=== PATIENT | female | born 1960 ===

== ENCOUNTER 2020-05-05 13:44 | Outpatient (REF) | payer OTHER, SELFPAY ==
--- NOTE | ~2020-05-05 | US_ITS ---
EXAMINATION: US THYROID CLINICAL INFORMATION: Nontoxic goiter COMPARISON: None TECHNIQUE: Linear transducer grayscale and color Doppler examination with attention to the region of the thyroid. FINDINGS: SIZE: Measurements of the thyroid lobes and nodules are given in sagittal, anteroposterior and transverse dimensions respectively. Right Thyroid Lobe: 5.3 x 1.4 x 1.7 cm, volume 7 mL. Parenchyma: The gland echotexture is homogeneous. Thyroid vascularity is increased. Left Thyroid Lobe: 5 x 1.3 x 1.5 cm, volume 5 mL. Parenchyma: The gland echotexture is homogeneous. Thyroid vascularity is increased. Isthmus: 0.3 cm in maximum AP dimension. No nodule is seen. NODES: No lymphadenopathy is seen in the tissue surrounding the thyroid gland. US/US thyroid IMPRESSION: Normal size hypervascular thyroid gland. This is similar to previous exam from 2018. No nodule seen.
== END 2020-05-05 13:45 | disposition home or self-care (01) ==
LOC: HO.US 13:44
PROVIDERS: Visit Provider Internal Medicine
DX: E04.9 Nontoxic goiter, unspecified (principal)
CPT/HCPCS: 76536

== ENCOUNTER 2021-04-21 17:22 | Outpatient (REF) | payer OTHER, SELFPAY ==
--- NOTE | ~2021-04-21 | XR_ITS ---
EXAMINATION: XR ANKLE, RIGHT CLINICAL INFORMATION: Right ankle pain COMPARISON: None TECHNIQUE: AP, lateral, and mortise views of the right ankle. FINDINGS: Ankle mortise is preserved. No fracture. Soft tissue swelling superficial to the lateral malleolus. Degenerative spurring of the distal talus dorsally. Small heel spur and posterior calcaneal enthesophyte. XR/XR ankle RT min 3V IMPRESSION: Lateral soft tissue swelling. No fracture is demonstrated.
== END 2021-04-21 17:23 | disposition home or self-care (01) ==
LOC: HO.XRAY 17:22
PROVIDERS: Absent Provider Internal Medicine; PCP Internal Medicine; Visit Provider Internal Medicine
DX: M25.571 Pain in right ankle and joints of right foot (principal)
CPT/HCPCS: 73610

== ENCOUNTER 2021-09-30 08:03 | Outpatient (REF) | payer OTHER, SELFPAY ==
[2021-09-30 08:52] LABS: COVID-19 Test Negative (Negative); IDNOW Serial# 9DB6401D
== END 2021-09-30 08:04 | disposition home or self-care (01) ==
LOC: HO.LAB 08:03
PROVIDERS: Visit Provider Internal Medicine
DX: Z20.822 Contact with and (suspected) exposure to COVID-19 (principal)
CPT/HCPCS: 87635; C9803

== ENCOUNTER 2022-08-22 15:35 | Outpatient (REF) | payer OTHER, SELFPAY ==
--- NOTE | ~2022-08-22 | XR_ITS ---
EXAMINATION: XR CHEST CLINICAL INFORMATION: Acute cough. COMPARISON: None available. TECHNIQUE: 2 views of the chest were obtained. FINDINGS: Normal appearance of the cardiomediastinal silhouette. Mild diffuse interstitial thickening without focal airspace opacity. No pleural effusion or pneumothorax. No acute osseous abnormalities. Thoracic spondylosis. Included portions of the upper abdomen are within normal limits. XR/XR chest 2V IMPRESSION: Mild interstitial thickening which is nonspecific and could be associated with asthma, bronchitis, reactive airways disease or atypical infections. No focal infiltrate. Clear pleural spaces.
== END 2022-08-22 15:36 | disposition home or self-care (01) ==
LOC: HO.XRAY 15:35
PROVIDERS: PCP Internal Medicine; Visit Provider Internal Medicine
DX: R05.1 Acute cough (principal)
CPT/HCPCS: 71046

== ENCOUNTER 2022-10-10 18:29 | Outpatient (REF) | payer OTHER, SELFPAY ==
[2022-10-17 21:14] LABS: HPV mRNA E6/E7 rflx Not Detected (Not Detected)
== END 2022-10-10 18:30 | disposition home or self-care (01) ==
LOC: HO.HHCLNP 18:29
PROVIDERS: Visit Provider Internal Medicine
DX: Z12.4 Encounter for screening for malignant neoplasm of cervix (principal); Z11.51 Encounter for screening for human papillomavirus (HPV)
CPT/HCPCS: 87624; 88142

== ENCOUNTER 2023-06-01 16:01 | Outpatient (REF) | payer OTHER, SELFPAY | END 2023-06-01 16:02 | disposition home or self-care (01) | LOC: HO.LNP 16:01 | PROVIDERS: Visit Provider Internal Medicine | DX: R10.84 Generalized abdominal pain (principal) | CPT/HCPCS: 87338 ==

== ENCOUNTER 2023-07-17 08:09 | Outpatient (REF) | payer OTHER, SELFPAY ==
--- NOTE | ~2023-07-17 | CT_ITS ---
EXAMINATION: CT ABDOMEN AND PELVIS WITH CONTRAST CLINICAL INFORMATION: Persistent abdominal pain COMPARISON: 08/15/2017 TECHNIQUE: Multidetector volumetric images were obtained from the superior aspect of the liver through the pubic symphysis following administration 85 mL of Omnipaque 350 intravenous contrast. Sagittal and coronal reformatted images were obtained on the technologist's workstation. Oral contrast: No This CT examination was performed using dose optimization techniques as appropriate, variously including the following: *Automated exposure control *Adjustment of mA and/or kV according to patient size (this includes techniques or standardized protocols for targeted exams where dose is matched to indication/reason for exam; i.e. extremities or head) *Use of iterative reconstruction technique DLP: 293 mGy-cm FINDINGS: LUNG BASES: The visualized lung bases are unremarkable. LIVER, GALLBLADDER, AND BILIARY TREE: Hepatic steatosis. No focal hepatic lesion or intrahepatic biliary ductal dilatation. The gallbladder is unremarkable with no evidence of radiopaque gallstones, gallbladder wall thickening, or obvious pericholecystic inflammatory changes. PANCREAS: Unremarkable. SPLEEN: Unremarkable. ADRENAL GLANDS: Unremarkable. KIDNEYS AND URETERS: The kidneys are normal in size, shape, and attenuation. No hydronephrosis, hydroureter, or calculi seen. No perinephric stranding. BLADDER: Unremarkable. GASTROINTESTINAL TRACT: The small and large bowel are unremarkable. The appendix is unremarkable. ABDOMINAL WALL: No significant hernia is appreciated. LYMPH NODES: Normal. VASCULAR: Unremarkable. PELVIC VISCERA: The uterus and adnexa are unremarkable. OSSEOUS STRUCTURES: Unremarkable. CT/CT abdomen pelvis w IV con IMPRESSION: * No acute intra-abdominal abnormality. * Hepatic steatosis.
[2023-07-17] MEDS: iohexoL 350 MG/ML 100 ML INFUS..BTL IV (11:07)
[2023-07-17] MEDS: Barium Sulfate Oral (Vanilla) 450 ML ORAL.SUSP 900 ML PO (11:07)
[2023-07-18 10:55] LABS: Creatinine POC 0.9 mg/dL (0.5-1.4); GFR POC > 60
== END 2023-07-17 08:10 | disposition home or self-care (01) ==
LOC: HO.CT 08:09
PROVIDERS: PCP Internal Medicine; Visit Provider Internal Medicine
DX: R10.84 Generalized abdominal pain (principal)
CPT/HCPCS: 74177; 82565; Q9967

== ENCOUNTER 2023-07-24 08:11 | Outpatient (AMB) | payer OTHER, SELFPAY ==
--- NOTE | 2023-07-24 08:45 | A.OFFVIS_ITS ---
Vital Signs 07/24/23 08:49 Height 5 ft 3 in Weight 137 lb BMI 24.3 BP 138/81 Blood Pressure Location Lt brachial Position Sitting Pulse 65 Intake Visit Reasons: Colonoscopy Screening Intake Note: Patient new consult for 2nd pre colonoscopy. Patient cc: abdominal pain/bloating, denies any other GI issues. Intelligence Consultant Required: Yes Intelligence Consultant Name: Lubna [id number] Accompanied by: Self / Same As Patient Allergies No Known Allergies Allergy (Verified 07/24/23 08:44) HPI HPI Colonoscopy Screening: Details: 63 year old? female with past medical history of chronic left lower quadrant pain, costochondritis is here today for pre colonoscopy screening.? Patient was sent to us by her PCP.? Patient had colonoscopy in 2019, tubular adenoma found..? Patient denies any gastrointestinal symptoms in the past or at present.? However patient does report of chronic left lower quadrant pain. Sent for CT by her PCP. Done on July 16, awaiting results. Denies any family history of gastrointestinal disease or CRC.? Denies history of difficulty with sedation or anesthesia in the past.? Negative for history of sleep apnea.? Denies any history of cardiac, renal, pulmonary, or hepatic disease.?? No history of infectious? diseases like hepatitis A, B, C, HIV or tuberculosis.? Patient is not on any anticoagulation [facility] Social History (Updated 07/24/23 @ 08:47 by Guera Pritchard) Household Members: Family Alcohol intake: never Patient Tobacco Use Status: Current everyday Tobacco user Review of Systems Const Denies weight gain and Denies weight loss ENT Reports no additional complaints, Denies dysphagia and Denies odynophagia Card Reports no additional complaints Resp Reports no additional complaints GI Denies abdominal pain, Denies belching, Denies melena, Reports bloating, Denies change in bowel habits, Reports GI cramping (LLQ), Denies dysphagia, Denies excessive flatus, Denies dyspepsia, Denies heartburn, Denies diarrhea, Denies loose stools, Denies nausea, Denies odynophagia and Denies vomiting Reports no additional complaints Musc Reports no additional complaints Neuro Reports no additional complaints Psych Reports no additional complaints Endo Reports no additional complaints Physical Exam Vital Signs: Last Vital Signs Pulse 65 07/24/23 08:49 BP 138/81 07/24/23 08:49 BMI result Body Mass Index 24.3 Const General: healthy appearing, no acute distress and well developed Nutritional Appearance: well nourished Orientation/consciousness: patient oriented x3 Resp Effort & Inspection: normal respiratory effort, able to speak in complete sentences, no tracheal deviation and symmetric chest movement Auscultation: clear to auscultation bilaterally Cardio Rate: regular rate GI Inspection: Yes normal to inspection and No distended Palpation (GI): Soft to palpation, not firm, nontender and No hepatosplenomegaly present Auscultation: normal bowel sounds General: Yes no CVA tenderness Back/Spine/Pelvis Back: no CVA tenderness Skin General skin exam: elasticity normal, turgor normal and dry skin Neuro General: patient oriented x3 Psych Appearance: grossly normal Mental Status: mental status grossly normal Assessment & Plan Assessment & Plan (1) Screen for colon cancer: Code(s): Z12.11 - Encounter for screening for malignant neoplasm of colon (2) LLQ abdominal pain: Code(s): R10.32 - Left lower quadrant pain Plan Patient denies any cardiac or respiratory symptoms.? However patient does report occasional left lower quadrant discomfort. Awaiting results from CT scan. Denies any issues with anesthesia in the past.? Denies any history of sleep apnea.? No history infectious diseases in the past or present.? Not on any anticoagulation therapy.? No family or personal history of colon cancer or polyps.? Patient denies melena, hematochezia, unintentional weight loss or ribbon like stools.? Discussed at length the pre-procedure,? prep, diet & medications as well as what to expect prior, during and after the procedure.?? Stressed the importance of good bowel prep. ?Recommended the use of Vaseline or Calmoseptine OTC & baby wipes with bowel movements to promote comfort.? ?Patient verbalizes understanding and agrees to plan of care.? She was given the opportunity to ask questions and all questions answered.? We will see her after the procedure.? Medications: New bisacodyl (Dulcolax (bisacodyl)) take 4 tabs at noon the day before your colonoscopy 20 mg (4 x 5 mg) PO ONCE 1 day 4 tabs 0RF Z12.11 - Encounter for screening for malignant neoplasm of colon polyethylene glycol 3350 (Miralax) As directed by gastroenterology department at [facility] 238 grams PO ONCE 238 grams 0RF Z12.11 - Encounter for screening for malignant neoplasm of colon docusate sodium 100 mg PO BEDTIME 90 caps 3RF K59.00 - Constipation, unspecified Coding Level of Care Code New Pt Level 3 (59697) Diagnoses Screen for colon cancer Z12.11 LLQ abdominal pain R10.32 Time Spent (min) 45 Comment 30 minutes spent with patient and additional 15 minutes spent reviewing her records
[2023-07-24 08:49] VITALS: BP 138/81; PULSE 65; BMI 24.3
== END 2023-07-24 09:33 | disposition home or self-care (01) ==
PROVIDERS: PCP Internal Medicine; Referring Provider Internal Medicine; Visit Provider Nurse Practitioner Family
DX: Z12.11 Encounter for screening for malignant neoplasm of colon (principal); R10.32 Left lower quadrant pain; Z01.818 Encounter for other preprocedural examination
CPT/HCPCS: 99203

== ENCOUNTER → 2023-07-24 08:11 | Outpatient (BNVA) | payer OTHER, SELFPAY | PROVIDERS: PCP Internal Medicine; Visit Provider Nurse Practitioner Family | DX: Z01.818 Encounter for other preprocedural examination (principal); R10.32 Left lower quadrant pain; Z86.010 Personal history of colon polyps | CPT/HCPCS: 99202 ==

== ENCOUNTER → 2023-10-08 08:45 | Outpatient (BNV) | payer OTHER, SELFPAY | PROVIDERS: PCP Internal Medicine; Visit Provider Radiology Diagnostic Radiology | DX: Z12.31 Encounter for screening mammogram for malignant neoplasm of breast (principal) | CPT/HCPCS: 77063; 77067 ==

== ENCOUNTER 2023-10-08 08:48 | Outpatient (REF) | payer OTHER, SELFPAY | END 2023-10-08 08:49 | disposition home or self-care (01) | LOC: HO.MAMMO 08:48 | PROVIDERS: PCP Internal Medicine; Visit Provider Internal Medicine | DX: Z12.31 Encounter for screening mammogram for malignant neoplasm of breast (principal) | CPT/HCPCS: 77063; 77067 ==

== ENCOUNTER 2023-10-31 07:56 | Outpatient (AMB) | payer OTHER, SELFPAY ==
--- NOTE | 2023-10-31 08:04 | A.OFFVIS_ITS ---
Vital Signs 10/31/23 08:18 Height 5 ft 3 in Weight 134 lb BMI 23.7 BP 135/77 Blood Pressure Location Lt brachial Position Sitting Pulse 65 Intake Visit Reasons: 5 week follow up PT N/S last appt Intake Note: Patient follow up for LLQ pain Patient cc: LLQ pain on and off. Denies any other GI issues. Regional Clinical Director Required: Yes Regional Clinical Director Name: Lizbeth Montilla Accompanied by: Self / Same As Patient Allergies No Known Allergies Allergy (Verified 10/31/23 08:04) HPI HPI 5 week follow up PT N/S last appt: Details: LAST VISIT: Screen for colon cancer LLQ abdominal pain Plan Patient denies any cardiac or respiratory symptoms.? However patient does report occasional left lower quadrant discomfort. Awaiting results from CT scan. Denies any issues with anesthesia in the past.? Denies any history of sleep apnea.? No history infectious diseases in the past or present.? Not on any anticoagulation therapy.? No family or personal history of colon cancer or polyps.? Patient denies melena, hematochezia, unintentional weight loss or ribbon like stools.? Discussed at length the pre-procedure,? prep, diet & medications as well as what to expect prior, during and after the procedure.?? Stressed the importance of good bowel prep. ?Recommended the use of Vaseline or Calmoseptine OTC & baby wipes with bowel movements to promote comfort.? ?Patient verbalizes understanding and agrees to plan of care.? She was given the opportunity to ask questions and all questions answered.? We will see her after the procedure.? Medications New bisacodyl (Dulcolax (bisacodyl)) take 4 tabs at noon the day before your colonoscopy 20 mg (4 x 5 mg) PO ONCE 1 day 4 tabs 0RF Z12.11 polyethylene glycol 3350 (Miralax) As directed by gastroenterology department at [facility] 238 grams PO ONCE 238 grams 0RF Z12.11 docusate sodium 100 mg PO BEDTIME 90 caps 3RF K59.00 TODAY'S VISIT: Patient is here today for follow-up. Patient reports that she continues to have a left upper quadrant pain. Pain worse when patient is bending over. Patient feels like bulge in the left upper quadrant. CT scan results discussed with patient. No acute findings in the abdomen suggesting any issues. Patient does reports to feel bloated postprandially. Continues to have bowel movements only every 3-4 days. Patient never got script for Colace. Patient has colonoscopy scheduled in November. Instructions on how to prep and clear liquid diet at home. Patient has no questions regarding prepping today. Patient denies any melena, hematochezia. Denies any dyspepsia, dysphagia or odynophagia. Hepatic steatosis found on CT scan. History elevated liver enzymes. [facility] Social History Household Members: Family Alcohol intake: never Patient Tobacco Use Status: Current everyday Tobacco user Review of Systems Const Denies weight gain and Denies weight loss ENT Reports no additional complaints, Denies dysphagia and Denies odynophagia Card Reports no additional complaints Resp Reports no additional complaints GI Denies abdominal pain, Denies belching, Denies melena, Reports bloating, Denies change in bowel habits, Reports constipation, Reports GI cramping (LLQ), Denies dysphagia, Denies excessive flatus, Denies dyspepsia, Denies heartburn, Denies diarrhea, Denies loose stools, Denies nausea, Denies odynophagia and Denies vomiting Reports no additional complaints Musc Reports no additional complaints Neuro Reports no additional complaints Psych Reports no additional complaints Endo Reports no additional complaints Physical Exam Vital Signs: Last Vital Signs Pulse 65 10/31/23 08:18 BP 135/77 10/31/23 08:18 BMI result Body Mass Index 23.7 Const General: healthy appearing, no acute distress and well developed Nutritional Appearance: well nourished Orientation/consciousness: patient oriented x3 Resp Effort & Inspection: normal respiratory effort, able to speak in complete sentences, no tracheal deviation and symmetric chest movement Auscultation: clear to auscultation bilaterally Cardio Rate: regular rate GI Inspection: Yes normal to inspection and No distended Palpation (GI): Soft to palpation, not firm, nontender and No hepatosplenomegaly present Auscultation: Hyperactive bowel sounds present General: Yes no CVA tenderness Back/Spine/Pelvis Back: no CVA tenderness Skin General skin exam: elasticity normal, turgor normal and dry skin Neuro General: patient oriented x3 Psych Appearance: grossly normal Mental Status: mental status grossly normal Results Reviewed Results Reviewed: ABDOMINAL CT SCAN FINDINGS: LUNG BASES: The visualized lung bases are unremarkable. LIVER, GALLBLADDER, AND BILIARY TREE: Hepatic steatosis. No focal hepatic lesion or intrahepatic biliary ductal dilatation. The gallbladder is unremarkable with no evidence of radiopaque gallstones, gallbladder wall thickening, or obvious pericholecystic inflammatory changes. PANCREAS: Unremarkable. SPLEEN: Unremarkable. ADRENAL GLANDS: Unremarkable. KIDNEYS AND URETERS: The kidneys are normal in size, shape, and attenuation. No hydronephrosis, hydroureter, or calculi seen. No perinephric stranding. BLADDER: Unremarkable. GASTROINTESTINAL TRACT: The small and large bowel are unremarkable. The appendix is unremarkable. ABDOMINAL WALL: No significant hernia is appreciated. LYMPH NODES: Normal. VASCULAR: Unremarkable. PELVIC VISCERA: The uterus and adnexa are unremarkable. OSSEOUS STRUCTURES: Unremarkable. CT/CT abdomen pelvis w IV con IMPRESSION: * No acute intra-abdominal abnormality. * Hepatic steatosis. Assessment & Plan Assessment & Plan (1) Screen for colon cancer: Code(s): Z12.11 - Encounter for screening for malignant neoplasm of colon (2) LLQ abdominal pain: Code(s): R10.32 - Left lower quadrant pain (3) Constipation: Code(s): K59.00 - Constipation, unspecified Qualifiers: Constipation type: slow transit constipation Qualified Code(s): K59.01 - Slow transit constipation (4) Abdominal pain, LUQ (left upper quadrant): Code(s): R10.12 - Left upper quadrant pain Plan Increase fluid intake and activity to promote bowel motility. Low FODMAP diet discussed with patient. Exam negative for any tenderness or rebound tenderness. Patient's bowel sounds are hyperactive. Patient does admit to be very gassy. Will send her script for senna to help her move her bowels better. Reminded patient about the importance of good bowel prep day before procedure as well as clear liquid diet. Patient will be seen after the procedure, sooner on as needed basis. Patient is agreeable to this plan and verbalizes understanding of instructions. She was given the opportunity to ask questions and all questions answered. Thank you for allowing me to participate in her care Medications: New sennosides (Natural Senna Laxative) 17.2 mg (2 x 8.6 mg) PO BEDTIME 60 tabs 1RF constipation K59.00 - Constipation, unspecified Coding Level of Care Code Est Pt Level 3 (80915) Diagnoses Screen for colon cancer Z12.11 LLQ abdominal pain R10.32 Slow transit constipation K59.01 Constipation type: slow transit constipation Abdominal pain, LUQ (left upper quadrant) R10.12 Time Spent (min) 25 Comment 15 minutes spent with patient and additional 10 minutes spent reviewing her records
[2023-10-31 08:18] VITALS: BP 135/77; PULSE 65; BMI 23.7
== END 2023-10-31 09:23 | disposition home or self-care (01) ==
PROVIDERS: PCP Internal Medicine; Referring Provider Internal Medicine; Visit Provider Nurse Practitioner Family
DX: Z12.11 Encounter for screening for malignant neoplasm of colon (principal); R10.32 Left lower quadrant pain; K59.01 Slow transit constipation; R10.12 Left upper quadrant pain; Z01.818 Encounter for other preprocedural examination
CPT/HCPCS: 99213

== ENCOUNTER → 2023-10-31 07:56 | Outpatient (BNVA) | payer OTHER, SELFPAY | PROVIDERS: PCP Internal Medicine; Visit Provider Nurse Practitioner Family | DX: Z01.818 Encounter for other preprocedural examination (principal); K59.01 Slow transit constipation; R10.32 Left lower quadrant pain; R10.12 Left upper quadrant pain | CPT/HCPCS: 99212 ==

== ENCOUNTER 2024-08-26 14:01 | Outpatient (REF) | payer OTHER, SELFPAY ==
--- NOTE | ~2024-08-26 | XR_ITS ---
EXAMINATION: XR CERVICAL SPINE CLINICAL INFORMATION: PAIN COMPARISON: None available. TECHNIQUE: 3 views of the cervical spine were obtained. FINDINGS: There is a mild levoconvex scoliosis. There is mild straightening of the normal lordosis. There is no subluxation. There are no fractures, compression deformities, or suspicious bone lesions. No evidence of traumatic subluxation. C1-2 articulation and craniocervical junction are intact and aligned. Mild disc degeneration present C4-5, C5-6, and C6-7. Normal facet alignment bilaterally. Mild multilevel degenerative facet changes. No prevertebral or paravertebral soft tissue abnormality. XR/XR cervical spine 3V IMPRESSION: 1. No plain film evidence of acute cervical spine fracture or injury. 2. Mild degenerative spondylosis. Electronically signed by: Niall Damon MD 08/26/2024 02:38 PM EDT
--- OUTSIDE RECORDS SUMMARY | 2024-08-26 16:45 | XMS_ITS | Patient Health Record ---
Author Organization [facility] Address [address] [place] [phone] Care Team Providers Care Cigar Packer And Sorter Name Role Phone Melonie Bennett Primary Care Provider Geoffrey King Jr Unavailable [phone] Reason For Referral No Information Medications Medication SIG (Take, Route, Frequency, Duration) Notes Start Date End Date Status Lotrisone 1-0.05 % 1 application to aff ected area Externally Twice a day Active Colyte with Flavor Packs 240 GM As directed Orally Over the specified time. for 1 day(s) Active Social History Tobacco Use: Social History Observation Description Date Details (start date - stop date) Current Smoker NA - NA Tobacco Use/Smoking Question Answer Notes Patient is a current smoker How often do you smoke cigarettes? every day How many cigarettes a day do you smoke? 5 or les s How soon after you wake up d o you smoke your first cigarette? 31-60 minutes Are you interested in quitting? Thinking about q uitting Alcohol Screen Question Answer Notes Did you have a drink contain ing alcohol in the past year? Yes How often did you have a dri nk containing alcohol in the past year? Monthly or less (1 point) How many drinks did you have on a typical day when you were drinking in the past year? 1 or 2 drinks (0 point) How often did you have 6 or more drinks on one occasion in the past year? Never (0 point) Points 1 Interpretation Negative Problems Problem Type SNOMED Code ICD Code Onset Dates Problem Status W/U Status Risk Notes Problem [id number] Colon cancer screening (Z12.11) Active confirmed Encounters Encounter Location Date Provider Diagnosis [facility] [address] [place] [phone] 09/11/2023 Geoffrey Khan Jr Plan Of Treatment Future Test Test Name Order Date COLONOSCOPY 01/03/2018 Insurance Providers Payer Name Payer Address Payer Phone Subscriber Number Group Number Insured Name Patient Relationship to Insured Coverage Start Date Coverage End Date [facility] [address] [place] [address] [id number] FERNIE VALDEZ Self - patient is the insured Medical (General) History Medical History History ICD Code Denies [place],DM,CVA,Lung disease,renal dise ase Surgical History Surgery Date(Month/Year) eye surgery-left
== END 2024-08-26 14:02 | disposition home or self-care (01) ==
LOC: HO.HHCX 14:01
PROVIDERS: Visit Provider Student in an Organized Health Care Education/Training Program
DX: M54.2 Cervicalgia (principal)
CPT/HCPCS: 72040

== ENCOUNTER → 2024-08-26 14:02 | Outpatient (BNV) | payer OTHER, SELFPAY | PROVIDERS: Visit Provider Radiology Diagnostic Radiology | DX: M50.322 Other cervical disc degeneration at C5-C6 level (principal) | CPT/HCPCS: 72040 ==

== ENCOUNTER 2024-08-31 19:15 | Outpatient (REF) | payer OTHER, SELFPAY ==
--- NOTE | ~2024-08-31 | MR_ITS ---
CLINICAL HISTORY: ongoing feliz neck pain ongoing, numbness sensation MR Brain without intravenous contrast Comparison: None available Findings: No restricted diffusion acute brain infarction. Multiple sequences degraded by patient motion artifacts. Moderate white matter pathology is nonspecific and may represent a combination of small-vessel ischemic disease and manifestations of vascular type (migraines) headaches. Multiple white matter lesions include the imaged chris/brainstem at this time. Bilateral basal ganglia mineralization nonspecific in this noncontrast study. No definite intra-axial mass or mass-effect defined by noncontrast imaging. Metal artifacts from mouth. Indeterminate cystic change of the anterior pole of the left temporal lobe measures 6 mm on image 13 of series 6 and image 13 of series 16. Large perivascular space is favored by imaging at this time. Additional perivascular spaces are multifocal including basal ganglia regions and para hippocampal sulcal remnants. Fluid and mucosal thickening of the paranasal sinuses are multifocal and can be associated with sinusitis. Bilateral utvas-jh-oqybdrav mastoid effusions, right worse than left. Motion is noted about the imaged orbits. No retrobulbar mass in either orbit by noncontrast imaging. IMPRESSION: 1. Moderate white matter lesions are non acute and nonspecific, including imaged brainstem. Differential considerations include a combination of the small-vessel ischemic disease and manifestations of the vascular type (migraines) headaches. 2. No restricted diffusion acute brain infarction. 3. No retrobulbar mass in either imaged orbit by noncontrast imaging. This document has been electronically signed by: Kareem Varner MD on 08/31/2024 22:20:14
--- NOTE | ~2024-08-31 | XR_ITS ---
CLINICAL HISTORY: R O metallic foreign body in eyes or ferrous surgical implant. --- Additional Notes or Special Instructions: Pt had eye surgery in [place] for pain. Not sure if there was an implant. Two views of the orbits Comparison: None available Findings: Opacity superior to the right frontal sinus is nonspecific in the frontal radiographs. No correlate redemonstrated in the lateral image. Metal of the mouth is present. No definite metallic opacity within either imaged orbit. Imaged nasal septum deviates to the right. Imaged paranasal sinuses are well aerated by radiographs. Imaged mastoid air cells are unremarkable for technique. No definite acute displaced fracture by radiographs at this time. IMPRESSION: 1. Opacities nonspecific superior to the frontal sinus on the frontal image and may be posteriorly in the mfpia-du-gdfg on the lateral image. Please consider CT in place of the potential MRI. Please also consider additional and more sensitive screening with head CT for inclusion of the entire calvarium and additional characterization of the opacity noted. 2. Metal of the mouth present. 3. No metal defined in either imaged orbit by radiographs. This document has been electronically signed by: Kareem Varner MD on 08/31/2024 20:26:19
--- OUTSIDE RECORDS SUMMARY | 2024-08-31 19:35 | XMS_ITS | Patient Health Record ---
Author Organization [facility] Address [address] [place] [id number] Care Team Providers Care Pot Operator Name Role Phone Melonie Bennett Primary Care Provider Geoffrey King Jr Unavailable Reason For Referral No Information Medications Medication [...] Problem Status W/U Status Risk Notes Problem [id number] Colon cancer screening (Z12.11) Active confirmed Encounters Encounter Location Date Provider Diagnosis [facility] [address] [place] [id number] 09/11/2023 Geoffrey Khan Jr Plan Of Treatment Future Test Test Name Order Date COLONOSCOPY 01/03/2018 Insurance Providers Payer Name Payer Address Payer Phone Subscriber Number Group Number Insured Name Patient Relationship to Insured Coverage Start Date Coverage End Date [facility] [address] [place] [address] [id number] FERNIE VALDEZ Self - patient is the insured Medical (General) History Medical History History ICD Code Denies PA,DM,CVA,Lung disease,renal dise ase Surgical History Surgery Date(Month/Year) eye surgery-left
== END 2024-08-31 19:16 | disposition home or self-care (01) ==
LOC: HO.MRI 19:15
PROVIDERS: Visit Provider Student in an Organized Health Care Education/Training Program
DX: R51.9 Headache, unspecified (principal); R20.0 Anesthesia of skin; R20.2 Paresthesia of skin
CPT/HCPCS: 70551

== ENCOUNTER → 2024-08-31 20:35 | Outpatient (BNV) | payer OTHER, SELFPAY | PROVIDERS: Visit Provider Radiology Neuroradiology | DX: R90.82 White matter disease, unspecified (principal) | CPT/HCPCS: 70551 ==

== ENCOUNTER 2024-09-27 10:58 | Emergency (ER) | payer OTHER, SELFPAY ==
--- NOTE | ~2024-09-27 | CT_ITS ---
CLINICAL HISTORY: paresthesias and dizziness since 7pm last night --- Additional Notes or Special Instructions: NIH scale 0 CT head without contrast Comparison: None provided Findings: No intra-axial mass, midline shift, hydrocephalus, or acute hemorrhage. No loss of cortical adler-white differentiation. Minimal low attenuation in the periventricular and subcortical white matter consistent with chronic small-vessel ischemic gliosis. No significant atrophy. No enlargement of the ventricles. There is no sinus or mastoid fluid. The orbits are unremarkable. No skull fracture. IMPRESSION: 1. No acute intracranial findings. This document has been electronically signed by: Ananth Herrera MD on 09/27/2024 12:05:18
[2024-09-27 11:08] VITALS: BP 148/77; PULSE 86; RESP 18; TEMP 37; O2SAT 98; BMI 20.4
--- NOTE | 2024-09-27 11:13 | ED_ITS ---
HPI - Neuro Symptoms/Deficit General Chief Complaint: Neuro Symptoms/Deficit Stated Complaint: facial numbness, CLARK Time Seen by Provider: 09/27/24 12:17 Source: patient, RN notes reviewed, old records reviewed and diplomatic interpreter/translator Mode of arrival: ambulatory Limitations: language barrier History of Present Illness ED Provider: Thomas HPI Narrative: 64-year-old female who denies past medical history presents for evaluation of a headache and numbness around her mouth. She reports this has been going on for about 1 month She had a brain MRI on 08/31/2024 that showed moderate white matter lesions that are nonacute and nonspecific. Recommended consideration of small-vessel ischemic disease and manifestation of vascular type headache The patient reports a posterior headache and numbness around her mouth currently. Denies any difficulty with speech, weakness. Denies any visual changes, lightheadedness or dizziness She also reports pain to the left side of her jaw She reports that she has an outpatient Neurology follow up next month Related Data Previous Rx's ?Medication ?Instructions ?Recorded bisacodyl 5 mg tablet,delayed 20 mg (4 x 5 mg) PO ONCE 1 day #4 07/24/23 release (Dulcolax (bisacodyl)) tabs docusate sodium 100 mg capsule 100 mg PO BEDTIME #90 c aps 07/24/23 polyethylene glycol 3350 17 238 g PO ONCE #238 grams 0 07/24/23 gram/dose oral powder (Miralax) sennosides 8.6 mg tablet (Natural 17.2 mg (2 x 8.6 mg) PO BEDTIME 10/31/23 Senna Laxative) constipation #60 tabs bruyqmdnip-anpyregnaaopz-icxecpxx 1 cap PO Q4H PRN hea dache #16 caps 09/27/24 50 mg-300 mg-40 mg capsule (Fioricet) Allergies Allergy/AdvReac Type Severity Reaction Status Date / Time No Known Allergies Allergy Verified 09/27/24 11:09 Review of Systems 2 Constitutional: Constitutional: Denies body ache(s), Denies chills, Denies fever(s) and Reports headache(s) Eyes: Eyes: Denies blurry vision, Denies exophthalmos and Denies irritation ENT: Denies vertigo, Denies dizziness and Reports headache(s) Cardiovascular: Cardiovascular: Denies chest pain and Denies dyspnea on exertion Respiratory: Respiratory: Denies cough and Denies dyspnea on exertion Gastrointestinal: Gastrointestinal: Denies abdominal pain, Denies nausea and Denies vomiting Musculoskeletal: Musculoskeletal: Denies back pain Neurologic: Denies Abnormal speech present, Denies confusion, Denies vertigo, Denies dizziness and Reports headache(s) Psychiatric: Psychiatric: Denies confusion and Denies depression PMFSH Past Medical History Medical History (Updated 09/27/24 @ 15:12 by Lemuel Guzman) Left upper quadrant abdominal pain Hepatic steatosis Surgical History (Updated 12/04/23 @ 10:30 by Liliana Rodgers RN) H/O colonoscopy Social History Social History Household Members: Family Alcohol intake: never Patient Tobacco Use Status: Current everyday Tobacco user Smoked in Last 30 Days: Yes Use of substances other than those prescribed or required for medical reasons: No Advance Directives: No Advance Directives Information Provided: Yes Physical Exam 2 Vital Signs: Vital Signs: Last Vital Signs Temp 98.1 F 09/27/24 15:38 Pulse 54 09/27/24 15:38 Resp 16 09/27/24 15:38 BP 127/65 09/27/24 15:38 Pulse Ox 97 09/27/24 15:38 O2 Del Method Room Air 09/27/24 15:38 BMI result Body Mass Index 20.4 Const: General: No confusion Nutritional Appearance: well nourished O rientation/consciousness: patient oriented x3 and No confusion HEENT: Head: Yes normocephalic and Yes atraumatic Eyes: Eyelids: Yes eyelids normal Conjunctivae: conjunctivae normal S clerae: sclerae normal Corneas: corneas normal Pupils: Equal, round and reactive pupils present EOM: EOMs intact bilaterally Neck: Neck: Yes full ROM Resp: Effort & Inspection: normal respiratory effort, able to speak in complete sentences and not labored GI: Inspection: No distended Palpation (GI): Soft to palpation, not firm, nontender, no guarding and not rigid Skin: General skin exam: elasticity normal Neuro: General: patient oriented x3 and No confusion Cranial nerves: Yes CN's II-XII intact bilaterally, Yes Facial sensation intact/muscles of mastication intact, Yes Equal, round and reactive pupils present, Yes Bilaterally intact EOM present, Yes Normal facial strength present, Yes Midline tongue present and Yes Symmetric palate elevation present Cognition (Neuro): normal cognition Speech: No Abnormal speech present Motor exam (neuro): 5 /5 motor strength present throughout, no tremor noted and no asterixis C oordination: snrvtz-uy-uxhx test normal and tqog-pt-litd test normal Course Course Course Narrative: This is a rapid medical exam we will defer full ROS and comprehensive PE to receiving provider. Deisichon SawyerPhong, 11:20, 09/27/2024 Well-appearing 64-year-old female presenting with paresthesias of her mouth left-sided only radiating to her ear. She has a right-sided headache that is dull ache in nature not the worst she has ever had since 19:00 last night. Similar presentation 3 weeks ago seen in an outpatient at the [facility] center she was sent for a brain MRI as well as orbital x-rays which did not show any acute brain infarctions. IMPRESSION: 1. Moderate white matter lesions are non acute and nonspecific, including imaged brainstem. Differential considerations include a combination of the small-vessel ischemic disease and manifestations of the vascular type (migraines) headaches. 2. No restricted diffusion acute brain infarction. 3. No retrobulbar mass in either imaged orbit by noncontrast imaging. This document has been electronically signed by: Kareem Varner MD on 08/31/2024 22:20:14 Neuro exam is nonfocal NIH scale of 0, left-sided jaw TTP but no obvious soft tissue swelling of the mouth the throat neck or ears. She does have bilateral serous chronic appearing a when head movement makes the headache a little bit worse. No paresthesias or weakness of the limbs. This is not seem consistent with a cerebellar stroke at this time could be early Luis Carlos Sommer versus shingles but would not explain the dizziness stroke workup given but no code Conley called as she is in the waiting room CTA not ordered nor that be indicated with the NIH scale is 0. No symptoms but UA ordered any ways Medications Administered Discontinued Medications Generic Name Dose Route Start Last Admin Trade Name Freq PRN Reason Stop Dose Admin Diphenhydramine HCl 25 mg 09/27/24 12:36 09/27/24 13:03 Diphenhydramine Hcl 50 Mg/Ml Vial IVPUSH 09/27/24 12:37 25 mg ONCE ONE Administration Ketorolac Tromethamine 15 mg 09/27/24 12:36 09/27/24 13:02 Ketorolac Tromethamine 15 Mg/Ml Vial IVPUSH 09/27/24 12:37 15 mg ONCE ONE Administration Metoclopramide HCl 10 mg 09/27/24 12:36 09/27/24 13:02 Metoclopramide Hcl 10 Mg/2 Ml Vial IVPUSH 09/27/24 12:37 10 mg ONCE ONE Administration Medical Decision Making Medical Decision Making [facility] Narrative: 64-year-old female presents for evaluation of headache, dizziness and numbness around her mouth. This has been ongoing for about 1 month, she did have an MRI about 1 month ago. She had a CT scan of the brain ordered in triage that did not show any acute findings. Given the clinical presentation and recent workup, I I have a low suspicion for CVA or TIA. The patient has no history of hypertension, diabetes, hyperlipidemia. NIH stroke score is 0. We will try to treat her symptoms as a complex migraine with Toradol, Reglan and Benadryl and re-evaluate. Differential Diagnosis Differential Diagnoses: The differential diagnosis associated with the presentation includes Complex migraine TMJ CVA TIA less likely Lab Data [facility] Lab Attestation statement: I reviewed the patient's lab results. Mild leukocytosis to 13.9 which appears consistent with the patient's baseline. There has a mild anemia with a hemoglobin of 11.2 and a hematocrit 4. Unclear etiology. There was no evidence of GI bleed. Chemistries without concerning abnormalities. The patient's glucose is normal at 102. 09/27/24 11:39 09/27/24 11:39 Labs: Lab Results 09/27/24 09/27/24 09/27/24 Range/Units 11:39 12:04 12:07 WBC 13.9 H (4.8-10.8) X10*3/uL RBC 3.83 L (4.20-5.50) X10*6/uL Hgb 11.2 L (12.0-16.0) g/dl Hct 33.4 L (37.0-47.0) % MCV 87.2 (80.0-98.0) fL MCH 29.2 (27.0-33.0) pg MCHC 33.5 (31.0-35.0) g/dl RDW 14.0 (11.0-16.0) % Plt Count 494 H (160-400) X10*3/uL MPV 9.2 L (9.4-12.3) fL Immature Gran % (Auto) 0.4 (0.0-0.4) % Neut % (Auto) 67.3 (45-73) % Lymph % (Auto) 26.1 (20-40) % Griggs % (Auto) 5.2 (2-11) % Eos % (Auto) 0.6 (0-4) % Baso % (Auto) 0.4 (0-2) % Lymph # (Auto) 3.6 (1.2-4.9) X10*3/uL Griggs # (Auto) 0.7 (0.1-1.2) X10*3/uL Eos # (Auto) 0.1 (0.0-0.4) X10*3/uL Baso # (Auto) 0.1 (0.0-0.2) X10*3/uL Abs Immat Gran (auto) 0.06 H (0.00-0.03) X10*3/uL Absolute Neuts (auto) 9.4 H (2.0-8.3) x10*3/uL Absolute Nucleated RBC 0.000 (0.0-0.012) X10*3/uL Nucleated RBC % (auto) 0.0 (0.0-0.2) /100WBC PT 11.0 (10.9-12.4) SEC Whole Blood PT 12.7 (11.1-13.5) sec INR 1.0 (0.9-1.1) Whole Blood INR 1.1 (0.9-1.1) APTT 34.9 (26.0-36.8) SEC Sodium 138 (135-145) mmol/L Potassium 3.9 (3.3-5.1) mmol/L Chloride 106 (96-108) mmol/L Carbon Dioxide 25 (22-29) mmol/L Anion Gap 11 L (12-20) BUN 11 (9-16) mg/dL Creatinine 0.72 (0.5-1.4) mg/dL Estim Creat Clear Calc 69.4 Estimated GFR > 60 POC Glucose 102 (60-115) mg/dL Random Glucose 101 (60-115) mg/dL Calcium 9.0 (8.4-10.2) mg/dL Troponin I High Sens < 2.7 (<3.5-17.0) ng/L Discharge Plan Discharge Clinical Impression: Acute headache Patient Disposition: Home, Self-Care Instructions: Acute Headache (ED) Additional Instructions: Your workup in the ER today was reassuring. I do recommend that you follow up with Neurology next month as planned. You may use Fioricet as needed for any further headaches Follow up with your primary doctor, return for new or worsening symptoms Prescriptions: New qpcjtwotts-xgxbuwyuwjnff-yqvd [Fioricet] 50-300-40 mg capsule 1 cap PO Q4H PRN (Reason: headache) Qty: 16 0RF No Action docusate sodium 100 mg capsule 100 mg PO BEDTIME Qty: 90 3RF bisacodyl [Dulcolax (bisacodyl)] 5 mg tablet,delayed release (DR/EC) 20 mg PO ONCE 1 Days Qty: 4 0RF Rx Instructions: take 4 tabs at noon the day before your colonoscopy polyethylene glycol 3350 [Miralax] 17 gram/dose powder 238 g PO ONCE Qty: 238 0RF Rx Instructions: As directed by gastroenterology department at [facility] sennosides [Natural Senna Laxative] 8.6 mg tablet 17.2 mg PO BEDTIME Qty: 60 1RF Interventions: ED Discharge Assessment Last Done: 09/27/24 15:38 Discharge Date/Time: 09/27/24 15:38 Print Language: Persian
--- NOTE | 2024-09-27 11:19 | ECG_ITS ---
Test Reason : NUMBNESS Blood Pressure : */* mmHG Vent. Rate : 66 BPM Atrial Rate : 66 BPM P-R Int : 132 ms QRS Dur : 78 ms QT Int : 392 ms P-R-T Axes : 64 39 42 degrees QTcB Int : 410 ms Normal sinus rhythm Possible Left atrial enlargement Borderline ECG No previous ECGs available Referred By: Deisi Sawyer Electronically Signed By: Jorge L Paz
[2024-09-27 11:44] LABS: MANUAL DIFF FLAG NO
--- OUTSIDE RECORDS SUMMARY | 2024-09-27 11:44 | XMS_ITS | Encounter Summary ---
Author Organization [employer] [facility] Address [address] [place] [address] Care Team Providers Care Pattern Grader Supervisor Name Role Phone Guera Menjivar MD Primary Care Provide r Encounter Details Date Type Department Care Team (Late st Contact Info) Description 02/13/2023 Abstract [facility] [address] [place] [address] Radha Clarke Social History Tobacco Use Types Packs/Day Years Used Date Smoking Tobacco: Every Day Cigarettes Passive Smoke Exposure: Current Smokeless Tobacco: Never Comments:4-5 Daily Alcohol Use Standard Drinks/Week Comments Never 0 (1 standard drink = 0.6 oz pur e alcohol) Depression Answer Date Recorded Patient Health Questionnaire-9 Score 0 08/22/2022 Housing Stability Answer Date Recorded What is your housing situation today? I have nikolay alcala 01/15/[address] you li ve. Do you have problems with any of the following? None of the above 01/15/2023 Food Insecurity Answer Date Recorded Within the past 12 months, y ou worried that your food would run out before you got money to buy more: Never True 01/15/2023 Within the past 12 months,th e food you bought just didn't last and you didn't have enough money to get more: Never True Transportation Answer Date Recorded In the past 12 months, has l ack of transportation kept you from medical appts, meetings, work or from getting things needed for daily living? No 01/15/2023 Utilities Answer Date Recorded In the past 12 months, has t he electric, gas, oil or water company threatened to shut off services in your home? No 01/15/2023 Depression Answer Date Recorded Patient Health Questionnaire-2 Score 0 08/22/2022 Comments Unknown Sex and Gender Information Value Date Recorded Sex Assigned at Female 01/16/2022 10:32 AM EDT Legal Sex Female 10:32 AM EDT Gender Identity Female 01/16/2022 10:32 AM EDT Sexual Orientation Choose not to disclose 2021 10:32 AM EDT documented as of this encounter Plan of Treatment Upcoming Encounters Date Type Department Care Team (Late st Contact Info) Description 10/06/2024 2:45 PM EDT Office Visit [facility] [address] [place] [address] Guera Menjivar MD [address] [place] [address] documented as of this encounter Visit Diagnoses Not on filedocumented in this encounter Additional Health Concerns Assessment Noted Time PHQ-9 Depression Total Score: 0 08/23/19 23 2:00 PM EDT documented as of this encounter Care Teams Pattern Grader Supervisor Relationship Specialty Start Date End Date Guera Menjivar MD [address] [place] [id number] PCP - General Family Medicine 12/15/19 documented as of this encounter
[2024-09-27 11:45] LABS: Hematocrit 33.4 % (37.0-47.0); Hemoglobin 11.2 g/dl (12.0-16.0); Imm Gran Abs Auto 0.06 X10*3/uL (0.00-0.03); Imm Gran Pct Auto 0.4 % (0.0-0.4); Lymphocytes Absolute Auto 3.6 X10*3/uL (1.2-4.9); Mean Corpuscular HGB Conc 33.5 g/dl (31.0-35.0); Mean Corpuscular Hemoglobin 29.2 pg (27.0-33.0); Mean Corpuscular Volume 87.2 fL (80.0-98.0); NRBC Abs Auto 0.000 X10*3/uL (0.0-0.012); NRBC Pct Auto 0.0 /100WBC (0.0-0.2); Platelet Count 494 X10*3/uL (160-400); Red Blood Count 3.83 X10*6/uL (4.20-5.50); White Blood Count 13.9 X10*3/uL (4.8-10.8)
[2024-09-27 11:54] LABS: INTERNATIONAL NORM RATIO 1.0 (0.9-1.1); Prothrombin Time 11.0 SEC (10.9-12.4)
[2024-09-27 11:56] LABS: Partial Thromboplastin Time 34.9 SEC (26.0-36.8)
[2024-09-27 12:06] LABS: Anion Gap 11 (12-20); Blood Urea Nitrogen 11 mg/dL (9-16); Calcium 9.0 mg/dL (8.4-10.2); Carbon Dioxide 25 mmol/L (22-29); Chloride 106 mmol/L (96-108); Creatinine Clr Calc Pharmacy 69.4; Estimated Glomerular Filt Rate > 60; Potassium 3.9 mmol/L (3.3-5.1); Sodium 138 mmol/L (135-145)
[2024-09-27 12:10] LABS: Prothrombin Time Whole Bld POC 12.7 sec (11.1-13.5); ~PT, ~INR - Anti Coag Clinic 1.1 (0.9-1.1)
[2024-09-27 12:10] LABS: Glucose, Whole Blood 102 mg/dL (60-115)
[2024-09-27 12:18] LABS: Troponin-I High Sensitivity < 2.7 ng/L (<3.5-17.0)
[2024-09-27 12:25] VITALS: BP 133/80; PULSE 65; RESP 16; O2SAT 100
[2024-09-27 13:57] VITALS: BP 127/65; PULSE 54; RESP 16; TEMP 36.7; O2SAT 97
[2024-09-27 15:38] VITALS: BP 127/65; PULSE 54; RESP 16; TEMP 36.7; O2SAT 97
== END 2024-09-27 15:38 | disposition home or self-care (01) ==
PROVIDERS: Physician Assistant Medical; Emergency Provider Emergency Medicine
DX: R51.9 Headache, unspecified (principal); R20.0 Anesthesia of skin
CPT/HCPCS: 36415; 70450; 80048; 82947; 84484; 85025; 85610; 85730; 93005; 96374; 96375; 99284; J1200; J1885; J2765

== ENCOUNTER → 2024-09-27 11:17 | Outpatient (BNV) | payer OTHER, SELFPAY | PROVIDERS: Visit Provider Radiology Diagnostic Radiology | DX: R20.2 Paresthesia of skin (principal); R42 Dizziness and giddiness | CPT/HCPCS: 70450 ==

== ENCOUNTER → 2024-09-27 11:19 | Outpatient (BNV) | payer OTHER, SELFPAY | PROVIDERS: Emergency Provider Emergency Medicine; Visit Provider Internal Medicine Cardiovascular Disease | DX: R20.0 Anesthesia of skin (principal) | CPT/HCPCS: 93010 ==

== ENCOUNTER 2024-10-21 12:20 | Outpatient (REF) | payer OTHER, SELFPAY | END 2024-10-21 12:21 | disposition home or self-care (01) | LOC: HO.LAB 12:20 | PROVIDERS: PCP Internal Medicine; Referring Provider Student in an Organized Health Care Education/Training Program; Visit Provider Psychiatry & Neurology Neurology | DX: M31.6 Other giant cell arteritis (principal); I67.89 Other cerebrovascular disease; R51.9 Headache, unspecified; R20.0 Anesthesia of skin; M54.2 Cervicalgia; H53.8 Other visual disturbances; Z79.899 Other long term (current) drug therapy | CPT/HCPCS: 36415; 85652; 86141; 99202 ==

== ENCOUNTER 2024-10-21 12:20 | Outpatient (AMB) | payer OTHER, SELFPAY ==
--- NOTE | 2024-10-21 12:47 | MHC.OFFVIS ---
Intake Visit Reasons: NUMBNESS TINGLING ABN MRI Allergies No Known Allergies Allergy (Verified 09/27/24 11:09) Medication List - Last Reconciled 10/21/24 by Cristina Lucia MD bisacodyl (Dulcolax (bisacodyl)) 20 mg (4 x 5 mg) PO ONCE 1 day zjzwbwzmtg-susucqkjqmugc-vtbm 50-300-40 mg (Fioricet) 1 cap PO Q4H PRN docusate sodium 100 mg PO BEDTIME polyethylene glycol 3350 (Miralax) 238 grams PO ONCE sennosides (Natural Senna Laxative) 17.2 mg (2 x 8.6 mg) PO BEDTIME HPI Comments Details: 64 years old woman who came with complain of blurred vision and headache and neck pain. This started few months ago and about 3 months ago she saw an eye doctor and apparently no significant problem was found on her glasses were changed. Since then her visual problem is worsened. She was seeing blurry. There was no double vision. She was also complaining of pain in both temporal area and neck area which at 1 time was quite severe and throbbing but now was much better. She had been to emergency room where she had a CAT scan of brain an MRI of brain revealing microvascular disease of brain but otherwise no significant pathology. She denied any recent cold or flu-like illness or trauma or significant stress. [facility] Medical History (Updated 10/21/24 @ 13:07 by Cristina Lucia MD) Numbness and tingling Left upper quadrant abdominal pain Hepatic steatosis Surgical History (Updated 12/04/23 @ 10:30 by Liliana Rodgers RN) H/O colonoscopy Social History Household Members: Family Alcohol intake: never Patient Tobacco Use Status: Current everyday Tobacco user Review of Systems Const Details: Constitutional:?No fever, chills, fatigue, weight loss, or night sweats. HEENT:? Complain of headache and blurred vision. Cardiovascular:?No chest pain, palpitations, orthopnea, PND, or leg swelling. Respiratory:?No cough, shortness of breath, wheezing, or hemoptysis. Gastrointestinal:?No nausea, vomiting, abdominal pain, diarrhea, or constipation. Genitourinary:?No dysuria, frequency, incontinence, or hematuria. Musculoskeletal:?No joint pain, stiffness, weakness, or muscle aches. Neurological:?No dizziness, syncope, seizures, numbness, tingling, weakness, tremors, memory loss. Psychiatric:?No anxiety, depression, mood swings, sleep disturbance, or hallucinations. Endocrine:?No heat/cold intolerance, polydipsia, polyuria, or hair/skin changes. Hematologic/Lymphatic:?No easy bruising, bleeding, or lymphadenopathy. Integumentary (Skin):?No rash, lesions, itching, or color changes. Allergic/Immunologic:?No seasonal allergies, hives, or recurrent infections. Physical Exam Neuro Other: Mental Status: Alert and oriented to person, place, and time. Normal attention. Normal spontaneous speech, fluency, and comprehension. No obvious issues with mood and memory. Affect is appropriate. Cranial Nerves: CN II: Visual malone full to confrontation, with left eye closed her vision was blurred while with right eye close her vision was okay. CN III, IV, : Pupils equal, round, reactive to light and accommodation. Extraocular movements are normal. CN V: Facial sensation is normal. CN VII: Facial movements symmetrical. CN VIII: Hearing intact to bedside conversation is normal. CN IX, X: Palate elevates symmetrically. CN XI: Shoulder shrug and head turn symmetrical. CN XII: Tongue midline without atrophy or fasciculations. Motor: Bulk and tone normal in all extremities. No significant muscle weakness in arms and legs. No drift. Reflexes: Deep tendon reflexes 1+ and symmetric. Plantar response down-going bilaterally. Coordination: Tjjplj-xt-albh and eelw-ft-pksq testing normal. No dysmetria. Gait and Station: No obvious gait abnormality. No ataxia or instability. Extrapyramidal: Full facial expressions and blinking. No rigidity. Movements are appropriate with no tremor or abnormality. Speech: Normal; no dysarthria or tremor. Assessment & Plan Assessment & Plan (1) Temporal arteritis: Comment: [place] brain [place] [facility] [place]: [place] brain WO [place] [facility] [place] August [place]24: Mod MVD Code(s): M31.6 - Other giant cell arteritis Category: Medical (2) Cerebral microvascular disease: Code(s): I67.89 - Other cerebrovascular disease Category: Medical Plan Impression: 1. 64 years old woman with new onset of sometime severe bitemporal and neck area pain/headaches with blurred vision. Examination revealing partial loss of vision in right eye. There was possibility of temporal arteritis until proven otherwise. 2. Moderate chronic microvascular ischemic disease of brain Recommendations: 1. Prednisone 20 mg twice a day which can be stopped her change pending final diagnosis 2. Sed rate, CRP. 3. Ophthalmology evaluation Orders: Orders Erythrocyte Sedimentation Rate Today M31.6 - Other giant cell arteritis CRP High Sensitivity Today M31.6 - Other giant cell arteritis Referrals Ophthalmology Referral M31.6 - Other giant cell arteritis Medications: New prednisone 20 mg PO BID 60 tabs 1RF Coding Level of Care Code Tele New Pt Level 5 (73684) Diagnoses Temporal arteritis M31.6 Cerebral microvascular disease I67.89
--- OUTSIDE RECORDS SUMMARY | 2024-10-21 12:58 | XMS_ITS | Encounter Summary ---
Author Organization [employer] Address [address] [place] [address] Care Team Providers Care Elastic Attacher Zigzag Name Role Phone Guera Menjivar MD Primary Care Provide r Encounter Details Date Type Department Care Team (Late st Contact Info) Description 02/13/2023 Abstract [facility] [address] [place] [address] Radha Clarke Social History Tobacco Use Types [...] Care Team (Late st Contact Info) Description 12/04/2024 1:15 PM EDT Office Visit [facility] [address] [place] [address] Guera Menjivar MD [address] [place] [address] documented as of this encounter Visit Diagnoses Not on filedocumented in this encounter Additional Health Concerns Assessment Noted Time PHQ-9 Depression Total Score: 0 08/23/19 23 2:00 PM EDT documented as of this encounter Care Teams Elastic Attacher Zigzag Relationship Specialty Start Date End Date Guera Menjivar MD [address] [place] [id number] PCP - General Family Medicine 12/15/19 documented as of this encounter
--- OUTSIDE RECORDS SUMMARY | 2024-10-21 12:58 | XMS_ITS | Patient Health Record ---
Author Organization [facility] Address [address] [place] [address] Care Team Providers Care Industrial Technology Teacher Name Role Phone Melonie Bennett Primary Care [...] Problem Status W/U Status Risk Notes Problem [id number] Colon cancer screening (Z12.11) Active confirmed Plan Of Treatment Future Test Test Name Order Date COLONOSCOPY 01/03/2018 Insurance Providers Payer Name Payer Address Payer Phone Subscriber Number Group Number Insured Name Patient Relationship to Insured Coverage Start Date Coverage End Date [facility] [address] [place] [address] [id number] FERNIE VALDEZ Self - patient is the insured Medical (General) History Medical History History ICD Code Denies [place],DM,CVA,Lung disease,renal dise ase Surgical History Surgery Date(Month/Year) eye surgery-left
== END 2024-10-21 13:17 | disposition home or self-care (01) ==
LOC: HO.HSM 12:21
PROVIDERS: PCP Internal Medicine; Referring Provider Student in an Organized Health Care Education/Training Program; Visit Provider Psychiatry & Neurology Neurology
DX: M31.6 Other giant cell arteritis (principal); I67.89 Other cerebrovascular disease
CPT/HCPCS: 99204

== ENCOUNTER 2024-10-27 09:48 | Outpatient (AMB) | payer OTHER, SELFPAY ==
--- NOTE | 2024-10-27 09:54 | MHC.OFFVIS ---
Vital Signs 10/27/24 10:04 Height 5 ft 6 in Weight 122 lb BMI 19.7 BP 159/78 H Blood Pressure Location Rt brachial Position Sitting Pulse 58 Intake Visit Reasons: temporal artery BX per dr. lucia Intake Note: Patient referred by Dr. Lucia for a temporal bx. Patient here w/ sister and niece Megan who will be interpreting. Patient c/o: pain on arms that spreads to chest area. Lt temporal side is more painful. Brain MRI: 08-31-[address]: 09-27-2024 Extension Edger Required: No Extension Edger Services: Extension Edger Offered & Declined Accompanied by: Megan mustafa, sister Suray Allergies No Known Allergies Allergy (Verified 10/27/24 10:01) Medication List - Last Reconciled 10/27/24 by Michael May MD bisacodyl (Dulcolax (bisacodyl)) 20 mg (4 x 5 mg) PO ONCE 1 day zfqryvkycm-csfrfbefvfkml-xtkb 50-300-40 mg (Fioricet) 1 cap PO Q4H PRN docusate sodium 100 mg PO BEDTIME polyethylene glycol 3350 (Miralax) 238 grams PO ONCE prednisone 20 mg PO BID prednisone 20 mg PO TID sennosides (Natural Senna Laxative) 17.2 mg (2 x 8.6 mg) PO BEDTIME HPI HPI temporal artery BX per dr. lucia: Details: [age] year old female referred for temporal artery biopsy. She has had severe bitemporal pain for more than 2 months now. She describes some vision loss as well. She says the pain radiates to the neck and sometimes shoulder She is being followed by the neurologist and was referred to me for temporal artery biopsy. [facility] Medical History (Updated 10/27/24 @ 10:31 by Michael May MD) Temporal headache Numbness and tingling Left upper quadrant abdominal pain Hepatic steatosis Surgical History H/O colonoscopy Social History Household Members: Family Alcohol intake: never Patient Tobacco Use Status: Current everyday Tobacco user Cigarette Packs Per Day: 6 Review of Systems Const Denies chills, Denies fever(s) and Reports weight loss Eyes Reports loss of vision Card Denies chest pain, Denies dyspnea and Denies dyspnea on exertion Resp Denies cough, Denies dyspnea and Denies dyspnea on exertion GI Denies hematochezia and Denies change in bowel habits Denies hematuria Musc Denies back pain and Denies limited range of motion Neuro Details: Bitemporal headaches Denies focal weakness, Reports loss of vision and Denies convulsions Psych Denies depression and Denies mood swings Physical Exam Vital Signs: Last Vital Signs Pulse 58 10/27/24 10:04 BP 159/78 H 10/27/24 10:04 BMI result Body Mass Index 19.7 Const General: comfortable and no acute distress Orientation/consciousness: patient oriented x3 Neck Neck: Yes no lymphadenopathy Resp Auscultation: clear to auscultation bilaterally Cardio Rhythm: regular rhythm GI Palpation (GI): Soft to palpation, nontender and no guarding Neuro General: patient oriented x3 Assessment & Plan Assessment & Plan (1) Temporal headache: Code(s): R51.9 - Headache, unspecified Category: Medical Plan: She has had bitemporal headaches and was referred by the neurologist for temporal artery biopsy preferably on the left. I explained to her the technique of this procedure under anesthesia. I reviewed the risks including but not limited to bleeding, infections, injury, hematoma, as well as the benefits and alternatives. I explained to her what to expect postoperatively She understands and wants to proceed. Coding Level of Care Code New Pt Level 3 (03144) Diagnoses Temporal headache R51.9
[2024-10-27 10:04] VITALS: BP 159/78; PULSE 58; BMI 19.7
--- OUTSIDE RECORDS SUMMARY | 2024-10-27 10:19 | XMS_ITS | Patient Health Record ---
Author Organization [facility] Address [address] [place] [address] Care Team Providers Care Biologist Aide Name Role Phone Melonie Bennett Primary Care Provider Geoffrey King Jr Unavailable [phone] Reason For Referral No Information Medications Medication [...] Problem Status W/U Status Risk Notes Problem [id number] Colon cancer screening (Z12.11) Active confirmed Plan Of Treatment Future Test Test Name Order Date COLONOSCOPY 01/03/2018 Insurance Providers Payer Name Payer Address Payer Phone Subscriber Number Group Number Insured Name Patient Relationship to Insured Coverage Start Date Coverage End Date [employer] [address] [place] [address] [id number] FERNIE VALDEZ Self - patient is the insured Medical (General) History Medical History History ICD Code Denies [place],DM,CVA,Lung disease,renal dise ase Surgical History Surgery Date(Month/Year) eye surgery-left
--- OUTSIDE RECORDS SUMMARY | 2024-10-27 10:19 | XMS_ITS | Encounter Summary ---
Author Organization [employer] Address [address] [facility] [address] [place] [address] Care Team Providers Care Land Acquisition Manager Name Role Phone Guera Menjivar MD Primary Care Provide r Encounter Details Date Type Department Care Team (Late st Contact Info) Description 02/13/2023 Abstract [facility] [address] [place] [address] Radha Clarke Social History Tobacco Use Types [...] Description 12/04/2024 1:15 PM EDT Office Visit [facility] [address] [place] [address] Guera Menjivar MD [address] [place] [address] documented as of this encounter Visit Diagnoses Not on filedocumented in this encounter Additional Health Concerns Assessment Noted Time PHQ-9 Depression Total Score: 0 08/23/19 23 2:00 PM EDT documented as of this encounter Care Teams Land Acquisition Manager Relationship Specialty Start Date End Date Guera Menjivar MD [address] [place] [id number] PCP - General Family Medicine 12/15/19 documented as of this encounter
== END 2024-10-27 10:34 | disposition home or self-care (01) ==
LOC: HO.HGS 09:49
PROVIDERS: Visit Provider Surgery
DX: R51.9 Headache, unspecified (principal)
CPT/HCPCS: 99203

== ENCOUNTER → 2024-10-27 09:48 | Outpatient (BNVA) | payer OTHER, SELFPAY | PROVIDERS: PCP Internal Medicine; Visit Provider Surgery | DX: Z01.818 Encounter for other preprocedural examination (principal); R51.9 Headache, unspecified | CPT/HCPCS: 99202 ==

== ENCOUNTER → 2024-10-30 09:26 | Day surgery (SDC) | payer OTHER, SELFPAY ==
--- NOTE | 2024-10-29 09:05 | HO.ANESPROP2 ---
Documented by User: Diana Tam NP 10/29/24 09:07 HPI - Anesthesia Eval Consult details Narrative: 64yo F for Left Temporal Artery Biopsy Prednisone 20mg BID PMFSH Active Problems Active Problems: All Active Problems Temporal headache (Acute) Cerebral microvascular disease (Acute) Temporal arteritis (Acute) Past Medical History Medical History Temporal headache Numbness and tingling Left upper quadrant abdominal pain Hepatic steatosis Surgical History Surgical History H/O colonoscopy Social History Social History Household Members: Family Alcohol intake: never Patient Tobacco Use Status: Current everyday Tobacco user Tobacco use type: Cigarette Cigarette Packs Per Day: 6 Use of substances other than those prescribed or required for medical reasons: No Advance Directives: No Advance Directives Information Provided: Yes Meds Allergies Allergy/AdvReac Type Severity Reaction Status Date / Time No Known Allergies Allergy Verified 10/27/24 10:01 Exam Pertinent Lab Results Pertinent Lab Results: Laboratory Tests 09/27/24 11:39 WBC 13.9 H Hgb 11.2 L Hct 33.4 L Plt Count 494 H Sodium 138 Potassium 3.9 Chloride 106 Carbon Dioxide 25 BUN 11 Creatinine 0.72 Assessment and Plan Assessment Anesthesia Assessment: Chart Reviewed Documented by User: Abe Taylor MD 10/30/24 11:03 PMFSH Past Medical History Medical History Temporal headache Numbness and tingling Left upper quadrant abdominal pain Hepatic steatosis Functional capacity: independent ambulation Family History Family history of problems with anesthesia: No Surgical History Surgical History H/O colonoscopy History of Problems with Anesthesia: No Social History Social History Household Members: Family Alcohol intake: never Patient Tobacco Use Status: Current everyday Tobacco user Tobacco use type: Cigarette Cigarette Packs Per Day: 6 Use of substances other than those prescribed or required for medical reasons: No Advance Directives: No Advance Directives Information Provided: Yes Meds Allergies Allergy/AdvReac Type Severity Reaction Status Date / Time No Known Allergies Allergy Verified 10/27/24 10:01 Exam Exam Date and Time: 10/31/2023 Airway Neck ROM: Full Loose/Missing/Broken Teeth: No Heart: rrr Lungs: cta Assessment and Plan Final Anesthetic Review Family History of Problems with Anesthesia: No History of Problems with Anesthesia: No
[2024-10-30 10:04] VITALS: BMI 21.0
--- NOTE | 2024-10-30 11:01 | PC.NURSE ---
Dr. May at bedside with Doppler. Unable to locate Temporal Artery via doppler. pt procedure cancelled for today. pt aware and agreeable to plan.
--- NOTE | 2024-10-30 11:08 | PM.EVENT ---
Event Note Date of Service: 10/30/24 Event Note: Scheduled for temporal artery biopsy today However, unable to locate any pulse of the temporal areas on both sides despite use of Doppler She says that she has actually improving with the regards to her symptoms I told her that we will hold off on temporal art biopsy as we are unable to feel arterial pulse on the temporal area even with the use of the Doppler She understands the plan Procedure was canceled Time Spent With Patient Time: Total time managing care of this patient today ____ minutes.
== END ==
LOC: HO.SSS 09:27
PROVIDERS: PCP Internal Medicine; Visit Provider Surgery
DX: R51.9 Headache, unspecified (principal); Z53.8 Procedure and treatment not carried out for other reasons

== ENCOUNTER 2024-11-04 15:49 | Outpatient (REF) | payer OTHER, SELFPAY ==
--- NOTE | ~2024-11-04 | XR_ITS ---
EXAMINATION: XR CHEST CLINICAL INFORMATION: SOB, cough, wheezing COMPARISON: Chest x-ray 08/22/2022 TECHNIQUE: 2 views of the chest were obtained. FINDINGS: Lungs are well-expanded with increased interstitial markings but no focal consolidation or pleural effusion. No pulmonary nodule or mass seen. The heart size and pulmonary vascularity is within normal limits. No gross bony abnormality seen. XR/XR chest 2V IMPRESSION: Mild prominent interstitial markings similar to previous study from 2022. No acute consolidation or effusion seen. Electronically signed by: Pradip Duff MD 11/04/2024 04:31 PM EDT
--- OUTSIDE RECORDS SUMMARY | 2024-11-04 17:18 | XMS_ITS | Patient Health Record ---
Author Organization [facility] Address [address] [place] [address] Care Team Providers Care Plunger Machine Operator Name Role Phone Melonie Bennett Primary [...] Problem Status W/U Status Risk Notes Problem [id number] Colon cancer screening (Z12.11) Active confirmed Plan Of Treatment Future Test Test Name Order Date COLONOSCOPY 01/03/2018 Insurance Providers Payer Name Payer Address Payer Phone Subscriber Number Group Number Insured Name Patient Relationship to Insured Coverage Start Date Coverage End Date [facility] [address] [place] [address] [id number] FERNIE VALDEZ Self - patient is the insured Medical (General) History Medical History History ICD Code Denies [place],DM,CVA,Lung disease,renal dise ase Surgical History Surgery Date(Month/Year) eye surgery-left
== END 2024-11-04 15:50 | disposition home or self-care (01) ==
LOC: HO.HHCX 15:49
PROVIDERS: Visit Provider Internal Medicine
DX: J21.9 Acute bronchiolitis, unspecified (principal)
CPT/HCPCS: 71046

== ENCOUNTER → 2024-11-04 15:49 | Outpatient (BNV) | payer OTHER, SELFPAY | PROVIDERS: Visit Provider Radiology Diagnostic Radiology | DX: R05.9 Cough, unspecified (principal) | CPT/HCPCS: 71046 ==

== ENCOUNTER 2024-11-09 11:24 | Inpatient (IN) | payer OTHER, SELFPAY ==
[2024-11-09] VITALS (7 sets, daily range): BP systolic 126–155; BP diastolic 65–82; PULSE 59–82; RESP 16–22; TEMP 36.1–36.8; O2SAT 94–99; BMI 20.5
--- NOTE | ~2024-11-09 | CT_ITS ---
CLINICAL HISTORY: SOB ? PE CT ANGIOGRAPHY CHEST WITH CONTRAST. 3D POSTPROCESSING. Comparison: CR - XR CHEST 2V - 11/09/24 12:06 EDT Findings: The heart is normal size. RV/LV ratio is normal. Scattered calcific plaque in the thoracic aorta. No aneurysm or dissection. No acute pulmonary embolus. No thyromegaly or lymphadenopathy. Mild bronchial wall thickening. Bilateral reticulonodular densities with right lower lobe predominance. No consolidation, pleural effusion or pneumothorax. The visualized upper abdomen is unremarkable. No acute fractures. IMPRESSION: 1. No pulmonary embolus. 2. Mild bronchial wall thickening, which can be seen with asthma, reactive airways process or viral illness. 3. Bilateral reticulonodular densities suggesting an inflammatory or infectious process. 4. No segmental pneumonia or significant pleural effusion. This document has been electronically signed by: Vanessa Kapadia DO on 11/09/2024 15:27:43
--- NOTE | ~2024-11-09 | XR_ITS ---
CLINICAL HISTORY: wheezing Exam: PA and lateral views of the chest. Comparison: November 04, 2024. Findings: Lungs are well inflated. Cardiac silhouette is within normal limits. Interstitial markings remain mildly prominent, most pronounced centrally. No focal areas of consolidation. No pleural effusion or pneumothorax. Impression: Unchanged exam. No consolidation identified. This document has been electronically signed by: Cj Tanner MD on 11/09/2024 12:09:38
--- NOTE | 2024-11-09 11:43 | ED_ITS ---
HPI - General Adult General Chief complaint: Upper Respiratory Symptoms Stated complaint: sob hard time breathing Time Seen by Provider: 11/09/24 12:57 Source: patient Mode of arrival: ambulatory Limitations: no limitations History of Present Illness HPI narrative: This is 64 years old female presented to the emergency department with a chief complaint of shortness of breath and cough. Patient has a diagnosis of asthma she is on inhaler and prednisone at home. Denies any fever and chills. Currently she is on prednisone 20 mg twice a day. She has a an workup for possible temporal arteritis pending biopsy. Onset (ago): day(s) (3) Radiation: non-radiation Severity: moderate Quality: burning Pain Consistency: constant Exacerbating factors: none Related Data Previous Rx's ?Medication ?Instructions ?Recorded bisacodyl 5 mg tablet,delayed 20 mg (4 x 5 mg) PO ONCE 1 day #4 07/24/23 release (Dulcolax (bisacodyl)) tabs docusate sodium 100 mg capsule 100 mg PO BEDTIME #90 c aps 07/24/23 sennosides 8.6 mg tablet (Natural 17.2 mg (2 x 8.6 mg) PO BEDTIME 10/31/23 Senna Laxative) constipation #60 tabs uwwsohtdsc-zzteycjbgbqde-qvzkblju 1 cap PO Q4H PRN hea dache #16 caps 09/27/24 50 mg-300 mg-40 mg capsule (Fioricet) prednisone 20 mg tablet 20 mg PO BID #60 tabs Allergies Allergy/AdvReac Type Severity Reaction Status Date / Time No Known Allergies Allergy Verified 11/09/24 11:41 Review of Systems 2 Constitutional: Constitutional: Reports no additional constitutional complaints ENT: Reports system reviewed and no additional complaints, except as documented PMF Past Medical History Attestation statement: The following information was validated with the patient. Medical History Temporal headache Numbness and tingling Left upper quadrant abdominal pain Hepatic steatosis Surgical History H/O colonoscopy Social History Social History Household Members: Family Alcohol intake: never Patient Tobacco Use Status: Current everyday Tobacco user Tobacco use type: Cigarette Cigarette Packs Per Day: 6 Smoked in Last 30 Days: No Use of substances other than those prescribed or required for medical reasons: No Advance Directives: No Advance Directives Information Provided: No Do you have a plan to hurt others: No Plan Physical Exam ED Exam Exam: She looks well she is not toxic-appearing Vital Signs: Vital Signs - 24 hr 11/09/24 11:37 11/09/24 13:08 Temperature 97.8 F Pulse Rate 63 64 Respiratory Rate 18 22 H Blood Pressure 126/65 149/82 H Pulse Oximetry 95 94 Oxygen Delivery Method Room Air Room Air BMI result Body Mass Index 20.5 Const General: cooperative Nutritional Appearance: average body habitus Orientation/consciousness: patient oriented x3 Limitations: no limitations HENMT Head: Yes normal to inspection General nose exam: Normal external nose present Face and sinus: Yes normal facial exam Neck Neck: Yes normal visual inspection Resp Effort & Inspection: normal respiratory effort Auscultation: clear to auscultation bilaterally Cardio Jugular venous distension: no JVD Rate: regular rate GI Inspection: Yes normal to inspection Palpation (GI): Soft to palpation and not firm Skin General skin exam: no rashes or lesions noted and elasticity normal Neuro General: patient oriented x3 Cranial nerves: Yes CN's II-XII intact bilaterally Course Course Course Narrative: RME, this is a rapid medical exam performed by Raul Guzman please refer to primary provider for complete H&P- 64-year-old female presents for evaluation of cough and wheezing. She reports that she went to the walk-in clinic and was given an inhaler but was not given a diagnosis. She does admit that she is a tobacco smoker. Plan for basic labs, chest x-ray and viral swabs. The patient does have wheezing on exam Medications Administered Generic Name Dose Route Start Last Admin Trade Name Freq PRN Reason Stop Dose Admin Doxycycline Hyclate 100 mg/ 250 mls @ 166.67 mls/hr 11/09/24 15:45 11/09/24 16:22 Sodium Chloride IV 11/09/24 17:14 166.67 mls/hr ONCE ONE Administration Discontinued Medications Generic Name Dose Route Start Last Admin Trade Name Freq PRN Reason Stop Dose Admin Ceftriaxone Sodium 1 gm 11/09/24 15:42 11/09/24 16:22 Ceftriaxone Sodium 1 Gm Vial IVPUSH 11/09/24 15:43 1 gm ONCE ONE Administration Iohexol 100 ml 11/09/24 14:05 11/09/24 14:05 Iohexol 350 Mg/Ml 100 Ml Infus..Btl IV 11/09/24 14:06 65 ml ONCE ONE Administration Medical Decision Making Medical Decision Making [facility] Narrative: Patient is here with shortness of breath chest x-ray read normal we will go ahead and do a CTA rule out pulmonary emboli rule out occult pneumonia 15:34 CTA chest done she does have a bronchial wall thickening and bilateral nodular density at this time we will start her on antibiotic, given the elevated WBC of 24.5 with left shift it is reasonable to admit the patient for observation she is symptomatic she is tachypneic respiration rate 22 Differential Diagnosis Differential Diagnoses: The differential diagnosis associated with the presentation includes Pneumonia/PE/anxiety Admission/Observation Consideration of admission/observation: Escalation of care including admission/observation considered Consult Healthcare Provider Management of the patient was discussed with: Hospitalist Lab Data [facility] Lab Attestation statement: I reviewed the patient's lab results. 11/09/24 11:55 11/09/24 11:55 Labs: Lab Results 11/09/24 11/09/24 Range/Units 11:55 12:01 WBC 24.5 H (4.8-10.8) X10*3/uL RBC 4.56 (4.20-5.50) X10*6/uL Hgb 13.4 (12.0-16.0) g/dl Hct 39.3 (37.0-47.0) % MCV 86.2 (80.0-98.0) fL MCH 29.4 (27.0-33.0) pg MCHC 34.1 (31.0-35.0) g/dl RDW 16.4 H (11.0-16.0) % Plt Count 413 H (160-400) X10*3/uL MPV 9.4 (9.4-12.3) fL Immature Gran % (Auto) 1.1 H (0.0-0.4) % Neut % (Auto) 74.0 H (45-73) % Lymph % (Auto) 20.3 (20-40) % [place] % (Auto) 4.5 (2-11) % Eos % (Auto) 0.0 (0-4) % Baso % (Auto) 0.1 (0-2) % Lymph # (Auto) 5.0 H (1.2-4.9) X10*3/uL [place] # (Auto) 1.1 (0.1-1.2) X10*3/uL Eos # (Auto) 0.0 (0.0-0.4) X10*3/uL Baso # (Auto) 0.0 (0.0-0.2) X10*3/uL Abs Immat Gran (auto) 0.26 H (0.00-0.03) X10*3/uL Absolute Neuts (auto) 18.1 H (2.0-8.3) x10*3/uL Absolute Nucleated RBC 0.000 (0.0-0.012) X10*3/uL Nucleated RBC % (auto) 0.0 (0.0-0.2) /100WBC Sodium 144 (135-145) mmol/L Potassium 4.5 (3.3-5.1) mmol/L Chloride 105 (96-108) mmol/L Carbon Dioxide 27 (22-29) mmol/L Anion Gap 17 (12-20) BUN 23 H (9-16) mg/dL Creatinine 0.74 (0.5-1.4) mg/dL Estim Creat Clear Calc 61.8 Estimated GFR > 60 Random Glucose 81 (60-115) mg/dL Calcium 9.5 (8.4-10.2) mg/dL Total Bilirubin 0.5 (0.0-1.0) mg/dL AST 25 (5-31) U/L ALT 53 H (0-31) U/L Alkaline Phosphatase 78 (39-117) U/L Troponin I High Sens 2.9 (<3.5-17.0) ng/L B-Natriuretic Peptide 68 (<100) pg/mL Total Protein 6.9 (6.5-8.0) g/dL Albumin 4.0 (3.5-5.0) g/dL COVID-19 ([facility]ARA) Cancelled COVID-19 Clin Com Cancelled Influenza Type A (PCR) NEGATIVE (Negative) Influenza Type B (PCR) NEGATIVE (Negative) RSV RNA Qual (PCR) NEGATIVE (Negative) SARS-CoV-2 RNA (RT-PCR) NEGATIVE (Negative) Independent Interpretation I performed an independent interpretation of an: CT Scan Interpretation: Pneumonitis Radiology Impression Discussion of test interpretation with radiology: I have reviewed the radiologist's reading. Radiologist Impression: Mild bronchial wall thickening. Bilateral reticulonodular densities with right lower lobe predominance. No consolidation, pleural effusion or pneumothorax. The visualized upper abdomen is unremarkable. No acute fractures. IMPRESSION: 1. No pulmonary embolus. 2. Mild bronchial wall thickening, which can be seen with asthma, reactive airways process or viral illness. 3. Bilateral reticulonodular densities suggesting an inflammatory or infectious process. 4. No segmental pneumonia or significant pleural effusion. This document has been electronically signed by: Vanessa Kapadia DO on 11/09/2024 15:27:43 Dictated By: Vanessa Kapadia MD Signed By: <Electronically signed by Vanessa Kapadia MD in OV> 11/09/24 1528 DD/ 1527 Discharge Plan Discharge Clinical Impression: Shortness of breath, Pneumonitis Leukocytosis Qualifiers: Leukocytosis type: bandemia Qualified Code(s): D72.825 - Bandemia Patient Disposition: Admitted As Inpatient Interventions: Admission Worksheet (ED) Last Done: 11/09/24 16:32
[2024-11-09 12:04] LABS: Hematocrit 39.3 % (37.0-47.0); Hemoglobin 13.4 g/dl (12.0-16.0); Imm Gran Abs Auto 0.26 X10*3/uL (0.00-0.03); Imm Gran Pct Auto 1.1 % (0.0-0.4); Lymphocytes Absolute Auto 5.0 X10*3/uL (1.2-4.9); MANUAL DIFF FLAG NO; Mean Corpuscular HGB Conc 34.1 g/dl (31.0-35.0); Mean Corpuscular Hemoglobin 29.4 pg (27.0-33.0); Mean Corpuscular Volume 86.2 fL (80.0-98.0); NRBC Abs Auto 0.000 X10*3/uL (0.0-0.012); NRBC Pct Auto 0.0 /100WBC (0.0-0.2); Platelet Count 413 X10*3/uL (160-400); Red Blood Count 4.56 X10*6/uL (4.20-5.50); White Blood Count 24.5 X10*3/uL (4.8-10.8)
[2024-11-09 12:26] LABS: Alanine Aminotransferase 53 U/L (0-31); Albumin Level 4.0 g/dL (3.5-5.0); Alkaline Phosphatase 78 U/L (39-117); Anion Gap 17 (12-20); Aspartate Amino Transferase 25 U/L (5-31); Blood Urea Nitrogen 23 mg/dL (9-16); Calcium 9.5 mg/dL (8.4-10.2); Carbon Dioxide 27 mmol/L (22-29); Chloride 105 mmol/L (96-108); Creatinine Clr Calc Pharmacy 61.8; Estimated Glomerular Filt Rate > 60; Potassium 4.5 mmol/L (3.3-5.1); Sodium 144 mmol/L (135-145); Total Protein 6.9 g/dL (6.5-8.0)
--- NOTE | 2024-11-09 13:04 | ECG_ITS ---
Test Reason : SOB Blood Pressure : */* mmHG Vent. Rate : 52 BPM Atrial Rate : 52 BPM P-R Int : 118 ms QRS Dur : 72 ms QT Int : 410 ms P-R-T Axes : 73 48 50 degrees QTcB Int : 381 ms Sinus bradycardia Possible Left atrial enlargement Borderline ECG When compared with ECG of 27-Sep-2024 11:30, No significant change was found Referred By: Alverto Francisco Electronically Signed By: AIMEE PRESTON
--- NOTE | 2024-11-09 13:05 | ED.SOB ---
HPI - SOB/Dyspnea General Chief Complaint: Upper Respiratory Symptoms Stated Complaint: sob hard time breathing Time Seen by Provider: 11/09/24 12:57 Related Data Previous Rx's ?Medication ?Instructions ?Recorded bisacodyl 5 mg tablet,delayed 20 mg (4 x 5 mg) PO ONCE 1 day #4 07/24/23 release (Dulcolax (bisacodyl)) tabs docusate sodium 100 mg capsule 100 mg PO BEDTIME #90 caps 07/24/23 polyethylene glycol 3350 17 238 g PO ONCE #238 grams 07/24/23 gram/dose oral powder (Miralax) sennosides 8.6 mg tablet (Natural 17.2 mg (2 x 8.6 mg) PO BEDTIME 10/31/23 Senna Laxative) constipation #60 tabs xuidnoygma-jlngazsmrflrj-pdaelrka 1 cap PO Q4H PRN headache #16 caps 09/27/24 50 mg-300 mg-40 mg capsule (Fioricet) prednisone 20 mg tablet 20 mg PO BID #60 tabs 10/21/24 prednisone 20 mg tablet 20 mg PO TID #90 tabs 10/22/24 Allergies Allergy/AdvReac Type Severity Reaction Status Date / Time No Known Allergies Allergy Verified 11/09/24 11:41 [facility] Past Medical History Medical History Temporal headache Numbness and tingling Left upper quadrant abdominal pain Hepatic steatosis Surgical History H/O colonoscopy Social History Social History Household Members: Family Alcohol intake: never Patient Tobacco Use Status: Current everyday Tobacco user Tobacco use type: Cigarette Cigarette Packs Per Day: 6 Advance Directives: No Advance Directives Information Provided: No Do you have a plan to hurt others: No Plan Physical Exam Vital Signs: Vital Signs: Last Vital Signs Temp 97.8 F 11/09/24 11:37 Pulse 64 11/09/24 13:08 Resp 22 H 11/09/24 13:08 BP 149/82 H 11/09/24 13:08 Pulse Ox 94 11/09/24 13:08 O2 Del Method Room Air 11/09/24 13:08 BMI result Body Mass Index 20.5 Medical Decision Making Lab Data 11/09/24 11:55 11/09/24 11:55 Labs: Lab Results 11/09/24 Range/Units 11:55 WBC 24.5 H (4.8-10.8) X10*3/uL RBC 4.56 (4.20-5.50) X10*6/uL Hgb 13.4 (12.0-16.0) g/dl Hct 39.3 (37.0-47.0) % MCV 86.2 (80.0-98.0) fL MCH 29.4 (27.0-33.0) pg MCHC 34.1 (31.0-35.0) g/dl RDW 16.4 H (11.0-16.0) % Plt Count 413 H (160-400) X10*3/uL MPV 9.4 (9.4-12.3) fL Immature Gran % (Auto) 1.1 H (0.0-0.4) % Neut % (Auto) 74.0 H (45-73) % Lymph % (Auto) 20.3 (20-40) % [place] % (Auto) 4.5 (2-11) % Eos % (Auto) 0.0 (0-4) % Baso % (Auto) 0.1 (0-2) % Lymph # (Auto) 5.0 H (1.2-4.9) X10*3/uL [place] # (Auto) 1.1 (0.1-1.2) X10*3/uL Eos # (Auto) 0.0 (0.0-0.4) X10*3/uL Baso # (Auto) 0.0 (0.0-0.2) X10*3/uL Abs Immat Gran (auto) 0.26 H (0.00-0.03) X10*3/uL Absolute Neuts (auto) 18.1 H (2.0-8.3) x10*3/uL Absolute Nucleated RBC 0.000 (0.0-0.012) X10*3/uL Nucleated RBC % (auto) 0.0 (0.0-0.2) /100WBC Sodium 144 (135-145) mmol/L Potassium 4.5 (3.3-5.1) mmol/L Chloride 105 (96-108) mmol/L Carbon Dioxide 27 (22-29) mmol/L Anion Gap 17 (12-20) BUN 23 H (9-16) mg/dL Creatinine 0.74 (0.5-1.4) mg/dL Estim Creat Clear Calc 61.8 Estimated GFR > 60 Random Glucose 81 (60-115) mg/dL Calcium 9.5 (8.4-10.2) mg/dL Total Bilirubin 0.5 (0.0-1.0) mg/dL AST 25 (5-31) U/L ALT 53 H (0-31) U/L Alkaline Phosphatase 78 (39-117) U/L Total Protein 6.9 (6.5-8.0) g/dL Albumin 4.0 (3.5-5.0) g/dL COVID-19 ([facility]ARA) Cancelled COVID-19 Clin Com Cancelled Discharge Plan Discharge Prescriptions: No Action dpippppuqp-aqqtxwukjkamf-wrfu [Fioricet] 50-300-40 mg capsule 1 cap PO Q4H PRN (Reason: headache) Qty: 16 0RF docusate sodium 100 mg capsule 100 mg PO BEDTIME Qty: 90 3RF bisacodyl [Dulcolax (bisacodyl)] 5 mg tablet,delayed release (DR/EC) 20 mg PO ONCE 1 Days Qty: 4 0RF Rx Instructions: take 4 tabs at noon the day before your colonoscopy polyethylene glycol 3350 [Miralax] 17 gram/dose powder 238 g PO ONCE Qty: 238 0RF Rx Instructions: As directed by gastroenterology department at [facility] sennosides [Natural Senna Laxative] 8.6 mg tablet 17.2 mg PO BEDTIME Qty: 60 1RF prednisone 20 mg tablet 20 mg PO BID Qty: 60 1RF prednisone 20 mg tablet 20 mg PO TID Qty: 90 0RF Print Language: Irish
[2024-11-09 13:55] LABS: Troponin-I High Sensitivity 2.9 ng/L (<3.5-17.0)
[2024-11-09 13:56] LABS: B Type Natriuretic Peptide 68 pg/mL (<100)
[2024-11-09] MEDS: iohexoL 350 MG/ML 100 ML INFUS..BTL IV (14:05)
[2024-11-09 14:10] LABS: Resp Syncy Virus RNA Qual PCR NEGATIVE (Negative); SARS COV2 PCR INHOUSE NEGATIVE (Negative)
--- NOTE | 2024-11-09 18:05 | PHA.MEDREC ---
Pharmacy Consult ? Medication Reconciliation Pharmacy has completed the medication reconciliation. Medication Aid services used, family member at bedside. PAtient and family member both confirmed she only uses her albuterol pump and the prednisone. She did state she takes the prednisone three times daily instead of BID, despite Rx instructions.
--- NOTE | 2024-11-09 18:10 | PM.IMHP ---
History of Present Illness Date of Service: 11/09/24 Chief Complaint: Shortness of breath 64-year-old female with likely diagnosis of COPD comes in with productive cough and shortness of breath that has been present for approximately 1 week. She states her PCP recently started her on albuterol inhaler. Of note, was also seen by Neurology and has been worked up for possible temporal arteritis. She had been on prednisone 20 mg t.i.d.. Despite this her breathing worsened. She will be admitted with COPD exacerbation failing outpatient therapies 1. COPD exacerbation -ceftriaxone/doxycycline (1) given sputum production -methylprednisolone 60 mg IV q.6 hours -DuoNebs q.4 hours while awake as needed -no oxygen requirement at present -Nicoderm patch 2. Vision changes (workup in progress question temporal arteritis) -hold prednisone in favor methylprednisolone as above -check ESR in a.m. -hold on neuro eval pending ESR; last ESR done 10/21 demonstrated a sed rate of 81. If same or elevated despite prednisone consider neuro consult Full code Lovenox Patient will require at least 2 midnights going forward to treat COPD exacerbation with IV antibiotics and IV steroids that has failed outpatient therapies. This can not be achieved a lesser acute setting [facility] Medical History Temporal headache Numbness and tingling Left upper quadrant abdominal pain Hepatic steatosis Surgical History H/O colonoscopy Social History Household Members: Family Housing: House Do you presently have visiting nurse or other home services: No Alcohol intake: never Patient Tobacco Use Status: Current everyday Tobacco user Tobacco use type: Cigarette Cigarette Packs Per Day: 0 Cigarettes Per Day: 6 Years Smoked: 40 Smoked in Last 30 Days: Yes Patient Interested in Nicotine Replacement: Yes Patient Given Instructions on How to Stop Smoking: Yes Date Education Initiated: 11/09/24 Second Hand Smoke Exposure: No Use of substances other than those prescribed or required for medical reasons: No Have you been hit, kicked, punched, or otherwise hurt by someone within the past year? If so, by whom?: No Do you feel safe in your current relationship?: Yes Is there a partner from a previous relationship who is making you feel unsafe now?: No Are you made to feel afraid or neglected: No [employer] Practices: zoroastrianism Advance Directives: No Advance Directives Information Provided: No Do you have a plan to hurt others: No Plan Recently lost weight without trying: Yes How much weight loss: 2-13 pounds Eating poorly because of decreased appetite: Yes Nutrition screen score: 4 Nutrition Risks: No Nutritional Risk Patient : No : No Meds Allergies Allergy/AdvReac Type Severity Reaction Status Date / Time No Known Allergies Allergy Verified 11/09/24 11:41 Active Medications: Current Medications Acetaminophen (Acetaminophen 325 Mg Tablet) 650 mg PO Q6H PRN PRN Reason: Pain, Mild 1-3,fever,headache Albuterol/Ipratropium (Albuterol/Iprat 2.5/0.5mg 3 Ml Ampul.Neb) 3 ml INHALE RQ4H WHILE AWAKE PRN PRN Reason: shorthness of breath Calcium Carbonate (Calcium Carbonate 750 Mg Tab.Chew) 750 mg PO Q4H PRN PRN Reason: Heartburn Ceftriaxone Sodium (Ceftriaxone Sodium 1 Gm Vial) 1 gm IVPUSH Q24H [facility] Enoxaparin Sodium (Enoxaparin Sodium 40 Mg/0.4 Ml Syringe) 40 mg SUBCUT Q24H [facility] Doxycycline Hyclate 100 mg/ (Sodium Chloride) 250 mls @ 166.67 mls/hr IV Q12H [facility] Magnesium Hydroxide (Milk Of Magnesia 30 Ml Oral.Susp) 30 ml PO DAILY PRN PRN Reason: Constipation Melatonin (Melatonin 3 Mg Tablet) 6 mg PO BEDTIME PRN PRN Reason: Insomnia Methylprednisolone Sodium Succinate (Methylprednisolone Sod Succ 40 Mg/Ml Vial) 40 mg IVPUSH Q8H [facility] Nicotine (Nicotine 7 Mg Patch.Td24) 7 mg TRANSDERMA DAILY [facility] Ondansetron HCl (Ondansetron Hcl 4 Mg/2 Ml Vial) 4 mg IVPUSH Q8H PRN PRN Reason: Nausea and Vomiting Oxycodone HCl (Oxycodone Hcl Immed Release 5 Mg Tablet) 5 mg PO Q6H PRN PRN Reason: Pain, Severe (Pain Scale 7-10) Sodium Chloride (0.9 % Sodium Chloride Flush 3 Ml Syringe) 3 [facility] Medications ?Medication ?Instructions ?Recorded ?Confirmed ?Last Taken ?Type albuterol sulfate 90 mcg/actuation 2 inh inhalation Q6H PRN Shortness 11/09/24 11/09/24 Unknown History aerosol inhaler Of Breath Or Wheezing prednisone 20 mg tablet 20 mg PO TID 11/09/24 11/09/24 11/09/24 History Physical Exam Vital Signs and Narrative: Vital Signs: Last Vital Signs Temp 98.3 F 11/09/24 16:04 Pulse 69 11/09/24 16:04 Resp 16 11/09/24 16:04 BP 128/82 11/09/24 16:04 Pulse Ox 99 11/09/24 17:21 O2 Del Method Room Air 11/09/24 17:21 BMI result Body Mass Index 20.5 Results Labs 11/09/24 11:55 11/09/24 11:55 Labs: Laboratory Results - last 24 hr 11/09/24 11/09/24 11/09/24 11:55 12:01 16:02 MCV 86.2 MCH 29.4 MCHC 34.1 RDW 16.4 H Plt Count 413 H MPV 9.4 Immature Gran % (Auto) 1.1 H Neut % (Auto) 74.0 H Lymph % (Auto) 20.3 [place] % (Auto) 4.5 Eos % (Auto) 0.0 Baso % (Auto) 0.1 Lymph # (Auto) 5.0 H [place] # (Auto) 1.1 Eos # (Auto) 0.0 Baso # (Auto) 0.0 Abs Immat Gran (auto) 0.26 H Absolute Neuts (auto) 18.1 H Absolute Nucleated RBC 0.000 Nucleated RBC % (auto) 0.0 Anion Gap 17 Estim Creat Clear Calc 61.8 Estimated GFR > 60 Random Glucose 81 Lactic Acid 1.7 Calcium 9.5 Total Bilirubin 0.5 AST 25 ALT 53 H Alkaline Phosphatase 78 B-Natriuretic Peptide 68 Total Protein 6.9 Albumin 4.0 COVID-19 ([facility]ARA) Cancelled COVID-19 Clin Com Cancelled Influenza Type A (PCR) NEGATIVE Influenza Type B (PCR) NEGATIVE RSV RNA Qual (PCR) NEGATIVE SARS-CoV-2 RNA (RT-PCR) NEGATIVE Quality Stroke Does the patient have a stroke diagnosis?: No VTE Prior VTE?: No VTE Risk Level:: Medical - moderate - high VTE Device Contraindication: Treatment Not Indicated VTE Drug Contraindication: N/A - Med Ordered
[2024-11-09] MEDS: Nicotine 7 MG PATCH.TD24 TRANSDERMA (18:28)
[2024-11-09] MEDS: Albuterol/Iprat 2.5/0.5MG 3 ML AMPUL.NEB INHALE (20:19)
[2024-11-10] MEDS: 0.9 % Sodium Chloride Flush 3 ML SYRINGE IVFLUSH ×2 (01:16→09:02)
[2024-11-10 03:33] VITALS: BP 121/72; PULSE 66; RESP 18; TEMP 36.3; O2SAT 96
[2024-11-10 06:08] LABS: MANUAL DIFF FLAG NO
[2024-11-10 06:45] LABS: Hematocrit 35.6 % (37.0-47.0); Hemoglobin 11.9 g/dl (12.0-16.0); Imm Gran Abs Auto 0.27 X10*3/uL (0.00-0.03); Imm Gran Pct Auto 1.3 % (0.0-0.4); Lymphocytes Absolute Auto 1.8 X10*3/uL (1.2-4.9); Mean Corpuscular HGB Conc 33.4 g/dl (31.0-35.0); Mean Corpuscular Hemoglobin 29.6 pg (27.0-33.0); Mean Corpuscular Volume 88.6 fL (80.0-98.0); NRBC Abs Auto 0.000 X10*3/uL (0.0-0.012); NRBC Pct Auto 0.0 /100WBC (0.0-0.2); Platelet Count 385 X10*3/uL (160-400); Red Blood Count 4.02 X10*6/uL (4.20-5.50); White Blood Count 21.5 X10*3/uL (4.8-10.8)
[2024-11-10 06:56] LABS: Alanine Aminotransferase 45 U/L (0-31); Albumin Level 3.4 g/dL (3.5-5.0); Alkaline Phosphatase 73 U/L (39-117); Anion Gap 14 (12-20); Aspartate Amino Transferase 19 U/L (5-31); Blood Urea Nitrogen 22 mg/dL (9-16); Calcium 8.5 mg/dL (8.4-10.2); Carbon Dioxide 21 mmol/L (22-29); Chloride 107 mmol/L (96-108); Creatinine Clr Calc Pharmacy 73.8; Estimated Glomerular Filt Rate > 60; Potassium 4.4 mmol/L (3.3-5.1); Sodium 138 mmol/L (135-145); Total Protein 6.0 g/dL (6.5-8.0)
[2024-11-10 08:00] VITALS: BP 115/70; PULSE 56; RESP 18; TEMP 36.1; O2SAT 96
[2024-11-10] MEDS: Nicotine 7 MG PATCH.TD24 TRANSDERMA (09:01)
--- NOTE | 2024-11-10 12:08 | PM.DS ---
DS: Providers Provider Date of Service: 11/10/24 Date of admission: 11/09/24 15:45 Date of discharge: 11/10/24 Primary care physician: Guera Flores MD DS: Summary Hospital Course Hospital Course: History and physical as per admitting provider. 64-year-old female with likely diagnosis of COPD comes in with productive cough and shortness of breath that has been present for approximately 1 week. She states her PCP recently started her on albuterol inhaler. Of note, was also seen by Neurology and has been worked up for possible temporal arteritis. She had been on prednisone 20 mg t.i.d.. Despite this her breathing worsened. She will be admitted with COPD exacerbation failing outpatient therapies 64-year-old woman treated for acute COPD exacerbation. Treated with scheduled DuoNebs, IV steroids. Patient was not hypoxic and did not require oxygen administration. Today patient is feeling significantly better, able to ambulate without shortness of breath. Patient requested a DuoNeb machine, discussed with respiratory therapy and machine will be delivered to patient's home. Albuterol liquid ordered to pharmacy for the DuoNeb machine. Albuterol inhaler also refilled. Patient should continue short prednisone taper. Vision changes. Patient currently being worked up for temporal arteritis. Treated with IV steroid. Today patient feels significantly better. Ines's should follow up outpatient with her primary care provider or whichever provider is working her up currently. Leukocytosis. No noted infection. Likely secondary to steroid use. Time Attestation Discharge Coordination Time (in mins): 42 Quality: Safe Use of Opioids Does Pt have an Active Cancer Diagnosis on the Problem List?: No Quality: Stroke Does the patient have a stroke diagnosis?: No Physical Exam Exam: Exam: Appearing in no acute distress head is normocephalic atraumatic eyes pupils are PERRLA sclera is anicteric mouth throat mucous membranes are intact and moist neck is supple no lymphadenopathy, no JVD noted lung sounds are clear to auscultation heart regular rate rhythm, clear S1, S2 positive bowel sounds, abdomen is soft, nontender neuro patient is alert x3, no focal deficits Vital Signs: Vital Signs: Last Vital Signs Temp 97.0 F 11/10/24 08:00 Pulse 56 11/10/24 08:00 Resp 18 11/10/24 08:00 BP 115/70 11/10/24 08:00 Pulse Ox 96 11/10/24 08:00 O2 Del Method Room Air 11/10/24 08:00 BMI result Body Mass Index 20.5 DS: Data Data Completed and Pending Labs on day of discharge: Laboratory Results - last 24 hr 11/09/24 11/09/24 11/09/24 11:55 12:01 16:02 WBC RBC Hgb Hct MCV MCH MCHC RDW Plt Count MPV Immature Gran % (Auto) Neut % (Auto) Lymph % (Auto) [place] % (Auto) Eos % (Auto) Baso % (Auto) Lymph # (Auto) [place] # (Auto) Eos # (Auto) Baso # (Auto) Abs Immat Gran (auto) Absolute Neuts (auto) Absolute Nucleated RBC Nucleated RBC % (auto) ESR Sodium 144 Potassium 4.5 Chloride 105 Carbon Dioxide 27 Anion Gap 17 BUN 23 H Creatinine 0.74 Estim Creat Clear Calc 61.8 Estimated GFR > 60 Random Glucose 81 Lactic Acid 1.7 Calcium 9.5 Total Bilirubin 0.5 AST 25 ALT 53 H Alkaline Phosphatase 78 Troponin I High Sens 2.9 B-Natriuretic Peptide 68 Total Protein 6.9 Albumin 4.0 COVID-19 ([facility]) Cancelled COVID-19 Clin Com Cancelled Influenza Type A (PCR) NEGATIVE Influenza Type B (PCR) NEGATIVE RSV RNA Qual (PCR) NEGATIVE SARS-CoV-2 RNA (RT-PCR) NEGATIVE 11/10/24 05:43 WBC 21.5 H RBC 4.02 L Hgb 11.9 L Hct 35.6 L MCV 88.6 MCH 29.6 MCHC 33.4 RDW 16.8 H Plt Count 385 MPV 10.2 Immature Gran % (Auto) 1.3 H Neut % (Auto) 89.3 H Lymph % (Auto) 8.[address] % (Auto) 0.8 L Eos % (Auto) 0.0 Baso % (Auto) 0.2 Lymph # (Auto) 1.8 [place] # (Auto) 0.2 Eos # (Auto) 0.0 Baso # (Auto) 0.1 Abs Immat Gran (auto) 0.27 H Absolute Neuts (auto) 19.2 H Absolute Nucleated RBC 0.000 Nucleated RBC % (auto) 0.0 ESR 17 Sodium 138 Potassium 4.4 Chloride 107 Carbon Dioxide 21 L Anion Gap 14 BUN 22 H Creatinine 0.62 Estim Creat Clear Calc 73.8 Estimated GFR > 60 Random Glucose 130 H Lactic Acid Calcium 8.5 D Total Bilirubin 0.4 AST 19 ALT 45 H Alkaline Phosphatase 73 Troponin I High Sens B-Natriuretic Peptide Total Protein 6.0 L Albumin 3.4 L COVID-19 ([facility]ARA) COVID-19 Clin Com Influenza Type A (PCR) Influenza Type B (PCR) RSV RNA Qual (PCR) SARS-CoV-2 RNA (RT-PCR) Discharge Plan Discharge Anticipated Discharge Date/Time: 11/10/24 12:03 Patient Disposition: Home, Self-Care Discharge Diagnosis: COPD exacerbation, acute Referrals: Guera Menjivar MD [Primary Care Provider, Internal Medicine] - 1 Week Discharge Medications: New levofloxacin 500 mg tablet 500 mg PO DAILY Qty: 4 0RF prednisone 10 mg tablet 40 mg PO DIRECTED Qty: 16 0RF Rx Instructions: take 40 mg for 4 days albuterol sulfate 2.5 mg /3 mL (0.083 %) solution for nebulization 2.5 mg inhalation Q4H PRN (Reason: shortness of breath or wheezing) Qty: 180 0RF Continued albuterol sulfate 90 mcg/actuation HFA aerosol inhaler 2 inh inhalation Q6H PRN (Reason: Shortness Of Breath Or Wheezing) Qty: 6.7 0RF Discontinued prednisone 20 mg tablet 20 mg PO TID Discharge Orders: Discharge Order (Routine); Ordered 11/10/24 Ordered By: Shawna Ryder Diet: Advance to usual diet Activity on Discharge: As tolerated Stand Alone Forms: Patient Portal Discharge page Print Language: Indonesian Care Plan Goals: Complete steroid taper Use updraft machine as needed for wheezing Health Concerns: COPD exacerbation, acute Plan of Treatment: Follow up with primary care provider as needed Take all medications as prescribed Assessment: See discharge summary Patient Instructions: COPD (Chronic Obstructive Pulmonary Disease) (DC)
== END 2024-11-10 12:43 | disposition home or self-care (01) | DRG 140 ==
LOC: HO.ED 15:55 → HO.EDOVER 16:01 → HO.S3 16:16
PROVIDERS: Physician Assistant; Admitting Provider Hospitalist; Emergency Provider Emergency Medicine; PCP Internal Medicine; Visit Provider Nurse Practitioner Acute Care
DX: J44.1 Chronic obstructive pulmonary disease with (acute) exacerbation (principal); M31.6 Other giant cell arteritis; F17.210 Nicotine dependence, cigarettes, uncomplicated; Z71.6 Tobacco abuse counseling; Z20.822 Contact with and (suspected) exposure to COVID-19
CPT/HCPCS: 36415; 71046; 71275; 80053; 83605; 83880; 84484; 85025; 85652; 87040; 87635; 87637; 93005; 94640; 99221; 99285; J0696; J1271; J1650; J2919; Q9967

== ENCOUNTER → 2024-11-09 11:43 | Outpatient (BNV) | payer OTHER, SELFPAY | PROVIDERS: PCP Internal Medicine; Visit Provider Radiology Diagnostic Radiology | DX: R06.02 Shortness of breath (principal); R06.2 Wheezing | CPT/HCPCS: 71046; 71275 ==

== ENCOUNTER → 2024-11-09 13:04 | Outpatient (BNV) | payer OTHER, SELFPAY | PROVIDERS: Admitting Provider Hospitalist; Emergency Provider Emergency Medicine; PCP Internal Medicine; Visit Provider Internal Medicine | DX: R00.1 Bradycardia, unspecified (principal) | CPT/HCPCS: 93010 ==

== ENCOUNTER → 2024-11-09 15:45 | Outpatient (BNV) | payer OTHER, SELFPAY | PROVIDERS: Admitting Provider Hospitalist; Emergency Provider Emergency Medicine; PCP Internal Medicine; Visit Provider Hospitalist | DX: J44.1 Chronic obstructive pulmonary disease with (acute) exacerbation (principal) | CPT/HCPCS: 99223; 99239 ==

== ENCOUNTER 2024-11-19 14:06 | Outpatient (AMB) | payer OTHER, SELFPAY ==
--- OUTSIDE RECORDS SUMMARY | 2023-09-12 07:20 | XMS_ITS ---
Author Organization [facility] Address [address] [place] [phone] Care Team Providers Care Stripper Cutter Machine Name Role Phone Melonie Bennett Primary Care Provider Geoffrey King Jr [phone] REASON FOR VISIT Patient presents today for abdominal pain Encounters Encounter Location Date Provider Diagnosis [facility] [address] [place] [phone] 09/12/2023 Geoffrey Khan Jr Plan Of Treatment No Information Progress Notes * FERNIE VALDEZDOB:[birth year] (64 yo F)Acc No.[id number]:09/12/2023 Progress Notes Patient: FERNIE TANG Provider: Sarthak Khan MD :1960 A ge:63 Y S ex:Female Date:09/12/2023 Address:[address] [place], [place] [phone] Pcp:Melonie Bennett Subjective: * Chief Complaints: * [...] Date: 09/12/2023 Generated for Yoan alvarado/Rachel/eTransmitting on: 0 11/19/2024 04:23 PM EDT
--- OUTSIDE RECORDS SUMMARY | 2024-11-14 14:00 | XMS_ITS | Encounter Summary ---
Author Organization [employer] Address [address] [facility] [address] [place] [address] Care Team Providers Care Flat Surfacer Jewel Name Role Phone Guera Menjivar MD Primary Care Provide r Reason for Visit * Reason Comments hospital follow up Encounter Details Date Type Department Care Team ([facility] st Contact Info) Description 11/14/2024 2:00 PM EDT Office Visit [facility] [address] [place] [address] Katiuska Evans NP [address] [place] [address] Hospital discharge follow-up (Primary Dx); Encounter for smoking cessation counseling; Screening for lung cancer Social History Tobacco Use Types Packs/Day Years Used Date Smoking Tobacco: Every Day Cigarettes Passive Smoke Exposure: Current Smokeless Tobacco: Never Comments:4-5 Daily Alcohol Use Standard Drinks/Week Comments Never 0 (1 standard drink = 0.6 oz pur e alcohol) Depression Answer Date Recorded Patient Health Questionnaire-9 Score 3 11/14/2024 Patient Health Questionnaire-9 Score 3 11/14/2024 Last PHQ-9: Questionnaire Data Not on file 0 11/14/2024 Housing Stability Answer Date Recorded What is your housing situation today? I have nikolay alcala 09/25/[address] you li ve. Do you have problems with any of the following? None of the above 09/25/2024 Food Insecurity Answer Date Recorded Within the past 12 months, y ou worried that your food would run out before you got money to buy more: Never True 09/25/2024 Within the past 12 months,th e food you bought just didn't last and you didn't have enough money to get more: Never True 12/2024 Transportation Answer Date Recorded In the past 12 months, has l ack of transportation kept you from medical appts, meetings, work or from getting things needed for daily living? No 09/25/2024 Utilities Answer Date Recorded In the past 12 months, has t he electric, gas, oil or water company threatened to shut off services in your home? No 09/25/2024 Depression Answer Date Recorded Patient Health Questionnaire-2 Score 0 11/14/2024 Internet Access Answer Date Recorded Internet Access Q1 Yes 09/25/2024 Internet Access Q2 Not on file 09/25/2024 Comments Unknown Sex and Gender Information Value Date Recorded Sex Assigned at Female 01/16/2022 10:32 AM EDT Legal Sex Female 10:32 AM EDT Gender Identity Female 01/16/2022 10:32 AM EDT Sexual Orientation Choose not to disclose 2021 10:32 AM EDT documented as of this encounter Last Filed Vital Signs Vital Sign Reading Time Taken Comments Blood Pressure 120/82 11/14/2024 2:14 PM EDT Pulse 72 11/14/2024 2:14 PM EDT Temperature 36.6 C (97.9 F) 11/14/2024 2:14 PM EDT Respiratory Rate 18 11/14/2024 2:14 PM EDT Oxygen Saturation 97% 11/14/2024 2:14 PM EDT Inhaled Oxygen Concentration - - Weight 55.7 kg (122 lb 12.8 oz) 11/14/2024 2:14 PM EDT Height 160 cm (5' 3 ) 11/14/2024 2:14 PM EDT Body Mass Index 21.75 11/14/2024 2:14 PM EDT documented in this encounter Functional Status * Over the past 2 weeks, how often have you been bothered by any of the following problems? Question Answer Date of Assessment Author Patient Health Questionnaire -2 Score 0 11/14/2024 2:56 PM EDT Merrick Lopez MA * Little interest or pleasure in doing things Answer Date of Assessment Author Not at all 11/14/2024 2:56 PM EDT Merrick Lopez MA * Feeling down, depressed, or hopeless Answer Date of Assessment Author Not at all 11/14/2024 2:56 PM EDT Merrick Lopez MA * Trouble falling or staying asleep, or sleeping too much Answer Date of Assessment Author Not at all 11/14/2024 2:56 PM EDT Merrick Lopez MA * Feeling tired or having little energy Answer Date of Assessment Author Several days 11/14/2024 2:56 PM EDT Merrick Lopez MA * Poor appetite or overeating Answer Date of Assessment Author Not at all 11/14/2024 2:56 PM EDT Merrick Lopez MA * Feeling bad about yourself - or that you are a failure or have let yourself or your family down Answer Date of Assessment Author Not at all 11/14/2024 2:56 PM EDT Merrick Lopez MA * Trouble concentrating on things, such as reading the newspaper or watching television Answer Date of Assessment Author More than half the days 11/14/2024 2:56 PM EDT Merrick Silver MA * Moving or speaking so slowly that other people could have noticed? Or the opposite - being so fidgety or restless that you have been moving around a lot more than usual. Answer Date of Assessment Author Not at all 11/14/2024 2:56 PM EDT Merrick Lopez MA * Thoughts that you would be better off or hurting yourself in some way Answer Date of Assessment Author Not at all 11/14/2024 2:56 PM DONELLT Merrick Lopez MA * Patient Health Questionnaire-9 Score Answer Date of Assessment Author 3 11/14/2024 2:56 PM EDT Merrick Lopez MA * How difficult have these problems made it for you to do your work, take care of things at home, or get along with other people? Answer Date of Assessment Author Not difficult at all 11/14/2024 2:56 PM EDT Merrick Linares MA * Over the last 2 weeks, how often have you been bothered by any of the following problems? Question Answer Date of Assessment Author Feeling nervous, anxious, or on edge 1 11/14/2024 2:56 PM EDT Merrick Lopez MA Not being able to stop or co ntrol worrying 0 11/14/2024 2:56 PM EDT Merrick Lopez MA Worrying too much about diff erent things 0 11/14/2024 2:56 PM EDT Merrick Lopez MA Trouble relaxing 0 11/14/2024 2:56 PM EDT Merrick Silver MA Being so restless that it is hard to sit still 0 11/14/2024 2:56 PM EDT Merrick Lopez MA Becoming easily annoyed or irritable 0 11/14/2024 2:56 PM EDT Merrick Lopez MA Feeling afraid as if somethi ng awful might happen 0 11/14/2024 2:56 PM EDT Merrick Lopez MA ROSA-7 Total Score 1 11/14/2024 2:56 PM EDT Merrick Lopez MA documented as of this encounter Progress Notes * Katiuska Evans NP - 11/14/2024 2:00 PM EDT Images from the original note were not included. Subjective Patient ID: Kerline De La Paz presents to office for follow up after hospital stay. HPI Kerline De La Paz was discharged from [facility] after brief admission for COPD exacerbation. See pharmacy note for hospital course below. -Today she reports feels better and has no respiratory difficulties -Completed Levofloxacin and prednisone rx'd -Has nebulizer solution prescribed in ED but has not been able to receive neb machine as of yet -Pulmonary function test scheduled for December 2024 -Reports she has not smoked for 8 days now -would like nicotine patch to help her quit. -started smoking at age 24 3-4 per day before increasing to 6 cigarettes per day for last the last 18 years Medications were reconciled Problem List[1] Medications Ordered Prior to Encounter[2] Surgical History[3] Medical History[4] reports that she has been smoking cigarettes. She has been exposed to tobacco smoke. She has never used smokeless tobacco. She reports that she does not drink alcohol and does not use drugs. Review of Systems Constitutional: Negative. Negative for chills and fever. Respiratory: Negative for chest tightness and shortness of breath. Cardiovascular: Negative for chest pain. Gastrointestinal: Negative for abdominal pain, constipation, diarrhea and nausea. Genitourinary: Negative for dysuria. Musculoskeletal: Negative for arthralgias, back pain, myalgias and neck pain. Skin: Negative. Negative for rash and wound. Neurological: Negative for weakness, light-headedness and headaches. Psychiatric/Behavioral: Negative for behavioral problems, confusion, decreased concentration and suicidal ideas. Objective Visit Vitals BP 120/82 (BP Location: Left arm, Patient Position: Sitting, BP Cuff Size: Adult) Pulse 72 Temp 97.9 ??F (36.6 ??C) (Oral) Resp 18 Physical Exam Vitals reviewed. Constitutional: General: She is not in acute distress. Appearance: Normal appearance. She is not ill-appearing. HENT: Head: Normocephalic and atraumatic. Right Ear: External ear normal. Left Ear: External ear normal. Nose: Nose normal. Eyes: General: No scleral icterus. Extraocular Movements: Extraocular movements intact. Cardiovascular: Rate and Rhythm: Normal rate and regular rhythm. Pulses: Normal pulses. Heart sounds: Normal heart sounds. Pulmonary: Effort: Pulmonary effort is normal. No respiratory distress. Breath sounds: Decreased air movement present. Musculoskeletal: General: Normal range of motion. Cervical back: Normal range of motion. Neurological: General: No focal deficit present. Mental Status: She is alert and oriented to person, place, and time. Gait: Gait normal. Psychiatric: Mood and Affect: Mood normal. Behavior: Behavior normal. Assessment/Plan Diagnoses and all orders for this visit: Hospital discharge follow-up Comments: -patient is doing well without respiratory complications -LS slightly diminished on exam -PCP previously placed DME request for nebulizer machine. Encouraged to call if no reciept of nebulizer solution by next week Encounter for smoking cessation counseling - nicotine (Nicoderm, Step 2) 14 MG/24HR patch; Apply 1 patch, as directed, every 24 hours for 6 weeks. May remove at bedtime if needed & replace the next morning. Rotate application site. Screening for lung cancer Comments: -patient with over 40 years of smoking hx -paperwork completed for low dose lung screening Follow-up with PCP as scheduled for routine health or sooner as needed [1] Patient Active Problem List Diagnosis Acute back pain with sciatica Chronic pelvic pain in female Goiter Hip pain Left lower quadrant pain Localized skin desquamation Onychia of finger Osteoarthritis of both hands Presbyopia Tinea pedis of both feet Initial patient encounter Tobacco dependence Costochondritis Seasonal allergies Tinnitus of left ear Low vision Encounter for screening mammogram for malignant neoplasm of breast Health care maintenance Acute cough Temporary high blood pressure Encounter for Papanicolaou smear for cervical cancer screening Generalized abdominal pain Epistaxis, recurrent Rash Colon cancer screening Headache Tingling sensation Wheezing Bronchiolitis [2] Current Outpatient Medications on File Prior to Visit Medication Sig Dispense Refill albuterol (2.5 MG/3ML) 0.083% nebulizer solution Take 2.5 mg by nebulization every 4 (four) hours if needed for wheezing or shortness of breath. albuterol 108 (90 Base) MCG/ACT inhaler Inhale 2 puffs every 4 (four) hours if needed for wheezing.18 g 0 Blood Pressure Monitor kit Use as directed 3x/week 1 kit 0 cetirizine (ZyrTEC) 10 MG tablet TAKE 1 TABLET BY MOUTH DAILY IN THE MORNING 90 tablet 1 fluticasone (Flonase) 50 MCG/ACT nasal spray Administer 1-2 sprays into each nostril Once per day for 14 days. Shake gently. Before first use, prime pump. After use, clean tip and replace cap.Treatment just for 14 days no need 90 day supply 16 g 2 tetrahydrozoline (Visine) 0.05 % ophthalmic solution Administer 1 drop into both eyes in the morning, at noon, and at bedtime. 15 mL 1 [DISCONTINUED] albuterol 108 (90 Base) MCG/ACT inhaler Inhale 2 puffs every 6 (six) hours if neededfor wheezing. 18 g 0 [DISCONTINUED] famotidine (Pepcid) 20 MG tablet Take 1 tablet (20 mg) by mouth 2 times daily. 60 tablet 11 [DISCONTINUED] simethicone (Mylicon,Gas-X) 180 MG capsule Take 1 capsule (180 mg) by mouth every 8 (eight) hours if needed for flatulence. 90 capsule 0 No current facility-administered medications on file prior to visit. [3] History reviewed. No pertinent surgical history. [4] History reviewed. No pertinent past medical history. documented in this encounter Plan of Treatment Upcoming Encounters Date Type Department Care Team (Late st Contact Info) Description 12/04/2024 1:15 PM EDT Office Visit [facility] [address] [place] [address] Guera Menjivar MD [address] [place] [address] documented as of this encounter Visit Diagnoses Diagnosis Hospital discharge follow-up- Primary Other follow-up examination Encounter for smoking cessation counseling Screening for lung cancer documented in this encounter Additional Health Concerns Assessment Noted Time PHQ-9 Depression Total Score: 3 11/15/19 25 2:56 PM EDT documented as of this encounter Care Teams Flat Surfacer Jewel Relationship Specialty Start Date End Date Guera Menjivar MD [address] [place] [address] PCP - General Family Medicine 12/15/19 documented as of this encounter
--- NOTE | 2024-11-19 14:30 | A.OFFVIS_ITS ---
Intake Visit Reasons: Unable to do Biopsy Allergies No Known Allergies Allergy (Verified 11/09/24 11:41) HPI Comments Details: 64 years old woman with clinical diagnosis of temporal arteritis as temporal artery biopsy was not performed because of technical difficulties. Apparently he there was problem with IV access. 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 She was treated with prednisone. Apparently she had stopped taking prednisone and now was complaining of numbness and aching in her jaw and temporal area and behind left eye. She had not seen her eye doctor. [facility] Medical History Temporal headache Numbness and tingling Left upper quadrant abdominal pain Hepatic steatosis Surgical History H/O colonoscopy Social History Household Members: Family Housing: House Do you presently have visiting nurse or other home services: No Alcohol intake: never Comment: Independent in the room , Low Fall risk- No bed alarm Patient Tobacco Use Status: Current everyday Tobacco user Tobacco use type: Cigarette Cigarette Packs Per Day: 0 Cigarettes Per Day: 6 Years Smoked: 40 Second Hand Smoke Exposure: No Review of Systems Const Details: Complaining of jaw discomfort temporal area discomfort in left eye pain. Physical Exam Neuro Other: Mental Status: Alert and oriented to person, place, and time. Normal attention. Normal spontaneous speech, fluency, and comprehension. No obvious issues with mood and memory. Affect is appropriate. Cranial Nerves: CN II: Visual malone full to confrontation, visual acuity intact. CN III, IV, : Pupils equal, round, reactive to light and accommodation. Extraocular movements are normal. CN V: Facial sensation is normal. CN VII: Facial movements symmetrical. CN VIII: Hearing intact to bedside conversation is normal. CN IX, X: Palate elevates symmetrically. CN XI: Shoulder shrug and head turn symmetrical. CN XII: Tongue midline without atrophy or fasciculations. Motor: Bulk and tone normal in all extremities. No significant muscle weakness in arms and legs. No drift. Extrapyramidal: Full facial expressions and blinking. No rigidity. Movements are appropriate with no tremor or abnormality. Speech: Normal; no dysarthria or tremor. Assessment & Plan Assessment & Plan (1) Cerebral microvascular disease: Code(s): I67.89 - Other cerebrovascular disease Category: Medical (2) Temporal arteritis: Comment: CT brain WO at [facility] in September 2024: [place] MRI brain WO at [facility] in August 2024: Mod MVD Code(s): M31.6 - Other giant cell arteritis Category: Medical Plan: I talked to her with help of an information security and explained to her that this condition, if not treated, can cause number of symptoms including blindness. She was advised to continue taking prednisone. We would start with 20 mg prednisone it would slowly decrease the dose. Though this doses not high, she was already having some side-effects and was resisting. Potential benefits and side-effects were discussed. She was advised to see her eye doctor. Her recent sed rate has significantly dropped to 17 prompting me to decrease her dose of prednisone. Plan Impression: Temporal arteritis Rec: a: Start prednisone 10mg bid b: Starting Dec 17, start taking 1 1/2 a day c: Starting Jan 17, start taking 1 a day Medications: New prednisone 10 mg PO BID 180 tabs 0RF Coding Level of Care Code Est Pt Level 5 (47367) Diagnoses Cerebral microvascular disease I67.89 Temporal arteritis M31.6
--- OUTSIDE RECORDS SUMMARY | 2024-11-19 16:24 | XMS_ITS | Encounter Summary ---
Author Organization [employer] [facility] Address [address] [place] [address] [address] [place] [address] Care Team Providers Care Manager Critical Care Name Role Phone Guera Menjivar MD Primary Care Provide r Encounter Details Date Type Department Care Team ([facility] Contact Info) Description 11/29/2022 Orders Only [facility] [address] [place] [address] [phone] Provider, MD Elo Social History Tobacco Use Types Packs/Day Years Used Date Smoking Tobacco: Every Day Cigarettes Passive Smoke Exposure: Current Smokeless Tobacco: Never Comments:4-5 Daily Alcohol Use Standard Drinks/Week Comments Never 0 (1 standard drink = 0.6 oz pur e alcohol) Depression Answer Date Recorded Patient Health Questionnaire-9 Score 0 08/22/2022 Depression Answer Date Recorded Patient Health Questionnaire-2 [...] Encounters Date Type Department Care Team (Late Contact Info) Description 12/04/2024 1:15 PM EDT Office Visit [facility] [address] [place] [address] [phone] Guera Menjivar MD [address] [place] [address] [phone] documented as of this encounter Procedures Procedure Name Priority Date/Time Associated Diagnosis Comments HM COLONOSCOPY Routine 04/10/2018 documented in this encounter Results * Hm Colonoscopy (04/10/2018) us Historical Provider HEALTH MAINTENANCE Final Result documented in this encounter Visit Diagnoses Not on filedocumented in this encounter Additional Health Concerns Assessment Noted Time PHQ-9 Depression Total Score: 0 08/23/19 23 2:00 PM EDT documented as of this encounter Care Teams Manager Critical Care Relationship Specialty Start Date End Date Guera Menjivar MD [address] [place] [address] PCP - General Family Medicine 12/15/19 documented as of this encounter
--- OUTSIDE RECORDS SUMMARY | 2024-11-19 16:24 | XMS_ITS | Encounter Summary ---
Author Organization [employer] Address [address] [facility] [address] [place] [address] Care Team Providers Care Port Traffic Manager Name Role Phone Guera Menjivar MD Primary Care Provide r Reason for Visit * Reason Onset Date Comments Durable Medical Equipment 11/11/2024 DME Re quest: Nebulizer Encounter Details Date Type Department Care Team ([facility] Contact Info) Description 11/11/2024 Telephone [facility] MED[facility]INE [address] [place] [address] Guera Menjivar MD [address] [place] [address] Durable Medical Equipment (DME Request: Nebulizer) Social History Tobacco Use Types Packs/Day Years [...] AM EDT documented as of this encounter Functional Status * Over the [...] 2:56 PM EDT Merrick Lopez MA * Patient Health Questionnaire-9 Score Answer Date of Assessment Author 3 11/14/2024 2:56 PM DONELLT Merrick Lopez MA * How difficult have [...] to sit still 0 11/14/2024 2:56 PM DONELLT Merrick Lopez MA Becoming easily annoyed or irritable 0 11/14/2024 2:56 PM EDT Merrick Lopez MA Feeling afraid as if somethi ng awful might happen 0 11/14/2024 2:56 PM EDT Merrick Lopez MA ROSA-7 Total Score 1 11/14/2024 2:56 PM EDT Merrick Lopez MA documented as of this encounter Miscellaneous Notes * Telephone Encounter - Maria Del Carmen Ryder - 11/18/2024 1:31 PM EDT DME order for Nebulizer was generated and sent via Fax to [facility], with supporting Documentation. Confirmation was uploaded to [employer]. * Telephone Encounter - Katiuska Evans NP - 11/18/2024 1:14 PM EDT All set * Telephone Encounter - Jacinto Jane - 11/11/2024 2:23 PM EDT Tc from pt requesting nebulizer. Any questions contact pt at [phone] documented in this encounter Plan of Treatment Upcoming Encounters Date Type Department Care Team (Late st Contact Info) Description 12/04/2024 1:15 PM EDT Office Visit [facility] MEDICINE [address] [place] [address] Guera Menjivar MD [address] [place] [address] documented as of this encounter Visit Diagnoses Not on filedocumented in this encounter Additional Health Concerns Assessment Noted Time PHQ-9 Depression Total Score: 0 08/23/19 23 2:00 PM EDT documented as of this encounter Care Teams Port Traffic Manager Relationship Specialty Start Date End Date Guera Menjivar MD [address] [place] [address] PCP - General Family Medicine 12/15/19 documented as of this encounter
--- OUTSIDE RECORDS SUMMARY | 2024-11-19 16:24 | XMS_ITS | Encounter Summary ---
Author Organization [employer] Address [address] [place] [address] [address] [address] Care Team Providers Care Stevedore Dock Name Role Phone Guera Menjivar MD Primary Care Provide r Encounter Details Date Type Department Care Team ([facility] Contact Info) Description 02/16/2022 Abstract [facility] MEDICINE [address] [place] [id number] ProviderElo MD Social History Tobacco Use Types Packs/Day Years Used Date Smoking Tobacco: Every Day Cigarettes Comments Unknown Sex and Gender Information Value Date Recorded Sex Assigned at Female 01/16/2022 10:32 AM EDT Legal Sex Female 10:32 AM EDT Gender Identity Female 01/16/2022 10:32 AM EDT Sexual Orientation Choose not to disclose 2021 10:32 AM EDT COVID-19 Exposure Response Date Recorded In the last 10 days, have yo u been in contact with someone who was confirmed or suspected to have Coronavirus/COVID-19? No / Unsure 02/16/2022 9:49 AM EST documented as of this encounter Plan of Treatment Upcoming Encounters Date Type Department Care Team (Late Contact Info) Description 12/04/2024 1:15 PM EDT Office Visit [facility] [address] [place] [address] Guera Menjivar MD [address] [place] [address] documented as of this encounter Visit Diagnoses Not on filedocumented in this encounter Care Teams Stevedore Dock Relationship Specialty Start Date End Date Guera Menjivar MD [address] [address], [place] [address] PCP - General Family Medicine 12/15/19 documented as of this encounter
--- OUTSIDE RECORDS SUMMARY | 2024-11-19 16:24 | XMS_ITS | Patient Health Record ---
Author Organization [facility] Address [address] [place] [address] Care Team Providers Care Manager Art Name Role Phone Melonie Bennett Primary Care Provider Geoffrey King Jr Unavailable [phone] Reason For Referral No Information Medications Medication [...] Problem Status W/U Status Risk Notes Problem [id number] Colon cancer screening (Z12.11) Active confirmed Plan Of Treatment Future Test Test Name Order Date COLONOSCOPY 01/03/2018 Insurance Providers Payer Name Payer Address Payer Phone Subscriber Number Group Number Insured Name Patient Relationship to Insured Coverage Start Date Coverage End Date [facility] [address] [place] [address] [id number] FERNIE VALDEZ Self - patient is the insured Medical (General) History Medical History History ICD Code Denies [place],DM,CVA,Lung disease,renal dise ase Surgical History Surgery Date(Month/Year) eye surgery-left
--- OUTSIDE RECORDS SUMMARY | 2024-11-19 16:24 | XMS_ITS | Encounter Summary ---
Author Organization [employer] Address [address] [facility] [address] [place] [address] Care Team Providers Care Telegraph Plant Maintainer Name Role Phone Guera Menjivar MD Primary Care Provide r Encounter Details Date Type Department Care Team ([facility] st Contact Info) Description 02/22/2024 Telephone [facility] MEDICINE [address] [place] [address] Guera Menjivar MD [address] [place] [address] Social History Tobacco Use Types Packs/Day Years Used Date Smoking Tobacco: Every Day Cigarettes Passive Smoke Exposure: Current Smokeless Tobacco: Never Comments:4-5 Daily Alcohol Use Standard Drinks/Week Comments Never 0 (1 standard drink = 0.6 oz pur e alcohol) Depression Answer Date Recorded Patient Health Questionnaire-9 Score 0 08/22/2022 Housing Stability Answer Date Recorded What is your housing situation today? I have nikolaylala alcala 01/15/[address] you [...] Description 12/04/2024 1:15 PM EDT Office Visit [facility] MEDICINE [address] [place] [phone] Guera Menjivar MD [address] [place] [phone] documented as of this encounter Visit Diagnoses Not on filedocumented in this encounter Additional Health Concerns Assessment Noted Time PHQ-9 Depression Total Score: 0 08/23/19 23 2:00 PM EDT documented as of this encounter Care Teams Telegraph Plant Maintainer Relationship Specialty Start Date End Date Guera Menjivar MD [address] [place] [address] PCP - General Family Medicine 12/15/19 documented as of this encounter
--- OUTSIDE RECORDS SUMMARY | 2024-11-19 16:24 | XMS_ITS | Clinical Summary ---
Author Organization [employer] Address [address] [facility] [address] [place] [address] Care Team Providers Care Therapist Name Role Phone Guera Menjivar MD Primary Care Provide r Allergies No known active allergies Medications tetrahydrozol ine (Visine) 0.05 % ophthalmic solutionIndic ations:Dry eyes, bilateral Administer 1 drop into both eyes in the morning, at noon, and at bedtime. 15 mL 1 02/17/20 22 Active Blood Pressure Monitor kitIndication s:Temporary high blood pressure Use as directed 3x/week 1 kit 10/11/19 23 Active cetirizine (ZyrTEC) 10 MG tabletIndicat ions:Seasonal allergies TAKE 1 TABLET BY MOUTH DAILY IN THE MORNING 90 tablet 1 11/17/19 23 Active fluticasone (Flonase) 50 MCG/ACT nasal spray Administer 1-2 sprays into each nostril Once per day for 14 days. Shake gently. Before first use, prime pump. After use, clean tip and replace cap.Treatment just for 14 days no need 90 day supply 16 g 2 09/02/19 25 Active albuterol 108 (90 Base) MCG/ACT inhalerIndica tions:Bronchi olitis Inhale 2 puffs every 4 (four) hours if needed for wheezing. 18 g 11/05/19 25 026 Active albuterol (2.5 MG/3ML) 0.083% nebulizer solution Take 2.5 mg by nebulization every 4 (four) hours if needed for wheezing or shortness of breath. 11/11/19 25 Active nicotine (Nicoderm, Step 2) 14 MG/24HR patchIndicati ons:Encounter for smoking cessation counseling Apply 1 patch, as directed, every 24 hours for 6 weeks. May remove at bedtime if needed & replace the next morning. Rotate application site. 14 patch 11/15/19 25 Active albuterol 108 (90 Base) MCG/ACT inhalerIndica tions:Acute cough Inhale 2 puffs every 6 (six) hours if needed for wheezing. 18 g 08/23/19 23 025 Discontinued(M ed list cleanup (will not trigger notification to Pharmacy)) famotidine (Pepcid) 20 MG tabletIndicat ions:Generali zed abdominal pain Take 1 tablet (20 mg) by mouth 2 times daily. 60 tablet 11 04/25/19 24 025 Discontinued(M ed list cleanup (will not trigger notification to Pharmacy)) simethicone (Mylicon,Gas- X) 180 MG capsuleIndica tions:General ized abdominal pain Take 1 capsule (180 mg) by mouth every 8 (eight) hours if needed for flatulence. 90 capsule 04/25/19 24 025 Discontinued(M ed list cleanup (will not trigger notification to Pharmacy)) acetaminophen (Tylenol Extra Strength) 500 MG tablet Take 1 tablet (500 mg) by mouth every 8 (eight) hours if needed for headaches. 30 tablet 1 08/28/19 25 025 Hospital, Clinic, or Other Facility Administered Medication Ordered Dose Route Frequency Start Date End Date Status albuterol (2.5 MG/3ML) 0.083% nebulizer solution 2.5 mgIndications:Bronch iolitis 2.5 mg NEBULIZATION Once 11/04/2024 11/04/2024 Ended Active Problems Problem Noted Date Diagnosed Date Wheezing 11/04/2024 Bronchiolitis 11/04/2024 Assessment & Plan (11/04/2024 4:29 PM EDT): Patient is already taking prednisone for possible temporal arteritis I prescribed for patient albuterol inhaler to use every 4 to 6 hours as needed I ordered pulmonary function test I ordered an x-ray patient will be contacted with results Headache 08/27/2024 Tingling sensation 08/27/2024 Assessment & Plan (08/27/2024 5:21 AM EDT): Patient with 4 days of right hard palate tingling sensation associated with headache, neck pain with no alarming symptoms. Here no obvious lesions in oral examination and complete normal neurologic examination. She does described some new small lumps in left eyebrow area and left occipital area. Noted on exam from unclear significance Given tingling sensation and new headaches I will need to rule out neurologic etiology nerve compression in the face. No findings for Gottlieb's palsy nor herpes zoster. Stroke seems less likely with complete normal exam but will need to be rule out -Neck XR -brain MRI w/o contrast STAT to r/o masses ,stroke and may help eval new superficial nodularities in left eye brown and left occipital area -sent message to PA team -tylenol PRN -hold on ASA for now w no clear etiology - Alarm signs and symptoms discussed in length with patient which case if noticing any new neurologic symptoms to go immediately to the emergency department will do outpatient workup given no alarming symptoms and very benign examination. - If workup is negative and symptoms persist will need to consider further evaluation to rule out facial nerve compression/CTA to rule out a vascular etiology Generalized abdominal pain 04/25/2023 Assessment & Plan (05/23/2023 11:18 AM EST): I advise to do her H pylori test as soon as she can I will order a CT for further investigation Referral to GI done today Assessment & Plan (04/25/2023 1:31 PM EST): I advise patient to avoid NSAIDs, spicy and acid food, I advise to eat at the same time every day, I advise to elevate the head of the bed and take medications as prescribe Epistaxis, recurrent 04/25/2023 Rash 04/25/2023 Colon cancer screening 04/25/2023 Encounter for Papanicolaou s mear for cervical cancer screening 10/10/2022 Seasonal allergies 08/22/2022 Tinnitus of left ear 08/22/2022 Low vision 08/22/2022 Encounter for screening mamm ogram for malignant neoplasm of breast 08/22/2022 Health care maintenance 08/22/2022 Acute cough 08/22/2022 Temporary high blood pressure 08/22/2022 Assessment & Plan (10/11/2022 2:11 PM EDT): I advise low Na diet Blood pressure kit prescribed RTC 2 weeks with nurse with BP log if BP not at goal plan is to initiate amlodipine 5mg daily Costochondritis 04/04/2022 Acute back pain with sciatica 02/16/2022 Hip pain 02/16/2022 Tinea pedis of both feet 02/16/2022 Assessment & Plan (04/25/2023 1:32 PM EST): Maintain area dry and clean Initial patient encounter 02/16/2022 Tobacco dependence 02/16/2022 Onychia of finger 02/28/2018 Osteoarthritis of both hands 02/28/2018 Chronic pelvic pain in female 11/13/2017 Localized skin desquamation 09/28/2017 Left lower quadrant pain 08/29/2017 Presbyopia 07/13/2017 Goiter 06/12/2017 Encounters Date Type Department Care Team Description 11/14/2024 2:00 PM EDT Office Visit [address] [address] Katiuska Evans NP Hospital discharge follow-up (Primary Dx); Encounter for smoking cessation counseling; Screening for lung cancer 11/14/2024 Travel 11/13/[address] [address] Merrick Lopez [place] CHARTPREP 11/11/[address] [address] Guera Menjivar MD Durable Medical Equipment (DME Request: Nebulizer) 11/11/[address] [address] Guera Menjivar MD Nurse Triage 11/10/[address] [address] Guera Menjivar MD Durable Medical Equipment 11/09/2024 Orders Only GENERIC EXTERNAL DATA DEPARTMENT Provider, Generic External Data 11/04/2024 3:20 PM EDT Office Visit [facility] [address] [address] Guera Menjivar MD Wheezing; Bronchiolitis 11/04/2024 Travel 10/21/2024 Orders Only GENERIC EXTERNAL DATA DEPARTMENT Provider, Generic External Data 10/10/[address] [address] Guera Menjivar MD Nurse Triage 10/06/[address] [address] Guera Menjivar MD No Show 10/03/[address] [address] Guera Menjivar MD Chart Prep 09/25/2024 Patient Outreach [address] [address] Guera Menjivar MD Pre-visit Planning (SDOH screening negative and tobacco screening positive) 09/25/2024 Telephone [facility] [address] [place] [address] Kathrine Saeed DDS patient calling back with insurance info emergency dental 09/01/2024 Orders Only [address] [address] Guera Tong MD 09/01/2024 Results Follow-Up [address] [address] Guera Tong MD MR Brain w/o Contrast 08/31/[address] [address] Nydia Valle NP 08/31/2024 Orders Only [facility] External Provider, [facility] 08/27/2024 Orders Only [address] [address] Guera Tong MD 08/26/2024 1:20 PM EDT Office Visit [facility] [address] [place] [phone] Guera Tong MD Nonintractable headache, unspecified chronicity pattern, unspecified headache type (Primary Dx); Numbness and tingling; Neck pain; Tingling sensation 08/26/2024 Results Follow-Up [facility] [address] [place] [address] Guera Tong MD XR CERVICAL SPINE 3V 08/26/2024 Orders Only [facility] [address] [place] [address] Guera Tong MD from Last 3 Months Immunizations Immunization Administration Dates Next Due INFLUENZA INJECTABLE QUADRIV ALANT CCIIV4 MDCK Multi-dose vial 12/16/2018 Influenza injectable quadriv alent IIV4 with preservative 01/14/2018 Influenza injectable quadrivalent preservative f ree 12/16/2018 Pneumococcal Polysaccharide PPSV23 10/10/2018 Tdap 01/14/2018 Zoster, Recombinant 12/16/2018,10/15/2018 Social History Tobacco Use Types Packs/Day Years Used Date Smoking Tobacco: Every Day Cigarettes Passive Smoke Exposure: Current Smokeless Tobacco: Never Tobacco Cessation:Ready to Q uit: Not Asked; Counseling Given: Not Answered Comments:4-5 Daily Alcohol Use Standard Drinks/Week Comments [...] not to disclose 2021 10:32 AM EDT Last Filed Vital Signs Vital Sign Reading [...] Mass Index 21.75 11/14/2024 2:14 PM EDT Plan of Treatment Upcoming Encounters Date Type Department Care Team (Late st Contact Info) Description 12/04/2024 1:15 PM EDT Office Visit [facility] [address] [place] [address] Guera Menjivar MD [address] [place] [address] Health Maintenance Due Date Last Done Comments CT Colonography 1960 Dental Prophylaxis 1960 FIT DNA/Cologuard 1960 FIT 1960 FOBT 1960 Sigmoidoscopy 1960 Hepatitis C Screening 1976 Dental Oral Exam 07/04/2017 01/02/2017 Dental X-Ray: Bitewings 01/03/2018 01/02/2017 Pneumococcal Vaccine: 50+ Years (2 of 2 - PCV) 10/11/2019 10/10/2018 Dental X-Ray: Full Mouth 01/04/2020 017, 11/13/2016 Colonoscopy 04/10/2023 04/10/2018 Colorectal Cancer Screening 04/10/2023 Mammogram 10/07/2024 10/08/2023, 06/13/2017 COVID-19 Vaccine (1 - 2023-2 5 season) 2024 Influenza Vaccine (#1) 2024 9, 12/16/2018, 01/14/2018 SDOH Screening 09/25/2025 09/25/2024 Alcohol/Substance Use Screening 11/14/2025 11/14/2024 Depression Screening 11/14/2025 11/14/2024, 11/14/2024 Tobacco Screening 11/18/2025 11/18/2024 Lipid Panel 08/23/2027 08/22/2022 DTaP/Tdap/Td Vaccines (2 - T d or Tdap) 01/15/2028 01/14/2018 RSV Patients and Patients Aged 60 years or older (1 - 1-dose 75+ series) 2033 Zoster Vaccines Completed 12/16/2018, 10/15/2018 Cervical Cancer Screening Discontinued HPV/Cotest Discontinued 10/10/2022, 10/24/2017 Pap Smear Discontinued 10/10/2022 HIB Vaccines Aged Out No longer eligi ble based on patient's age to complete this topic HPV Vaccines Aged Out No longer eligi ble based on patient's age to complete this topic Hepatitis A Vaccines Aged Out No long er eligible based on patient's age to complete this topic Hepatitis B Vaccines Aged Out No long er eligible based on patient's age to complete this topic IPV Vaccines Aged Out No longer eligi ble based on patient's age to complete this topic Meningococcal B Vaccine Aged Out No l onger eligible based on patient's age to complete this topic Meningococcal Vaccine Aged Out No crescencio tiffanie eligible based on patient's age to complete this topic RSV under 20 months Aged Out No longe r eligible based on patient's age to complete this topic Rotavirus Vaccines Aged Out No longer eligible based on patient's age to complete this topic Procedures Procedure Name Priority Date/Time Associated Diagnosis Comments CTA CHEST PE PROTOCAL Routine 11/09/2024 3:27 PM EDT XR CHEST 2 VIEWS Routine 11/09/2024 12:0 9 PM EDT SARS COV2/INFLUENZA A/B AND RSV RNA QL NAAT Routine 11/09/2024 12:01 PM EDT B TYPE NATRIURETIC PEPTIDE (BNP) Routine 11/09/2024 11:55 AM EDT HIGH SENSITIVITY TROPONIN I Routine 11/09/2024 11:55 AM EDT COMPREHENSIVE METABOLIC PANEL Routine 11/09/2024 11:55 AM EDT CBC WITH AUTO DIFFERENTIAL Routine 11/09/2024 11:55 AM EDT POCT INFLUENZA B (ID NOW RAPID MOLECULAR) Routine 11/04/2024 3:41 PM EDT Wheezing POCT INFLUENZA A (ID NOW RAPID MOLECULAR) Routine 11/04/2024 3:41 PM EDT Wheezing POCT RAPID COVID ANTIGEN Routine 11/04/2024 3:41 PM EDT Wheezing XR CHEST 2 VIEWS Routine 11/04/2024 3:20 PM EDT Bronchiolitis CRP, HIGH SENSITIVITY Routine 10/21/2024 1:34 PM EDT SED RATE BY MODIFIED WESTERGREN Routine 10/21/2024 1:34 PM EDT MR BRAIN WO CONTRAST STAT 08/31/2024 10:20 PM EDT Nonintractable headache, unspecified chronicity pattern, unspecified headache type Numbness and tingling XR PRE MRI SCREENING Routine 08/31/2024 8:26 PM EDT XR CERVICAL SPINE 3V Routine 08/26/2024 2:02 PM EDT BI MAMMOGRAM SCREENING TOMOSYNTHESIS BILATERAL Routine 10/08/2023 9:15 AM EDT HPV MRNA E6/E7 REFLEX TO HPV 16, 18/45 Routine 10/10/2022 10:52 AM EDT PAP SMEAR Routine 10/10/2022 10:52 AM EDT LIPID PANEL, STANDARD Routine 08/22/2022 2:48 PM EDT Health care maintenance HM COLONOSCOPY Routine 04/10/2018 INTRAORAL - COMPLETE SERIES OF RADIOGRAPHIC IMAGES Routine 01/02/2017 12:00 AM EDT COMPREHENSIVE ORAL EVALUATION - NEW OR ESTABLISHED PATIENT Routine 01/02/2017 12:00 AM EDT from Last 3 Months or Most Recently Relevant to Health Maintenance Results * CTA Chest PE Protocal (11/09/2024 3:27 PM EDT) Anatomical Region Laterality Modality Body, Chest Computed Tomogra phy 11/09/2024 3:27 PM EDT Narrative 11/09/2024 3:29 PM EDT [place] [address] CT Scan Report Signed Patient: Kerline Helms MR#: [id number] : 1960 Acct:[id number] Age/Sex: 64 / F ADM Date: 11/09/24 Loc: .ED Attending Dr: Ordering Physician: Alverto Francisco MD Date of Service: 11/09/24 Procedure(s): CT angio chest PE protocol Accession Number(s): [id number] cc: Guera Menjivar MD; Alverto Francisco MD Report Number: [id number]: Total DLP = 200.00 mGy-cm CLINICAL HISTORY: SOB ? PE CT ANGIOGRAPHY CHEST WITH CONTRAST. 3D POSTPROCESSING. Comparison: CR - XR CHEST 2V - 11/09/24 12:06 EDT Findings: The heart is normal size. RV/LV ratio is normal. Scattered calcific plaque in the thoracic aorta. No aneurysm or dissection. No acute pulmonary embolus. No thyromegaly or lymphadenopathy. Mild bronchial wall thickening. Bilateral reticulonodular densities with right lower lobe predominance. No consolidation, pleural effusion or pneumothorax. The visualized upper abdomen is unremarkable. No acute fractures. IMPRESSION: 1. No pulmonary embolus. 2. Mild bronchial wall thickening, which can be seen with asthma, reactive airways process or viral illness. 3. Bilateral reticulonodular densities suggesting an inflammatory or infectious process. 4. No segmental pneumonia or significant pleural effusion. This document has been electronically signed by: Vanessa Kapadia DO on 11/09/2024 15:27:43 Dictated By: Vanessa Kapadia MD Signed By: <Electronically signed by Vanessa Kapadia MD in OV> 11/09/24 1528 DD/ 1527 TD/TT: 11/09/24 1527 Business English Instructor: Procedure Note Donotuseinterpreter, Image - 11/09/[address] [place] [address] [address] Scan Report Signed Patient: Kerline Helms#: [id number] : 9Acct:[id number] Age/Sex: 64 / FADM Date: 11/09/24 Loc: .ED Attending Dr: Ordering Physician: Alverto Francisco MD Date of Service: 11/09/24 Procedure(s): CT angio chest PE protocol Accession Number(s): [id number] cc: Guera Menjivar MD; Alverto Francisco MD Report Number: [id number]: Total DLP = 200.00 mGy-cm CLINICAL HISTORY: SOB ? PE CT ANGIOGRAPHY CHEST WITH CONTRAST. 3D POSTPROCESSING. Comparison: CR - XR CHEST 2V - 11/09/24 12:06 EDT Findings: The heart is normal size. RV/LV ratio is normal. Scattered calcific plaque in the thoracic aorta. No aneurysm or dissection. No acute pulmonary embolus. No thyromegaly or lymphadenopathy. Mild bronchial wall thickening. Bilateral reticulonodular densities with right lower lobe predominance. No consolidation, pleural effusion or pneumothorax. The visualized upper abdomen is unremarkable. No acute fractures. IMPRESSION: 1. No pulmonary embolus. 2. Mild bronchial wall thickening, which can be seen with asthma, reactive airways process or viral illness. 3. Bilateral reticulonodular densities suggesting an inflammatory or infectious process. 4. No segmental pneumonia or significant pleural effusion. This document has been electronically signed by: Vanessa Kapadia DO on 11/09/2024 15:27:43 Dictated By: Vanessa Kapadia MD Signed By: <Electronically signed by Vanessa Kapadia MD in OV> 11/09/24 1528 DD/ 1527 TD/TT: 11/09/24 1527 Business English Instructor: [facility] External Provider IMG CT PROCEDURES Edited Result - Final * XR Chest 2 Views (11/09/2024 12:09 PM EDT) Only the most recent of2 resultswithin the time period is included. Anatomical Region Laterality Modality Chest Radiographic Yodit ging 11/09/2024 12:0 9 PM EDT Narrative 11/09/2024 12:11 PM EDT [place] [address] XRay Report Signed Patient: Kerline Helms MR#: [id number] : 1960 Acct:[id number] Age/Sex: 64 / F ADM Date: 11/09/24 Loc: HO.ED Attending Dr: Ordering Physician: Lemuel Guzman Date of Service: 11/09/24 Procedure(s): XR chest 2V Accession Number(s): [id number] cc: Guera Menjivar MD; Lemuel Guzman CLINICAL HISTORY: wheezing Exam: PA and lateral views of the chest. Comparison: November 04, 2024. Findings: Lungs are well inflated. Cardiac silhouette is within normal limits. Interstitial markings remain mildly prominent, most pronounced centrally. No focal areas of consolidation. No pleural effusion or pneumothorax. Impression: Unchanged exam. No consolidation identified. This document has been electronically signed by: Cj Tanner MD on 11/09/2024 12:09:38 Dictated By: Cj Tanner MD Signed By: <Electronically signed by Cj Tanner MD in OV> 11/09/24 1210 DD/ 1209 TD/TT: 11/09/241208 Business English Instructor: Procedure Note Donotuseinterpreter, Image - 11/09/[address] [address] XRay Report Signed Patient: Nura Helms#: [id number] : 9Acct:[id number] Age/Sex: 64 / FADM Date: 11/09/24 Loc: .ED Attending Dr: Ordering Physician: Lemuel Guzman Date of Service: 11/09/24 Procedure(s): XR chest 2V Accession Number(s): [id number] cc: Guera Menjivar MD; Lemuel Guzman CLINICAL HISTORY: wheezing Exam: PA and lateral views of the chest. Comparison: November 04, 2024. Findings: Lungs are well inflated. Cardiac silhouette is within normal limits. Interstitial markings remain mildly prominent, most pronounced centrally. No focal areas of consolidation. No pleural effusion or pneumothorax. Impression: Unchanged exam. No consolidation identified. This document has been electronically signed by: Cj Tanner MD on 11/09/2024 12:09:38 Dictated By: Cj Tanner MD Signed By: <Electronically signed by Cj Tanner MD in OV> 11/09/24 1210 DD/ 1209 TD/TT: 11/09/241208 Business English Instructor: [facility] External Provider IMG XR PROCEDURES Final Result * SARS-CoV-2 RNA, Influenza A/B, and RSV RNA, Ql NAAT (11/09/2024 12:01 PM EDT) Influenza A PCR NEGATIVE Negative [facility] Influenza B PCR NEGATIVE Negative [facility] Resp Syncy Virus RNA Qual PCR NEGATIVE Negative [facility] SARS COV2 PCR NEGATIVE Negative [facility] Comment:All test results mus t be correlated with clinical findings.Negative results do not preclude SARS-CoV2, influenza Avirus, influenza B virus and/or RSV infectionand should not be used as the sole basis for treatment orother patient management decisions. Negative results must becombined with clinical observations, patient history, andepidemiological information.This test has not been evaluated for monitoring treatment ofinfection.This test has been authorized by the FDA under an EmergencyUse Authorization (EUA) for use by authorized laboratories.Testing performed on the [employer] GeneXpert utilizingreal-time RT-PCR.All SARS CoV2 and positive influenza A/B results arereported to [facility]. 11/09/2024 12:0 1 PM EDT 11/09/2024 1:08 PM EDT Generic External Data Provider LAB MICROBIOLOGY - GENERAL ORDERABLES Final Result Performing Organization Address [facility] Co de Phone Number [facility] [address] [place] [phone] * High Sensitivity Troponin I (11/09/2024 11:55 AM EDT) [facility] TROPONIN I HIGH SENSITIVITY 2.9 <3.5 - 17.0 ng/L [facility] Comment:The [place] high sens itivity Troponin-I results should beused in conjunction with other diagnostic information suchas ECG, clinical observations and information, and patientsymptoms to aid in the diagnosis of [place]. 11/09/2024 11:5 5 AM EDT 11/09/2024 1:31 PM EDT Generic External Data Provider LAB BLOOD ORDERAB LES Final Result Performing Organization Address [facility] Co de Phone Number [facility] [address] [place] [phone] * (ABNORMAL) CBC auto differential (11/09/2024 11:55 AM EDT) White Blood Count 24.5(H) 4.8 - 10.8 X10*3/uL [facility] Red Blood Count 4.56 4.20 - 5.50 X10*6/uL [facility] Hemoglobin 13.4 12.0 - 16.0 g/dl [facility] Hematocrit 39.3 37.0 - 47.0 % [facility] Mean Corpuscular Volume 86.2 80.0 - 98.0 fL [facility] Mean Corpuscular Hemoglobin 29.4 27.0 - 33.0 pg [facility] Mean Corpuscular HGB Conc 34.1 31.0 - 35.0 g/dl [facility] Red Cell Distribution Width 16.4(H) 11.0 - 16.0 % [facility] Platelet Count 413(H) 160 - 400 X10*3/uL [facility] Mean Platelet Volume 9.4 9.4 - 12.3 fL [facility] Neutrophils Percent Auto 74.0(H) 45 - 73 % [facility] Imm Gran Pct Auto 1.1(H) 0.0 - 0.4 % [facility] Lymphocytes Percent Auto 20.3 20 - 40 % [facility] Monocytes Percent Auto 4.5 2 - 11 % [facility] Eosinophils Percent Auto 0.0 0 - 4 % [facility] Basophils Percent Auto 0.1 0 - 2 % [facility] NRBC Pct Auto 0.0 0.0 - 0.2 /100WBC [facility] Neutrophils Absolute Auto 18.1(H) 2.0 - 8.3 x10*3/uL [facility] Imm Gran Abs Auto 0.26(H) 0.00 - 0.03 X10*3/uL [facility] Lymphocytes Absolute Auto 5.0(H) 1.2 - 4.9 X10*3/uL [facility] Monocytes Absolute Auto 1.1 0.1 - 1.2 X10*3/uL [facility] Eosinophils Absolute Auto 0.0 0.0 - 0.4 X10*3/uL [facility] Basophils Absolute Auto 0.0 0.0 - 0.2 X10*3/uL [facility] NRBC Abs Auto 0.000 0.0 - 0.012 X10*3/uL [facility] 11/09/2024 11:5 5 AM EDT 11/09/2024 12:01 PM EDT us Generic External Data Provider LAB BLOOD ORDERAB LES Final Result Performing Organization Address City/[facility]/ZIP Co de Phone Number [facility] [address] [place] [phone] * B Type Natriuretic Peptide (BNP) (11/09/2024 11:55 AM EDT) [facility] B Type Natriuretic Peptide 68 <100 pg/mL [facility] 11/09/2024 11:5 5 AM EDT 11/09/2024 1:30 PM EDT Generic External Data Provider LAB BLOOD ORDERAB LES Final Result Performing Organization Address [facility] Co de Phone Number [facility] [address] [place] [phone] * (ABNORMAL) Comprehensive Metabolic Panel (11/09/2024 11:55 AM EDT) [facility] Sodium 144 135 - 145 mmol/L [facility] Potassium 4.5 3.3 - 5.1 mmol/L [facility] Comment:Slight Hemolysis.Int erpret result with caution. Chloride 105 96 - 108 mmol/L [facility] Carbon Dioxide 27 22 - 29 mmol/L [facility] Anion Gap 17 12 - 20 [facility] Urea Nitrogen (BUN) 23(H) 9 - 16 mg/dL [facility] Creatinine, Serum 0.74 0.5 - 1.4 mg/dL [facility] Creatinine Clr Calc Pharmacy 61.8 [facility] Comment:Provided height and weight: 160.02 cm,52.5 kg.eGFR (calculated from the MDRD study equation) and eCrCl(calculated from the Cockcroft-Gault equation) are based ondifferent parameters and may not yield comparable results.If eCrCl result is absurd, please check patient'sheight/weight. Estimated Glomerular Filt Rate >60 [facility] Comment:Chronic Kidney Disea se: Estimated GFR < 60 mL/min/1.50f3Yigeyh Kidney Disease: Estimated GFR < 15 mL/min/1.73m2 Glucose 81 60 - 115 mg/dL [facility] Calcium 9.5 8.4 - 10.2 mg/dL [facility] Bilirubin, Total 0.5 0.0 - 1.0 mg/dL [facility] Aspartate Amino Transferase 25 5 - 31 U/L [facility] Comment:Slight Hemolysis.Int erpret result with caution. Alanine Aminotransferase 53(H) 0 - 31 U/L [facility] Total Protein 6.9 6.5 - 8.0 g/dL [facility] Albumin Level 4.0 3.5 - 5.0 g/dL [facility] Alkaline Phosphatase 78 39 - 117 U/L [facility] 11/09/2024 11:5 5 AM EDT 11/09/2024 12:01 PM EDT us Generic External Data Provider LAB BLOOD ORDERAB LES Final Result Performing Organization Address [facility]/ZIP Co de Phone Number [facility] [address] [place] [phone] * Influenza B (ID NOW Rapid Molecular) (11/04/2024 3:41 PM EDT) Influenza B Negative Negative, Indeterminate [facility] Swab 11/04/2024 3:41 PM EDT us Guera Flores MD POINT OF CARE TEST EN TER/EDIT ORDERABLES Final Result Performing Organization Address [facility]/ZIP Co de Phone Number [facility] [address] [place] [address] [phone] * Influenza A (ID NOW Rapid Molecular) (11/04/2024 3:41 PM EDT) Pathologist [facility] Influenza A Negative Negative, Indeterminate [facility] Swab 11/04/2024 3:41 PM EDT Guera Flores MD POINT OF CARE TEST EN TER/EDIT ORDERABLES Final Result Performing Organization Address City/[facility]/ZIP Co de Phone Number [facility] [address] [place] [address] [phone] * POCT Rapid COVID Ag (11/04/2024 3:41 PM EDT) [facility] Rapid COVID Ag Negative [facility] Swab 11/04/2024 3:41 PM EDT Guera Flores MD POINT OF CARE TEST EN TER/EDIT ORDERABLES Final Result Performing Organization Address City/[facility]/ZIP Co de Phone Number [facility] [address] [place] [address] [phone] * (ABNORMAL) CRP, HIGH SENSITIVITY (10/21/2024 1:34 PM EDT) [facility] CRP, High Sensitivity >20.0(A) mg/L [facility] Comment: Reference RangeOptimal <1.0Jose KITCHEN et al. Endocr Pract.2017;23(Suppl 2):1- 87.For ages >17 Years:hs-CRP mg/L Risk According to AHA/CDC Guidelines<1.0 Lower relative cardiovascular risk.1.0-3.0 Average relative cardiovascular risk.3.1-10.0 Higher relative cardiovascular risk. Consider retesting in 1 to 2 weeks to exclude a benign transient elevation in the baseline CRP value secondary to infection or inflammation.>10.0 Persistent elevation, upon retesting, may be associated with infection and inflammation.Jones TA, Ysa GA, Kenji RW, et al. Markersof inflammation and cardiovascular disease:application to clinical and public health practice:A statement for healthcare professionals from theCenters for Disease Control and Prevention and theAmerican Heart Association. Circulation 2003; 107(3):499-511.THIS TEST WAS PERFORMED AT:[employer] [place] [phone] GONZALES MD 10/21/2024 1:34 PM EDT 10/21/2024 1:34 PM EDT Generic External Data Provider LAB BLOOD ORDERAB LES Final Result Performing Organization Address [facility]/ZIP Co de Phone Number [facility] [address] [place] [phone] * (ABNORMAL) Sed Rate by Modified Gunner (10/21/2024 1:34 PM EDT) Erythrocyte Sedimentation Rate 81(H) 0 - 20 MM/HR [facility] Comment:Patients with polycy themia and many hemoglobin abnormalitiesmay have depressed sed rates whereas patients with anemiamay have elevated sed rates. 10/21/2024 1:34 PM EDT 10/21/2024 1:34 PM EDT Generic External Data Provider LAB BLOOD ORDERAB LES Final Result Performing Organization Address [facility] Co de Phone Number [facility] [address] [place] [phone] * MR Brain w/o Contrast (08/31/2024 10:20 PM EDT) Anatomical Region Laterality Modality Brain Magnetic Resonan ce 08/31/2024 10:2 0 PM EDT Narrative 08/31/2024 10:21 PM EDT [address] [address] Magnetic Resonance Report Signed Patient: Kerline Helms MR#: [id number] : 1960 Acct:[id number] Age/Sex: 64 / F ADM Date: 08/31/24 Loc: HO.MRI Attending Dr: Guera Lugo MD Ordering Physician: Guera Tong MD Date of Service: 08/31/24 Procedure(s): MR head/brain wo con Accession Number(s): [id number] cc: Guera Tong MD CLINICAL HISTORY: ongoing feliz neck pain ongoing, numbness sensation MR Brain without intravenous contrast Comparison: None available Findings: No restricted diffusion acute brain infarction. Multiple sequences degraded by patient motion artifacts. Moderate white matter pathology is nonspecific and may represent a combination of small-vessel ischemic disease and manifestations of vascular type (migraines) headaches. Multiple white matter lesions include the imaged chris/brainstem at this time. Bilateral basal ganglia mineralization nonspecific in this noncontrast study. No definite intra-axial mass or mass-effect defined by noncontrast imaging. Metal artifacts from mouth. Indeterminate cystic change of the anterior pole of the left temporal lobe measures 6 mm on image 13 of series 6 and image 13 of series 16. Large perivascular space is favored by imaging at this time. Additional perivascular spaces are multifocal including basal ganglia regions and para hippocampal sulcal remnants. Fluid and mucosal thickening of the paranasal sinuses are multifocal and can be associated with sinusitis. Bilateral izvwp-ux-pdlctzql mastoid effusions, right worse than left. Motion is noted about the imaged orbits. No retrobulbar mass in either orbit by noncontrast imaging. IMPRESSION: 1. Moderate white matter lesions are non acute and nonspecific, including imaged brainstem. Differential considerations include a combination of the small-vessel ischemic disease and manifestations of the vascular type (migraines) headaches. 2. No restricted diffusion acute brain infarction. 3. No retrobulbar mass in either imaged orbit by noncontrast imaging. This document has been electronically signed by: Kareem Varner MD on 08/31/2024 22:20:14 Dictated By: Kareem Varner MD Signed By: <Electronically signed by Kraeem Varner MD in OV> 08/31/242220 DD/ 19 TD/TT: 08/31/242219 Business English Instructor: Procedure Note Donotuseinterpreter, Image - 08/31/[address] [place] [address] Magnetic Resonance Report Signed Patient: Kerline Helms#: [id number] : 9Acct:[id number] Age/Sex: 64 / FADM Date: 08/31/24 Loc: HO.MRI Attending Dr: Guera Lugo MD Ordering Physician: Guera Tong MD Date of Service: 08/31/24 Procedure(s): MR head/brain wo con Accession Number(s): [id number] cc: Guera Tong MD CLINICAL HISTORY: ongoing feliz neck pain ongoing, numbness sensation MR Brain without intravenous contrast Comparison: None available Findings: No restricted diffusion acute brain infarction. Multiple sequences degraded by patient motion artifacts. Moderate white matter pathology is nonspecific and may represent a combination of small-vessel ischemic disease and manifestations of vascular type (migraines) headaches. Multiple white matter lesions include the imaged chris/brainstem at this time. Bilateral basal ganglia mineralization nonspecific in this noncontrast study. No definite intra-axial mass or mass-effect defined by noncontrast imaging. Metal artifacts from mouth. Indeterminate cystic change of the anterior pole of the left temporal lobe measures 6 mm on image 13 of series 6 and image 13 of series 16. Large perivascular space is favored by imaging at this time. Additional perivascular spaces are multifocal including basal ganglia regions and para hippocampal sulcal remnants. Fluid and mucosal thickening of the paranasal sinuses are multifocal and can be associated with sinusitis. Bilateral qzwal-hl-qspfmtvl mastoid effusions, right worse than left. Motion is noted about the imaged orbits. No retrobulbar mass in either orbit by noncontrast imaging. IMPRESSION: 1. Moderate white matter lesions are non acute and nonspecific, including imaged brainstem. Differential considerations include a combination of the small-vessel ischemic disease and manifestations of the vascular type (migraines) headaches. 2. No restricted diffusion acute brain infarction. 3. No retrobulbar mass in either imaged orbit by noncontrast imaging. This document has been electronically signed by: Kareem Varner MD on 08/31/2024 22:20:14 Dictated By: Kareem Varner MD Signed By: <Electronically signed by Kareem Varner MD in OV> 08/31/242220 DD/ 19 TD/TT: 08/31/242219 Business English Instructor: us Guera Lugo MD IMG MRI PROCEDURE S Edited Result - Final * XR PRE MRI SCREENING (08/31/2024 8:26 PM EDT) Anatomical Region Laterality Modality Abdomen Radiographic Yodit ging 08/31/2024 8:26 PM EDT Narrative 08/31/2024 8:27 PM EDT [address] [address] XRay Report Signed with Addenda Patient: Kerline Helms MR#: [id number] : 1960 Acct:[id number] Age/Sex: 64 / F ADM Date: 08/31/24 Loc: HO.MRI Attending Dr: Guera Lugo MD Ordering Physician: Dallas Damon MD Date of Service: 08/31/24 Procedure(s): XR pre mri screening Accession Number(s): [id number] cc: Dallas Damon MD ADDENDUM This document has been electronically signed by: Etienne Lin on 08/31/2024 21:23:01 ADDENDUM: This report was discussed with Nydia Valle [employer] on Aug 31, 2024 21:22:00 EDT. This document has been electronically signed by: Etienne Lin on 08/31/2024 21:23:56 Addendum Dictated By: Kareem Varner MD Addendum Signed By: <Electronically signed by Kareem Varner MD in OV> 08/31/242123 Addendum Cosigned By: DD/ TD/TT: 08/31/24 ADDENDUM This document has been electronically signed by: Kareem Varner MD on 08/31/2024 20:26:19 ADDENDUM: This report was discussed with Nydia Valle on Aug 31, 2024 21:22:00 EDT. This document has been electronically signed by: Etienne Lin on 08/31/2024 21:23:01 Addendum Dictated By: Kareem Varner MD Addendum Signed By: <Electronically signed by Kareem Varner MD in OV> 08/31/242122 Addendum Cosigned By: DD/ TD/TT: 08/31/24 CLINICAL HISTORY: R O metallic foreign body in eyes or ferrous surgical implant. --- Additional Notes or Special Instructions: Pt had eye surgery in [place] for pain. Not sure if there was an implant. Two views of the orbits Comparison: None available Findings: Opacity superior to the right frontal sinus is nonspecific in the frontal radiographs. No correlate redemonstrated in the lateral image. Metal of the mouth is present. No definite metallic opacity within either imaged orbit. Imaged nasal septum deviates to the right. Imaged paranasal sinuses are well aerated by radiographs. Imaged mastoid air cells are unremarkable for technique. No definite acute displaced fracture by radiographs at this time. IMPRESSION: 1. Opacities nonspecific superior to the frontal sinus on the frontal image and may be posteriorly in the iryqa-qn-vvol on the lateral image. Please consider CT in place of the potential MRI. Please also consider additional and more sensitive screening with head CT for inclusion of the entire calvarium and additional characterization of the opacity noted. 2. Metal of the mouth present. 3. No metal defined in either imaged orbit by radiographs. This document has been electronically signed by: Kareem Varner MD on 08/31/2024 20:26:19 Dictated By: Kareem Varner MD Signed By: <Electronically signed by Kareem Varner MD in OV> 08/31/242025 DD/ 25 TD/TT: 08/31/242025 Business English Instructor: Procedure Note Donotuseinterpreter, Image - 08/31/[address] [address] XRay Report Signed with Addenda Patient: Nura Helms#: [id number] : 9Acct:[id number] Age/Sex: 64 / FADM Date: 08/31/24 Loc: HO.MRI Attending Dr: Guera Lugo MD Ordering Physician: Dallas Damon MD Date of Service: 08/31/24 Procedure(s): XR pre mri screening Accession Number(s): [id number] cc: Dallas Damon MD ADDENDUM This document has been electronically signed by: Etienne Lin on 08/31/2024 21:23:01 ADDENDUM: This report was discussed with Nydia aVlle [employer] on Aug 31, 2024 21:22:00EDT. This document has been electronically signed by: Etienne Lin on 08/31/2024 21:23:56 Addendum Dictated By: Kareem Varner MD Addendum Signed By: <Electronically signed by Dakota Waggoner OV> 08/31/242123 Addendum Cosigned By: DD/ TD/TT: 08/31/24 ADDENDUM This document has been electronically signed by: Kareem Varner MD on 08/31/2024 20:26:19 ADDENDUM: This report was discussed with Nydia Valle on Aug 31, 2024 21:22:00 EDT. This document has been electronically signed by: Etienne Lin on 08/31/2024 21:23:01 Addendum Dictated By: Kareem Varner MD Addendum Signed By: <Electronically signed by Dakota Waggoner OV> 08/31/242122 Addendum Cosigned By: DD/ TD/TT: 08/31/24 CLINICAL HISTORY: R O metallic foreign body in eyes or ferrous surgicalimplant. --- Additional Notes or Special Instructions: Pt had eye surgery in [place] for pain.Not sure if there was an implant. Two views of the orbits Comparison: None available Findings: Opacity superior to the right frontal sinus is nonspecific in the frontal radiographs. No correlate redemonstrated in the lateral image. Metal of the mouth is present. No definite metallic opacity within either imaged orbit. Imaged nasal septum deviates to the right. Imaged paranasal sinuses are well aerated by radiographs. Imaged mastoid air cells are unremarkable for technique. No definite acute displaced fracture by radiographs at this time. IMPRESSION: 1. Opacities nonspecific superior to the frontal sinus on the frontal image and may be posteriorly in the rvalu-te-bnks on the lateral image. Please consider CT in place of the potential MRI. Please also consider additional and more sensitive screening with head CT for inclusion of the entire calvarium and additional characterization of the opacity noted. 2. Metal of the mouth present. 3. No metal defined in either imaged orbit by radiographs. This document has been electronically signed by: Kareem Varner MD on 08/31/2024 20:26:19 Dictated By: Kareem Varner MD Signed By: <Electronically signed by Kareem Varner MD in OV> 08/31/242025 DD/ 25 TD/TT: 08/31/242025 Business English Instructor: [facility] External Provider IMG XR PROCEDURES Edited Result - Final * XR CERVICAL SPINE 3V (08/26/2024 2:02 PM EDT) Anatomical Region Laterality Modality Abdomen Radiographic Yodit ging 08/26/2024 2:02 PM EDT Narrative 08/26/2024 2:40 PM EDT [address] [address] XRay Report Signed Patient: Kerline Helms MR#: [id number] : 1960 Acct:[id number] Age/Sex: 64 / F ADM Date: 08/26/24 Loc: HO.HHCX Attending Dr: Guera Lugo MD Ordering Physician: Guera Tong MD Date of Service: 08/26/24 Procedure(s): XR cervical spine 3V Accession Number(s): [id number] cc: Guera Tong MD EXAMINATION: XR CERVICAL SPINE CLINICAL INFORMATION: PAIN COMPARISON: None available. TECHNIQUE: 3 views of the cervical spine were obtained. FINDINGS: There is a mild levoconvex scoliosis. There is mild straightening of the normal lordosis. There is no subluxation. There are no fractures, compression deformities, or suspicious bone lesions. No evidence of traumatic subluxation. C1-2 articulation and craniocervical junction are intact and aligned. Mild disc degeneration present C4-5, C5-6, and C6-7. Normal facet alignment bilaterally. Mild multilevel degenerative facet changes. No prevertebral or paravertebral soft tissue abnormality. XR/XR cervical spine 3V IMPRESSION: 1. No plain film evidence of acute cervical spine fracture or injury. 2. Mild degenerative spondylosis. Electronically signed by: Niall Damon MD 08/26/2024 02:38 PM EDT Dictated By: Niall Damon MD Signed By: <Electronically signed by Niall Damon MD in OV> 08/26/24 1438 DD/ 1402 TD/TT: 08/26/24 1433 Business English Instructor: Procedure Note Donotuseinterpreter, Image - 08/26/2024 [place] [address] XRay Report Signed Patient: Kerline Helms#: [id number] : 9Acct:[id number] Age/Sex: 64 / FADM Date: 08/26/24 Loc: HO.HHX Attending Dr: Guera Lugo MD Ordering Physician: Guera Tong MD Date of Service: 08/26/24 Procedure(s): XR cervical spine 3V Accession Number(s): [id number] cc: Guera Tong MD EXAMINATION: XR CERVICAL SPINE CLINICAL INFORMATION: PAIN COMPARISON: None available. TECHNIQUE: 3 views of the cervical spine were obtained. FINDINGS: There is a mild levoconvex scoliosis. There is mild straightening of the normal lordosis. There is no subluxation. There are no fractures, compression deformities, or suspicious bone lesions. No evidence of traumatic subluxation. C1-2 articulation and craniocervical junction are intact and aligned. Mild disc degeneration present C4-5, C5-6, and C6-7. Normal facet alignment bilaterally. Mild multilevel degenerative facet changes. No prevertebral or paravertebral soft tissue abnormality. XR/XR cervical spine 3V IMPRESSION: 1. No plain film evidence of acute cervical spine fracture or injury. 2. Mild degenerative spondylosis. Electronically signed by: Niall Damon MD 08/26/2024 02:38 PM EDT RP Dictated By: Niall Damon MD Signed By: <Electronically signed by Niall Damon MD in OV> 08/26/24 1438 DD/ 1402 TD/TT: 08/26/24 1433 Business English Instructor: Guera Lugo MD IMG XR PROCEDURES Final Result * BI Mammogram Screening Tomosynthesis Bilateral (10/08/2023 9:15 AM EDT) Anatomical Region Laterality Modality Breast Bilateral Mammography 10/08/2023 9:15 AM EDT Narrative 10/30/2023 6:14 PM EDT [facility] [address] [place] [address] Mammography Report Signed Patient: Kerline Helms MR#: [id number] : 1960 Acct:[id number] Age/Sex: 63 / F ADM Date: 10/08/23 Loc: HO.MAMMO Attending Dr: Guera Flores MD Ordering Physician: Guera Menjivar MD Results: 1Negative Date of Service: 10/08/23 Follow Up: 1 Year From [facility] Mammogram Procedure(s): MM tomosynthesis screening BI Accession Number(s): [id number] cc: Guera Menjivar MD EXAMINATION: MM SCREENING DIGITAL BREAST TOMOSYNTHESIS, BILATERAL CLINICAL INFORMATION: Screening. Asymptomatic. COMPARISON: Mammography: This study is compared with prior exams dating back to 2018. TECHNIQUE: Digital breast tomosynthesis is performed in both the craniocaudal and mediolateral oblique views along with computer-aided detection (CAD). Synthesized 2D images are generated from the tomosynthesis. FINDINGS: There are scattered areas of fibroglandular density (ACR BI-RADS breast composition Category b). There are no significant masses, abnormal calcifications, or other abnormalities. MM/MM tomosynthesis screening BI IMPRESSION: No mammographic evidence of malignancy. ASSESSMENT: BI-RADS BI-RADS 1 - Negative RECOMMENDATION: Routine annual mammography screening. 1 year F/U This examination should not preclude the clinical evaluation of a suspicious palpable abnormality. This patient's information was entered into a reminder system with a target due date for their next mammogram. Dictated By: Zoë Hobson MD Signed By: <Electronically signed by Zoë Hobson MD in OV> 10/30/231810 DD/ 0915 TD/TT: Business English Instructor: Procedure Note Donotuseinterpreter, Image - 10/[facility] [address] [place] [address] Mammography Report Signed Patient: Kerline HelmsMR#: [id number] : 9Acct:[id number] Age/Sex: 63 / FADM Date: 10/08/23 Loc: SUNG Attending Dr: Guera Flores MD Ordering Physician: Guera Menjivar MDResults: 1Negative Date of Service: 10/08/23Follow Up: 1 Year From Orig inal Mammogram Procedure(s): MM tomosynthesis screening BI Accession Number(s): [id number] cc: Guera Menjivar MD EXAMINATION: MM SCREENING DIGITAL BREAST TOMOSYNTHESIS, BILATERAL CLINICAL INFORMATION: Screening. Asymptomatic. COMPARISON: Mammography: This study is compared with prior exams dating back to 2018. TECHNIQUE: Digital breast tomosynthesis is performed in both the craniocaudal and mediolateral oblique views along with computer-aided detection (CAD). Synthesized 2D images are generated from the tomosynthesis. FINDINGS: There are scattered areas of fibroglandular density (ACR BI-RADS breast composition Category b). There are no significant masses, abnormal calcifications, or other abnormalities. MM/MM tomosynthesis screening BI IMPRESSION: No mammographic evidence of malignancy. ASSESSMENT: BI-RADS BI-RADS 1 - Negative RECOMMENDATION: Routine annual mammography screening. 1 year F/U This examination should not preclude the clinical evaluation of a suspicious palpable abnormality. This patient's information was entered into a reminder system with a target due date for their next mammogram. Dictated By: Zoë Hobson MD Signed By: <Electronically signed by Zoë Hobson MD in OV> 10/30/231810 DD/ 09 TD/TT: Business English Instructor: Guera Flores MD IMG BI PROCEDURES Issac kenia Result - Final * HPV mRNA E6/E7 w/Reflex to HPV Genotypes 16, 18/45 (10/10/2022 10:52 AM EDT) HPV nRNA E6/E7 Not Detected Not Detected [facility] Comment:Methodology: Transcr iption-Mediated AmplificationThis assay detects E6/E7 viral messenger RNA (mRNA) from 14high-risk HPV types (16,18,31,33,35,39,45,51,52,56,58,59,66,68).Cervical sources are required for HPV testing.If a vaginal source from a patient who has had atotal hysterectomy with removal of cervix wassubmitted, please contact the testing laboratoryfor alternative testing options.For additional information, please refer tohttp://[email or web address]/faq/[email or web address](This link if provided for information/educational purposes only.)THIS TEST WAS PERFORMED AT:[employer] [place] [phone] GONZALES MD HPV mRNA E6/E7 [facility] HPV 16 RNA [facility] HPV 18/45 RNA [facility] 10/10/2022 10:5 2 AM EDT 10/12/2022 8:30 AM EDT Guera Flores MD LAB CYTOLOGY ORDERABL ES Final Result [facility] [address] [place] [phone] * Pap Smear (10/10/2022 10:52 AM EDT) 10/10/2022 10:5 2 AM EDT 10/12/2022 8:30 AM EDT [facility] - 10/24/2022 1:39 PM EDT ----- ------- Name: Kerline Helms Age/Sex: 62/F : 1960 Unit#: [id number] Attend Dr: Guera Menjivar MD Re10/10/22 Status: [facility] REF Location: HO.HHCLNP Disch: ----- ------- SPEC : [id number] RECD: 10/12/22 STATUS: JOHN LEMA NUM: [id number] RD: 10/10/22-[address] [facility] DR: Guera Menjivar MD ENTERED: 10/12/22-0924 SP TYPE: Pap Smr OT DR: ORDERED: Pap Smear Interpretation Satisfactory for evaluation. Atrophic. Negative for intraepithelial lesion or malignancy. HPV mRNA E6/E7: NOT DETECTED This assay detects E6/E7 viral messenger RNA (mRNA) from 14 high-risk HPV types (16, 18, 31, 33, 35, 39, 45, 51, 52, 56, 58, 59, 66, 68) HPV testing performed by [employer], [place], [place]. See reference laboratory pion of the EMR for entire report. Clinical Information LMP: Unknown date Previous PAP test: Unknown date/findings Material Received ThinPrep-Vaginal/Cervical ----- ------- Signed (signature on file) JIMMY Tsai (ASCP) 10/24/22 1339 ----- ------- END OF REPORT Guera Flores MD LAB CYTOLOGY ORDERABL ES Final Result [facility] [address] [place] [phone] * (ABNORMAL) Lipid Panel, Standard (08/22/2022 2:48 PM EDT) Cholesterol, Total 226(H) <200 mg/dL [employer] [facility] [place] [facility] HDL Cholesterol 62 > OR = 50 mg/dL [address] [facility] Triglycerides 223(H) <150 mg/dL [facility] Comment: If a non-fasting specimen was collected, consider repeat triglyceride testing on a fasting specimen if clinically indicated. Nova et al. J. of Clin. Lipidol. 2015;9:129-169. LDL Cholesterol 128(H) mg/dL (calc) [facility] Comment: Reference range: <100 Desirable range <100 mg/dL for primary prevention; <70 mg/dL for patients with CHD or diabetic patients with > or = 2 CHD risk factors. LDL-C is now calculated using the Jeanmarie calculation, which is a validated novel method providing better accuracy than the Friedewald equation in the estimation of LDL-C. Eleno SS et al. SHANNON. 2013;310(19): 7200-7916 (http://education.M[employer] MedSystems/faq/LBB515) Chol/HDLC Ratio 3.6 <5.0 (calc) [employer] Non-HDL Cholesterol 164(H) <130 mg/dL (calc) [employer] Comment: For patients with diabetes plus 1 major ASCVD risk factor, treating to a non-HDL-C goal of <100 mg/dL (LDL-C of <70 mg/dL) is considered a therapeutic option. Blood Venous blood specimen / Unknown 08/22/2022 2:48 PM EDT 08/22/2022 2:48 PM EDT Guera Flores MD LAB BLOOD ORDERABLES Final Result [facility] [address], [place] [address] [address] [facility] [address] [place] [address] * Hm Colonoscopy (04/10/2018) Historical Provider HEALTH MAINTENANCE Final Result from Last 3 Months or Most Recently Relevant to Health Maintenance Insurance [facility]LY [facility] Care Teams Therapist Relationship Specialty Start Date End Date Guera Menjivar MD [address] [place] [address] PCP - General Family Medicine 12/15/19
--- OUTSIDE RECORDS SUMMARY | 2024-11-19 16:24 | XMS_ITS | Encounter Summary ---
Author Organization [employer] Address [address] [facility] [address] [place] [address] Care Team Providers Care Retention Manager Name Role Phone Guera Menjivar MD Primary Care Provide r Reason for Visit * Reason Onset Date Comments Durable Medical Equipment 11/10/2024 Encounter Details Date Type Department Care Team ([facility] Contact Info) Description 11/10/2024 Telephone [facility] MEDICINE [address] [place] [address] Guera Menjivar MD 230 [place] [address] Durable Medical Equipment Social History Tobacco Use Types Packs/Day Years [...] Author Not at all 11/14/2024 2:56 PM DONLELT Merrick Lopez MA * Patient Health Questionnaire-9 [...] annoyed or irritable 0 11/14/2024 2:56 PM DONELLT Merrick Lopez MA Feeling afraid as if somethi ng awful might happen 0 11/14/2024 2:56 PM EDT Merrick Lopez MA ROSA-7 Total Score 1 11/14/2024 2:56 PM EDT Merrick Lopez MA documented as of this encounter Miscellaneous Notes * Telephone Encounter - Maria Del Carmen Aleksey - 11/18/2024 3:38 PM EDT Duplicated request, order resolved in another thread. * Telephone Encounter - Eugenio Aleksey - 11/10/2024 1:05 PM EDT Tc from aundrea (son in law) stating pt has been discharged from hospital and they're requesting a nebulizer machine. If any questions contact aundrea at [phone]. (Mongolian Speaker) documented in this encounter Plan of Treatment Upcoming Encounters Date Type Department Care Team (Late st Contact Info) Description 12/04/2024 1:15 PM EDT Office Visit [facility] MEDICINE [address] [place] [address] Guera Menjivar MD [address] [place] [address] documented as of this encounter Visit Diagnoses Not on filedocumented in this encounter Additional Health Concerns Assessment Noted Time PHQ-9 Depression Total Score: 0 08/23/19 23 2:00 PM EDT documented as of this encounter Care Teams Retention Manager Relationship Specialty Start Date End Date Guera Menjivar MD [address] [place], [place] [phone] PCP - General Family Medicine 12/15/19 documented as of this encounter
--- OUTSIDE RECORDS SUMMARY | 2024-11-19 16:24 | XMS_ITS | Encounter Summary ---
Author Organization [employer] Address [address] [facility] 7t [place] [address] Care Team Providers Care Gluing Machine Offbearer Name Role Phone Guera Menjivar MD Primary Care Provide r Encounter Details Date Type Department Care Team (Late st Contact Info) Description 02/13/2023 Abstract [facility] MEDICINE [address] [place] [address] Radha Clarke Social History Tobacco Use Types [...] Visit [facility] MEDICINE [address] [place] [address] Guera Menjivar MD [address] [place] [address] documented as of this encounter Visit Diagnoses Not on filedocumented in this encounter Additional Health Concerns Assessment Noted Time PHQ-9 Depression Total Score: 0 08/23/19 23 2:00 PM EDT documented as of this encounter Care Teams Gluing Machine Offbearer Relationship Specialty Start Date End Date Guera Menjivar MD [address] [place] [address] PCP - General Family Medicine 12/15/19 documented as of this encounter
--- OUTSIDE RECORDS SUMMARY | 2024-11-19 16:24 | XMS_ITS | Encounter Summary ---
Author Organization [employer] Address [address] [facility] 7t [place] [address] Care Team Providers Care Psych Np Name Role Phone Guera Menjivar MD Primary Care Provide r Encounter Details Date Type Department Care Team (Latest Contact Info) Description 11/14/2024 Travel Social History Tobacco Use Types Packs/Day Years [...] Lopez MA documented as of this encounter Plan of Treatment Upcoming Encounters Date Type Department Care Team (Late st Contact Info) Description 12/04/2024 1:15 PM EDT Office Visit [facility] MEDICINE [address] [place] [address] Guera Menjivar MD 230 [place] [address] documented as of this encounter Visit Diagnoses Not on filedocumented in this encounter Additional Health Concerns Assessment Noted Time PHQ-9 Depression Total Score: 3 11/15/19 25 2:56 PM EDT documented as of this encounter Care Teams Psych Np Relationship Specialty Start Date End Date Guera Menjivar MD [address] [place] [address] PCP - General Family Medicine 12/15/19 documented as of this encounter
--- OUTSIDE RECORDS SUMMARY | 2024-11-19 16:24 | XMS_ITS | Encounter Summary ---
Author Organization [employer] Address [address] [facility] 7[address] [place] [address] Care Team Providers Care Academic Affairs Assistant Name Role Phone Guera Menjivar MD Primary Care Provide r Reason for Visit * Reason Onset Date Comments Nurse Triage 11/11/2024 Encounter Details Date Type Department Care Team ([facility] st Contact Info) Description 11/11/2024 Telephone [facility] MEDICINE [address] [place] [address] Guera Menjivar MD 230 [place] [address] Nurse Triage Social History Tobacco Use Types Packs/Day Years [...] 2:56 PM DONELLT Merrick Lopez MA * Trouble falling or [...] 2:56 PM DONELLT Merrick Lopez MA * Feeling bad about [...] might happen 0 11/14/2024 2:56 PM EDT Merrcik Lopez MA ROSA-7 Total Score 1 11/14/2024 2:56 PM EDT Merrick Lopez MA documented as of this encounter Miscellaneous Notes * Telephone Encounter - Vanessa Villa RN - 11/11/2024 2:29 PM EDT No science interpreter needed as this internal communications writer speaks Lithuanian. Call returned to Kerline De La Paz to triagebel at [phone]. Confirms inforamtion from ER Notes, regarding dx of COPD exacerbation. Pt did pick up attendant Rx for levofloxacin 500 mg tablet 500 mg PO DAILY Qty: 4 prednisone 10 mg tablet 40 mg PO DIRECTED Qty: 16 0RF Rx Instructions: take 40 mg for 4 days Pt was also prescribed a nebulizer solution but does not have nebulizer. Pt was instructed to request from PCP. Pt also instructed to follow up with PCP In 1 week. Pt given soonest HDF with a team provider this week. Reviewed home care advise or increased fluids, rest, and taking meds as instructed. DME request sent to PA specialist. Will send this note to PCP to review and if agreeable to submitDME order. Future Appointments Date Time Provider Department Center 11/14/2024 2:00 PM Katiuska Evans NP MEDICINE [facility] 12/04/2024 1:15 PM Guera Flores MD MEDICINE [facility] Protocol Used: Post-Hospitalization Follow-up Call (Adult) Protocol-Based Disposition: Callback or Video Visit by PCP Today Video visit offer not recorded Positive Triage Question: * Caller has NON-URGENT question and triager unable to answer question * All higher-acuity triage questions were negative Care Advice Discussed: * Continue Treatment * Pain Medicines * Reasons To Call Back - Fever occurs - You become worse * Telephone Encounter - Jacinto Jane - 11/11/2024 2:19 PM EDT Patient calling to report ED visit on : Date: 11/10/2024 Hospital: [facility] [place] Seen for: Bronchitis Symptomatic Yes *if yes message should go to Triage Patient advised will forward to team nurse for follow up Contact pt at [phone] documented in this encounter Plan of Treatment Upcoming Encounters Date Type Department Care Team ([facility] st Contact Info) Description 12/04/2024 1:15 PM EDT Office Visit [facility] MEDICINE [address] [place] [address] Guera Menjivar MD [address] [place] [address] documented as of this encounter Visit Diagnoses Not on filedocumented in this encounter Additional Health Concerns Assessment Noted Time PHQ-9 Depression Total Score: 0 08/23/19 23 2:00 PM EDT documented as of this encounter Care Teams Academic Affairs Assistant Relationship Specialty Start Date End Date Guera Menjivar MD [address] [place] [id number] PCP - General Family Medicine 12/15/19 documented as of this encounter
--- OUTSIDE RECORDS SUMMARY | 2024-11-19 16:24 | XMS_ITS | Encounter Summary ---
Author Organization [employer] Address [address] [facility] [address] [place] [address] Care Team Providers Care Gun Repair Clerk Name Role Phone Guera Menjivar MD Primary Care Provide r Reason for Visit * Reason Onset Date Comments triage 04/11/2022 Encounter Details Date Type Department Care Team ([facility] st Contact Info) Description 04/11/2022 Telephone [facility] MEDICINE [address] [place] [address] Guera Menjivar MD [address] [place] [address] triage Social History Tobacco Use Types Packs/Day Years [...] suspected to have Coronavirus/COVID-19? No / Unsure 04/04/2022 12:46 PM EST documented as of this encounter Miscellaneous Notes * Telephone Encounter - Ca Guzman LPN - 04/11/2022 5:01 PM EST Patient called and reports she was seen on Sunday04/04/22 at ed for chest pain and was prescribed medication that was never delivered. Reports 10/26 for pain and would like to see pcp . Available appt. Pt will go to [facility]. Pt agres to protocol. Used: Arm Pain (Adult) Protocol-Based Disposition: See in Office or Video Visit Today or Tomorrow Video visit offer not recorded Positive Triage Question: * Patient wants to be seen * All higher-acuity triage questions were negative Care Advice Discussed: * Pain Medicines * Reasons To Call Back * Use a Cold Pack for Pain * Rest * Pain Medicines * Reasons To Call Back * Telephone Encounter - Lashawn Cleveland - 04/11/2022 3:04 PM EST Symptom: Arm Pain - Not From Injury Outcome: Schedule an appointment to be seen within 24 hours Reason: No high acuity concerns reported by caller The caller accepted this outcome documented in this encounter Plan of Treatment Upcoming Encounters Date Type Department Care Team (Late st Contact Info) Description 12/04/2024 1:15 PM EDT Office Visit [facility] MEDICINE [address] [place] [address] Guera Menjivar MD [address] [place] [address] documented as of this encounter Visit Diagnoses Not on filedocumented in this encounter Care Teams Gun Repair Clerk Relationship Specialty Start Date End Date Guera Menjivar MD [address] [place] [id number] PCP - General Family Medicine 12/15/19 documented as of this encounter
--- OUTSIDE RECORDS SUMMARY | 2024-11-19 16:24 | XMS_ITS | Encounter Summary ---
Author Organization [employer] Address [address] [facility] 7t [place] [address] Care Team Providers Care Claim Professional Name Role Phone Guera Menjivar MD Primary Care Provide r Reason for Visit * Reason Onset Date Comments patient calling back with insurance info emergen cy dental 09/25/2024 Encounter Details Date Type Department Care Team ([facility] st Contact Info) Description 09/25/2024 Telephone [facility] [address] [place] [address] Kathrine Saeed DDS patient calling back with insurance info emergency dental Social History Tobacco Use Types Packs/Day Years [...] housing situation today? I have nikolaylala alcala 09/25/[address] you [...] Recorded Patient Health Questionnaire-2 Score 0 08/22/2022 Internet Access Answer Date Recorded Internet Access Q1 Yes 09/25/2024 Internet Access Q2 Not on file 09/25/2024 Comments Unknown Sex and Gender Information Value Date Recorded Sex Assigned at Female 01/16/2022 10:32 AM EDT Legal Sex Female 10:32 AM EDT Gender Identity Female 01/16/2022 10:32 AM EDT Sexual Orientation Choose not to disclose 2021 10:32 AM EDT documented as of this encounter Miscellaneous Notes * Telephone Encounter - Nelsy Lo - 09/25/2024 9:29 AM EDT Patient is coming into office for 3pm emergency appt DR Patient currently did not have insurance information available. Patient advised to contact insurance and provide information for appt by 12 noon. Patient understands that if insurance information is not provided by 12 noon appt will be cancelled. May be rescheduled if she contacts and has info avaialbe and appt slot is still available as well documented in this encounter Plan of Treatment Upcoming Encounters Date Type Department Care Team (Late st Contact Info) Description 12/04/2024 1:15 PM EDT Office Visit [facility] MEDICINE [address] [place] [address] Guera Menjivar MD [address] [place] [address] documented as of this encounter Visit Diagnoses Not on filedocumented in this encounter Additional Health Concerns Assessment Noted Time PHQ-9 Depression Total Score: 0 08/23/19 23 2:00 PM EDT documented as of this encounter Care Teams Claim Professional Relationship Specialty Start Date End Date Guera Menjivar MD [address] [place], [place] [phone] PCP - General Family Medicine 12/15/19 documented as of this encounter
--- OUTSIDE RECORDS SUMMARY | 2024-11-19 16:24 | XMS_ITS | Encounter Summary ---
Author Organization [employer] Address [address] [facility] 7t [place] [address] Care Team Providers Care Mortician Investigator Name Role Phone Guera Menjivar MD Primary Care Provide r Encounter Details Date Type Department Care Team ([facility] st Contact Info) Description 08/31/2024 Telephone [facility] MEDICINE [address] [place] [address] Nydia Valle NP [address] [place] [address] Social History Tobacco Use Types Packs/Day Years [...] encounter Miscellaneous Notes * Telephone Encounter - Nydia Valle NP - 08/31/2024 9:14 PM EDT 08/31/24 at 914 pm Critical results called from Larry Kamara with radiology finding . Initially received report from outside service stating x-ray concerning for metal and consider holding mri and ordering CT. Called radiology at [facility] where mri had been completed, soI did not order recommended CT. At time of call MRI was pending results and results would be STAT read to clinic. Pt was stable ambulating and was prepared to leave department. documented in this encounter Plan of Treatment Upcoming Encounters Date Type Department Care Team (Late st Contact Info) Description 12/04/2024 1:15 PM EDT Office Visit [facility] MEDICINE [address] [place] [address] Guera Menjivar MD [address] [place] [address] documented as of this encounter Visit Diagnoses Not on filedocumented in this encounter Additional Health Concerns Assessment Noted Time PHQ-9 Depression Total Score: 0 08/23/19 23 2:00 PM EDT documented as of this encounter Care Teams Mortician Investigator Relationship Specialty Start Date End Date Guera Menjivar MD [address] [place] [address] PCP - General Family Medicine 12/15/19 documented as of this encounter
== END 2024-11-19 15:14 | disposition home or self-care (01) ==
LOC: HO.HSM 14:07
PROVIDERS: PCP Internal Medicine; Visit Provider Psychiatry & Neurology Neurology
DX: I67.89 Other cerebrovascular disease (principal); M31.6 Other giant cell arteritis
CPT/HCPCS: 99214

== ENCOUNTER → 2024-11-19 14:06 | Outpatient (BNVA) | payer OTHER, SELFPAY | PROVIDERS: PCP Internal Medicine; Visit Provider Psychiatry & Neurology Neurology | DX: R68.84 Jaw pain (principal); M31.6 Other giant cell arteritis; I67.89 Other cerebrovascular disease; R51.9 Headache, unspecified | CPT/HCPCS: 99212 ==

== ENCOUNTER 2024-12-04 14:18 | Outpatient (REF) | payer OTHER, SELFPAY ==
[2024-12-04 16:23] LABS: Hematocrit 38.3 % (37.0-47.0); Hemoglobin 12.6 g/dl (12.0-16.0); Imm Gran Abs Auto 1.16 X10*3/uL (0.00-0.03); Imm Gran Pct Auto 4.4 % (0.0-0.4); Lymphocytes Absolute Auto 3.5 X10*3/uL (1.2-4.9); MANUAL DIFF FLAG SCAN; Mean Corpuscular HGB Conc 32.9 g/dl (31.0-35.0); Mean Corpuscular Hemoglobin 29.5 pg (27.0-33.0); Mean Corpuscular Volume 89.7 fL (80.0-98.0); NRBC Abs Auto 0.000 X10*3/uL (0.0-0.012); NRBC Pct Auto 0.0 /100WBC (0.0-0.2); Platelet Count 464 X10*3/uL (160-400); Red Blood Count 4.27 X10*6/uL (4.20-5.50); SCAN SMEAR FLAG 1; White Blood Count 26.4 X10*3/uL (4.8-10.8)
[2024-12-04 16:27] LABS: Total Hemoglobin (HGBA1C) 3284.5350 umol/L
[2024-12-04 17:23] LABS: Alanine Aminotransferase 28 U/L (0-31); Albumin Level 4.1 g/dL (3.5-5.0); Alkaline Phosphatase 65 U/L (39-117); Anion Gap 13 (12-20); Aspartate Amino Transferase 23 U/L (5-31); Blood Urea Nitrogen 21 mg/dL (9-16); Calcium 9.6 mg/dL (8.4-10.2); Carbon Dioxide 29 mmol/L (22-29); Chloride 104 mmol/L (96-108); Cholesterol 278 mg/dL (<200); Estimated Glomerular Filt Rate > 60; HDL Cholesterol 101 mg/dL (>40); Potassium 5.4 mmol/L (3.3-5.1); Sodium 141 mmol/L (135-145); Total Protein 7.0 g/dL (6.5-8.0); Triglycerides 255 mg/dL (<150)
[2024-12-04 17:48] LABS: Folate 7.9 ng/mL (> or = 4.0); Vitamin B12 299 pg/mL (200-900)
[2024-12-05 09:27] LABS: HIV Num 1 0.05 S/CO (0.00-0.99); ~HepC Num1 0.09 S/CO (0.00-0.79); ~Hepatitis C Antibody Nonreactive (Nonreactive)
== END 2024-12-04 14:19 | disposition home or self-care (01) ==
LOC: HO.HHCL 14:18
PROVIDERS: PCP Internal Medicine; Visit Provider Internal Medicine
DX: Z00.00 Encounter for general adult medical examination without abnormal findings (principal); Z11.4 Encounter for screening for human immunodeficiency virus [HIV]; Z11.59 Encounter for screening for other viral diseases
CPT/HCPCS: 36415; 80053; 80061; 82306; 82607; 82746; 83036; 84443; 85025; 86803; 87389

== ENCOUNTER 2024-12-10 13:34 | Outpatient (REF) | payer OTHER, SELFPAY ==
--- OUTSIDE RECORDS SUMMARY | 2023-09-12 07:20 | XMS_ITS ---
Author Organization [facility] Address [address] [place] [phone] Care Team Providers Care Ampoule Examiner Name Role Phone Melonie Bennett Primary Care Provider Geoffrey King Jr [phone] REASON FOR VISIT Patient presents today for abdominal pain Encounters Encounter Location Date Provider Diagnosis [facility] [address] [place] [phone] 09/12/2023 Geoffrey Khan Jr Plan Of Treatment No Information Progress Notes * FERNIE VALDEZDOB:[birth year] (64 yo F)Acc No.[id number]:09/12/2023 Progress Notes Patient: FERNIE ATNG Provider: Sarthak Khan MD :1960 A ge:63 Y S ex:Female Date:09/12/2023 Address:[address] [place], [place] [phone] Pcp:Melonie Bennett Subjective: * Chief Complaints: * [...] Date: 09/12/2023 Generated for Yoan alvarado/Rachel/eTransmitting on: 12/10/2024 03:59 PM EDT
--- NOTE | ~2024-12-10 | MM_ITS ---
EXAMINATION: MM SCREENING DIGITAL BREAST TOMOSYNTHESIS, BILATERAL CLINICAL INFORMATION: Screening. Asymptomatic. COMPARISON: October 08, 2023 TECHNIQUE: Digital breast tomosynthesis is performed in mediolateral oblique and craniocaudal views along with computer-aided detection (CAD). Synthesized 2D images are generated from the tomosynthesis. Best possible images according to technologist notes. FINDINGS: BREAST COMPOSITION: There are scattered areas of fibroglandular density. BILATERAL BREASTS: No significant masses, suspicious calcifications or other abnormalities are seen in either breast. MM/MM tomosynthesis screening BI IMPRESSION: BILATERAL BREASTS: Negative, no mammographic evidence of malignancy. Normal interval follow-up is recommended in 12 months. ASSESSMENT: BI-RADS: Category 1: Negative RECOMMENDATION: Routine annual mammography screening. FOLLOW-UP: 1 year F/U This examination should not preclude the clinical evaluation of a suspicious palpable abnormality. This patient's information was entered into a reminder system with a target due date for their next mammogram. Electronically signed by: Aaliyah Parker MD 12/12/2024 06:53 PM EDT
--- OUTSIDE RECORDS SUMMARY | 2024-12-10 15:59 | XMS_ITS | Patient Health Record ---
Author Organization [facility] Address [address] [place] [address] Care Team Providers Care Wire Border Assembler Name Role Phone Melonie Bennett Primary Care [...] Problem Status W/U Status Risk Notes Problem [id number] Colon cancer screening (Z12.11) Active confirmed Plan Of Treatment Future Test Test Name Order Date COLONOSCOPY 01/03/2018 Insurance Providers Payer Name Payer Address Payer Phone Subscriber Number Group Number Insured Name Patient Relationship to Insured Coverage Start Date Coverage End Date [facility] [address] [place] [address] [id number] FERNIE VADLEZ Self - patient is the insured Medical (General) History Medical History History ICD Code Denies [place],DM,CVA,Lung disease,renal dise ase Surgical History Surgery Date(Month/Year) eye surgery-left
--- OUTSIDE RECORDS SUMMARY | 2024-12-10 15:59 | XMS_ITS | Encounter Summary ---
Author Organization [employer] Address 75 [facility] 7t [place] [address] Care Team Providers Care Quality Assurance Monitor Name Role Phone Guera Menjivar MD Primary Care Provide r Encounter Details Date Type Department Care Team (Late st Contact Info) Description 02/13/2023 Abstract [facility] MEDICINE [address] [place] [address] Radha Clarke Social History Tobacco Use Types [...] Care Team (Late st Contact Info) Description 01/21/2025 10:00 AM EST Telemedicine [facility] MEDICINE [address] [place] [address] Guera Menjivar MD 230 [place], [place] [phone] documented as of this encounter Visit Diagnoses Not on filedocumented in this encounter Additional Health Concerns Assessment Noted Time PHQ-9 Depression Total Score: 0 08/23/19 23 2:00 PM EDT documented as of this encounter Care Teams Quality Assurance Monitor Relationship Specialty Start Date End Date Guera Menjivar MD [address] [place] [address] PCP - General Family Medicine 12/15/19 documented as of this encounter
--- OUTSIDE RECORDS SUMMARY | 2024-12-10 16:00 | XMS_ITS | Clinical Summary ---
Author Organization [employer] Address [address] [facility] [address] [place] [address] Care Team Providers Care Bank Officer Name Role Phone Guera Menjivar MD Primary [...] application site. 14 patch 11/15/19 25 Active bacitracin 500 UNIT/GM ointmentIndic ations:Skin pimple Apply topically 2 times daily. 14 g 12/05/19 25 Active ciclopirox (Penlac) 8 % solutionIndic ations:Onycho mycosis Apply topically at bedtime. 6 mL 12/05/19 25 Active albuterol 108 (90 Base) MCG/ACT [...] cleanup (will not trigger notification to Pharmacy)) Active Problems Problem Noted Date Diagnosed Date Asymptomatic menopausal state 12/04/2024 Current chronic use of systemic steroids 025 Temporal arteritis 12/04/2024 Assessment & Plan (12/04/2024 4:39 PM EDT): Continue to follow with neurology Chronic bronchitis 12/04/2024 Assessment & Plan (12/04/2024 4:39 PM EDT): Do not miss appointment for pulmonary function test I will review results with patient Encounter for preventive care 12/04/2024 Assessment & Plan (12/04/2024 4:39 PM EDT): See HPI Night sweats 12/04/2024 Assessment & Plan (12/04/2024 4:40 PM EDT): Could be menopause state or other etiology depending on blood work results possibly referral to hematology Skin pimple 12/04/2024 Onychomycosis 12/04/2024 Wheezing 11/04/2024 Bronchiolitis 11/04/2024 Assessment & Plan [...] quadrant pain 08/29/2017 Presbyopia 07/13/2017 Goiter 06/12/2017 Resolved Problems Problem Noted Date Diagnosed Date Resolved Date Bronchitis 12/04/2024 12/04/2024 Encounters Date Type Department Care Team Description 12/05/2024 Results Follow-Up [facility] [address] [place] [address] Guera Menjivar MD CBC auto differential, Comprehensive Metabolic Panel, Hemoglobin A1c, Additional followed-up results: 6 12/04/2024 1:15 PM EDT Office Visit [facility] [address] [place] [phone] Guera Menjivar MD Colon cancer screening (Primary Dx); Asymptomatic menopausal state; Current chronic use of systemic steroids; Temporal arteritis (CMS/HCC); Chronic bronchitis, unspecified chronic bronchitis type (CMS/HCC); Encounter for preventive care; Night sweats; Skin pimple; Onychomycosis 12/04/2024 Orders Only [address] [address] Guera Menjivar MD 12/04/2024 Travel 11/26/2024 Patient Outreach [address] [address] Guera Menjivar MD Pre-visit Planning (SDOH screening completed on 09/25/2024) 11/14/2024 2:00 PM EDT Office Visit [address] [address] Katiuska Evans NP Hospital discharge follow-up (Primary Dx); Encounter for smoking cessation counseling; Screening for lung cancer 11/14/2024 Travel 11/13/[address] [address] Merrick Lopez [place] CHARTPREP 11/11/[address] [address] Guera Menjivar MD Durable Medical Equipment (DME Request: Nebulizer) 11/11/[address] [address] Guera Menjivar MD Nurse Triage 11/10/[address] [address] Guera Menjivar MD Durable Medical Equipment 11/09/2024 Orders Only GENERIC EXTERNAL DATA DEPARTMENT Provider, Generic External Data 11/04/2024 3:20 PM EDT Office Visit [facility] [address] [place] [phone] Guera Menjivar MD Wheezing; Bronchiolitis 11/04/2024 Travel 10/21/2024 Orders Only GENERIC EXTERNAL DATA DEPARTMENT Provider, Generic External Data 10/10/[address] [address] Guera Menjivar MD Nurse Triage 10/06/[address] [address] Guera Menjivar MD No Show 10/03/[address] [address] Guera Menjivar MD Chart Prep 09/25/2024 Patient Outreach [address] [phone] Guera Menjivar MD Pre-visit Planning (SDOH screening negative and tobacco screening positive) 09/25/2024 Telephone [facility] [address] [place], [place] [phone] Kathrine Saeed DDS patient calling back with insurance info emergency dental from Last 3 Months Immunizations Immunization Administration Dates Next Due INFLUENZA INJECTABLE QUADRIV ALANT CCIIV4 MDCK Multi-dose vial 12/16/2018 Influenza injectable quadriv alent IIV4 with preservative 01/14/2018 Influenza injectable quadrivalent preservative f ree 12/16/2018 Pneumococcal Polysaccharide PPSV23 10/10/2018 Tdap 01/14/2018 Zoster, Recombinant 12/16/2018,10/15/2018 Social History Tobacco Use Types Packs/Day Years Used Date Smoking Tobacco: Former Cigarettes Passive Smoke Exposure: Past Smokeless Tobacco: Former Tobacco Cessation:Counseling Given: Not Answered Comments:4-5 Daily Passive Exposure Comments:pt stop smoking about a month ago Alcohol Use Standard Drinks/Week Comments Never 0 [...] Sign Reading Time Taken Comments Blood Pressure 128/84 12/04/2024 1:35 PM EDT Pulse 76 12/04/2024 1:35 PM EDT Temperature 36.1 C (97 F) 12/04/2024 1:35 PM EDT Respiratory Rate 15 12/04/2024 1:35 PM EDT Oxygen Saturation 97% 12/04/2024 1:35 PM EDT Inhaled Oxygen Concentration - - Weight 57.4 kg (126 lb 9.6 oz) 12/04/2024 1:35 P M EDT Height 160 cm (5' 3 ) 12/04/2024 1:35 PM EDT Body Mass Index 22.43 12/04/2024 1:35 PM EDT Plan of Treatment Upcoming Encounters Date Type Department Care Team (Late st Contact Info) Description 01/21/2025 10:00 AM EST Telemedicine [facility] [address] [place] [address] Guera Menjivar MD [address] [place] [address] Health Maintenance Due Date Last Done Comments CT Colonography 1960 Dental Prophylaxis 1960 FIT DNA/Cologuard 1960 FIT 1960 FOBT 1960 Sigmoidoscopy 1960 Dental Oral Exam 07/04/2017 01/02/2017 Dental X-Ray: Bitewings 01/03/2018 01/02/2017 RSV Patients and Patients Aged 60 years or older (1 - Risk 60-74 years 1-dose series) 2018 Pneumococcal Vaccine: 50+ Years (2 of 2 - PCV) 10/11/2019 10/10/2018 Dental X-Ray: Full Mouth 01/04/2020 017, 11/13/2016 Colonoscopy 04/10/2023 04/10/2018 Colorectal Cancer Screening 04/10/2023 Mammogram 10/07/2024 10/08/2023, 06/13/2017 COVID-19 Vaccine (1 - 2023-2 5 season) 2024 Influenza Vaccine (#1) 2024 9, 12/16/2018, 01/14/2018 SDOH Screening 09/25/2025 09/25/2024 Alcohol/Substance Use Screening 11/14/2025 11/14/2024 Depression Screening 11/14/2025 11/14/2024, 11/14/2024 Diabetes: Hemoglobin A1C 12/04/2025 025, 08/22/2022 Tobacco Screening 12/04/2025 12/04/2024 DTaP/Tdap/Td Vaccines (2 - T d or Tdap) 01/15/2028 01/14/2018 Lipid Panel 12/04/2029 12/04/2024, 08/22/2022 Zoster Vaccines Completed 12/16/2018, 10/15/2018 Cervical Cancer Screening Discontinued HPV/Cotest Discontinued 10/10/2022, 10/24/2017 Pap Smear Discontinued 10/10/2022 Hepatitis C Screening Completed 12/04/2024 HIB Vaccines Aged Out No longer eligi [...] Procedure Name Priority Date/Time Associated Diagnosis Comments SLIDE REVIEW Routine 12/04/2024 2:24 PM EDT VITAMIN B12/FOLATE, SERUM PANEL Routine 12/04/2024 2:24 PM EDT Encounter for preventive care TSH W/REFLEX TO FT4 Routine 12/04/2024 2 :24 PM EDT Encounter for preventive care VITAMIN D,25-OH,TOTAL,IA Routine 12/04/2024 2:24 PM EDT Encounter for preventive care LIPID PANEL, STANDARD Routine 12/04/2024 2:24 PM EDT Encounter for preventive care HEPATITIS C AB W/REFL TO HCV RNA, QN, PCR Routine 12/04/2024 2:24 PM EDT Encounter for preventive care HIV 1/2 ANTIGEN/ANTIBODY, FOURTH GENERATION W/RFL Routine 12/04/2024 2:24 PM EDT Encounter for preventive care HEMOGLOBIN A1C Routine 12/04/2024 2:24 PM EDT Encounter for preventive care COMPREHENSIVE METABOLIC PANEL Routine 12/04/2024 2:24 PM EDT Encounter for preventive care CBC WITH AUTO DIFFERENTIAL Routine 12/04/2024 2:24 PM EDT Encounter for preventive care CTA CHEST PE PROTOCAL Routine 11/09/2024 3:27 [...] MODIFIED WESTERGREN Routine 10/21/2024 1:34 PM EDT BI MAMMOGRAM SCREENING TOMOSYNTHESIS BILATERAL Routine 10/08/2023 9:15 AM EDT HPV MRNA E6/E7 REFLEX TO HPV 16, 18/45 Routine 10/10/2022 10:52 AM EDT PAP SMEAR Routine 10/10/2022 10:52 AM EDT HM COLONOSCOPY Routine 04/10/2018 INTRAORAL - COMPLETE SERIES OF RADIOGRAPHIC IMAGES Routine 01/02/2017 12:00 AM EDT COMPREHENSIVE ORAL EVALUATION - NEW OR ESTABLISHED PATIENT Routine 01/02/2017 12:00 AM EDT from Last 3 Months or Most Recently Relevant to Health Maintenance Results * Slide Review (12/04/2024 2:24 PM EDT) Slide Review VERIFIED [facility] 12/04/2024 2:24 PM EDT 12/04/2024 4:09 PM EDT us Guera Flores MD LAB BLOOD ORDERABLES Final Result [facility] [address] [place] [phone] * (ABNORMAL) Vitamin D, 25-Hydroxy, Total, Immunoassay (12/04/2024 2:24 PM EDT) Vitamin D 25-OH Total 21.1(L) >30 ng/mL [facility] Comment: Health Based Reference Values*< 20 ng/mL Qfeskxsas77-44 ng/mL Insufficient> 30 ng/mL Sufficient*Tanja MOREL. N Engl J Med. 2007;357:266-280There is no well-established upper level of normal vitamin Dlevels. Some laboratories use 50 ng/mL as an upper limit ofnormal. However, toxicity is patient-dependent and may occurat any level. Careful correlation with the patient'spresentation is necessary and, if there is concern forvitamin D toxicity, treatment should be consideredirrespective of the serum level.Care must be taken in interpreting Vitamin D results fromdifferent laboratories and methodologies. Published datademonstrated that results from patients undergoinghemodialysis may show a negative bias when tested withvarious automated 25-OH vitamin D assays when compared toLC-MS/MS.When testing samples from patients whose predominant form ofVitamin D is Vitamin D2, such as patients receiving VitaminD2 supplementation, results that are subtherapeutic shouldbe confirmed with another method such as LC-MS/MS. Blood Venous blood specimen / Unknown 12/04/2024 2:24 PM EDT 12/04/2024 4:46 PM EDT Guera Flores MD LAB BLOOD ORDERABLES Final Result Performing Organization Address [facility] Co de Phone Number [facility] [address] [place] [phone] * Vitamin B12/Folate, Serum Panel (12/04/2024 2:24 PM EDT) Vitamin B12 299 200 - 900 pg/mL [facility] Comment:NORMAL 200-900 PG/ML INDETERMINATE 160-199 PG/ML DEFICIENT < 160 PG/ML Folate 7.9 > or = 4.0 ng/mL [facility] Comment:Reference Values:> o r = 4.0 ng/mL< 4.0 ng/mL suggests folate deficiency Methotrexate, aminopterin and folinic acid(leucovorin) are chemotherapeutic agents whose molecularstructures are similar to folate; therefore, the Architectfolate assay cannot be used for patients using these drugs. Blood Venous blood specimen / Unknown 12/04/2024 2:24 PM EDT 12/04/2024 4:46 PM EDT Guera Flores MD LAB BLOOD ORDERABLES Final Result Performing Organization Address City/[facility] Co de Phone Number [facility] [address] [place] [phone] * TSH with Reflex to Free T4 (12/04/2024 2:24 PM EDT) TSH reflex Free T4 0.93 0.32 - 4.0 uIU/mL [facility] Blood Venous blood specimen / Unknown 12/04/2024 2:24 PM EDT 12/04/2024 4:46 PM EDT us Guera Flores MD LAB BLOOD ORDERABLES Final Result [facility] [address] [place] [address] [phone] * (ABNORMAL) CBC auto differential (12/04/2024 2:24 PM EDT) Only the most recent of2 resultswithin the time period is included. White Blood Count 26.4(H) 4.8 - 10.8 X10*3/uL [facility] Red Blood Count 4.27 4.20 - 5.50 X10*6/uL [facility] Hemoglobin 12.6 12.0 - 16.0 g/dl [facility] Hematocrit 38.3 37.0 - 47.0 % [facility] Mean Corpuscular Volume 89.7 80.0 - 98.0 fL [facility] Mean Corpuscular Hemoglobin 29.5 27.0 - 33.0 pg [facility] Mean Corpuscular HGB Conc 32.9 31.0 - 35.0 g/dl [facility] Red Cell Distribution Width 18.6(H) 11.0 - 16.0 % [facility] Platelet Count 464(H) 160 - 400 X10*3/uL [facility] Mean Platelet Volume 10.3 9.4 - 12.3 fL [facility] Neutrophils Percent Auto 77.3(H) 45 - 73 % [facility] Imm Gran Pct Auto 4.4(H) 0.0 - 0.4 % [facility] Lymphocytes Percent Auto 13.3(L) 20 - 40 % [facility] Monocytes Percent Auto 4.5 2 - 11 % [facility] Eosinophils Percent Auto 0.0 0 - 4 % [facility] Basophils Percent Auto 0.5 0 - 2 % [facility] NRBC Pct Auto 0.0 0.0 - 0.2 /100WBC [facility] Neutrophils Absolute Auto 20.4(H) 2.0 - 8.3 x10*3/uL [facility] Imm Gran Abs Auto 1.16(H) 0.00 - 0.03 X10*3/uL [facility] Lymphocytes Absolute Auto 3.5 1.2 - 4.9 X10*3/uL [facility] Monocytes Absolute Auto 1.2 0.1 - 1.2 X10*3/uL [facility] Eosinophils Absolute Auto 0.0 0.0 - 0.4 X10*3/uL [facility] Basophils Absolute Auto 0.1 0.0 - 0.2 X10*3/uL [facility] NRBC Abs Auto 0.000 0.0 - 0.012 X10*3/uL [facility] Blood Venous blood specimen / Unknown 12/04/2024 2:24 PM EDT 12/04/2024 4:09 PM EDT Guera Flores MD LAB BLOOD ORDERABLES Edited Result - Final Performing Organization Address [facility] Co de Phone Number [facility] [address] [place] [phone] * Hepatitis C Antibody with Reflex to HCV, RNA, Quantitative, Real-Time PCR (12/04/2024 2:24 PM EDT) [facility] Hepatitis C Antibody Nonreactive Nonreactive [facility] Comment:Antibodies to HCV no t detected; does not exclude early acuteHCV infection. Blood Venous blood specimen / Unknown 12/04/2024 2:24 PM EDT 12/04/2024 4:46 PM EDT us Guera Flores MD LAB BLOOD ORDERABLES Final Result Performing Organization Address [facility] Co de Phone Number [facility] [address] [place] [phone] * HIV-1/2 Antigen and Antibodies, Fourth Generation, with Reflexes (12/04/2024 2:24 PM EDT) Pathologist [facility] HIV AB/AG Nonreactive Nonreactive [facility] Comment:HIV-1 p24 Ag and/or HIV-1/HIV-2 Ab not detected.A test result that is nonreactive does not exclude thepossibility of exposure to or infection with HIV-1 and/orHIV-2. Nonreactive results in this assay for individualswith prior exposure to HIV-1 and/or HIV-2 may be due toantigen and antibody levels that are below the limit ofdetection of this assay.The [employer] HIV Ag/Ab Combo assay result andsupplemental assay results should be interpreted inconjunction with the patient's clinical presentation,history and other laboratory results. If the results areinconsistent with clinical evidence, additional testing issuggested to confirm the result. Blood Venous blood specimen / Unknown 12/04/2024 2:24 PM EDT 12/04/2024 4:46 PM EDT Guera Flores MD LAB BLOOD ORDERABLES Final Result [facility] [address] [place] [phone] * (ABNORMAL) Hemoglobin A1c (12/04/2024 2:24 PM EDT) Pathologist [facility] Hemoglobin A1c 6.2(H) <6.0 % [facility] Comment:Hemoglobin A1C Refer ence Range Adults: 4.8 - 6.0 % Non diabetic: < 6.0 % Goal: < 7.0 %Additional Action Suggested: > 8.0 %Note: Hemoglobin A1c results are invalid for patients with abnormal amounts of HbF. Blood transfusions may impact the HbA1c concentration in the patient sample. Estimated Average Glucose 131 mg/dL [facility] Comment:eAG = Estimated ave rage glucose which is %A1C expressed asaverage glucose, using the formula of the L3E-KgbeejcZdsnirw Glucose study (ADAG), Diabetes Care, Vol.31,#8,Oct. 2007 Blood Venous blood specimen / Unknown 12/04/2024 2:24 PM EDT 12/04/2024 4:09 PM EDT us Guera Flores MD LAB BLOOD ORDERABLES Final Result [facility] [address] [place] [phone] [phone] * (ABNORMAL) Lipid Panel, Standard (12/04/2024 2:24 PM EDT) Triglycerides 255(H) <150 mg/dL [facility] Comment:Desirable Triglyceri de: less than 150 mg/dLBorderline High Triglyceride 150-199 mg/dLHigh Triglyceride: 200-499 mg/dLVery High Triglyceride: greater than or equal to 5OO mg/dL Cholesterol 278(H) <200 mg/dL [facility] Comment:Desirable Cholestero l: less than 200 mg/dLBorderline High Cholesterol: 200-239 mg/dLHigh Cholesterol: greater than 239 mg/dL LDL Cholesterol Calculated 126(H) <100 mg/dL [facility] Comment:Desirable LDL: less than 100 mg/dLNear Optimal/Above Optimal LDL: 110- 129 mg/dLBorderline High LDL: 130-159 mg/dLHigh LDL: 160-189 mg/dLVery High LDL: greater than or equal to 190 mg/dL HDL Cholesterol 101 >40 mg/dL [facility] Comment:Desirable HDL: great er than 40 mg/dL Note: This HDL assay may give artificially low results in patients with liver disease. Blood Venous blood specimen / Unknown 12/04/2024 2:24 PM EDT 12/04/2024 4:46 PM EDT us Guera Flores MD LAB BLOOD ORDERABLES Final Result [facility] [address] [place] [address] [phone] * (ABNORMAL) Comprehensive Metabolic Panel (12/04/2024 2:24 PM EDT) Only the most recent of2 resultswithin the time period is included. Sodium 141 135 - 145 mmol/L [facility] Potassium 5.4(H) 3.3 - 5.1 mmol/L [facility] Chloride 104 96 - 108 mmol/L [facility] Carbon Dioxide 29 22 - 29 mmol/L [facility] Anion Gap 13 12 - 20 [facility] Urea Nitrogen (BUN) 21(H) 9 - 16 mg/dL [facility] Creatinine, Serum 0.82 0.5 - 1.4 mg/dL [facility] Estimated Glomerular Filt Rate >60 [facility] Comment:Chronic Kidney Disea se: Estimated GFR < 60 mL/min/1.41l9Iryqgh Kidney Disease: Estimated GFR < 15 mL/min/1.73m2 Glucose 106 60 - 115 mg/dL [facility] Calcium 9.6 8.4 - 10.2 mg/dL [facility] Bilirubin, Total 0.4 0.0 - 1.0 mg/dL [facility] Aspartate Amino Transferase 23 5 - 31 U/L [facility] Alanine Aminotransferase 28 0 - 31 U/L [facility] Total Protein 7.0 6.5 - 8.0 g/dL [facility] Albumin Level 4.1 3.5 - 5.0 g/dL [facility] Alkaline Phosphatase 65 39 - 117 U/L [facility] Blood Venous blood specimen / Unknown 12/04/2024 2:24 PM EDT 12/04/2024 4:46 PM EDT us Guera Flores MD LAB BLOOD ORDERABLES Final Result [facility] [address] [place] [phone] [phone] * CTA Chest PE Protocal (11/09/2024 3:27 PM EDT) Anatomical Region Laterality Modality Body, Chest Computed Tomogra phy 11/09/2024 3:27 PM EDT Narrative 11/09/2024 3:29 PM EDT [place] [address] [address] Scan Report Signed Patient: Kerline Helms MR#: [id number] : 1960 Acct:[id number] Age/Sex: 64 / F ADM Date: 11/09/24 Loc: .ED Attending Dr: Ordering Physician: Alverto Francisco MD Date of Service: 11/09/24 Procedure(s): CT angio chest PE protocol Accession Number(s): [id number] cc: Guera Menjivar MD; Alverto Francisco MD Report Number: [id number]: Total DLP = 200.00 mGy-cm CLINICAL HISTORY: [...] 11/09/24 1528 DD/ 1527 TD/TT: 11/09/24 1527 Direct Mail Coordinator: Procedure Note Donotuseinterpreter, Image - 11/09/[address] [address] [address] Scan Report Signed Patient: Kerline HelmsMR#: [id number] : 1960cct:[id number] Age/Sex: 64 / FADM Date: 11/09/24 Loc: HO.ED Attending Dr: Ordering Physician: Alverto Francisco MD Date of Service: 11/09/24 Procedure(s): CT angio chest PE protocol Accession Number(s): [id number] cc: Guera Menjivar MD; Alverto Francisco MD Report Number: [id number]: Total DLP = 200.00 mGy-cm CLINICAL HISTORY: [...] 11/09/24 1528 DD/ 1527 TD/TT: 11/09/24 1527 Direct Mail Coordinator: us [facility] External Provider IMG CT PROCEDURES Edited Result - Final * XR Chest 2 Views (11/09/2024 12:09 PM EDT) Only the most recent of2 resultswithin the time period is included. Anatomical Region Laterality Modality Chest Radiographic Yodit ging 11/09/2024 12:0 9 PM EDT Narrative 11/09/2024 12:11 PM EDT [address] [address] XRay Report Signed Patient: Kerline Helms MR#: [id number] : 1960 Acct:[id number] Age/Sex: 64 / F ADM Date: 11/09/24 Loc: HO.ED Attending Dr: Ordering Physician: Lemuel Guzman Date of Service: 11/09/24 Procedure(s): XR chest 2V Accession Number(s): [id number] cc: Guera Menjivar MD; Lemuel Guzman CLINICAL [...] in OV> 11/09/24 1210 DD/ 1209 TD/TT: 11/09/24 1209 Direct Mail Coordinator: Procedure Note Donotuseinterpreter, Image - 11/09/[address] [address] XRay Report Signed Patient: Kerline HelmsMR#: [id number] : 1960cct:[id number] Age/Sex: 64 / FADM Date: 11/09/24 Loc: .ED Attending Dr: Ordering Physician: Lemuel Guzman Date of Service: 11/09/24 Procedure(s): XR chest 2V Accession Number(s): [id number] cc: Guera Menjivar MD; Lemuel Guzman CLINICAL [...] in OV> 11/09/24 1210 DD/ 1209 TD/TT: 11/09/24 1209 Direct Mail Coordinator: [facility] External Provider IMG XR PROCEDURES Final Result * SARS-CoV-2 RNA, Influenza A/B, and RSV RNA, Ql NAAT (11/09/2024 12:01 PM EDT) Pathologist [facility] Influenza A PCR NEGATIVE Negative [facility] Influenza B PCR NEGATIVE Negative [facility] Resp Syncy Virus RNA Qual PCR NEGATIVE Negative [facility] SARS COV2 PCR NEGATIVE Negative [facility] Comment:All test results mus t [...] use by authorized laboratories.Testing performed on the [employer] GeneXpert utilizingreal-time RT-PCR.All SARS CoV2 and positive influenza A/B results arereported to [facility]. 11/09/2024 12:0 1 PM EDT 11/09/2024 1:08 PM EDT Generic External Data Provider LAB MICROBIOLOGY - GENERAL ORDERABLES Final Result [facility] [address] [place] [phone] * High Sensitivity Troponin I (11/09/2024 11:55 AM EDT) Pathologist [facility] TROPONIN I HIGH SENSITIVITY 2.9 <3.5 - 17.0 ng/L [facility] Comment:The [employer] high sens itivity Troponin-I results should beused in conjunction with other diagnostic information suchas ECG, clinical observations and information, and patientsymptoms to aid in the diagnosis of PA. 11/09/2024 11:5 5 AM EDT 11/09/2024 1:31 PM EDT us Generic External Data Provider LAB BLOOD ORDERAB LES Final Result Performing Organization Address [facility]/ZIP Co de Phone Number [facility] [address] [place] [phone] * B Type Natriuretic Peptide (BNP) (11/09/2024 11:55 AM EDT) [facility] B Type Natriuretic Peptide 68 <100 pg/mL [facility] 11/09/2024 11:5 5 AM EDT 11/09/2024 1:30 PM EDT us Generic External Data Provider LAB BLOOD ORDERAB LES Final Result Performing Organization Address [facility] Co de Phone Number [facility] [address] [place] [phone] * Influenza B (ID NOW Rapid Molecular) (11/04/2024 3:41 PM EDT) [facility] Influenza B Negative Negative, Indeterminate [facility] Swab 11/04/2024 3:41 PM EDT us Guera Flores MD POINT OF CARE TEST EN TER/EDIT ORDERABLES Final Result Performing Organization Address [facility] Co de Phone Number [facility] [address] [place] [phone] * Influenza A (ID NOW Rapid Molecular) (11/04/2024 3:41 PM EDT) [facility] Influenza A Negative Negative, Indeterminate [facility] Swab 11/04/2024 3:41 PM EDT Guera Flores MD POINT OF CARE TEST EN TER/EDIT ORDERABLES Final Result Performing Organization Address [facility]/ZIP Co de Phone Number [facility] [address] [place] [phone] * POCT Rapid COVID Ag (11/04/2024 3:41 PM EDT) Pathologist [facility] Rapid COVID Ag Negative [facility] Swab 11/04/2024 3:41 PM EDT Guera Flores MD POINT OF CARE TEST EN TER/EDIT ORDERABLES Final Result Performing Organization Address [facility] Phone Number [facility] [address] [place] [address] [phone] * (ABNORMAL) CRP, HIGH SENSITIVITY (10/21/2024 1:34 PM EDT) [facility] CRP, High Sensitivity >20.0(A) mg/L [facility] Comment: Reference RangeOptimal <1.0Jose KITCHEN [...] be associated with infection and inflammation.Jones TA, Yas CARRANZA, Kenji RW, et al. Markersof inflammation and cardiovascular disease:application to clinical and public health practice:A statement for healthcare professionals from theCenters for Disease Control and Prevention and theAmerican Heart Association. Circulation 2003; 107(3):499-511.THIS TEST WAS PERFORMED AT:[address] [place] [phone] GONZALES MD 10/21/2024 1:34 PM EDT 10/21/2024 1:34 PM EDT Generic External Data Provider LAB BLOOD ORDERAB LES Final Result Performing Organization Address City/[facility] Co de Phone Number [facility] [address] [place] [address] [phone] * (ABNORMAL) Sed Rate by Modified Gunner (10/21/2024 1:34 PM EDT) Erythrocyte Sedimentation Rate 81(H) 0 - 20 MM/HR [facility] Comment:Patients with polycy themia and many hemoglobin abnormalitiesmay have depressed sed rates whereas patients with anemiamay have elevated sed rates. 10/21/2024 1:34 PM EDT 10/21/2024 1:34 PM EDT Generic External Data Provider LAB BLOOD ORDERAB LES Final Result Performing Organization Address [facility] Co de Phone Number [facility] [address] [place] [address] [phone] * BI Mammogram Screening Tomosynthesis Bilateral (10/08/2023 9:15 AM EDT) Anatomical Region Laterality Modality Breast Bilateral Mammography 10/08/2023 9:15 AM EDT Narrative 10/30/2023 6:14 PM EDT [facility] [address] [place] [address] Mammography Report Signed Patient: Kerline Helms MR#: [id number] : 1960 Acct:[id number] Age/Sex: 63 / F ADM Date: 10/08/23 Loc: HO.MAMMO Attending Dr: Guera Flores MD Ordering Physician: Guera Menjivar MD Results: 1Negative Date of Service: 10/08/23 Follow Up: 1 Year From Orig inal Mammogram Procedure(s): MM tomosynthesis screening BI Accession Number(s): [id number] cc: Guera Menjivar MD EXAMINATION: MM SCREENING [...] Zoë Hobson MD in OV> 10/30/231810 DD/ 4 TD/TT: Direct Mail Coordinator: Procedure Note Donotuseinterpreter, Image - 10/30/2023 [facility] [address] [place] [address] Mammography Report Signed Patient: Kerline Helms#: [id number] : 9Acct:[id number] Age/Sex: 63 / FADM Date: 10/08/23 Loc: SUNG Attending Dr: Guera Flores MD Ordering Physician: Guera Menjivar MDResults: 1Negative Date of Service: 10/08/23Follow Up: 1 Year From Orig inal Mammogram Procedure(s): MM tomosynthesis screening BI Accession Number(s): [id number] cc: Guera Menjivar MD EXAMINATION: MM SCREENING [...] Zoë Hobson MD in OV> 10/30/231810 DD/ 4 TD/TT: Direct Mail Coordinator: Guera Flores MD IMG BI PROCEDURES Issac kenia Result - Final * HPV mRNA E6/E7 w/Reflex to HPV Genotypes 16, 18/45 (10/10/2022 10:52 AM EDT) HPV nRNA E6/E7 Not Detected Not Detected [facility] Comment:Methodology: Transcr iption-Mediated AmplificationThis assay detects E6/E7 viral messenger RNA (mRNA) from 14high-risk HPV types (16,18,31,33,35,39,45,51,52,56,58,59,66,68).Cervical sources are required for HPV testing.If a vaginal source from a patient who has had atotal hysterectomy with removal of cervix wassubmitted, please contact the testing laboratoryfor alternative testing options.For additional information, please refer [email or web address] Best Interest/faq/RER550b5(This link if provided for information/educational purposes only.)THIS TEST WAS PERFORMED AT:[address] [place] [phone] GOZNALES MD HPV mRNA E6/E7 TNP [facility] HPV 16 RNA TNP [facility] HPV 18/45 [facility] 10/10/2022 10:5 2 AM EDT 10/12/2022 8:30 AM EDT us Guera Flores MD LAB CYTOLOGY ORDERABL ES Final Result [facility] [address] [place] [address] [phone] * Pap Smear (10/10/2022 10:52 AM EDT) 10/10/2022 10:5 2 AM EDT 10/12/2022 8:30 AM EDT Narrative [facility] - 10/24/2022 1:39 PM EDT ----- ------- Name: Annie JayKerline deshpande Age/Sex: 62/F : 1960 Unit#: [id number] Attend Dr: Guera Menjivar MD Re10/10/22 Status: DEP REF Location: HO.HHCLNP Disch: ----- ------- SPEC : [id number] RECD: 10/12/22 STATUS: JOHN LEMA NUM: [id number] RD: 10/10/22-[address] [facility] [address]: Guera Menjivar MD ENTERED: 10/12/22-4 SP TYPE: Pap Smr OT DR: ORDERED: Pap Smear Interpretation Satisfactory for evaluation. Atrophic. Negative for intraepithelial lesion or malignancy. HPV mRNA E6/E7: NOT DETECTED This assay detects E6/E7 viral messenger RNA (mRNA) from 14 high-risk HPV types (16, 18, 31, 33, 35, 39, 45, 51, 52, 56, 58, 59, 66, 68) HPV testing performed by [employer], [place], [place]. See reference laboratory pion of the EMR for entire report. Clinical Information LMP: Unknown date Previous PAP test: Unknown date/findings Material Received ThinPrep-Vaginal/Cervical ----- ------- Signed (signature on file) JIMMY Tsai (ASCP) 10/24/22 1339 ----- ------- END OF REPORT us Guera Flores MD LAB CYTOLOGY ORDERABL ES Final Result [facility] [address] [place] [address] [phone] * Hm Colonoscopy (04/10/2018) us Historical Provider HEALTH MAINTENANCE Final Result from Last 3 Months or Most Recently Relevant to Health Maintenance Insurance [facility] Care Teams Bank Officer Relationship Specialty Start Date End Date Guera Menjivar MD [address] [place] [address] PCP - General Family Medicine 12/15/19
--- OUTSIDE RECORDS SUMMARY | 2024-12-10 16:00 | XMS_ITS | Encounter Summary ---
Author Organization [employer] Address [address] [facility] [address] [place] [address] Care Team Providers Care Cotton Baler Name Role Phone Guera Menjivar MD Primary Care Provide r Encounter Details Date Type Department Care Team ([facility] st Contact Info) Description 02/22/2024 Telephone [facility] [address] [place] [address] Guera Menjivar MD [address] [place] [address] Social History Tobacco Use Types Packs/Day Years [...] Info) Description 01/21/2025 10:00 AM EST Telemedicine [facility] [address] [place] [phone] Guera Menjivar MD [address] [place] [phone] documented as of this encounter Visit Diagnoses Not on filedocumented in this encounter Additional Health Concerns Assessment Noted Time PHQ-9 Depression Total Score: 0 08/23/19 23 2:00 PM EDT documented as of this encounter Care Teams Cotton Baler Relationship Specialty Start Date End Date Guera Menjivar MD [address] [place] [phone] PCP - General Family Medicine 12/15/19 documented as of this encounter
--- OUTSIDE RECORDS SUMMARY | 2024-12-10 16:00 | XMS_ITS | Encounter Summary ---
Author Organization [employer] Address [address] [facility] [address] [place] [address] Care Team Providers Care Parking Enforcement Officer Name Role Phone Guera Menjivar MD Primary Care Provide r Reason for Visit * Reason Onset Date Comments triage 04/11/2022 Encounter Details Date Type Department Care Team ([facility] st Contact Info) Description 04/11/2022 Telephone [facility] [address] [place] [address] Guera Menjivar MD [address] [place] [address] triage Social History Tobacco Use Types Packs/Day [...] . Available appt. Pt will go to [facility]. Pt agres to protocol. Used: Arm [...] Info) Description 01/21/2025 10:00 AM EST Telemedicine [facility] [address] [place] [address] Guera Menjivar MD [address] [place] [address] documented as of this encounter Visit Diagnoses Not on filedocumented in this encounter Care Teams Parking Enforcement Officer Relationship Specialty Start Date End Date Guera Menjivar MD [address] [place] [address] PCP - General Family Medicine 12/15/19 documented as of this encounter
--- OUTSIDE RECORDS SUMMARY | 2024-12-10 16:00 | XMS_ITS | Encounter Summary ---
Author Organization [employer] Address [address] [facility] 7[address] [place] [address] Care Team Providers Care Topline Beading Machine Tender Name Role Phone Guera Menjivar MD Primary Care Provide r Reason for Visit * Reason Onset Date Comments patient calling back with insurance info emergen cy dental 09/25/2024 Encounter Details Date Type Department Care Team ([facility] st Contact Info) Description 09/25/2024 Telephone [facility] [address] [place] [address] Kathrine Saeed DDS patient calling back with [...] Info) Description 01/21/2025 10:00 AM EST Telemedicine [facility] [address] [place] [address] Guera Menjivar MD [address] [place] [address] documented as of this encounter Visit Diagnoses Not on filedocumented in this encounter Additional Health Concerns Assessment Noted Time PHQ-9 Depression Total Score: 0 08/23/19 23 2:00 PM EDT documented as of this encounter Care Teams Topline Beading Machine Tender Relationship Specialty Start Date End Date Guera Menjivar MD [address] [place] [address] PCP - General Family Medicine 12/15/19 documented as of this encounter
--- OUTSIDE RECORDS SUMMARY | 2024-12-10 16:00 | XMS_ITS | Encounter Summary ---
Author Organization [employer] Address [address] [facility] [address] [place] [address] Care Team Providers Care Cobbler Apprentice Name Role Phone Guera Menjivar MD Primary Care Provide r Reason for Visit * Reason Onset Date Comments Nurse Triage 11/11/2024 Encounter Details Date Type Department Care Team ([facility] st Contact Info) Description 11/11/2024 Telephone [facility] [address] [place] [address] Guera Menjivar MD [address] [place] [address] Nurse Triage Social History Tobacco Use Types [...] RN - 11/11/2024 2:29 PM EDT No manufacturing worker needed as this life underwriter speaks Portuguese. Call returned to Kerline De La Paz to triagebel at [phone]. Confirms inforamtion from ER Notes, regarding dx of COPD exacerbation. Pt did orange picker Rx for levofloxacin 500 mg tablet 500 [...] 11/14/2024 2:00 PM Katiuska Evans NP MEDICINE [facility] 12/04/2024 1:15 PM Guera Flores MD MEDICINE [facility] Protocol Used: Post-Hospitalization Follow-up Call (Adult) Protocol-Based [...] ED visit on : Date: 11/10/2024 Hospital: [facility] Seen for: Bronchitis Symptomatic Yes *if yes message should go to Triage Patient advised will forward to team nurse for follow up Contact pt at [phone] documented in this encounter Plan of Treatment Upcoming Encounters Date Type Department Care Team ([facility] st Contact Info) Description 01/21/2025 10:00 AM EST Telemedicine [facility] [address] [place] [address] Guera Menjivar MD [address] [place] [phone] documented as of this encounter Visit Diagnoses Not on filedocumented in this encounter Additional Health Concerns Assessment Noted Time PHQ-9 Depression Total Score: 0 08/23/19 23 2:00 PM EDT documented as of this encounter Care Teams Cobbler Apprentice Relationship Specialty Start Date End Date Guera Menjivar MD [address] [place] [phone] PCP - General Family Medicine 12/15/19 documented as of this encounter
--- OUTSIDE RECORDS SUMMARY | 2024-12-10 16:00 | XMS_ITS | Encounter Summary ---
Author Organization [employer] Address [address] [facility] 7t [place] [address] Care Team Providers Care Concrete Buster Operator Name Role Phone Guera Menjivar MD Primary Care Provide r Encounter Details Date Type Department Care Team ([facility] st Contact Info) Description 08/31/2024 Telephone [facility] [address] [place] [address] Nydia Valle NP [address] [place] [address] Social History Tobacco Use Types Packs/Day Years [...] mri and ordering CT. Called radiology at [facility] where mri had been completed, soI did not order recommended CT. At time of call MRI was pending results and results would be STAT read to clinic. Pt was stable ambulating and was prepared to leave department. documented in this encounter Plan of Treatment Upcoming Encounters Date Type Department Care Team (Late st Contact Info) Description 01/21/2025 10:00 AM EST Telemedicine [facility] [address] [place] [address] Guera Menjivar MD [address] [place] [address] documented as of this encounter Visit Diagnoses Not on filedocumented in this encounter Additional Health Concerns Assessment Noted Time PHQ-9 Depression Total Score: 0 08/23/19 23 2:00 PM EDT documented as of this encounter Care Teams Concrete Buster Operator Relationship Specialty Start Date End Date Guera Menjivar MD [address] [place] [phone] PCP - General Family Medicine 12/15/19 documented as of this encounter
--- OUTSIDE RECORDS SUMMARY | 2024-12-10 16:00 | XMS_ITS | Encounter Summary ---
Author Organization [employer] Address [address] [place] [address] [address] [place] [address] Care Team Providers Care Olive Pitter Name Role Phone Guera Menjivar MD Primary Care Provide r Encounter Details Date Type Department Care Team ([facility] Contact Info) Description 02/16/2022 Abstract [facility] [address] [place] [phone] Provider, MD Elo Social History Tobacco Use [...] Department Care Team (Late Contact Info) Description 01/21/2025 10:00 AM EST Telemedicine [facility] [address] [place] [phone] Guera Menjivar MD [address] [place] [phone] documented as of this encounter Visit Diagnoses Not on filedocumented in this encounter Care Teams Olive Pitter Relationship Specialty Start Date End Date Guera Menjivar MD [address] [place] [phone] PCP - General Family Medicine 12/15/19 documented as of this encounter
--- OUTSIDE RECORDS SUMMARY | 2024-12-10 16:00 | XMS_ITS | Encounter Summary ---
Author Organization [employer] Address [address] [place] [address] [place] [address] Care Team Providers Care Social Media Analyst Name Role Phone Guera Menjivar MD Primary Care Provide r Reason for Referral * Consultation (Routine) - Authorized Specialty Diagnoses / Procedures Referred By Contac t Referred To Contact Hematology and Oncology Diagnoses Leukocytosis, unspecified type Guera Menjivar MD [address] [place] [address] Phone: tel: fax: Hematology & Oncology, [address] Phone: tel: fax: Referral ID Status Reason Start Date Expiration Date Visits Requested Visits Authorized [id number] Authorized Specialty Services Required 12/05/2024 12/05/2025 1 1 Reason for Visit * Reason Onset Date Comments Results 12/05/2024 Care Coordination 12/05/2024 Encounter Details Date Type Department Care Team (Latest Contact Info) Description 12/05/2024 Results Follow-Up [facility] [address] [place], [place] [phone] Guera Menjivar MD [address] [place], [place] [phone] CBC auto differential, Comprehensive Metabolic Panel, Hemoglobin A1c, Additional followed-up results: 6 Social History Tobacco Use Types Packs/Day Years Used Date Smoking Tobacco: Former Cigarettes Passive Smoke Exposure: Past Smokeless Tobacco: Former Comments:4-5 Daily Passive Exposure Comments:pt stop smoking [...] encounter Miscellaneous Notes * Telephone Encounter - Darcy Hilton RN - 12/08/2024 11:39 AM EDT TC placed to patient [phone] using S #ID [id number] regarding below message. RN informed patient of her lab results which show persistent leukocytosis and elevated potassium. RN informed patient that an referral was placed by her PCP to hematology for persistent leukocytosis and to adopt a low sodium diet d/t elevated potassium an to go to the [facility] lab on Sunday for repeat BMP. PT verbalized understanding. PT to F/U PRN. ----- Message from Guera Flores MD sent at 12/05/2024 4:27 PM EDT ----- Please let patient know I refer her to hematology for persistent leukocytosis is likely because of prednisone use but I wanted for a point from hematology I also noticed her potassium is slightly high please advise low-sodium diet I will repeat a BMP in 1 week thank you ----- Message ----- From: Interface, Lab Results In Sent: 12/04/2024 4:32 PM EDT To: Guera Flores MD documented in this encounter Plan of Treatment Upcoming Encounters Date Type Department Care Team (Late st Contact Info) Description 01/21/2025 10:00 AM EST Telemedicine [facility] [address] [place] [address] Guera Menjivar MD [address] [place] [address] Scheduled Orders Name Type Priority Associated Diagnoses Orde r Schedule Basic Metabolic Panel Lab Routine Hyperkalemia Expected: 12/05/2024 (Approximate), Expires: 12/05/2025 Scheduled Referrals Name Type Priority Associated Diagnoses Orde r Schedule Referral to Hematology / Oncology Outpatient Referral Routine Leukocytosis, unspecified type Expected: 12/05/2024 (Approximate), Expires: 12/05/2025 documented as of this encounter Visit Diagnoses Diagnosis Leukocytosis, unspecified type- Primary Hyperkalemia Hyperpotassemia documented in this encounter Additional Health Concerns Assessment Noted Time PHQ-9 Depression Total Score: 3 11/15/19 25 2:56 PM EDT documented as of this encounter Care Teams Social Media Analyst Relationship Specialty Start Date End Date Guera Menjivar MD [address] [place] [address] PCP - General Family Medicine 12/15/19 documented as of this encounter
--- OUTSIDE RECORDS SUMMARY | 2024-12-10 16:00 | XMS_ITS | Encounter Summary ---
Author Organization [employer] [facility] Address [address] [place] [address] [address] [place] [address] Care Team Providers Care Bundle Wrapper Name Role Phone Guera Menjivar MD Primary Care Provide r Encounter Details Date Type Department Care Team ([facility] Contact Info) Description 11/29/2022 Orders Only [facility] [address] [place] [address] [phone] Provider, MD Elo Social History Tobacco Use [...] Info) Description 01/21/2025 10:00 AM EST Telemedicine [facility] [address] [place] [address] [phone] Guera Menjivar MD [address] [place] [address] [phone] documented as of this encounter Procedures Procedure Name Priority Date/Time Associated Diagnosis Comments COLONOSCOPY Routine 04/10/2018 documented in this encounter Results * Hm Colonoscopy (04/10/2018) us Historical Provider HEALTH MAINTENANCE Final Result documented in this encounter Visit Diagnoses Not on filedocumented in this encounter Additional Health Concerns Assessment Noted Time PHQ-9 Depression Total Score: 0 08/23/19 23 2:00 PM EDT documented as of this encounter Care Teams Bundle Wrapper Relationship Specialty Start Date End Date Guera Menjivar MD [address] [place] [phone] PCP - General Family Medicine 12/15/19 documented as of this encounter
== END 2024-12-10 13:35 | disposition home or self-care (01) ==
LOC: HO.MAMMO 13:34
PROVIDERS: PCP Internal Medicine; Visit Provider Internal Medicine
DX: Z12.31 Encounter for screening mammogram for malignant neoplasm of breast (principal)
CPT/HCPCS: 77063; 77067

== ENCOUNTER → 2024-12-10 13:45 | Outpatient (BNV) | payer OTHER, SELFPAY | PROVIDERS: PCP Internal Medicine; Visit Provider Radiology Body Imaging | DX: Z12.31 Encounter for screening mammogram for malignant neoplasm of breast (principal) | CPT/HCPCS: 77063; 77067 ==

== ENCOUNTER 2024-12-16 08:16 | Outpatient (REF) | payer OTHER, SELFPAY ==
--- OUTSIDE RECORDS SUMMARY | 2023-09-12 07:20 | XMS_ITS ---
Author Organization [facility] Address [address] [place] [phone] Care Team Providers Care Freight Caller Name Role Phone Melonie Bennett Primary Care Provider Geoffrey King Jr REASON FOR VISIT Patient presents today for abdominal pain Encounters Encounter Location Date Provider Diagnosis [facility] [address] [place] [phone] 09/12/2023 Geoffrey Khan Jr Plan Of Treatment No Information Progress Notes * FERNIE VALDEZDOB:[birth year] (64 yo F)Acc No.[id number]:09/12/2023 Progress Notes Patient: FERNIE TANG Provider: Sarthak Khan MD :1960 A ge:63 Y S ex:Female Date:09/12/2023 Address:[address] [place], [place] [id number] Pcp:Melonie Bennett Subjective: * Chief Complaints: * 1 . Patient presents today for abdominal pain. * Medical History: Objective: * Vitals: Assessment: Plan: * Treatment: * * The named appointment provid er may or may not be the originator of this progress note, and it is not deemed complete until electronically signed by the appointment provider. Sign off status: Pending * Provider: Sarthak Khan MD Date: 09/12/2023 Generated for Yoan alvarado/Rachel/eTransmitting on: 12/16/2024 08:30 AM EDT
--- OUTSIDE RECORDS SUMMARY | 2024-12-16 08:31 | XMS_ITS | Encounter Summary ---
Author Organization [employer] [facility] Address [address] [place] [address] [address] [address] Care Team Providers Care Pick Up Worker Name Role Phone Guera Menjivar MD Primary Care Provide r Encounter Details Date Type Department Care Team ([facility] Contact Info) Description 11/29/[address] [facility] [address] [place] [address] [phone] Provider, MD Elo Social History Tobacco Use [...] Info) Description 01/21/2025 10:[address] [facility] [address] [place] [address] [phone] Guera Menjivar MD [address] [place] [address] [phone] documented as of this encounter Procedures Procedure [...] documented as of this encounter Care Teams Pick Up Worker Relationship Specialty Start Date End Date Guera Menjivar MD [address] [place] [phone] PCP - General Family Medicine 12/15/19 documented as of this encounter
--- OUTSIDE RECORDS SUMMARY | 2024-12-16 08:31 | XMS_ITS | Clinical Summary ---
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 15 mL 1 2 Active Blood Pressure Monitor kitIndications: Temporary high blood pressure Use as directed 3x/week 1 kit 3 Active cetirizine (ZyrTEC) 10 MG tabletIndicatio ns:Seasonal allergies TAKE 1 TABLET BY MOUTH DAILY IN THE MORNING 90 tablet 1 3 Active fluticasone (Flonase) 50 MCG/ACT nasal spray Administer 1-2 sprays into each nostril Once per day for 14 days. Shake gently. Before first use, prime pump. After use, clean tip and replace cap.Treatment just for 14 days no need 90 day supply 16 g 2 5 Active albuterol 108 (90 Base) MCG/ACT inhalerIndicati ons:Bronchiolit is Inhale 2 puffs every 4 (four) hours if needed for wheezing. 18 g 5 11/05/19 26 Active albuterol (2.5 MG/3ML) 0.083% nebulizer solution Take 2.5 mg by nebulization every 4 (four) hours if needed for wheezing or shortness of breath. 5 Active nicotine (Nicoderm, Step 2) 14 MG/24HR patchIndication s:Encounter for smoking cessation counseling Apply 1 patch, as directed, every 24 hours for 6 weeks. May remove at bedtime if needed & replace the next morning. Rotate application site. 14 patch 5 Active bacitracin 500 UNIT/GM ointmentIndicat ions:Skin pimple Apply topically 2 times daily. 14 g 5 Active ciclopirox (Penlac) 8 % solutionIndicat ions:Onychomyco sis Apply topically at bedtime. 6 mL 5 Active Active Problems Problem Noted Date Diagnosed Date Asymptomatic menopausal state 12/04/2024 Current chronic use of systemic steroids 025 Temporal arteritis ([facility]) 12/04/2024 Assessment & Plan (12/04/2024 4:39 PM EDT): Continue to follow with neurology Chronic bronchitis ([facility]) 12/04/2024 Assessment & Plan (12/04/2024 4:39 PM [...] Department Care Team Description 12/05/2024 Results Follow-Up [facility] [address] [place] [phone] Guera Menjivar MD CBC auto differential, Comprehensive Metabolic Panel, Hemoglobin A1c, Additional followed-up results: 6 12/04/2024 1:15 PM EDT Office Visit [facility] [address] [place] [phone] Guera Menjivar MD Colon cancer screening (Primary Dx); Asymptomatic menopausal state; Current chronic use of systemic steroids; Temporal arteritis (CMS/HCC); Chronic bronchitis, unspecified chronic bronchitis type (CMS/HCC); Encounter for preventive care; Night sweats; Skin pimple; Onychomycosis 12/04/2024 Orders Only [facility] [address] [place] [phone] Guera Menjivar MD 12/04/2024 Travel 11/26/2024 Patient Outreach [address] [address] Guera Menjivar MD Pre-visit Planning (SDOH screening completed on 09/25/2024) 11/14/2024 2:00 PM EDT Office Visit [address] [address] Katiuska Evans NP Hospital discharge follow-up (Primary Dx); Encounter for smoking cessation counseling; Screening for lung cancer 11/14/2024 Travel 11/13/[address] [address] Merrick Lopez [place] CHARTPREP 11/11/[address] [address] Guera Menjivar MD Durable Medical Equipment (DME Request: Nebulizer) 11/11/[address] [address] Guera Menjivar MD Nurse Triage 11/10/[address] [address] Guera Menjivar MD Durable Medical Equipment 11/09/2024 Orders Only GENERIC EXTERNAL DATA DEPARTMENT Provider, Generic External Data 11/04/2024 3:20 PM EDT Office Visit [facility] [address] [place] [phone] Guera Menjivar MD Wheezing; Bronchiolitis 11/04/2024 Travel 10/21/2024 Orders Only GENERIC EXTERNAL DATA DEPARTMENT Provider, Generic External Data 10/10/[address] [address] Guera Menjivar MD Nurse Triage 10/06/[address] [address] Guera Menjivar MD No Show 10/03/[address] [phone] Guera Mnejivar MD Chart Prep 09/25/2024 Patient Outreach [address] [address] Guera Menjivar MD Pre-visit Planning (SDOH screening negative and tobacco screening positive) 09/25/2024 Telephone [facility] [address] [place] [address] Kathrine Saeed DDS patient calling back with [...] 01/21/2025 10:00 AM EST Telemedicine [facility] [address] [place] [address] Guera Menjivar MD [address] [place] [address] Health Maintenance Due Date Last Done Comments [...] PCV) 10/11/2019 10/10/2018 Dental X-Ray: Full Mouth 01/04/202001/02/2 017, 11/13/2016 Colonoscopy 04/10/2023 04/10/2018 Colorectal Cancer Screening 04/10/2023 COVID-19 Vaccine (1 - 2023-2 5 season) 2024 Influenza Vaccine (#1) 2024 9, 12/16/2018, 01/14/2018 SDOH Screening 09/25/2025 09/25/2024 Alcohol/Substance Use Screening 11/14/2025 11/14/2024 Depression Screening 11/14/2025 11/14/2024, 11/14/2024 Diabetes: Hemoglobin A1C 12/04/2025 025, 08/22/2022 Tobacco Screening 12/04/2025 12/04/2024 Mammogram 12/10/2025 12/10/2024, 10/08/2023, 06/13/2017 DTaP/Tdap/Td Vaccines (2 - T d or [...] Procedure Name Priority Date/Time Associated Diagnosis Comments BI MAMMOGRAM SCREENING TOMOSYNTHESIS BILATERAL Routine 12/10/2024 1:50 PM EDT SLIDE REVIEW Routine 12/04/2024 2:24 PM EDT [...] MODIFIED WESTERGREN Routine 10/21/2024 1:34 PM EDT HPV MRNA E6/E7 REFLEX TO HPV 16, 18/45 Routine 10/10/2022 10:52 AM EDT PAP SMEAR Routine 10/10/2022 10:52 AM EDT HM COLONOSCOPY Routine 04/10/2018 INTRAORAL - COMPLETE SERIES OF RADIOGRAPHIC IMAGES Routine 01/02/2017 12:00 AM EDT COMPREHENSIVE ORAL EVALUATION - NEW OR ESTABLISHED PATIENT Routine 01/02/2017 12:00 AM EDT from Last 3 Months or Most Recently Relevant to Health Maintenance Results * BI Mammogram Screening Tomosynthesis Bilateral (12/10/2024 1:50 PM EDT) Anatomical Region Laterality Modality Breast Bilateral Mammography 12/10/2024 1:50 PM EDT Narrative 12/12/2024 6:56 PM EDT [facility] [address] [place], [place] [address] Mammography Report Signed Patient: Kerline Helms MR#: [id number] : 1960 Acct:[id number] Age/Sex: 64 / F ADM Date: 12/10/24 Loc: HO.MAMMO Attending Dr: Guera Flores MD Ordering Physician: Guera Menjivar MD Results: 1Negative Date of Service: 12/10/24 Follow Up: 1 Year From Orig inal Mammogram Procedure(s): MM tomosynthesis screening BI Accession Number(s): [id number] cc: Guera Menjivar MD Reason For Exam: Z12.31 EXAMINATION: MM SCREENING DIGITAL BREAST TOMOSYNTHESIS, BILATERAL CLINICAL INFORMATION: Screening. Asymptomatic. COMPARISON: October 08, 2023 TECHNIQUE: Digital breast tomosynthesis is performed in mediolateral oblique and craniocaudal views along with computer-aided detection (CAD). Synthesized 2D images are generated from the tomosynthesis. Best possible images according to technologist notes. FINDINGS: BREAST COMPOSITION: There are scattered areas of fibroglandular density. BILATERAL BREASTS: No significant masses, suspicious calcifications or other abnormalities are seen in either breast. MM/MM tomosynthesis screening BI IMPRESSION: BILATERAL BREASTS: Negative, no mammographic evidence of malignancy. Normal interval follow-up is recommended in 12 months. ASSESSMENT: BI-RADS: Category 1: Negative RECOMMENDATION: Routine annual mammography screening. FOLLOW-UP: 1 year F/U This examination should not preclude the clinical evaluation of a suspicious palpable abnormality. This patient's information was entered into a reminder system with a target due date for their next mammogram. Electronically signed by: Aaliyah Parker MD 12/12/2024 06:53 PM EDT Dictated By: Aaliyah Parker MD Signed By: <Electronically signed by Aaliyah Parker MD in OV> 12/12/24 1853 DD/ 1350 TD/TT: 12/10/24 1415 Strap Sewer: Procedure Note Donotuseinterpreter, Image - 12/12/2024 [facility] [address] [place] [address] Mammography Report Signed Patient: Kerline HelmsMR#: [id number] : 9Acct:[id number] Age/Sex: 64 / FADM Date: 12/10/24 Loc: HO.MAMMO Attending Dr: Guera Flores MD Ordering Physician: Guera Menjivar MDResults: 1Negative Date of Service: 12/10/24Follow Up: 1 Year From Orig inal Mammogram Procedure(s): MM tomosynthesis screening BI Accession Number(s): [id number] cc: Guera Menjivar MD Reason For Exam: Z12.31 EXAMINATION: MM SCREENING DIGITAL BREAST TOMOSYNTHESIS, BILATERAL CLINICAL INFORMATION: Screening. Asymptomatic. COMPARISON: October 08, 2023 TECHNIQUE: Digital breast tomosynthesis is performed in mediolateral oblique and craniocaudal views along with computer-aided detection (CAD). Synthesized 2D images are generated from the tomosynthesis. Best possible images according to technologist notes. FINDINGS: BREAST COMPOSITION: There are scattered areas of fibroglandular density. BILATERAL BREASTS: No significant masses, suspicious calcifications or other abnormalities are seen in either breast. MM/MM tomosynthesis screening BI IMPRESSION: BILATERAL BREASTS: Negative, no mammographic evidence of malignancy. Normal interval follow-up is recommended in 12 months. ASSESSMENT: BI-RADS: Category 1: Negative RECOMMENDATION: Routine annual mammography screening. FOLLOW-UP: 1 year F/U This examination should not preclude the clinical evaluation of a suspicious palpable abnormality. This patient's information was entered into a reminder system with a target due date for their next mammogram. Electronically signed by: Aaliyah Parker MD 12/12/2024 06:53 PM EDT Dictated By: Aaliyah Parker MD Signed By: <Electronically signed by Aaliyah Parker MD in OV> 12/12/24 8177 DD/ 1350 TD/TT: 12/10/24 1415 Strap Sewer: us Guera Flores MD IMG BI PROCEDURES Fin al Result * Slide Review (12/04/2024 2:24 PM EDT) Slide Review VERIFIED [facility] 12/04/2024 2:24 PM EDT 12/04/2024 4:09 PM EDT Guera Flores MD LAB BLOOD ORDERABLES Final Result [facility] [address] [place] [address] [phone] * (ABNORMAL) Vitamin D, 25-Hydroxy, Total, Immunoassay (12/04/2024 2:24 PM EDT) Vitamin D 25-OH Total 21.1(L) >30 ng/mL [facility] Comment: Health Based Reference Values*< 20 ng/mL Hoayufnyd57-35 ng/mL Insufficient> 30 ng/mL Sufficient*Tanja MOREL. N [...] BLOOD ORDERABLES Final Result Performing Organization Address [facility]/ZIP Co de Phone Number [facility] [address] [place] [phone] * Vitamin B12/Folate, Serum Panel (12/04/2024 2:24 PM EDT) Vitamin B12 299 200 - 900 pg/mL [facility] Comment:NORMAL 200-900 PG/ML INDETERMINATE 160-199 PG/ML DEFICIENT < 160 PG/ML Folate 7.9 > or = 4.0 ng/mL [facility] Comment:Reference Values:> o r = [...] BLOOD ORDERABLES Final Result Performing Organization Address [facility] Co de Phone Number [facility] [address] [place] [phone] * TSH with Reflex to Free T4 (12/04/2024 2:24 PM EDT) TSH reflex Free T4 0.93 0.32 - 4.0 uIU/mL [facility] Blood Venous blood specimen / Unknown 12/04/2024 2:24 PM EDT 12/04/2024 4:46 PM EDT us Guera Flores MD LAB BLOOD ORDERABLES Final Result Performing Organization Address City/[facility]/ZIP Co de Phone Number [facility] [address] [place] [phone] * (ABNORMAL) CBC auto differential (12/04/2024 2:24 PM EDT) Only the most recent of2 resultswithin the time period is included. White Blood Count 26.4(H) 4.8 - 10.8 X10*3/uL [facility] Red Blood Count 4.27 4.20 - 5.50 X10*6/uL [facility] Hemoglobin 12.6 12.0 - 16.0 g/dl [facility] Hematocrit 38.3 37.0 - 47.0 % [facility] Mean Corpuscular Volume 89.7 80.0 - 98.0 fL [facility] Mean Corpuscular Hemoglobin 29.5 27.0 - 33.0 pg [facility] Mean Corpuscular HGB Conc 32.9 31.0 - 35.0 g/dl [facility] Red Cell Distribution Width 18.6(H) 11.0 - 16.0 % [facility] Platelet Count 464(H) 160 - 400 X10*3/uL [facility] Mean Platelet Volume 10.3 9.4 - 12.3 fL [facility] Neutrophils Percent Auto 77.3(H) 45 - 73 % [facility] Imm Gran Pct Auto 4.4(H) 0.0 - 0.4 % [facility] Lymphocytes Percent Auto 13.3(L) 20 - 40 % [facility] Monocytes Percent Auto 4.5 2 - 11 % [facility] Eosinophils Percent Auto 0.0 0 - 4 % [facility] Basophils Percent Auto 0.5 0 - 2 % [facility] NRBC Pct Auto 0.0 0.0 - 0.2 /100WBC [facility] Neutrophils Absolute Auto 20.4(H) 2.0 - 8.3 x10*3/uL [facility] Imm Gran Abs Auto 1.16(H) 0.00 - 0.03 X10*3/uL [facility] Lymphocytes Absolute Auto 3.5 1.2 - 4.9 X10*3/uL [facility] Monocytes Absolute Auto 1.2 0.1 - 1.2 X10*3/uL [facility] Eosinophils Absolute Auto 0.0 0.0 - 0.4 X10*3/uL [facility] Basophils Absolute Auto 0.1 0.0 - 0.2 X10*3/uL [facility] NRBC Abs Auto 0.000 0.0 - 0.012 X10*3/uL [facility] Blood Venous blood specimen / Unknown 12/04/2024 2:24 PM EDT 12/04/2024 4:09 PM EDT us Guera Flores MD LAB BLOOD ORDERABLES Edited Result - Final Performing Organization Address [facility]/ZIP Co de Phone Number [facility] [address] [place] [phone] * Hepatitis C Antibody with Reflex to HCV, RNA, Quantitative, Real-Time PCR (12/04/2024 2:24 PM EDT) Hepatitis C Antibody Nonreactive Nonreactive [facility] Comment:Antibodies to HCV no t detected; does not exclude early acuteHCV infection. Blood Venous blood specimen / Unknown 12/04/2024 2:24 PM EDT 12/04/2024 4:46 PM EDT us Guera Flores MD LAB BLOOD ORDERABLES Final Result Performing Organization Address [facility] Co de Phone Number [facility] [address] [place] [phone] * HIV-1/2 Antigen and Antibodies, Fourth Generation, with Reflexes (12/04/2024 2:24 PM EDT) HIV AB/AG Nonreactive Nonreactive [facility] Comment:HIV-1 p24 Ag and/or HIV-1/HIV-2 Ab not detected.A test result that is nonreactive does not exclude thepossibility of exposure to or infection with HIV-1 and/orHIV-2. Nonreactive results in this assay for individualswith prior exposure to HIV-1 and/or HIV-2 may be due toantigen and antibody levels that are below the limit ofdetection of this assay.The [employer] HIV Ag/Ab Combo assay result andsupplemental assay results should be interpreted inconjunction with the patient's clinical presentation,history and other laboratory results. If the results areinconsistent with clinical evidence, additional testing issuggested to confirm the result. Blood Venous blood specimen / Unknown 12/04/2024 2:24 PM EDT 12/04/2024 4:46 PM EDT us Guera Flores MD LAB BLOOD ORDERABLES Final Result Performing Organization Address [facility] Co de Phone Number [facility] [address] [place] [phone] * (ABNORMAL) Hemoglobin A1c (12/04/2024 2:24 PM EDT) Hemoglobin A1c 6.2(H) <6.0 % [facility] Comment:Hemoglobin A1C Refer ence Range Adults: 4.8 - 6.0 % Non diabetic: < 6.0 % Goal: < 7.0 %Additional Action Suggested: > 8.0 %Note: Hemoglobin A1c results are invalid for patients with abnormal amounts of HbF. Blood transfusions may impact the HbA1c concentration in the patient sample. Estimated Average Glucose 131 mg/dL [facility] Comment:eAG = Estimated ave rage glucose which is %A1C expressed asaverage glucose, using the formula of the M1M-CnazfmgVbxwfzc Glucose study (ADAG), Diabetes Care, Vol.31,#8,Oct. 2007 Blood Venous blood specimen / Unknown 12/04/2024 2:24 PM EDT 12/04/2024 4:09 PM EDT Guera Flores MD LAB BLOOD ORDERABLES Final Result Performing Organization Address [facility]/ZIP Co de Phone Number [facility] [address] [place] [phone] * (ABNORMAL) Lipid Panel, Standard (12/04/2024 2:24 PM EDT) Triglycerides 255(H) <150 mg/dL [facility] Comment:Desirable Triglyceri de: less than 150 mg/dLBorderline High Triglyceride 150-199 mg/dLHigh Triglyceride: 200-499 mg/dLVery High Triglyceride: greater than or equal to 5OO mg/dL Cholesterol 278(H) <200 mg/dL [facility] Comment:Desirable Cholestero l: less than 200 mg/dLBorderline High Cholesterol: 200-239 mg/dLHigh Cholesterol: greater than 239 mg/dL LDL Cholesterol Calculated 126(H) <100 mg/dL [facility] Comment:Desirable LDL: less than 100 mg/dLNear Optimal/Above Optimal LDL: 110- 129 mg/dLBorderline High LDL: 130-159 mg/dLHigh LDL: 160-189 mg/dLVery High LDL: greater than or equal to 190 mg/dL HDL Cholesterol 101 >40 mg/dL [facility] Comment:Desirable HDL: great er than 40 mg/dL Note: This HDL assay may give artificially low results in patients with liver disease. Blood Venous blood specimen / Unknown 12/04/2024 2:24 PM EDT 12/04/2024 4:46 PM EDT us Guera Flores MD LAB BLOOD ORDERABLES Final Result [facility] [place] [phone] * (ABNORMAL) Comprehensive Metabolic Panel (12/04/2024 2:24 PM EDT) Only the most recent of2 resultswithin the time period is included. Sodium 141 135 - 145 mmol/L [facility] Potassium 5.4(H) 3.3 - 5.1 mmol/L [facility] Chloride 104 96 - 108 mmol/L [facility] Carbon Dioxide 29 22 - 29 mmol/L [facility] Anion Gap 13 12 - 20 [facility] Urea Nitrogen (BUN) 21(H) 9 - 16 mg/dL [facility] Creatinine, Serum 0.82 0.5 - 1.4 mg/dL [facility] Estimated Glomerular Filt Rate >60 [facility] Comment:Chronic Kidney Disea se: Estimated GFR < 60 mL/min/1.05u9Liumjq Kidney Disease: Estimated GFR < 15 mL/min/1.73m2 Glucose 106 60 - 115 mg/dL [facility] Calcium 9.6 8.4 - 10.2 mg/dL [facility] Bilirubin, Total 0.4 0.0 - 1.0 mg/dL [facility] Aspartate Amino Transferase 23 5 - 31 U/L [facility] Alanine Aminotransferase 28 0 - 31 U/L [facility] Total Protein 7.0 6.5 - 8.0 g/dL [facility] Albumin Level 4.1 3.5 - 5.0 g/dL [facility] Alkaline Phosphatase 65 39 - 117 U/L [facility] Blood Venous blood specimen / Unknown 12/04/2024 2:24 PM EDT 12/04/2024 4:46 PM EDT us Guera Flores MD LAB BLOOD ORDERABLES Final Result Performing Organization Address City/State/[facility] Co de Phone Number [facility] [address] [place] [phone] * CTA Chest PE Protocal (11/09/2024 3:27 PM EDT) Anatomical Region Laterality Modality Body, Chest Computed Tomogra phy 11/09/2024 3:27 PM EDT Narrative 11/09/2024 3:29 PM EDT [address] [address] [address] Scan Report Signed Patient: Kerline Helms MR#: [id number] : 1960 Acct:[id number] Age/Sex: 64 / F ADM Date: 11/09/24 Loc: HO.ED Attending Dr: Ordering Physician: Alverto Francisco MD Date of Service: 11/09/24 Procedure(s): CT angio chest PE protocol Accession Number(s): [id number] cc: Guera Menjivar MD; Alverto Francisco MD Report Number: [id number]: Total DLP = 200.00 mGy-cm CLINICAL HISTORY: [...] 11/09/24 1528 DD/ 1527 TD/TT: 11/09/24 1527 Strap Sewer: Procedure Note Donotuseinterpreter, Image - 11/09/[address] [place] [address] [address] Scan Report Signed Patient: Kerline HelmsMR#: [id number] : 9Acct:[id number] Age/Sex: 64 / FADM Date: 11/09/24 Loc: .ED Attending Dr: Ordering Physician: Alverto Francisco MD Date of Service: 11/09/24 Procedure(s): CT angio chest PE protocol Accession Number(s): [id number] cc: Guera Menjivar MD; Alverto Francisco MD Report Number: [id number]: Total DLP = 200.00 mGy-cm CLINICAL HISTORY: [...] 11/09/24 1528 DD/ 1527 TD/TT: 11/09/24 1527 Strap Sewer: [facility] External Provider IMG CT PROCEDURES Edited Result - Final * XR Chest 2 Views (11/09/2024 12:09 PM EDT) Only the most recent of2 resultswithin the time period is included. Anatomical Region Laterality Modality Chest Radiographic Yodit ging 11/09/2024 12:0 9 PM EDT Narrative 11/09/2024 12:11 PM EDT [address] [address] XRay Report Signed Patient: Kerline Helms MR#: [id number] : 1960 Acct:[id number] Age/Sex: 64 / F ADM Date: 11/09/24 Loc: HO.ED Attending Dr: Ordering Physician: Lemuel Guzman Date of Service: 11/09/24 Procedure(s): XR chest 2V Accession Number(s): [id number] cc: Guera Menjivar MD; Lemuel Guzman CLINICAL [...] 11/09/24 1210 DD/ 1209 TD/TT: 11/09/24 1209 Strap Sewer: Procedure Note Donotuseinterpreter, Image - 11/09/2024 [place] [address] XRay Report Signed Patient: Nura Helms#: [id number] : 9Acct:[id number] Age/Sex: 64 / FADM Date: 11/09/24 Loc: .ED Attending Dr: Ordering Physician: Lemuel Guzman Date of Service: 11/09/24 Procedure(s): XR chest 2V Accession Number(s): [id number] cc: Guera Menjivar MD; Lemuel Guzman CLINICAL [...] Tanner MD in OV> 11/09/24 1210 DD/ TD/TT: 11/09/241208 Strap Sewer: [facility] External Provider IMG XR PROCEDURES Final Result * SARS-CoV-2 RNA, Influenza A/B, and RSV RNA, Ql NAAT (11/09/2024 12:01 PM EDT) Influenza A PCR NEGATIVE Negative [facility] Influenza B PCR NEGATIVE Negative [facility] Resp Syncy Virus RNA Qual PCR NEGATIVE Negative [facility] SARS COV2 PCR NEGATIVE Negative [facility] Comment:All test results mus t [...] use by authorized laboratories.Testing performed on the [employer] GeneXpert utilizingreal-time RT-PCR.All SARS CoV2 and positive influenza A/B results arereported to [facility]. 11/09/2024 12:0 1 PM EDT 11/09/2024 1:08 PM EDT Generic External Data Provider LAB MICROBIOLOGY - GENERAL ORDERABLES Final Result [facility] [address] [place] [phone] * High Sensitivity Troponin I (11/09/2024 11:55 AM EDT) TROPONIN I HIGH SENSITIVITY 2.9 <3.5 - 17.0 ng/L [facility] Comment:The [place] high sens itivity Troponin-I results should beused in conjunction with other diagnostic information suchas ECG, clinical observations and information, and patientsymptoms to aid in the diagnosis of [place]. 11/09/2024 11:5 5 AM EDT 11/09/2024 1:31 PM EDT Generic External Data Provider LAB BLOOD ORDERAB LES Final Result Performing Organization Address [facility] Phone Number [facility] [address] [place] [phone] * B Type Natriuretic Peptide (BNP) (11/09/2024 11:55 AM EDT) B Type Natriuretic Peptide 68 <100 pg/mL [facility] 11/09/2024 11:5 5 AM EDT 11/09/2024 1:30 PM EDT Generic External Data Provider LAB BLOOD ORDERAB LES Final Result Performing Organization Address [facility] Number [facility] [address] [place] [phone] * Influenza B (ID NOW Rapid Molecular) (11/04/2024 3:41 PM EDT) Influenza B Negative Negative, Indeterminate [facility] Swab 11/04/2024 3:41 PM EDT us Guera Flores MD POINT OF CARE TEST EN TER/EDIT ORDERABLES Final Result Performing Organization Address [facility] Phone Number [facility] [address] [place] [phone] * Influenza A (ID NOW Rapid Molecular) (11/04/2024 3:41 PM EDT) Influenza A Negative Negative, Indeterminate [facility] Swab 11/04/2024 3:41 PM EDT us Guera Flores MD POINT OF CARE TEST EN TER/EDIT ORDERABLES Final Result [facility] [address] [place] [address] [phone] * POCT Rapid COVID Ag (11/04/2024 3:41 PM EDT) Rapid COVID Ag Negative [facility] Swab 11/04/2024 3:41 PM EDT us Guera Flores MD POINT OF CARE TEST EN TER/EDIT ORDERABLES Final Result [facility] [address] [place] [address] [phone] * (ABNORMAL) CRP, HIGH SENSITIVITY (10/21/2024 1:34 PM EDT) [facility] CRP, High Sensitivity >20.0(A) mg/L [facility] Comment: Reference RangeOptimal <1.0Jose PS et al. Endocr Pract.2017;23(Suppl 2):1- 87.For ages >17 Years:hs-CRP mg/L Risk According to AHA/CDC Guidelines<1.0 Lower relative cardiovascular risk.1.0-3.0 Average relative cardiovascular risk.3.1-10.0 Higher relative cardiovascular risk. Consider retesting in 1 to 2 weeks to exclude a benign transient elevation in the baseline CRP value secondary to infection or inflammation.>10.0 Persistent elevation, upon retesting, may be associated with infection and inflammation.Goldman TA, Yas GA, Kenji RW, et al. Markersof inflammation and cardiovascular disease:application to clinical and public health practice:A statement for healthcare professionals from theCenters for Disease Control and Prevention and theAmerican Heart Association. Circulation 2003; 107(3):499-511.THIS TEST WAS PERFORMED AT:[employer] [place] [phone] GONZALES MD 10/21/2024 1:34 PM EDT 10/21/2024 1:34 PM EDT us Generic External Data Provider LAB BLOOD ORDERAB LES Final Result Performing Organization Address [facility]/ZIP Co de Phone Number [facility] [address] [place] [address] [phone] * (ABNORMAL) Sed Rate by Modified Raleighergren (10/21/2024 1:34 PM EDT) Erythrocyte Sedimentation Rate 81(H) 0 - 20 MM/HR [facility] Comment:Patients with polycy themia and many hemoglobin abnormalitiesmay have depressed sed rates whereas patients with anemiamay have elevated sed rates. 10/21/2024 1:34 PM EDT 10/21/2024 1:34 PM EDT Generic External Data Provider LAB BLOOD ORDERAB LES Final Result Performing Organization Address [facility] Co de Phone Number [facility] [address] [place] [address] [phone] * HPV mRNA E6/E7 w/Reflex to HPV Genotypes 16, 18/45 (10/10/2022 10:52 AM EDT) Pathologist [facility] HPV nRNA E6/E7 Not Detected Not Detected [facility] Comment:Methodology: Transcr iption-Mediated AmplificationThis assay detects E6/E7 viral messenger RNA (mRNA) from 14high-risk HPV types (16,18,31,33,35,39,45,51,52,56,58,59,66,68).Cervical sources are required for HPV testing.If a vaginal source from a patient who has had atotal hysterectomy with removal of cervix wassubmitted, please contact the testing laboratoryfor alternative testing options.For additional information, please refer tohttp://education.Bag Borrow or Steal/[email or web address](This link if provided for information/educational purposes only.)THIS TEST WAS PERFORMED AT:[employer] [place] [phone] GONZALES MD HPV mRNA E6/E7 TNP [facility] HPV 16 RNA [facility] HPV 18/45 RNA [facility] 10/10/2022 10:5 2 AM EDT 10/12/2022 8:30 AM EDT us Guera Flores MD LAB CYTOLOGY ORDERABL ES Final Result [facility] [address] [place] [phone] * Pap Smear (10/10/2022 10:52 AM EDT) 10/10/2022 10:5 2 AM EDT 10/12/2022 8:30 AM EDT Narrative [facility] - 10/24/2022 1:39 PM EDT ----- ------- Name: Annie JayKerline deshpande Age/Sex: 62/F : 1960 Unit#: [id number] Attend Dr: Guera Menjivar MD Re10/10/22 Status: DEP REF Location: HO.HHCLNP Disch: ----- ------- SPEC : [id number] RECD: 10/12/22 STATUS: JOHN LEMA NUM: [id number] RD: 10/10/22-105 [facility] DR: Guera Menjivar MD ENTERED: 10/12/22-1254 SP TYPE: Pap Smr OTHR DR: ORDERED: Pap Smear Interpretation Satisfactory for evaluation. Atrophic. Negative for intraepithelial lesion or malignancy. HPV mRNA E6/E7: NOT DETECTED This assay detects E6/E7 viral messenger RNA (mRNA) from 14 high-risk HPV types (16, 18, 31, 33, 35, 39, 45, 51, 52, 56, 58, 59, 66, 68) HPV testing performed by [facility], [place], [place]. See reference laboratory pion of the EMR for entire report. Clinical Information LMP: Unknown date Previous PAP test: Unknown date/findings Material Received ThinPrep-Vaginal/Cervical ----- ------- Signed (signature on file) JIMMY Tsai (ASCP) 10/24/22 1339 ----- ------- END OF REPORT us Guera Flores MD LAB CYTOLOGY ORDERABL ES Final Result [facility] [address] [place] [phone] * Hm Colonoscopy (04/10/2018) Historical Provider HEALTH MAINTENANCE Final Result from Last 3 Months or Most Recently Relevant to Health Maintenance [place] [address] Care Teams Marine Electrician Apprentice Relationship Specialty Start Date End Date Guera Menjivar MD [address] [place] [phone] PCP - General Family Medicine 12/15/19
--- OUTSIDE RECORDS SUMMARY | 2024-12-16 08:31 | XMS_ITS | Patient Health Record ---
Author Organization [facility] Address [address] [place] [address] Care Team Providers Care Junior Data Analyst Name Role Phone Melonie Bennett Primary Care Provider Geoffrey King Jr Unavailable [phone] Reason For Referral No Information Medications Medication [...] Problem Status W/U Status Risk Notes Problem [id number] Colon cancer screening (Z12.11) Active confirmed Plan Of Treatment Future Test Test Name Order Date COLONOSCOPY 01/03/2018 Insurance Providers Payer Name Payer Address Payer Phone Subscriber Number Group Number Insured Name Patient Relationship to Insured Coverage Start Date Coverage End Date [facility] [address] [place] [address] [id number] FERNIE VALDEZ Self - patient is the insured Medical (General) History Medical History History ICD Code Denies [place],DM,CVA,Lung disease,renal dise ase Surgical History Surgery Date(Month/Year) eye surgery-left
--- OUTSIDE RECORDS SUMMARY | 2024-12-16 08:31 | XMS_ITS | Encounter Summary ---
Author Organization [employer] Address [address] [facility] 7t [place] [address] Care Team Providers Care Council On Aging Director Name Role Phone Guera Menjivar MD Primary Care Provide r Encounter Details Date Type Department Care Team ([facility] st Contact Info) Description 08/31/2024 Telephone [facility] [address] [place] [address] Nydia Valle NP [address] [place] [address] Social History Tobacco Use Types Packs/Day Years [...] mri and ordering CT. Called radiology at [facility] where mri had been completed, soI did not order recommended CT. At time of call MRI was pending results and results would be STAT read to clinic. Pt was stable ambulating and was prepared to leave department. documented in this encounter Plan of Treatment Upcoming Encounters Date Type Department Care Team (Late st Contact Info) Description 01/21/2025 10:00 AM EST Telemedicine [facility] [address] [place] [address] Guera Menjivar MD [address] [place] [address] documented as of this encounter Visit Diagnoses Not on filedocumented in this encounter Additional Health Concerns Assessment Noted Time PHQ-9 Depression Total Score: 0 08/23/19 23 2:00 PM EDT documented as of this encounter Care Teams Council On Aging Director Relationship Specialty Start Date End Date Guera Menjivar MD [address] [place] [phone] PCP - General Family Medicine 12/15/19 documented as of this encounter
--- OUTSIDE RECORDS SUMMARY | 2024-12-16 08:31 | XMS_ITS | Encounter Summary ---
Author Organization [employer] Address [address] [facility] [address] [place] [address] Care Team Providers Care Rig Builder Helper Name Role Phone Guera Menjivar MD Primary Care Provide r Reason for Visit * Reason Onset Date Comments Nurse Triage 11/11/2024 Encounter Details Date Type Department Care Team ([facility] st Contact Info) Description 11/11/2024 Telephone [facility] [address] [place] [address] Guera Menjivar MD [address] [place] [address] Nurse Triage Social History Tobacco Use Types [...] RN - 11/11/2024 2:29 PM EDT No coke crusher operator needed as this contract technical writer speaks Lithuanian. Call returned to Kerline De La Paz to triagebel at [phone]. Confirms inforamtion from ER Notes, regarding dx of COPD exacerbation. Pt did picking tech Rx for levofloxacin 500 mg tablet 500 [...] 11/14/2024 2:00 PM Katiuska Evans NP MEDICINE [facility] 12/04/2024 1:15 PM Guera Flores MD MEDICINE [facility] Protocol Used: Post-Hospitalization Follow-up Call (Adult) [...] ED visit on : Date: 11/10/2024 Hospital: [facility] Seen for: Bronchitis Symptomatic Yes *if yes message should go to Triage Patient advised will forward to team nurse for follow up Contact pt at [phone] documented in this encounter Plan of Treatment Upcoming Encounters Date Type Department Care Team ([facility] st Contact Info) Description 01/21/2025 10:00 AM EST Telemedicine [facility] [address] [place] [address] Guera Menjivar MD [address] [place] [place] [address] documented as of this encounter Visit Diagnoses Not on filedocumented in this encounter Additional Health Concerns Assessment Noted Time PHQ-9 Depression Total Score: 0 08/23/19 23 2:00 PM EDT documented as of this encounter Care Teams Rig Builder Helper Relationship Specialty Start Date End Date Guera Menjivar MD [address] [place] [place] [phone] PCP - General Family Medicine 12/15/19 documented as of this encounter
--- OUTSIDE RECORDS SUMMARY | 2024-12-16 08:31 | XMS_ITS | Encounter Summary ---
Author Organization [employer] Address [address] [facility] 7t [place] [address] Care Team Providers Care Berry Picker Name Role Phone Guera Menjivar MD Primary Care Provide r Encounter Details Date Type Department Care Team ([facility] st Contact Info) Description 02/22/2024 Telephone [facility] [address] [place] [address] Guera Menjivar MD [address] [place] [address] Social History Tobacco Use Types Packs/Day Years [...] Info) Description 01/21/2025 10:00 AM EST Telemedicine [facility] [address] [place] [address] Guera Menjivar MD [address] [place] [phone] documented as of this encounter Visit Diagnoses Not on filedocumented in this encounter Additional Health Concerns Assessment Noted Time PHQ-9 Depression Total Score: 0 08/23/19 23 2:00 PM EDT documented as of this encounter Care Teams Berry Picker Relationship Specialty Start Date End Date Guera Menjivar MD [address] [place] [phone] PCP - General Family Medicine 12/15/19 documented as of this encounter
--- OUTSIDE RECORDS SUMMARY | 2024-12-16 08:31 | XMS_ITS | Encounter Summary ---
Author Organization [employer] Address [address] [facility] 7t [place] [address] Care Team Providers Care Home Attendant Name Role Phone Guera Menjivar MD Primary Care Provide r Encounter Details Date Type Department Care Team (Late st Contact Info) Description 02/13/2023 Abstract [facility] [address] [place] [address] Radha Clarke Social History Tobacco Use Types [...] Info) Description 01/21/2025 10:00 AM EST Telemedicine [facility] [address] [place] [address] Guera Menjivar MD [address] [place], [place] [phone] documented as of this encounter Visit Diagnoses Not on filedocumented in this encounter Additional Health Concerns Assessment Noted Time PHQ-9 Depression Total Score: 0 08/23/19 23 2:00 PM EDT documented as of this encounter Care Teams Home Attendant Relationship Specialty Start Date End Date Guera Menjivar MD [address] [place] [phone] PCP - General Family Medicine 12/15/19 documented as of this encounter
--- OUTSIDE RECORDS SUMMARY | 2024-12-16 08:31 | XMS_ITS | Encounter Summary ---
Author Organization [employer] Address [address] [facility] [address] [place] [address] Care Team Providers Care Manager Coding Name Role Phone Guera Menjivar MD Primary Care Provide r Reason for Visit * Reason Onset Date Comments triage 04/11/2022 Encounter Details Date Type Department Care Team ([facility] st Contact Info) Description 04/11/2022 Telephone [facility] [address] [place] [address] Guera Menjivar MD [address] [place] [address] triage Social History Tobacco Use Types Packs/Day [...] . Available appt. Pt will go to [facility]. Pt agres to protocol. Used: Arm [...] Info) Description 01/21/2025 10:00 AM EST Telemedicine [facility] [address] [place] [address] Guera Menjivar MD [address] [place] [address] documented as of this encounter Visit Diagnoses Not on filedocumented in this encounter Care Teams Manager Coding Relationship Specialty Start Date End Date Guera Menjivar MD [address] [place] [address] PCP - General Family Medicine 12/15/19 documented as of this encounter
--- OUTSIDE RECORDS SUMMARY | 2024-12-16 08:31 | XMS_ITS | Encounter Summary ---
Author Organization [employer] Address [address] [facility] 7t [place] [address] Care Team Providers Care Inspection Machine Tender Name Role Phone Guera Menjivar MD Primary Care Provide r Reason for Visit * Reason Onset Date Comments patient calling back with insurance info emergen cy dental 09/25/2024 Encounter Details Date Type Department Care Team ([facility] st Contact Info) Description 09/25/2024 Telephone [facility] [address] [place] [address] Kathrine Saeed DDS patient calling back with [...] Info) Description 01/21/2025 10:00 AM EST Telemedicine [facility] [address] [place] [address] Guera Menjivar MD [address] [place] [address] documented as of this encounter Visit Diagnoses Not on filedocumented in this encounter Additional Health Concerns Assessment Noted Time PHQ-9 Depression Total Score: 0 08/23/19 23 2:00 PM EDT documented as of this encounter Care Teams Inspection Machine Tender Relationship Specialty Start Date End Date Guera Menjivar MD [address] [place] [address] PCP - General Family Medicine 12/15/19 documented as of this encounter
--- OUTSIDE RECORDS SUMMARY | 2024-12-16 08:31 | XMS_ITS | Encounter Summary ---
Author Organization [email or web address] Address [address] [place] [address] [address] [place] [address] Care Team Providers Care Clark Driver Name Role Phone Guera Menjivar MD Primary Care Provide r Encounter Details Date Type Department Care Team ([facility] Contact Info) Description 02/16/2022 Abstract [facility] [address] [place] [phone] Provider, MD Elo Social History Tobacco Use [...] Info) Description 01/21/2025 10:00 AM EST Telemedicine [facility] [address] [place] [phone] Guera Menjivar MD [address] [place] [address] documented as of this encounter Visit Diagnoses Not on filedocumented in this encounter Care Teams Clark Driver Relationship Specialty Start Date End Date Guera Menjivar MD [address] [place] [phone] PCP - General Family Medicine 12/15/19 documented as of this encounter
[2024-12-16 12:32] LABS: Anion Gap 10 (12-20); Blood Urea Nitrogen 19 mg/dL (9-16); Calcium 9.3 mg/dL (8.4-10.2); Carbon Dioxide 30 mmol/L (22-29); Chloride 106 mmol/L (96-108); Estimated Glomerular Filt Rate > 60; Potassium 5.2 mmol/L (3.3-5.1); Sodium 141 mmol/L (135-145)
== END 2024-12-16 08:17 | disposition home or self-care (01) ==
LOC: HO.HHCL 08:16
PROVIDERS: PCP Internal Medicine; Visit Provider Internal Medicine
DX: E87.5 Hyperkalemia (principal)
CPT/HCPCS: 36415; 80048

== ENCOUNTER 2025-01-05 12:41 | Outpatient (REF) | payer OTHER, SELFPAY ==
--- NOTE | ~2025-01-05 | MM_ITS ---
EXAMINATION: DXA BONE DENSITY AXIAL HISTORY: screening osteoporosis TECHNIQUE: [employer] Dual energy absorptiometry (DEXA) of the lumbar spine, total left hip, and femoral neck was performed. COMPARISON: There are no prior studies for comparison. FINDINGS: The bone mineral density of the lumbar spine is 0.851 g/cm2, corresponding to a T-score of -2.7, and a Z-score of -1.0. This is indicative of osteoporosis. The bone mineral density of the left total hip is 0.704 g/cm2, corresponding to a T-score of -2.4, and a Z-score of -1.0. This is indicative of osteopenia. The bone mineral density of the left femoral neck is 0.695 g/cm2, corresponding to a T-score of -2.5, and a Z-score of -0.8. This is indicative of osteoporosis. FRACTURE RISK: The FRAX index suggests a risk of major osteoporotic fracture of 7.5%, and of hip fracture 1.7%. MM/XR DEXA axial skeleton IMPRESSION: Based on bone mineral density, and according to World Health Organization (WHO) criteria, the diagnosis is consistent with osteoporosis. Statistically, 68% of repeat scans fall within 1 SD (+/- 0.010 g/cm2 for AP spine L1-L4) and 1 SD (+/- 0.012 g/cm2 for femur total) FRAX is a trademark of the [employer] [place] [facility] Metabolic Bone Disease, a World Health Organization (WHO) Collaborating Center. Electronically signed by: Scott Mathews MD 01/05/2025 01:46 PM EDT
== END 2025-01-05 12:42 | disposition home or self-care (01) ==
LOC: HO.MAMMO 12:41
PROVIDERS: PCP Internal Medicine; Visit Provider Internal Medicine
DX: Z13.820 Encounter for screening for osteoporosis (principal); Z78.0 Asymptomatic menopausal state; Z79.52 Long term (current) use of systemic steroids
CPT/HCPCS: 77080

== ENCOUNTER → 2025-01-05 13:00 | Outpatient (BNV) | payer OTHER, SELFPAY | PROVIDERS: PCP Internal Medicine; Visit Provider Radiology Diagnostic Radiology | DX: E28.39 Other primary ovarian failure (principal) | CPT/HCPCS: 77080 ==

== ENCOUNTER → 2025-01-09 13:36 | Outpatient (BNV) | payer OTHER, SELFPAY | PROVIDERS: PCP Internal Medicine; Referring Provider Internal Medicine; Visit Provider Internal Medicine | DX: D72.828 Other elevated white blood cell count (principal); D75.839 Thrombocytosis, unspecified; F17.210 Nicotine dependence, cigarettes, uncomplicated; Z79.52 Long term (current) use of systemic steroids | CPT/HCPCS: 99203 ==

== ENCOUNTER 2025-01-13 11:20 | Outpatient (REF) | payer OTHER, SELFPAY ==
--- OUTSIDE RECORDS SUMMARY | 2023-09-12 07:20 | XMS_ITS ---
Author Organization [facility] Address [address] [place] [phone] Care Team Providers Care Sourcing Associate Name Role Phone Melonie Bennett Primary Care Provider Geoffrey King Jr REASON FOR VISIT Patient presents today for abdominal pain Encounters Encounter Location Date Provider Diagnosis [facility] [address] [place] [phone] 09/12/2023 Geoffrey Khan Jr Plan Of Treatment No Information Progress Notes * FERNIE VALDEZDOB:[birth year] (64 yo F)Acc No.[id number]:09/12/2023 Progress Notes Patient: FERNIE TANG Provider: Sarthak Khan MD :1960 A ge:63 Y S ex:Female Date:09/12/2023 Address:[address] [place], [place] [phone] Pcp:Melonie Bennett Subjective: * Chief Complaints: * [...] Pending * Provider: Sarthak Khan MD Date: 0 09/12/2023 Generated for Yoan alvarado/Rachel/eTransmitting on: 1 10:24 AM EDT
--- OUTSIDE RECORDS SUMMARY | 2025-01-13 11:15 | XMS_ITS | Encounter Summary ---
Author Organization [employer] Address [address] [facility] [address] [place] [address] Care Team Providers Care Chemical Inspector Name Role Phone Guera Menjivar MD Primary Care Provide r Reason for Referral * Imaging (Routine) - Authorized Specialty Diagnoses / Procedures Referred By Afsaneh gaytan Referred To Contact Radiology Diagnoses Lipoma of right lower extremity Procedures US EXTREMITY LIMITED SOFT TISSUE Guera Menjivar MD [address] [place] [id number] Phone: tel: fax: [address] Phone: tel: fax: Referral ID Status Reason Start Date Expiration Date V isits Requested Visits Authorized [id number] Authorized 01/13/2025 01/13/2026 1 1 Encounter Details Date Type Department Care Team (Late st Contact Info) Description 01/13/2025 11:15 AM EDT Office Visit [facility] [address] [place] [address] [phone] Guera Menjivar MD [address] [place] [address] [phone] Age-related osteoporosis without current pathological fracture; Lipoma of right lower extremity; Hyperkalemia; Temporal arteritis (CMS/HCC) (HCC) Social History Tobacco Use Types Packs/Day Years Used Date Smoking Tobacco: Former Cigarettes Passive Smoke Exposure: Past Smokeless Tobacco: Former Comments:4-5 Daily Passive Exposure Comments:pt stop smoking about a month ago Alcohol Use Standard Drinks/Week Comments Never 0 (1 standard drink = 0.6 oz pur e alcohol) Depression Answer Date Recorded Patient Health Questionnaire-9 Score 6 01/13/2025 Patient Health Questionnaire-9 Score 6 01/13/2025 Last PHQ-9: Questionnaire Data Not on file 1 Housing Stability Answer Date Recorded What is [...] Date Recorded Patient Health Questionnaire-2 Score 0 01/13/2025 Internet Access Answer Date Recorded Internet Access [...] Sign Reading Time Taken Comments Blood Pressure 122/80 01/13/2025 10:48 AM EDT Pulse 72 01/13/2025 10:48 AM EDT Temperature 36.7 C (98 F) 01/13/2025 10:48 AM EDT Respiratory Rate 16 01/13/2025 10:4 8 AM EDT Oxygen Saturation - - Inhaled Oxygen Concentration - - Weight 61.1 kg (134 lb 12.8 oz) 025 10:48 AM EDT Height 160 cm (5' 3 ) 01/13/2025 10:48 AM EDT Body Mass Index 23.88 01/13/2025 10:48 AM EDT documented in this encounter Functional Status * Over the past 2 weeks, how often have you been bothered by any of the following problems? Question Answer Date of Assessment Author Patient Health Questionnaire-2 Score 0 12/18 10:49 AM EDT Sandra Nielsen MA * Little interest or pleasure in doing things Answer Date of Assessment Author Not at all 01/13/2025 10:49 AM DONELLT Javier Nielsen MA * Feeling down, depressed, or hopeless Answer Date of Assessment Author Not at all 01/13/2025 10:49 AM Javier Henley MA * Trouble falling or staying asleep, or sleeping too much Answer Date of Assessment Author Several days 01/13/2025 10:49 AM Javier Henley MA * Feeling tired or having little energy Answer Date of Assessment Author More than half the days 01/13/2025 10:49 AM Sandra Henley MA * Poor appetite or overeating Answer Date of Assessment Author Not at all 01/13/2025 10:49 AM Javier Henley MA * Feeling bad about yourself - or that you are a failure or have let yourself or your family down Answer Date of Assessment Author Not at all 01/13/2025 10:49 AM Javier Henley MA * Trouble concentrating on things, such as reading the newspaper or watching television Answer Date of Assessment Author Nearly every day 01/13/2025 10:49 AM Sandra Henley MA * Moving or speaking so slowly that other people could have noticed? Or the opposite - being so fidgety or restless that you have been moving around a lot more than usual. Answer Date of Assessment Author Not at all 01/13/2025 10:49 AM Javier Henley MA * Thoughts that you would be better off or hurting yourself in some way Answer Date of Assessment Author Not at all 01/13/2025 10:49 AM EDT Javier Nielsen MA * Patient Health Questionnaire-9 Score Answer Date of Assessment Author 6 01/13/2025 10:49 AM EDT Javier Nielsen MA * How difficult have these problems made it for you to do your work, take care of things at home, or get along with other people? Answer Date of Assessment Author Not difficult at all 01/13/2025 10:49 AM EDT Sandra Joyce MA * Over the last 2 weeks, how often have you been bothered by any of the following problems? Question Answer Date of Assessment Author Feeling nervous, anxious, or on edge 0 12/18 10:50 AM EDT Sandra Nielsen MA Not being able to stop or co ntrol worrying 0 01/13/2025 10:50 AM Sandra Henley MA Worrying too much about diff erent things 1 01/13/2025 10:50 AM Sandra Henley MA Trouble relaxing 0 01/13/2025 10:50 AM Sandra Henley MA Being so restless that it is hard to sit still 0 01/13/2025 10:50 AM Sandra Henley MA Becoming easily annoyed or irritable 0 12/18 10:50 AM Sandra Henley MA Feeling afraid as if somethi ng awful might happen 0 01/13/2025 10:50 AM Sandra Henley MA ROSA-7 Total Score 1 01/13/2025 10:50 AM Sandra Henley MA documented as of this encounter Progress Notes * Guera Flores MD - 01/13/2025 11:15 AM EDT Images from the original note were not included. SUBJECTIVE: Kerline De La Paz is a 64 y.o. year old female who presents for acute visit . Kerline De La Paz, 64 years Osteoporosis and Osteopenia - osteoporosis diagnosed bone density exam, results reviewed today - Osteopenia noted in left hip - No prior treatment for osteoporosis before this visit - Reports use of oral prednisone for temporal arteritis, aware that prednisone increases risk of osteoporosis Temporal Arteritis - Under treatment with oral prednisone for temporal arteritis - Headache episode described as horrible occurred once prior to starting prednisone, minimal headache since starting treatment Knee Lump - Noticed a lump on the right knee while bathing, described as regular and round - Denies pain or discomfort from the lump - Reports occasional mild knee pain, but not related to the lump - Lump observed prior to bone density exam Potassium Levels - Reports previous blood tests showing potassium at 5.4, then 5.2, with normal being 5.1 - Advised to avoid foods high in potassium due to borderline elevated levels Social History Social History Narrative Not on file Problem List[1] Acute back pain with sciatica Chronic pelvic [...] cancer screening Headache Tingling sensation Wheezing Bronchiolitis Asymptomatic menopausal state Current chronic use of systemic steroids Temporal arteritis (CMS/HCC) (HCC) Chronic bronchitis (CMS/HCC) (HCC) Encounter for preventive care Night sweats Skin pimple Onychomycosis Hyperkalemia Facial swelling Age-related osteoporosis without current pathological fracture Lipoma of right lower extremity Family History[2] Review of Systems Constitutional: Negative. HENT: Negative. Respiratory: Negative. Cardiovascular: Negative. Neurological: Negative. OBJECTIVE: Vitals: 01/13/25 1048 BP: 122/80 BP Location: Left arm Patient Position: Sitting BP Cuff Size: Adult Pulse: 72 Resp: 16 Temp: 98 ??F (36.7 ??C) TempSrc: Temporal Weight: 134 lb 12.8 oz (61.1 kg) Height: 5' 3 (1.6 m) Physical Exam Constitutional: Appearance: Normal appearance. Cardiovascular: Rate and Rhythm: Normal rate and regular rhythm. Pulmonary: Effort: Pulmonary effort is normal. Breath sounds: Normal breath sounds. Abdominal: General: Abdomen is flat. Palpations: Abdomen is soft. Musculoskeletal: Legs: Comments: Lipoma? Neurological: Mental Status: She is alert. Follow Up: No follow-ups on file. Medications Ordered Prior to Encounter[3] Problem List Items Addressed This Visit Age-related osteoporosis without current pathological fracture Relevant Medications alendronate (Fosamax) 70 MG tablet predniSONE (Deltasone) 10 MG tablet Lipoma of right lower extremity Relevant Orders US EXTREMITY LIMITED SOFT TISSUE Hyperkalemia Temporal arteritis (CMS/HCC) (HCC) Relevant Medications predniSONE (Deltasone) 10 MG tablet Age-related osteoporosis without current pathological fracture: - Osteoporosis diagnosed based on bone density examination. Osteopenia present in left hip. Increased risk of fracture discussed due to osteoporosis. Oral alendronate prescribed as first-line therapy. - Prescribed alendronate, one tablet weekly, to be taken while standing with a large glass of water, on an empty stomach, and remain upright for at least 30 minutes post-dose. Duration of treatment discussed as at least 5 years. Referral to endocrinology considered if oral therapy not tolerated or adverse effects occur. Lipoma of right lower extremity: - Benign-appearing, regular, round, subcutaneous mass over right knee, suspected to be a lipoma. Noconcerning features noted. - Ordered ultrasound of right knee to confirm diagnosis and rule out other etiologies. Hyperkalemia: - Mild hyperkalemia noted, potassium levels slightly above normal. No medication initiated due to minimal elevation. - Advised dietary potassium restriction. Ordered repeat blood test for potassium level, to be performed without fasting. Temporal arteritis (CMS/HCC) (HCC): - Temporal arteritis under treatment with oral prednisone, dose tapering ongoing as per neurology recommendations. Headache symptoms improved since initiation of therapy. Neurology responsible for ongoing monitoring and management. - Prescribed prednisone 10 mg daily for 30 days, then 5 mg daily for 30 days, total of 45 tablets dispensed. Advised to continue follow-up with neurology, next appointment scheduled for February. This note was drafted using Ambient (AI) technology. The patient/patient's guardian has been informed and has consented to the use of this technology: Yes [1] Patient Active Problem List Diagnosis Acute [...] cancer screening Headache Tingling sensation Wheezing Bronchiolitis Asymptomatic menopausal state Current chronic use of systemic steroids Temporal arteritis (CMS/HCC) (HCC) Chronic bronchitis (CMS/HCC) (HCC) Encounter for preventive care Night sweats Skin pimple Onychomycosis Hyperkalemia Facial swelling Age-related osteoporosis without current pathological fracture Lipoma of right lower extremity [2] No family history on file. [3] Current Outpatient Medications on File Prior to Visit Medication Sig Dispense Refill albuterol (2.5 MG/3ML) 0.083% nebulizer solution Take 2.5 mg by nebulization every 4 (four) hours if needed for wheezing or shortness of breath. albuterol 108 (90 Base) MCG/ACT inhaler Inhale 2 puffs every 4 (four) hours if needed for wheezing.18 g 0 bacitracin 500 UNIT/GM ointment Apply topically 2 times daily. 14 g 0 Blood Pressure Monitor kit Use as directed 3x/week 1 kit 0 cetirizine (ZyrTEC) 10 MG tablet TAKE 1 TABLET BY MOUTH DAILY IN THE MORNING 90 tablet 1 ciclopirox (Penlac) 8 % solution Apply topically at bedtime. 6 mL 0 fluticasone (Flonase) 50 MCG/ACT nasal spray Administer 1-2 sprays into each nostril Once per day for 14 days. Shake gently. Before first use, prime pump. After use, clean tip and replace cap.Treatment just for 14 days no need 90 day supply 16 g 2 nicotine (Nicoderm, Step 2) 14 MG/24HR patch Apply 1 patch, as directed, every 24 hours for 6 weeks. May remove at bedtime if needed & replace the next morning. Rotate application site. 14 patch 0 tetrahydrozoline (Visine) 0.05 % ophthalmic solution Administer 1 drop into both eyes in the morning, at noon, and at bedtime. 15 mL 1 No current facility-administered medications on file prior to visit. documented in this encounter Plan of Treatment Scheduled Orders Name Type Priority Associated Diagnoses Orde r Schedule US EXTREMITY LIMITED SOFT TISSUE Imaging Routine Lipoma of right lower extremity Expected: 01/13/2025, Expires: 01/13/2026 documented as of this encounter Visit Diagnoses Diagnosis Age-related osteoporosis without current pathological fracture Lipoma of right lower extremity Hyperkalemia Hyperpotassemia Temporal arteritis (CMS/HCC) (HCC) Giant cell arteritis documented in this encounter Additional Health Concerns Assessment Noted Time PHQ-9 Depression Total Score: 6 01/14/20 25 10:49 AM EDT documented as of this encounter Care Teams Chemical Inspector Relationship Specialty Start Date End Date Guera Menjivar MD [address] [place] [address] PCP - General Family Medicine 12/15/19 documented as of this encounter
[2025-01-13 13:44] LABS: Anion Gap 13 (12-20); Blood Urea Nitrogen 12 mg/dL (9-16); Calcium 9.5 mg/dL (8.4-10.2); Carbon Dioxide 28 mmol/L (22-29); Chloride 108 mmol/L (96-108); Estimated Glomerular Filt Rate > 60; Potassium 4.0 mmol/L (3.3-5.1); Sodium 145 mmol/L (135-145)
--- OUTSIDE RECORDS SUMMARY | 2025-01-13 14:33 | XMS_ITS | Encounter Summary ---
Author Organization [employer] Address [address] [facility] [address] [place] [address] Care Team Providers Care Account Support Analyst Name Role Phone Guera Menjivar MD Primary Care Provide r Reason for Visit * Reason Onset Date Comments Appointment Request 01/08/2025 Encounter Details Date Type Department Care Team ([facility] Contact Info) Description 01/08/2025 Telephone [facility] MEDICINE [address] [place] [address] Guera Menjivar MD [address] [place] [address] Appointment Request Social History Tobacco Use Types Packs/Day Years [...] encounter Miscellaneous Notes * Telephone Encounter - Luz Elena Ureña RN - 01/09/2025 9:19 AM EDT TC placed to patient [phone] via [employer]ers (youwho #[id number]) in regards to below message.Patient reports she is not calling in regards to Xray results. Patient reports she had a DEXA scan on 01/05/25 and is inquiring on the results of the DEXA scan. Patient advised RN would send message to PCP to review the results and patient will receive a return call with results. Patient verbalizedunderstanding. During call, patient reports the fabrication technician informed patient to call PCP office in regards to a bone sticking out on the R leg on the side of her knee. Patient reports it is NOT painful and reports she is able to ambulate without difficulty. Patient scheduled for an appointment on 01/13/25 at 11:15am with PCP, patient is aware PCP will discuss DEXA results with patient at appointment on 01/13/25. Patient verbalized understanding. Patient advised RN will cancel appointment on 01/21/25 with PCP as patient will be seen sooner. Patient to f/u PRN. * Telephone Encounter - Jacinto Jane - 01/08/2025 1:32 PM EDT Tc from pt requesting an apt due to having an an xray. On the right knee it looked weird and was advised to follow up with pcp. Pt does not know if its a broken bone or not. Contact pt at [phone] documented in this encounter Plan of Treatment Not on file documented as of this encounter Visit Diagnoses Not on filedocumented in this encounter Additional Health Concerns Assessment Noted Time PHQ-9 Depression Total Score: 3 11/15/19 25 2:56 PM EDT documented as of this encounter Care Teams Account Support Analyst Relationship Specialty Start Date End Date Guera Menjivar MD [address] [place] [address] PCP - General Family Medicine 12/15/19 documented as of this encounter
--- OUTSIDE RECORDS SUMMARY | 2025-01-13 14:33 | XMS_ITS | Encounter Summary ---
Author Organization [email or web address] Address [address] [place] [address] [address] [place] [address] Care Team Providers Care Golf Cart Repairer Name Role Phone Guera Menjivar MD Primary Care Provide r Encounter Details Date Type Department Care Team (Late st Contact Info) Description 02/16/2022 Abstract [facility] MEDICINE [address] [place] [address] Provider, MD Elo Social History Tobacco Use [...] as of this encounter Plan of Treatment Not on file documented as of this encounter Visit Diagnoses Not on filedocumented in this encounter Care Teams Golf Cart Repairer Relationship Specialty Start Date End Date Guera Menjivar MD [address] [place] [address] PCP - General Family Medicine 12/15/19 documented as of this encounter
--- OUTSIDE RECORDS SUMMARY | 2025-01-13 14:33 | XMS_ITS | Encounter Summary ---
Author Organization [employer] Address [address] [facility] [address] [place] [address] Care Team Providers Care Extra Gang Supervisor Name Role Phone Guera Menjivar MD Primary Care Provide r Reason for Visit * Reason Onset Date Comments Chart Prep 01/12/2025 Encounter Details Date Type Department Care Team ([facility] Contact Info) Description 01/12/2025 Telephone [facility] MEDICINE [address] [place] [address] Guera Menjivar MD [address] [place] [address] Chart Prep Social History Tobacco Use Types Packs/Day Years [...] encounter Miscellaneous Notes * Telephone Encounter - Kristen Rocha MA - 01/12/2025 2:16 PM EDT Chart Prep Labs: done Images: not applicable Referrals: appointment pending Vaccines due: Covid and RSV Screenings: colonoscopy Overdue care gaps: PHQ-9 and ROSA-7 documented in this encounter Plan of Treatment Not on file documented as of this encounter Visit Diagnoses Not on filedocumented in this encounter Additional Health Concerns Assessment Noted Time PHQ-9 Depression Total Score: 3 11/15/19 25 2:56 PM EDT documented as of this encounter Care Teams Extra Gang Supervisor Relationship Specialty Start Date End Date Guera Menjivar MD [address] [place] [address] PCP - General Family Medicine 12/15/19 documented as of this encounter
--- OUTSIDE RECORDS SUMMARY | 2025-01-13 14:33 | XMS_ITS | Patient Health Record ---
Author Organization [facility] Address [address] [place] [address] Care Team Providers Care Towel Cabinet Repairer Name Role Phone Melonie Bennett Primary Care Provider Geoffrey King Jr Unavailable Reason For Referral No Information Medications Medication SIG (Take, Route, Frequency, Duration) Notes Start Date End Date Status Lotrisone 1-0.05 % 1 application to aff ected area Externally Twice a day Active Colyte with Flavor Packs 240 GM As directed Orally Over the specified time.; Duration: 1 day(s) Active Social History Tobacco Use: [...] Problem Status W/U Status Risk Notes Problem Colon cancer screening (170741770) Colon cancer screening (Z12.11) Active confirmed Plan Of Treatment Future Test Test Name Order Date COLONOSCOPY 01/03/2018 Insurance Providers Payer Name Payer Address Payer Phone Subscriber Number Group Number Insured Name Patient Relationship to Insured Coverage Start Date Coverage End Date [facility] [address] [place] [address] [id number] FERNIE VALDEZ Self - patient is the insured Medical (General) History Medical History History ICD Code Denies AL,DM,CVA,Lung disease,renal dise ase Surgical History Surgery Date(Month/Year) eye surgery-left
--- OUTSIDE RECORDS SUMMARY | 2025-01-13 14:33 | XMS_ITS | Encounter Summary ---
Author Organization [employer] Address [address] [facility] [address] [place] [address] Care Team Providers Care Pigment And Lacquer Mixer Name Role Phone Guera Menjivar MD Primary Care Provide r Encounter Details Date Type Department Care Team (Late st Contact Info) Description 11/29/2022 Orders Only [facility] MEDICINE [address] [place] [address] Provider, Historical, Social History Tobacco Use Types Packs/Day Years [...] on file documented as of this encounter Procedures Procedure Name Priority Date/Time Associated Diagnosis Comments HM COLONOSCOPY Routine 04/10/2018 documented in this encounter Results * Hm Colonoscopy (04/10/2018) Historical Provider HEALTH MAINTENANCE Final Result documented in this encounter Visit Diagnoses Not on filedocumented in this encounter Additional Health Concerns Assessment Noted Time PHQ-9 Depression Total Score: 0 08/23/19 2:00 PM EDT documented as of this encounter Care Teams Pigment And Lacquer Mixer Relationship Specialty Start Date End Date Guera Menjivar MD [address] [place] [address] PCP - General Family Medicine 12/15/19 documented as of this encounter
--- OUTSIDE RECORDS SUMMARY | 2025-01-13 14:33 | XMS_ITS | Clinical Summary ---
Author Organization [employer] Address [address] [facility] [address] [place] [address] Care Team Providers Care Social Media Designer Name Role Phone Guera Menjivar MD Primary Care Provide r Allergies No known active allergies Medications tetrahydrozoline (Visine) 0.05 % ophthalmic solutionIndicati ons:Dry eyes, bilateral Administer 1 drop into both eyes in the morning, at noon, and at bedtime. 15 mL 1 02/17/20 22 Active Blood Pressure Monitor kitIndications:T emporary high blood pressure Use as directed 3x/week 1 kit 10/11/19 23 Active cetirizine (ZyrTEC) 10 MG tabletIndication s:Seasonal allergies TAKE 1 TABLET BY MOUTH DAILY [...] 25 Active albuterol 108 (90 Base) MCG/ACT inhalerIndicatio ns:Bronchiolitis Inhale 2 puffs every 4 (four) hours if needed for wheezing. 18 g 11/05/19 25 026 Active albuterol (2.5 MG/3ML) 0.083% nebulizer solution Take 2.5 mg by nebulization every 4 (four) hours if needed for wheezing or shortness of breath. 11/11/19 25 Active nicotine (Nicoderm, Step 2) 14 MG/24HR patchIndications :Encounter for smoking cessation counseling Apply 1 patch, as directed, every 24 hours for 6 weeks. May remove at bedtime if needed & replace the next morning. Rotate application site. 14 patch 11/15/19 25 Active bacitracin 500 UNIT/GM ointmentIndicati ons:Skin pimple Apply topically 2 times daily. 14 g 12/05/19 25 Active ciclopirox (Penlac) 8 % solutionIndicati ons:Onychomycosi s Apply topically at bedtime. 6 mL 12/05/19 25 Active alendronate (Fosamax) 70 MG tabletIndication s:Age-related osteoporosis without current pathological fracture Take 1 tablet (70 mg) by mouth every 7 (seven) days. Take in the morning with a full glass of water, on an empty stomach, and do not take anything else by mouth or lie down for the next 30 min. 4 tablet 11 01/14/20 25 026 Active predniSONE (Deltasone) 10 MG tabletIndication s:Temporal arteritis (CMS/HCC) (HCC) Take 1 tablet (10 mg) by mouth Once per day for 30 days, THEN 0.5 tablets (5 mg) Once per day. 45 tablet 01/14/20 25 025 Active predniSONE (Deltasone) 20 MG tabletIndication s:Temporal arteritis (CMS/HCC) (HCC) Take 3 tablets (60 mg) by mouth Once per day for 10 days. 30 tablet 12/17/19 25 025 Active Problems Problem Noted Date Diagnosed Date Age-related osteoporosis wit hout current pathological fracture 01/13/2025 Lipoma of right lower extremity 01/13/2025 Hyperkalemia 12/16/2024 Assessment & Plan (12/16/2024 2:29 PM EDT): Patient was instructed to follow a low potassium diet and repeat BMP in 1 week Facial swelling 12/16/2024 Assessment & Plan (12/16/2024 2:27 PM EDT): I let patient know this is most likely a side effect of the prednisone, she was reassured Asymptomatic menopausal state 12/04/2024 Current chronic use of systemic steroids 025 Temporal arteritis (CMS/HCC) 12/04/2024 Assessment & Plan (12/16/2024 2:28 PM EDT): Continue to follow instructions of specialist Show refill of medication sent to pharmacy next refills need to be coming from neurologist New neurology referral in place Assessment & Plan (12/04/2024 4:39 PM EDT): Continue to follow with neurology Chronic bronchitis ([facility]) 12/04/2024 Assessment & Plan (12/04/2024 4:39 PM [...] Encounters Date Type Department Care Team Description 01/13/2025 11:15 AM EDT Office Visit [address] [address] Guera Menjivar MD Age-related osteoporosis without current pathological fracture; Lipoma of right lower extremity; Hyperkalemia; Temporal arteritis (CMS/HCC) (HCC) 01/13/2025 Travel 01/12/[address] [address] Guera Menjivar MD Chart Prep 01/08/[address] [address] Guera Menjivar MD Appointment Request 12/16/2024 2:00 PM EDT Office Visit [address] [address] Guera Menjivar MD Hyperkalemia (Primary Dx); Temporal arteritis (CMS/HCC); Facial swelling; Encounter for immunization 12/16/2024 Travel 12/16/[address] [address] Guera Menjivar MD Telephone Call 12/05/2024 Results Follow-Up [address] [address] Guera Menjivar MD CBC auto differential, Comprehensive Metabolic Panel, Hemoglobin A1c, Additional followed-up results: 6 12/04/2024 1:15 PM EDT Office Visit [address] [address] Guera Menjivar MD Colon cancer screening (Primary Dx); Asymptomatic menopausal state; Current chronic use of systemic steroids; Temporal arteritis (CMS/HCC); Chronic bronchitis, unspecified chronic bronchitis type (CMS/HCC); Encounter for preventive care; Night sweats; Skin pimple; Onychomycosis 12/04/2024 Orders Only [address] [address] Guera Menjivar MD 12/04/2024 Travel 11/26/2024 Patient Outreach [address] [address] Guera Menjivar MD Pre-visit Planning (SDOH screening completed on 09/25/2024) 11/14/2024 2:00 PM EDT Office Visit [address] [address] Katiuska Evans NP Hospital discharge follow-up (Primary Dx); Encounter for smoking cessation counseling; Screening for lung cancer 11/14/2024 Travel 11/13/[address] [address] Merrick Lopez [place] CHARTPREP 11/11/[address] [address] Guera Menjivar MD Durable Medical Equipment (DME Request: Nebulizer) 11/11/[address] [address] Guera Menjivar MD Nurse Triage 11/10/[address] [address] Guera Menjivar MD Durable Medical Equipment 11/09/2024 Orders Only GENERIC EXTERNAL DATA DEPARTMENT Provider, Generic External Data 11/04/2024 3:20 PM EDT Office Visit [facility] [address] [place] [phone] Guera Menjivar MD Wheezing; Bronchiolitis 11/04/2024 Travel 10/21/2024 Orders Only GENERIC EXTERNAL DATA DEPARTMENT Provider, Generic External Data from Last 3 Months Immunizations Immunization Administration Dates Next Due INFLUENZA INJECTABLE QUADRIV ALANT CCIIV4 MDCK Multi-dose vial 12/16/2018 Influenza injectable quadriv alent IIV4 with preservative 01/14/2018 Influenza injectable quadrivalent preservative f ree 12/16/2018 Influenza, High Dose Seasonal, Preservative Free 12/16/2024 Pneumococcal Conjugate PCV 20 12/16/2024 Pneumococcal Polysaccharide PPSV23 10/10/2018 Tdap 01/14/2018 Zoster, [...] 01/13/2025 10:4 8 AM EDT Oxygen Saturation 98% 12/16/2024 1:43 PM EDT Inhaled Oxygen Concentration - - Weight 61.1 kg (134 lb 12.8 oz) 025 10:48 AM EDT Height 160 cm (5' 3 ) 01/13/2025 10:48 AM EDT Body Mass Index 23.88 01/13/2025 10:48 AM EDT Plan of Treatment Health Maintenance Due Date Last Done Comments CT Colonography 1960 Dental Prophylaxis 1960 FIT DNA/Cologuard 1960 FIT 1960 FOBT 1960 Sigmoidoscopy 1960 Dental Oral Exam 07/04/2017 01/02/2017 Dental X-Ray: Bitewings 01/03/2018 01/02/2017 RSV Patients and Patients Aged 60 years or older (1 - Risk 60-74 years 1-dose series) 2018 Dental X-Ray: Full Mouth 01/04/2020 01/02/2017, 10/18 Colonoscopy 04/10/2023 04/10/2018 Colorectal Cancer Screening 04/10/2023 COVID-19 Vaccine ( season) 2024 SDOH Screening 09/25/2025 09/25/2024 Alcohol/Substance Use Screening 11/14/2025 11/14/2024 Diabetes: Hemoglobin A1C 12/04/2025 12/04/2024, 06/0 08/2022 Mammogram 12/10/2025 12/10/2024, 09/17, 06/13/2017 Depression Screening 01/13/2026 01/13/2025, 01/14/20 Tobacco Screening 01/13/2026 01/13/2025 DTaP/Tdap/Td Vaccines (2 - Td or Tdap) 01/15/2028 01/14/2018 Lipid Panel 12/04/2029 12/04/2024, 08/22/2022 Zoster Vaccines Completed 12/16/2018, 10/15/2018 Cervical Cancer Screening Discontinued HPV/Cotest Discontinued 10/10/2022, 10/24/2017 Pap Smear Discontinued 10/10/2022 Hepatitis C Screening Completed 12/04/2024 Influenza Vaccine Completed 12/16/2024, , 12/16/2018, Additional history exists Pneumococcal Vaccine: 50+ Years Completed 12/16/2024, 10/10/2018 HIB Vaccines Aged Out No longer eligi [...] Procedure Name Priority Date/Time Associated Diagnosis Comments BASIC METABOLIC PANEL Routine 01/13/2025 11:55 AM EDT Hyperkalemia BD DEXA AXIAL Routine 01/05/2025 12:50 PM EDT Asymptomatic menopausal state Current chronic use of systemic steroids BASIC METABOLIC PANEL Routine 12/16/2024 8:33 AM EDT Hyperkalemia BI MAMMOGRAM SCREENING TOMOSYNTHESIS BILATERAL Routine 12/10/2024 [...] Recently Relevant to Health Maintenance Results * Basic Metabolic Panel (01/13/2025 11:55 AM EDT) Only the most recent of2 resultswithin the time period is included. Sodium 145 135 - 145 mmol/L [facility] Potassium 4.0 3.3 - 5.1 mmol/L [facility] Chloride 108 96 - 108 mmol/L [facility] Carbon Dioxide 28 22 - 29 mmol/L [facility] Anion Gap 13 12 - 20 [facility] Urea Nitrogen (BUN) 12 9 - 16 mg/dL [facility] Creatinine, Serum 0.81 0.5 - 1.4 mg/dL [facility] Estimated Glomerular Filt Rate >60 [facility] Comment:Chronic Kidney Disea se: Estimated GFR < 60 mL/min/1.47h2Rwrpzy Kidney Disease: Estimated GFR < 15 mL/min/1.73m2 Glucose 89 60 - 115 mg/dL [facility] Calcium 9.5 8.4 - 10.2 mg/dL [facility] Blood Venous blood specimen / Unknown 01/13/2025 11:55 AM EDT 01/13/2025 1:14 PM EDT us Guera Flores MD LAB BLOOD ORDERABLES Final Result Performing Organization Address City/State/[facility] Co de Phone Number [facility] [address] [place] [phone] * BD DEXA Axial (01/05/2025 12:50 PM EDT) Anatomical Region Laterality Modality Body Radiographic Yodit ging 01/05/2025 12:5 0 PM EDT Narrative 01/05/2025 1:49 PM EDT [facility] [address] [place] [address] Mammography Report Signed Patient: Kerline Helms MR#: [id number] : 1960 Acct:[id number] Age/Sex: 64 / F ADM Date: 01/05/25 Loc: SUNG Attending Dr: Guera Flores MD Ordering Physician: Guera Menjivar MD Results: Date of Service: 01/05/25 Follow Up: Procedure(s): XR DEXA axial skeleton Accession Number(s): [id number] cc: Guera Menjivar MD Reason For Exam: screening osteoporosis EXAMINATION: DXA BONE DENSITY AXIAL HISTORY: screening osteoporosis TECHNIQUE: [employer] Dual energy absorptiometry (DEXA) of the lumbar spine, total left hip, and femoral neck was performed. COMPARISON: There are no prior studies for comparison. FINDINGS: The bone mineral density of the lumbar spine is 0.851 g/cm2, corresponding to a T-score of -2.7, and a Z-score of -1.0. This is indicative of osteoporosis. The bone mineral density of the left total hip is 0.704 g/cm2, corresponding to a T-score of -2.4, and a Z-score of -1.0. This is indicative of osteopenia. The bone mineral density of the left femoral neck is 0.695 g/cm2, corresponding to a T-score of -2.5, and a Z-score of -0.8. This is indicative of osteoporosis. FRACTURE RISK: The FRAX index suggests a risk of major osteoporotic fracture of 7.5%, and of hip fracture 1.7%. MM/XR DEXA axial skeleton IMPRESSION: Based on bone mineral density, and according to World Health Organization (WHO) criteria, the diagnosis is consistent with osteoporosis. Statistically, 68% of repeat scans fall within 1 SD (+/- 0.010 g/cm2 for AP spine L1-L4) and 1 SD (+/- 0.012 g/cm2 for femur total) FRAX is a trademark of the [employer]'s [place] for Metabolic Bone Disease, a World Health Organization (WHO) Collaborating Center. Electronically signed by: Scott Mathews MD 01/05/2025 01:46 PM EDT Dictated By: Scott Mathews MD Signed By: <Electronically signed by Scott Mathews MD in OV> 01/05/25 1346 DD/ 1250 TD/TT: 01/05/25 1310 Ceiling Insulation Blower: Procedure Note Donotuseinterpreter, Image - 01/05/2025 [facility] [address] [place], [place] [address] Mammography Report Signed Patient: Nura Helms#: [id number] : 9Acct:[id number] Age/Sex: 64 / FADM Date: 01/05/25 Loc: MAMMO Attending Dr: Guera Flores MD Ordering Physician: Guera Menjivaresults: Date of Service: 01/05/25Follow Up: Procedure(s): XR DEXA axial skeleton Accession Number(s): [id number] cc: Guera Menjivar MD Reason For Exam: screening osteoporosis EXAMINATION: DXA BONE DENSITY AXIAL HISTORY: screening osteoporosis TECHNIQUE: [employer] Dual energy absorptiometry (DEXA) of the lumbar spine, total left hip, and femoral neck was performed. COMPARISON: There are no prior studies for comparison. FINDINGS: The bone mineral density of the lumbar spine is 0.851 g/cm2, corresponding to a T-score of -2.7, and a Z-score of -1.0. This is indicative of osteoporosis. The bone mineral density of the left total hip is 0.704 g/cm2, corresponding to a T-score of -2.4, and a Z-score of -1.0. This is indicative of osteopenia. The bone mineral density of the left femoral neck is 0.695 g/cm2, corresponding to a T-score of -2.5, and a Z-score of -0.8. This is indicative of osteoporosis. FRACTURE RISK: The FRAX index suggests a risk of major osteoporotic fracture of 7.5%, and of hip fracture 1.7%. MM/XR DEXA axial skeleton IMPRESSION: Based on bone mineral density, and according to World Health Organization (WHO) criteria, the diagnosis is consistent with osteoporosis. Statistically, 68% of repeat scans fall within 1 SD (+/- 0.010 g/cm2 for AP spine L1-L4) and 1 SD (+/- 0.012 g/cm2 for femur total) FRAX is a trademark of the [employer] [place] for Metabolic Bone Disease, a World Health Organization (WHO) Collaborating Center. Electronically signed by: Scott Mathews MD 01/05/2025 01:46 PM EDT RP Dictated By: Scott Mathews MD Signed By: <Electronically signed by Scott Mathews MD in OV> 01/05/25 1346 DD/ 1250 TD/TT: 01/05/25 1310 Ceiling Insulation Blower: us Guera Flores MD IMG DXA PROCEDURES Ed ited Result - Final * BI Mammogram Screening Tomosynthesis Bilateral (12/10/2024 1:50 PM EDT) Anatomical Region Laterality Modality Breast Bilateral Mammography 12/10/2024 1:50 PM EDT Narrative 12/12/2024 6:56 PM EDT [address] [place] [address] Mammography Report Signed Patient: Kerline Helms MR#: [id number] : 1960 Acct:[id number] Age/Sex: 64 / F ADM Date: 12/10/24 Loc: HO.MAMMO Attending Dr: Guera Flores MD Ordering Physician: Guera Menjivar MD Results: 1Negative Date of Service: 12/10/24 Follow Up: 1 Year From Orig inal Mammogram Procedure(s): MM tomosynthesis screening BI Accession Number(s): [id number] cc: Guera Menjivar MD Reason For Exam: [...] Aaliyah Parker MD 12/12/2024 06:53 PM EDT RP Dictated By: Aaliyah Parker MD Signed By: <Electronically signed by Aaliyah Parker MD in OV> 12/12/24 1853 DD/ 1350 TD/TT: 12/10/24 1415 Ceiling Insulation Blower: Procedure Note Donotuseinterpreter, Image - 12/12/2024 [facility] [address] [place] [address] Mammography Report Signed Patient: Nura Helms#: [id number] : 9Acct:[id number] Age/Sex: 64 / FADM Date: 12/10/24 Loc: HO.MAMMO Attending Dr: Guera Flores MD Ordering Physician: Guera Menjivar MDResults: 1Negative Date of Service: 12/10/24Follow Up: 1 Year From Orig inal Mammogram Procedure(s): MM tomosynthesis screening BI Accession Number(s): [id number] cc: Guera Menjivar MD Reason For Exam: [...] Aaliyah Parker MD 12/12/2024 06:53 PM EDT RP Workstation: [id number] Dictated By: Aaliyah Parker MD Signed By: <Electronically signed by Aaliyah Parker MD in OV> 12/12/24 3393 DD/ 1350 TD/TT: 12/10/24 1415 Ceiling Insulation Blower: Guera Flores MD IMG BI PROCEDURES Fin al Result * Slide Review (12/04/2024 2:24 PM EDT) Slide Review VERIFIED [facility] 12/04/2024 2:24 PM EDT 12/04/2024 4:09 PM EDT Guera Flores MD LAB BLOOD ORDERABLES Final Result [facility] [address] [place] [phone] * (ABNORMAL) Vitamin D, 25-Hydroxy, Total, Immunoassay (12/04/2024 2:24 PM EDT) Vitamin D 25-OH Total 21.1(L) >30 ng/mL [facility] Comment: Health Based Reference Values*< 20 ng/mL Uepmbcaqb85-44 ng/mL Insufficient> 30 ng/mL Sufficient*Tanja MOREL. N [...] Flores MD LAB BLOOD ORDERABLES Final Result [facility] [address] [place] [phone] * Vitamin B12/Folate, Serum Panel (12/04/2024 2:24 PM EDT) Vitamin B12 299 200 - 900 pg/mL [facility] Comment:NORMAL 200-900 PG/ML INDETERMINATE 160-199 PG/ML DEFICIENT < 160 PG/ML Folate 7.9 > or = 4.0 ng/mL [facility] Comment:Reference Values:> o r = [...] BLOOD ORDERABLES Final Result Performing Organization Address City/[facility]/ZIP Co de Phone Number [facility] [address], [place] [phone] * TSH with Reflex to Free T4 (12/04/2024 2:24 PM EDT) TSH reflex Free T4 0.93 0.32 - 4.0 uIU/mL [facility] Blood Venous blood specimen / Unknown 12/04/2024 2:24 PM EDT 12/04/2024 4:46 PM EDT us Guera Flores MD LAB BLOOD ORDERABLES Final Result Performing Organization Address [facility] Co de Phone Number [facility] [address] [place] [phone] * (ABNORMAL) CBC auto differential (12/04/2024 2:24 PM EDT) Only the most recent of2 resultswithin the time period is included. White Blood Count 26.4(H) 4.8 - 10.8 X10*3/uL [facility] Red Blood Count 4.27 4.20 - 5.50 X10*6/uL [facility] Hemoglobin 12.6 12.0 - 16.0 g/dl [facility] Hematocrit 38.3 37.0 - 47.0 % [facility] Mean Corpuscular Volume 89.7 80.0 - 98.0 fL [facility] Mean Corpuscular Hemoglobin 29.5 27.0 - 33.0 pg [facility] Mean Corpuscular HGB Conc 32.9 31.0 - 35.0 g/dl [facility] Red Cell Distribution Width 18.6(H) 11.0 - 16.0 % [facility] Platelet Count 464(H) 160 - 400 X10*3/uL [facility] Mean Platelet Volume 10.3 9.4 - 12.3 fL [facility] Neutrophils Percent Auto 77.3(H) 45 - 73 % [facility] Imm Gran Pct Auto 4.4(H) 0.0 - 0.4 % [facility] Lymphocytes Percent Auto 13.3(L) 20 - 40 % [facility] Monocytes Percent Auto 4.5 2 - 11 % [facility] Eosinophils Percent Auto 0.0 0 - 4 % [facility] Basophils Percent Auto 0.5 0 - 2 % [facility] NRBC Pct Auto 0.0 0.0 - 0.2 /100WBC [facility] Neutrophils Absolute Auto 20.4(H) 2.0 - 8.3 x10*3/uL [facility] Imm Gran Abs Auto 1.16(H) 0.00 - 0.03 X10*3/uL [facility] Lymphocytes Absolute Auto 3.5 1.2 - 4.9 X10*3/uL [facility] Monocytes Absolute Auto 1.2 0.1 - 1.2 X10*3/uL [facility] Eosinophils Absolute Auto 0.0 0.0 - 0.4 X10*3/uL [facility] Basophils Absolute Auto 0.1 0.0 - 0.2 X10*3/uL [facility] NRBC Abs Auto 0.000 0.0 - 0.012 X10*3/uL [facility] Blood Venous blood specimen / Unknown 12/04/2024 2:24 PM EDT 12/04/2024 4:09 PM EDT us Guera Flores MD LAB BLOOD ORDERABLES Edited Result - Final [facility] [address], [place] [phone] * Hepatitis C Antibody with Reflex to HCV, RNA, Quantitative, Real-Time PCR (12/04/2024 2:24 PM EDT) Hepatitis C Antibody Nonreactive Nonreactive [facility] Comment:Antibodies to HCV no t detected; does not exclude early acuteHCV infection. Blood Venous blood specimen / Unknown 12/04/2024 2:24 PM EDT 12/04/2024 4:46 PM EDT Guera Flores MD LAB BLOOD ORDERABLES Final Result Performing Organization Address [facility]/ZIP Co de Phone Number [facility] [address] [place] [phone] * HIV-1/2 Antigen and Antibodies, Fourth Generation, with Reflexes (12/04/2024 2:24 PM EDT) HIV AB/AG Nonreactive Nonreactive [facility] Comment:HIV-1 p24 Ag and/or HIV-1/HIV-2 Ab not detected.A test result that is nonreactive does not exclude thepossibility of exposure to or infection with HIV-1 and/orHIV-2. Nonreactive results in this assay for individualswith prior exposure to HIV-1 and/or HIV-2 may be due toantigen and antibody levels that are below the limit ofdetection of this assay.The [employer] HIV Ag/Ab Combo assay result andsupplemental assay results should be interpreted inconjunction with the patient's clinical presentation,history and other laboratory results. If the results areinconsistent with clinical evidence, additional testing issuggested to confirm the result. Blood Venous blood specimen / Unknown 12/04/2024 2:24 PM EDT 12/04/2024 4:46 PM EDT us Guera Flores MD LAB BLOOD ORDERABLES Final Result Performing Organization Address City/[facility]/ZIP Co de Phone Number [facility] [address] [place] [phone] * (ABNORMAL) Hemoglobin A1c (12/04/2024 2:24 PM EDT) Hemoglobin A1c 6.2(H) <6.0 % [facility] Comment:Hemoglobin A1C Refer ence Range Adults: 4.8 - 6.0 % Non diabetic: < 6.0 % Goal: < 7.0 %Additional Action Suggested: > 8.0 %Note: Hemoglobin A1c results are invalid for patients with abnormal amounts of HbF. Blood transfusions may impact the HbA1c concentration in the patient sample. Estimated Average Glucose 131 mg/dL [facility] Comment:eAG = Estimated ave rage glucose which is %A1C expressed asaverage glucose, using the formula of the L8K-GadddgtSjauivi Glucose study (ADAG), Diabetes Care, Vol.31,#8,Oct. 2007 Blood Venous blood specimen / Unknown 12/04/2024 2:24 PM EDT 12/04/2024 4:09 PM EDT Guera Flores MD LAB BLOOD ORDERABLES Final Result [facility] [address] [place] [phone] * (ABNORMAL) Lipid Panel, Standard (12/04/2024 2:24 PM EDT) Triglycerides 255(H) <150 mg/dL [facility] Comment:Desirable Triglyceri de: less than 150 mg/dLBorderline High Triglyceride 150-199 mg/dLHigh Triglyceride: 200-499 mg/dLVery High Triglyceride: greater than or equal to 5OO mg/dL Cholesterol 278(H) <200 mg/dL [facility] Comment:Desirable Cholestero l: less than 200 mg/dLBorderline High Cholesterol: 200-239 mg/dLHigh Cholesterol: greater than 239 mg/dL LDL Cholesterol Calculated 126(H) <100 mg/dL [facility] Comment:Desirable LDL: less than 100 mg/dLNear Optimal/Above Optimal LDL: 110- 129 mg/dLBorderline High LDL: 130-159 mg/dLHigh LDL: 160-189 mg/dLVery High LDL: greater than or equal to 190 mg/dL HDL Cholesterol 101 >40 mg/dL [facility] Comment:Desirable HDL: great er than 40 mg/dL Note: This HDL assay may give artificially low results in patients with liver disease. Blood Venous blood specimen / Unknown 12/04/2024 2:24 PM EDT 12/04/2024 4:46 PM EDT us Guera Flores MD LAB BLOOD ORDERABLES Final Result [facility] [address] [place] [phone] * (ABNORMAL) Comprehensive Metabolic Panel (12/04/2024 2:24 PM EDT) Only the most recent of2 resultswithin the time period is included. Sodium 141 135 - 145 mmol/L [facility] Potassium 5.4(H) 3.3 - 5.1 mmol/L [facility] Chloride 104 96 - 108 mmol/L [facility] Carbon Dioxide 29 22 - 29 mmol/L [facility] Anion Gap 13 12 - 20 [facility] Urea Nitrogen (BUN) 21(H) 9 - 16 mg/dL [facility] Creatinine, Serum 0.82 0.5 - 1.4 mg/dL [facility] Estimated Glomerular Filt Rate >60 [facility] Comment:Chronic Kidney Disea se: Estimated GFR < 60 mL/min/1.07s6Upuaac Kidney Disease: Estimated GFR < 15 mL/min/1.73m2 Glucose 106 60 - 115 mg/dL [facility] Calcium 9.6 8.4 - 10.2 mg/dL [facility] Bilirubin, Total 0.4 0.0 - 1.0 mg/dL [facility] Aspartate Amino Transferase 23 5 - 31 U/L [facility] Alanine Aminotransferase 28 0 - 31 U/L [facility] Total Protein 7.0 6.5 - 8.0 g/dL [facility] Albumin Level 4.1 3.5 - 5.0 g/dL [facility] Alkaline Phosphatase 65 39 - 117 U/L [facility] Blood Venous blood specimen / Unknown 12/04/2024 2:24 PM EDT 12/04/2024 4:46 PM EDT us Guera Flores MD LAB BLOOD ORDERABLES Final Result [facility] [address] [place] [phone] * CTA Chest PE Protocal (11/09/2024 3:27 PM EDT) Anatomical Region Laterality Modality Body, Chest Computed Tomogra phy 11/09/2024 3:27 PM EDT Narrative 11/09/2024 3:29 PM EDT [address] [address] [address] Scan Report Signed Patient: Kerline Helms MR#: [id number] : 1960 Acct:[id number] Age/Sex: 64 / F ADM Date: 11/09/24 Loc: HO.ED Attending Dr: Ordering Physician: Alverto Francisco MD Date of Service: 11/09/24 Procedure(s): CT angio chest PE protocol Accession Number(s): [id number] cc: Guera Menjivar MD; Alverto Francisco MD Report Number: [id number]: Total DLP = 200.00 mGy-cm CLINICAL HISTORY: [...] 11/09/24 1528 DD/ 1527 TD/TT: 11/09/24 1527 Ceiling Insulation Blower: Procedure Note Donotuseinterpreter, Image - 11/09/[address] [place] [address] [address] Scan Report Signed Patient: Nura Helms#: [id number] : 9Acct:[id number] Age/Sex: 64 / FADM Date: 11/09/24 Loc: .ED Attending Dr: Ordering Physician: Alverto Francisco MD Date of Service: 11/09/24 Procedure(s): CT angio chest PE protocol Accession Number(s): [id number] cc: Guera Menjivar MD; Alverto Francisco MD Report Number: [id number]: Total DLP = 200.00 mGy-cm CLINICAL HISTORY: [...] 11/09/24 1528 DD/ 1527 TD/TT: 11/09/24 1527 Ceiling Insulation Blower: us [facility] External Provider IMG CT PROCEDURES Edited Result - Final * XR Chest 2 Views (11/09/2024 12:09 PM EDT) Only the most recent of2 resultswithin the time period is included. Anatomical Region Laterality Modality Chest Radiographic Yodit ging 11/09/2024 12:0 9 PM EDT Narrative 11/09/2024 12:11 PM EDT [address] [address] XRay Report Signed Patient: Kerline Helms MR#: [id number] : 1960 Acct:[id number] Age/Sex: 64 / F ADM Date: 11/09/24 Loc: .ED Attending Dr: Ordering Physician: Lemuel Guzman Date of Service: 11/09/24 Procedure(s): XR chest 2V Accession Number(s): [id number] cc: Guera Menjivar MD; Lemuel Guzman CLINICAL [...] 11/09/24 1210 DD/ 1209 TD/TT: 11/09/24 1209 Ceiling Insulation Blower: Procedure Note Donotuseinterpreter, Image - 11/09/[address] [address] XRay Report Signed Patient: Kerline HelmsMR#: [id number] : 1960cct:[id number] Age/Sex: 64 / FADM Date: 11/09/24 Loc: HO.ED Attending Dr: Ordering Physician: Lemuel Guzman Date of Service: 11/09/24 Procedure(s): XR chest 2V Accession Number(s): [id number] cc: Guera Menjivar MD; Lemuel Guzman CLINICAL [...] 11/09/24 1210 DD/ 1209 TD/TT: 11/09/24 1209 Ceiling Insulation Blower: [facility] External Provider IMG XR PROCEDURES Final Result * SARS-CoV-2 RNA, Influenza A/B, and RSV RNA, Ql NAAT (11/09/2024 12:01 PM EDT) Influenza A PCR NEGATIVE Negative [facility] Influenza B PCR NEGATIVE Negative [facility] Resp Syncy Virus RNA Qual PCR NEGATIVE Negative [facility] SARS COV2 PCR NEGATIVE Negative [facility] Comment:All test results mus t be [...] use by authorized laboratories.Testing performed on the StepOutXpert utilizingreal-time RT-PCR.All SARS CoV2 and positive influenza A/B results arereported to [facility]. 11/09/2024 12:0 1 PM EDT 11/09/2024 1:08 PM EDT Generic External Data Provider LAB MICROBIOLOGY - GENERAL ORDERABLES Final Result Performing Organization Address [facility] Co de Phone Number [facility] [address] [place] [phone] * High Sensitivity Troponin I (11/09/2024 11:55 AM EDT) [facility] TROPONIN I HIGH SENSITIVITY 2.9 <3.5 - 17.0 ng/L [facility] Comment:The [place] high sens itivity Troponin-I results should beused in conjunction with other diagnostic information suchas ECG, clinical observations and information, and patientsymptoms to aid in the diagnosis of OR. 11/09/2024 11:5 5 AM EDT 11/09/2024 1:31 PM EDT Generic External Data Provider LAB BLOOD ORDERAB LES Final Result Performing Organization Address [facility] de Phone Number [facility] [address] [place] [phone] * B Type Natriuretic Peptide (BNP) (11/09/2024 11:55 AM EDT) [facility] B Type Natriuretic Peptide 68 <100 pg/mL [facility] 11/09/2024 11:5 5 AM EDT 11/09/2024 1:30 PM EDT Generic External Data Provider LAB BLOOD ORDERAB LES Final Result Performing Organization Address [facility] Co de Phone Number [facility] [address] [place] [phone] * Influenza B (ID NOW Rapid Molecular) (11/04/2024 3:41 PM EDT) [facility] Influenza B Negative Negative, Indeterminate [facility] Swab 11/04/2024 3:41 PM EDT Guera Flores MD POINT OF CARE TEST EN TER/EDIT ORDERABLES Final Result Performing Organization Address [facility] de Phone Number [facility] [address] [place] [phone] * Influenza A (ID NOW Rapid Molecular) (11/04/2024 3:41 PM EDT) [facility] Influenza A Negative Negative, Indeterminate [facility] Swab 11/04/2024 3:41 PM EDT us Guera Flores MD POINT OF CARE TEST EN TER/EDIT ORDERABLES Final Result Performing Organization Address [facility] Phone Number [facility] [address] [place] [phone] * POCT Rapid COVID Ag (11/04/2024 3:41 PM EDT) [facility] Rapid COVID Ag Negative [facility] Swab 11/04/2024 3:41 PM EDT Guera Flores MD POINT OF CARE TEST EN TER/EDIT ORDERABLES Final Result Performing Organization Address [facility] de Phone Number [facility] [address] [place] [phone] * (ABNORMAL) CRP, HIGH SENSITIVITY (10/21/2024 1:34 PM EDT) [facility] CRP, High Sensitivity >20.0(A) mg/L [facility] Comment: Reference RangeOptimal <1.0Jose KITCHEN [...] associated with infection and inflammation.Jones TA, Yas GA, Kenji RW, et al. Markersof inflammation and cardiovascular disease:application to clinical and public health practice:A statement for healthcare professionals from theMer[facility] Regional Medical Centerers for Disease Control and Prevention and theAmerican Heart Association. Circulation 2003; 107(3):499-511.THIS TEST WAS PERFORMED AT:[employer] [place] [phone] GONZALES MD 10/21/2024 1:34 PM EDT 10/21/2024 1:34 PM EDT Generic External Data Provider LAB BLOOD ORDERAB LES Final Result Performing Organization Address [facility] Co de Phone Number [facility] [address] [place] [phone] * (ABNORMAL) Sed Rate by Modified Gunner (10/21/2024 1:34 PM EDT) Pathologist [facility] Erythrocyte Sedimentation Rate 81(H) 0 - 20 MM/HR [facility] Comment:Patients with polycy themia and many hemoglobin abnormalitiesmay have depressed sed rates whereas patients with anemiamay have elevated sed rates. 10/21/2024 1:34 PM EDT 10/21/2024 1:34 PM EDT Generic External Data Provider LAB BLOOD ORDERAB LES Final Result Performing Organization Address [facility] Co de Phone Number [facility] [address] [place] [phone] * HPV mRNA E6/E7 w/Reflex to HPV Genotypes 16, 18/45 (10/10/2022 10:52 AM EDT) HPV nRNA E6/E7 Not Detected Not Detected [facility] Comment:Methodology: Transcr iption-Mediated AmplificationThis assay detects E6/E7 viral messenger RNA (mRNA) from 14high-risk HPV types (16,18,31,33,35,39,45,51,52,56,58,59,66,68).Cervical sources are required for HPV testing.If a vaginal source from a patient who has had atotal hysterectomy with removal of cervix wassubmitted, please contact the testing laboratoryfor alternative testing options.For additional information, please refer tohttp://education.ShuttleCloud/faq/GJH909p7(This link if provided for information/educational purposes only.)THIS TEST WAS PERFORMED AT:[employer] [place] [phone] GONZALES MD HPV mRNA E6/E7 TNP [facility] HPV 16 RNA [facility] HPV 18/45 RNA [facility] 10/10/2022 10:5 2 AM EDT 10/12/2022 8:30 AM EDT us Guera Flores MD LAB CYTOLOGY ORDERABL ES Final Result [facility] [address] [place] [phone] * Pap Smear (10/10/2022 10:52 AM EDT) 10/10/2022 10:5 2 AM EDT 10/12/2022 8:30 AM EDT Narrative [facility] - 10/24/2022 1:39 PM EDT ----- ------- Name: Kerline Helms Age/Sex: 62/F : 1960 Unit#: [id number] Attend Dr: Guera Menjivar MD Re10/10/22 Status: DEP REF Location: [facility] Disch: ----- ------- SPEC : [id number] RECD: 10/12/22 STATUS: JOHN LEMA NUM: [id number] RD: 10/10/22-[address] [facility] [address]: Guera Menjivar MD ENTERED: 10/12/22-1254 SP TYPE: Pap Smr OTHR DR: ORDERED: Pap Smear Interpretation Satisfactory for evaluation. Atrophic. Negative for intraepithelial lesion or malignancy. HPV mRNA E6/E7: NOT DETECTED This assay detects E6/E7 viral messenger RNA (mRNA) from 14 high-risk HPV types (16, 18, 31, 33, 35, 39, 45, 51, 52, 56, 58, 59, 66, 68) HPV testing performed by [employer], [place], [place]. See reference laboratory pion of the EMR for entire report. Clinical Information LMP: Unknown date Previous PAP test: Unknown date/findings Material Received ThinPrep-Vaginal/Cervical ----- ------- Signed (signature on file) JIMMY Tsai (ASCP) 10/24/22 1339 ----- ------- END OF REPORT Guera Flores MD LAB CYTOLOGY ORDERABL ES Final Result [facility] [address] [place] [phone] * Hm Colonoscopy (04/10/2018) Historical Provider HEALTH MAINTENANCE Final Result from Last 3 Months or Most Recently Relevant to Health Maintenance Insurance [facility] Care Teams Social Media Designer Relationship Specialty Start Date End Date Guera Menjivar MD [address] [place] [phone] PCP - General Family Medicine 12/15/19
--- OUTSIDE RECORDS SUMMARY | 2025-01-13 14:33 | XMS_ITS | Encounter Summary ---
Author Organization [employer] Address [address] [facility] 7t [place] [address] Care Team Providers Care Top Loader Name Role Phone Guera Menjivar MD Primary Care Provide r Encounter Details Date Type Department Care Team (Late st Contact Info) Description 02/13/2023 Abstract [facility] MEDICINE [address] [place] [address] Radha Clarke Social History Tobacco Use Types [...] documented as of this encounter Care Teams Top Loader Relationship Specialty Start Date End Date Guera Menjivar MD [address] [place] [phone] PCP - General Family Medicine 12/15/19 documented as of this encounter
--- OUTSIDE RECORDS SUMMARY | 2025-01-13 14:33 | XMS_ITS | Encounter Summary ---
Author Organization [employer] Address [address] [facility] 7t [place] [address] Care Team Providers Care Debeader Name Role Phone Guera Menjivar MD Primary Care Provide r Reason for Visit * Reason Onset Date Comments patient calling back with insurance info emergen cy dental 09/25/2024 Encounter Details Date Type Department Care Team ([facility] st Contact Info) Description 09/25/2024 Telephone [facility] [address] [place] [address] Kathrine Saeed DDS patient calling back with [...] rescheduled if she contacts and has info [employer] and appt slot is still available as well documented in this encounter Plan of Treatment Not on file documented as of this encounter Visit Diagnoses Not on filedocumented in this encounter Additional Health Concerns Assessment Noted Time PHQ-9 Depression Total Score: 0 08/23/19 23 2:00 PM EDT documented as of this encounter Care Teams Debeader Relationship Specialty Start Date End Date Guera Menjivar MD [address] [place] [address] PCP - General Family Medicine 12/15/19 documented as of this encounter
--- OUTSIDE RECORDS SUMMARY | 2025-01-13 14:33 | XMS_ITS | Encounter Summary ---
Author Organization [employer] Address 75 [facility] [address] [place] [address] Care Team Providers Care Telegraph Service Rater Name Role Phone Guera Menjivar MD Primary Care Provide r Reason for Visit * Reason Onset Date Comments Nurse Triage 11/11/2024 Encounter Details Date Type Department Care Team ([facility] st Contact Info) Description 11/11/2024 Telephone [facility] [address] [place] [address] Guera Menjivar MD [address] [place] [address] Nurse Triage Social History Tobacco Use Types [...] RN - 11/11/2024 2:29 PM EDT No public relations coordinator needed as this copy writer speaks Nepali. Call returned to Kerline De La Paz to triagebel at [phone]. Confirms inforamtion from ER Notes, regarding dx of COPD exacerbation. 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 500 [...] 11/14/2024 2:00 PM Katiuska Evans NP MEDICINE [facility] 12/04/2024 1:15 PM Guera Flores MD MEDICINE [facility] Protocol Used: Post-Hospitalization Follow-up Call (Adult) Protocol-Based [...] ED visit on : Date: 11/10/2024 Hospital: [facility] Seen for: Bronchitis Symptomatic Yes *if yes message should go to Triage Patient advised will forward to team nurse for follow up Contact pt at [phone] documented in this encounter Plan of Treatment Not on file documented as of this encounter Visit Diagnoses Not on filedocumented in this encounter Additional Health Concerns Assessment Noted Time PHQ-9 Depression Total Score: 0 08/23/19 23 2:00 PM EDT documented as of this encounter Care Teams Telegraph Service Rater Relationship Specialty Start Date End Date Guera Menjivar MD [address] [place] [address] PCP - General Family Medicine 12/15/19 documented as of this encounter
--- OUTSIDE RECORDS SUMMARY | 2025-01-13 14:33 | XMS_ITS | Encounter Summary ---
Author Organization [employer] Address 75 [facility] [address] [place] [address] Care Team Providers Care Dental Claims Processor Name Role Phone Guera Menjivar MD Primary Care Provide r Reason for Visit * Reason Onset Date Comments triage 04/11/2022 Encounter Details Date Type Department Care Team ([facility] st Contact Info) Description 04/11/2022 Telephone [facility] MED[facility]INE [address] [place] [address] Guera Menjivar MD [address] [place] [address] triage Social History Tobacco Use Types Packs/Day [...] . Available appt. Pt will go to [facility]. Pt agres to protocol. Used: Arm Pain [...] on filedocumented in this encounter Care Teams Dental Claims Processor Relationship Specialty Start Date End Date Guera Menjivar MD [address] [place] [address] PCP - General Family Medicine 12/15/19 documented as of this encounter
--- OUTSIDE RECORDS SUMMARY | 2025-01-13 14:33 | XMS_ITS | Encounter Summary ---
Author Organization [employer] Address 75 [facility] 7t [place] [address] Care Team Providers Care Plant Health Manager Name Role Phone Guera Menjivar MD Primary Care Provide r Encounter Details Date Type Department Care Team ([facility] st Contact Info) Description 08/31/2024 Telephone [facility] MEDICINE [address] [place] [address] Nydia Valle NP [address] [place] [address] Social History Tobacco Use Types Packs/Day Years [...] mri and ordering CT. Called radiology at [facility] where mri had been completed, soI did [...] documented as of this encounter Care Teams Plant Health Manager Relationship Specialty Start Date End Date Guera Menjivar MD [address] [place] [phone] PCP - General Family Medicine 12/15/19 documented as of this encounter
--- OUTSIDE RECORDS SUMMARY | 2025-01-13 14:33 | XMS_ITS | Encounter Summary ---
Author Organization [employer] Address [address] [facility] 7t [place] [address] Care Team Providers Care Fruit Loader Machine Operator Name Role Phone Guera Menjivar MD Primary Care Provide r Encounter Details Date Type Department Care Team (Latest Contact Info) Description 01/13/2025 Travel Social History Tobacco Use Types Packs/Day [...] Health Questionnaire-2 Score 0 12/18 10:49 AM Sandra Henley MA * Little interest or pleasure in doing things Answer Date of Assessment Author Not at all 01/13/2025 10:49 AM Javier Henley MA * Feeling down, depressed, or hopeless [...] 10:49 AM EDT Javier Nielsen MA * Thoughts that you would be better off or hurting yourself in some way Answer Date of Assessment Author Not at all 01/13/2025 10:49 AM Jaiver Henley MA * Patient Health Questionnaire-9 Score Answer Date of Assessment Author 6 01/13/2025 10:49 AM DONELLT Javier Nielsen MA * How difficult have [...] co ntrol worrying 0 01/13/2025 10:50 AM EDT Sandra Nielsen MA Worrying too much about diff erent things 1 01/13/2025 10:50 AM DONELLT Sandra Nielsen MA Trouble relaxing 0 01/13/2025 10:50 AM DONELLT Sandra Nielsen MA Being so restless that it is hard to sit still 0 01/13/2025 10:50 AM Sandra Henley MA Becoming easily annoyed or irritable 0 12/18 10:50 AM Sandra Henley MA Feeling afraid as if somethi ng awful might happen 0 01/13/2025 10:50 AM DONELLT Sandra Nielsen MA ROSA-7 Total Score 1 01/13/2025 10:50 AM Sandra Henley MA documented as of this encounter Plan of Treatment Not on file documented as of this encounter Visit Diagnoses Not on filedocumented in this encounter Additional Health Concerns Assessment Noted Time PHQ-9 Depression Total Score: 6 01/14/20 25 10:49 AM EDT documented as of this encounter Care Teams Fruit Loader Machine Operator Relationship Specialty Start Date End Date Guera Menjivar MD [address] [place] [address] PCP - General Family Medicine 12/15/19 documented as of this encounter
--- OUTSIDE RECORDS SUMMARY | 2025-01-13 14:34 | XMS_ITS | Encounter Summary ---
Author Organization [employer] Address 75 [facility] 7t [place] [address] Care Team Providers Care Cooler Worker Name Role Phone Guera Menjivar MD Primary Care Provide r Encounter Details Date Type Department Care Team ([facility] st Contact Info) Description 02/22/2024 Telephone [facility] MEDICINE [address] [place] [address] Guera Menjivar MD [address] [place] [address] Social History Tobacco Use Types Packs/Day Years [...] documented as of this encounter Care Teams Cooler Worker Relationship Specialty Start Date End Date Guera Menjivar MD [address] [place] [phone] PCP - General Family Medicine 12/15/19 documented as of this encounter
--- NOTE | 2025-01-13 15:20 | PFT_ITS ---
Flows: FEV1: 91 % of predicted at 2.03 L FVC: 101 % of predicted at 2.88 L FEV1/FVC: 71 % Bronchodilator response: Absent Volumes: Total lung capacity: 95 % of predicted at 4.61 L Residual volume: 95 % of predicted at 1.71 L Slow vital capacity: 95 % of predicted at 2.90 L Expiratory reserve volume: 91 % of predicted at 0.66 L Diffusion capacity: Mildly decreased Impression: No obstructive or restrictive ventilatory defect. No bronchodilator response. Decreased diffusion capacity suggests emphysema. MTDD
[2025-01-13 16:00] VITALS: PULSE 86
== END 2025-01-13 11:21 | disposition home or self-care (01) ==
LOC: HO.RESP 11:20
PROVIDERS: PCP Internal Medicine; Visit Provider Internal Medicine
DX: R06.2 Wheezing (principal); R06.02 Shortness of breath; E87.5 Hyperkalemia
CPT/HCPCS: 36415; 80048; 94060; 94640; 94727; 94729

== ENCOUNTER → 2025-01-13 15:20 | Outpatient (BNV) | payer OTHER, SELFPAY | PROVIDERS: PCP Internal Medicine; Visit Provider Internal Medicine Pulmonary Disease | DX: R06.00 Dyspnea, unspecified (principal) | CPT/HCPCS: 94060; 94727; 94729 ==

== ENCOUNTER 2025-02-02 14:08 | Outpatient (REF) | payer OTHER, SELFPAY ==
--- NOTE | ~2025-02-02 | US_ITS ---
EXAMINATION: Ultrasound right knee area CLINICAL INFORMATION: Question lipoma in the right knee area COMPARISON: None TECHNIQUE: Area of clinical concern in the lateral aspect of the right knee is evaluated. Grayscale and color imaging. FINDINGS: The area of clinical concern, in the region of the proximal aspect of the fibula is evaluated. In the area of clinical concern, there is an prominent echogenic focus with marked posterior acoustic shadowing. No discrete mass is seen in the overlying soft tissues.. US/US Extremity Nonvas Limited RT IMPRESSION: There is marked posterior acoustic shadowing in the area of clinical concern, laterally at the level of proximal fibula.. Etiology has not been determined by ultrasound. For further evaluation, as the next step, recommend x-ray for further evaluation. Electronically signed by: Earl Lopez MD 02/02/2025 04:43 PM BENJAMIN STEIN
== END 2025-02-02 14:09 | disposition home or self-care (01) ==
LOC: HO.US 14:08
PROVIDERS: PCP Internal Medicine; Visit Provider Internal Medicine
DX: D17.23 Benign lipomatous neoplasm of skin and subcutaneous tissue of right leg (principal)
CPT/HCPCS: 76882

== ENCOUNTER → 2025-02-02 14:20 | Outpatient (BNV) | payer OTHER, SELFPAY | PROVIDERS: PCP Internal Medicine; Visit Provider Radiology Diagnostic Ultrasound | DX: Z03.89 Encounter for observation for other suspected diseases and conditions ruled out (principal) | CPT/HCPCS: 76882 ==

== ENCOUNTER 2025-02-11 14:02 | Outpatient (REF) | payer OTHER, SELFPAY ==
--- NOTE | ~2025-02-11 | XR_ITS ---
EXAMINATIONS: 1. XR TIBIA FIBULA 2 VIEWS RIGHT 2. XR KNEE 4 OR MORE VIEWS RIGHT CLINICAL INFORMATION: mass upper area lipoma of right lower leg, mass? Arrow near area of interest by patient COMPARISON: Ultrasound of the right lower extremity on February 02, 2025 TECHNIQUE: AP and lateral views of the right tibia and fibula were obtained. Four views of the right knee were obtained. FINDINGS: No acute fracture or destructive bone lesion. Mild narrowing of the lateral patellofemoral compartment associated with posterior patellar spurring. Femorotibial joint spaces are preserved. No suprapatellar joint effusion. Normal alignment. No abnormal calcification, ossification or lucency in the soft tissues adjacent to the proximal fibula (vicinity of the arrow marker placed by the technologist). XR/XR knee RT 4V IMPRESSION: No destructive bone lesion in the region of the knee or tibia/fibula. No abnormality in the soft tissue adjacent to the proximal fibula. For further evaluation, as the next step, recommend limited soft tissue MRI of the area of concern of the upper tibia/fibula. Electronically signed by: Aaliyah Parker MD 02/11/2025 03:42 PM EST
--- NOTE | ~2025-02-11 | XR_ITS ---
EXAMINATIONS: 1. XR TIBIA FIBULA 2 VIEWS RIGHT 2. XR KNEE 4 OR MORE VIEWS RIGHT CLINICAL INFORMATION: mass upper area lipoma of right lower leg, mass? Arrow near area of interest by patient COMPARISON: Ultrasound of the right lower extremity on February 02, 2025 TECHNIQUE: AP and lateral views of the right tibia and fibula were obtained. Four views of the right knee were obtained. FINDINGS: No acute fracture or destructive bone lesion. Mild narrowing of the lateral patellofemoral compartment associated with posterior patellar spurring. Femorotibial joint spaces are preserved. No suprapatellar joint effusion. Normal alignment. No abnormal calcification, ossification or lucency in the soft tissues adjacent to the proximal fibula (vicinity of the arrow marker placed by the technologist). XR/XR tibia fibula RT 2V IMPRESSION: No destructive bone lesion in the region of the knee or tibia/fibula. No abnormality in the soft tissue adjacent to the proximal fibula. For further evaluation, as the next step, recommend limited soft tissue MRI of the area of concern of the upper tibia/fibula. Electronically signed by: Aaliyah Parker MD 02/11/2025 03:42 PM [facility]
--- OUTSIDE RECORDS SUMMARY | 2025-02-11 17:03 | XMS_ITS | Encounter Summary ---
Author Organization [employer] Address 75 [facility] 7t [place] [address] Care Team Providers Care Nitriles Lab Technician Name Role Phone Guera Menjivar MD Primary Care Provide r Encounter Details Date Type Department Care Team (Late st Contact Info) Description 02/13/2023 Abstract [facility] MEDICINE [address] [place] [address] Radha Clarke Social History Tobacco Use Types [...] documented as of this encounter Care Teams Nitriles Lab Technician Relationship Specialty Start Date End Date Guera Menjivar MD [address] [place] [phone] PCP - General Family Medicine 12/15/19 documented as of this encounter
--- OUTSIDE RECORDS SUMMARY | 2025-02-11 17:03 | XMS_ITS | Encounter Summary ---
Author Organization [employer] Address [address] [facility] 7t [place] [address] Care Team Providers Care Security Controls Assessor Name Role Phone Guera Menjivar MD Primary Care Provide r Encounter Details Date Type Department Care Team (Late st Contact Info) Description 11/29/2022 Orders Only [facility] MEDICINE [address] [place] [address] Provider, Historical, Social History Tobacco Use Types [...] documented as of this encounter Care Teams Security Controls Assessor Relationship Specialty Start Date End Date Guera Menjivar MD [address] [place] [address] PCP - General Family Medicine 12/15/19 documented as of this encounter
--- OUTSIDE RECORDS SUMMARY | 2025-02-11 17:03 | XMS_ITS | Encounter Summary ---
Author Organization [employer] Address 75 [facility] 7t [place] [address] Care Team Providers Care Environmental Research Project Manager Name Role Phone Guera Menjivar MD Primary Care Provide r Reason for Visit * Reason Onset Date Comments patient calling back with insurance info emergen cy dental 09/25/2024 Encounter Details Date Type Department Care Team ([facility] st Contact Info) Description 09/25/2024 Telephone [facility] [address] [place] [address] Kathrine Saeed DDS patient calling back with [...] rescheduled if she contacts and has info [employer] and appt slot is still available as well documented in this encounter Plan of Treatment Not on file documented as of this encounter Visit Diagnoses Not on filedocumented in this encounter Additional Health Concerns Assessment Noted Time PHQ-9 Depression Total Score: 0 08/23/19 23 2:00 PM EDT documented as of this encounter Care Teams Environmental Research Project Manager Relationship Specialty Start Date End Date Guera Menjivar MD [address] [place] [address] PCP - General Family Medicine 12/15/19 documented as of this encounter
--- OUTSIDE RECORDS SUMMARY | 2025-02-11 17:03 | XMS_ITS | Encounter Summary ---
Author Organization [employer] Address [address] [place] [address] 7t [place] [address] Care Team Providers Care Presidential Helicopter Crew Chief Name Role Phone Guera Menjivar MD Primary Care Provide r Encounter Details Date Type Department Care Team (Late st Contact Info) Description 02/16/2022 Abstract [facility] MEDICINE [address] [place] [address] Provider, MD Elo Social History Tobacco Use [...] on filedocumented in this encounter Care Teams Presidential Helicopter Crew Chief Relationship Specialty Start Date End Date Guera Menjivar MD [address] [place] [address] PCP - General Family Medicine 12/15/19 documented as of this encounter
--- OUTSIDE RECORDS SUMMARY | 2025-02-11 17:03 | XMS_ITS | Encounter Summary ---
Author Organization [employer] Address 75 [facility] [address] [place] [address] Care Team Providers Care Heel Painter Name Role Phone Guera Menjivar MD Primary Care Provide r Reason for Visit * Reason Onset Date Comments triage 04/11/2022 Encounter Details Date Type Department Care Team ([facility] st Contact Info) Description 04/11/2022 Telephone [facility] MEDICINE [address] [place] [address] Guera Menjivar MD [address] [place] [address] triage Social History Tobacco Use Types Packs/Day [...] . Available appt. Pt will go to [facility]. Pt agres to protocol. Used: Arm [...] on filedocumented in this encounter Care Teams Heel Painter Relationship Specialty Start Date End Date Guera Menjivar MD [address] [place] [address] PCP - General Family Medicine 12/15/19 documented as of this encounter
--- OUTSIDE RECORDS SUMMARY | 2025-02-11 17:03 | XMS_ITS | Encounter Summary ---
Author Organization [employer] Address [address] [facility] [address] [place] [address] Care Team Providers Care Sap Abap Developer Name Role Phone Guera Menjivar MD Primary Care Provide r Encounter Details Date Type Department Care Team ([facility] st Contact Info) Description 08/31/2024 Telephone [facility] MEDICINE [address] [place] [address] Nydia Valle NP [address] [place] [address] Social History Tobacco Use Types Packs/Day Years [...] mri and ordering CT. Called radiology at [facility] where mri had been completed, soI [...] documented as of this encounter Care Teams Sap Abap Developer Relationship Specialty Start Date End Date Guera Menjivar MD [address] [place] [phone] PCP - General Family Medicine 12/15/19 documented as of this encounter
--- OUTSIDE RECORDS SUMMARY | 2025-02-11 17:03 | XMS_ITS | Encounter Summary ---
Author Organization [employer] Address [address] [facility] [address] [place] [address] Care Team Providers Care Bump Grader Operator Name Role Phone Guera Menjivar MD Primary Care Provide r Encounter Details Date Type Department Care Team ([facility] st Contact Info) Description 02/22/2024 Telephone [facility] MEDICINE [address] [place] [address] Guera Menjivar MD [address] [place] [address] Social History Tobacco Use Types Packs/Day Years [...] documented as of this encounter Care Teams Bump Grader Operator Relationship Specialty Start Date End Date Guera Menjivar MD [address] [place] [id number] PCP - General Family Medicine 12/15/19 documented as of this encounter
--- OUTSIDE RECORDS SUMMARY | 2025-02-11 17:03 | XMS_ITS | Clinical Summary ---
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 15 mL 1 2 Active Blood Pressure Monitor kitIndications:T emporary high blood pressure Use as directed 3x/week 1 kit 3 Active cetirizine (ZyrTEC) 10 MG tabletIndication s:Seasonal [...] 5 Active albuterol 108 (90 Base) MCG/ACT inhalerIndicatio ns:Bronchiolitis Inhale 2 puffs every 4 (four) hours if needed for wheezing. 18 g 5 026 Active albuterol (2.5 MG/3ML) 0.083% nebulizer [...] 14 patch 5 Active bacitracin 500 UNIT/GM ointmentIndicati ons:Skin pimple Apply topically 2 times daily. 14 g 5 Active ciclopirox (Penlac) 8 % solutionIndicati ons:Onychomycosi s Apply topically at bedtime. 6 mL 5 Active alendronate (Fosamax) 70 MG tabletIndication s:Age-related osteoporosis without current pathological fracture Take 1 tablet (70 mg) by mouth every 7 (seven) days. Take in the morning with a full glass of water, on an empty stomach, and do not take anything else by mouth or lie down for the next 30 min. 4 tablet 11 02/11/2025 2:38 PM EST 5 026 Active predniSONE (Deltasone) 10 MG tabletIndication s:Temporal arteritis (CMS/HCC) (HCC) Take 1 tablet (10 mg) by mouth Once per day for 30 days, THEN 0.5 tablets (5 mg) Once per day. 45 tablet 5 025 Active Active Problems Problem Noted Date Diagnosed [...] Continue to follow with neurology Chronic bronchitis (CMS/HCC) 12/04/2024 Assessment & Plan (12/04/2024 4:39 PM [...] Encounters Date Type Department Care Team Description 02/04/2025 Results Follow-Up [address] [address] Guera Menjivar MD US EXTREMITY NON-VASCULAR RIGHT LIMITED 02/04/2025 Orders Only [address] [address] Guera Menjivar MD Lipoma of right lower extremity (Primary Dx) 02/02/2025 Orders Only [address] [address] Guera Menjivar MD 01/13/2025 11:15 AM EDT Office Visit [address] [address] Guera Menjivar MD Age-related osteoporosis without current pathological fracture; Lipoma of right lower extremity; Hyperkalemia; Temporal arteritis (CMS/HCC) (HCC) 01/13/2025 Travel 01/12/[address] [address] Guera Menjivar MD Chart Prep 01/08/[address] [address] Guera Menjivar MD Appointment Request 12/16/2024 2:00 PM EDT Office Visit [address] [address] Guera Menjivar MD Hyperkalemia (Primary Dx); Temporal arteritis (CMS/HCC); Facial swelling; Encounter for immunization 12/16/2024 Travel 12/16/[address] [address] Guera Menjivar MD Telephone Call 12/05/2024 Results Follow-Up [address] [address] Guera Menjivar MD CBC auto differential, Comprehensive Metabolic Panel, Hemoglobin A1c, Additional followed-up results: 6 12/04/2024 1:15 PM EDT Office Visit [address] [address] Guera Menjivar MD Colon cancer screening (Primary Dx); Asymptomatic menopausal state; Current chronic use of systemic steroids; Temporal arteritis (CMS/HCC); Chronic bronchitis, unspecified chronic bronchitis type (CMS/HCC); Encounter for preventive care; Night sweats; Skin pimple; Onychomycosis 12/04/2024 Orders Only [address] [address] Guera Menjivar MD 12/04/2024 Travel 11/26/2024 Patient Outreach [address] [address] Guera Menjivar MD Pre-visit Planning (SDOH screening completed on 09/25/2024) 11/14/2024 2:00 PM EDT Office Visit [address] [address] Katiuska Evans NP Hospital discharge follow-up (Primary Dx); Encounter for smoking cessation counseling; Screening for lung cancer 11/14/2024 Travel 11/13/[address] [address] Merrick Lopez MA CHARTPREP 11/11/[address] [address] Guera Menjivar MD Durable Medical Equipment (DME Request: Nebulizer) 11/11/[address] [address] Guera Menjivar MD Nurse Triage from Last 3 Months Immunizations Immunization Administration [...] 1960 FIT 1960 FOBT 1960 Sigmoidoscopy 1960 RSV Patients and Patients Aged 60 years or older (1 - Risk 50-74 years 1-dose series) 2008 Dental Oral Exam 07/04/2017 01/02/2017 Dental X-Ray: Bitewings 01/03/2018 01/02/2017 Dental X-Ray: Full Mouth 01/04/2020 01/02/2017, 10/18 Colonoscopy 04/10/2023 04/10/2018 Colorectal Cancer Screening 04/10/2023 COVID-19 Vaccine ( season) 2024 SDOH Screening 09/25/2025 09/25/2024 Alcohol/Substance Use Screening 11/14/2025 11/14/2024 Diabetes: Hemoglobin A1C 12/04/2025 12/04/2024, 06/0 08/2022 Mammogram 12/10/2025 12/10/2024, 09/17, 06/13/2017 Depression Screening 01/13/2026 01/13/2025, 01/14/20 25 Tobacco Screening 01/13/2026 01/13/2025 DTaP/Tdap/Td Vaccines (2 [...] Procedure Name Priority Date/Time Associated Diagnosis Comments XR TIBIA FIBULA 2 VIEWS RIGHT Routine 02/11/2025 2:38 PM EST Lipoma of right lower extremity XR KNEE 4+ VIEWS RIGHT Routine 2:32 PM EST Lipoma of right lower extremity US EXTREMITY NON-VASCULAR RIGHT LIMITED Routine 02/02/2025 2:20 PM EST BASIC METABOLIC PANEL Routine 01/13/2025 11:55 AM [...] 2:24 PM EDT Encounter for preventive care HPV MRNA E6/E7 REFLEX TO HPV 16, 18/45 Routine 10/10/2022 10:52 AM EDT PAP SMEAR Routine 10/10/2022 10:52 AM EDT HM COLONOSCOPY Routine 04/10/2018 INTRAORAL - COMPLETE SERIES OF RADIOGRAPHIC IMAGES Routine 01/02/2017 12:00 AM EDT COMPREHENSIVE ORAL EVALUATION - NEW OR ESTABLISHED PATIENT Routine 01/02/2017 12:00 AM EDT from Last 3 Months or Most Recently Relevant to Health Maintenance Results * XR Tibia Fibula 2 Views Right (02/11/2025 2:38 PM EST) Anatomical Region Laterality Modality Lower Extremities, Lower Leg Right Rad iographic Imaging 02/11/2025 2:38 PM EST Narrative 02/11/2025 3:45 PM EST [facility] [address] [place] [address] XRay Report Signed Patient: Kerline Helms MR#: [id number] : 1960 Acct:[id number] Age/Sex: 64 / F ADM Date: 02/11/25 Loc: .HHCX Attending Dr: Guera Flores MD Ordering Physician: Guera Menjivar MD Date of Service: 02/11/25 Procedure(s): XR tibia fibula RT 2V Accession Number(s): [id number] cc: Guera Menjivar MD Reason for Exam: mass upper area EXAMINATIONS: 1. XR TIBIA FIBULA 2 VIEWS RIGHT 2. XR KNEE 4 OR MORE VIEWS RIGHT CLINICAL INFORMATION: mass upper area lipoma of right lower leg, mass? Arrow near area of interest by patient COMPARISON: Ultrasound of the right lower extremity on February 02, 2025 TECHNIQUE: AP and lateral views of the right tibia and fibula were obtained. Four views of the right knee were obtained. FINDINGS: No acute fracture or destructive bone lesion. Mild narrowing of the lateral patellofemoral compartment associated with posterior patellar spurring. Femorotibial joint spaces are preserved. No suprapatellar joint effusion. Normal alignment. No abnormal calcification, ossification or lucency in the soft tissues adjacent to the proximal fibula (vicinity of the arrow marker placed by the technologist). XR/XR tibia fibula RT 2V IMPRESSION: No destructive bone lesion in the region of the knee or tibia/fibula. No abnormality in the soft tissue adjacent to the proximal fibula. For further evaluation, as the next step, recommend limited soft tissue MRI of the area of concern of the upper tibia/fibula. Electronically signed by: Aaliyah Parker MD 02/11/2025 03:42 PM [facility] [place] Dictated By: Aaliyah Parker MD Signed By: <Electronically signed by Aaliyah Parker MD in OV> 02/11/25 1542 DD/ 1438 TD/TT: 02/11/25 1500 Plant Health Care Technician: Procedure Note Donotuseinterpreter, Image - 02/11/[address] [address] XRay Report Signed Patient: Kerline HelmsMR#: [id number] : 9Acct:[id number] Age/Sex: 64 / FADM Date: 02/11/25 [facility] Attending Dr: Guera Flores MD Ordering Physician: Guera Menjivar MD Date of Service: 02/11/25 Procedure(s): XR tibia fibula RT 2V Accession Number(s): [id number] cc: Guera Menjivar MD Reason for Exam: mass upper area EXAMINATIONS: 1. XR TIBIA FIBULA 2 VIEWS RIGHT 2. XR KNEE 4 OR MORE VIEWS RIGHT CLINICAL INFORMATION: mass upper area lipoma of right lower leg, mass? Arrow near area of interest by patient COMPARISON: Ultrasound of the right lower extremity on February 02, 2025 TECHNIQUE: AP and lateral views of the right tibia and fibula were obtained. Four views of the right knee were obtained. FINDINGS: No acute fracture or destructive bone lesion. Mild narrowing of the lateral patellofemoral compartment associated with posterior patellar spurring. Femorotibial joint spaces are preserved. No suprapatellar joint effusion. Normal alignment. No abnormal calcification, ossification or lucency in the soft tissues adjacent to the proximal fibula (vicinity of the arrow marker placed by the technologist). XR/XR tibia fibula RT 2V IMPRESSION: No destructive bone lesion in the region of the knee or tibia/fibula. No abnormality in the soft tissue adjacent to the proximal fibula. For further evaluation, as the next step, recommend limited soft tissue MRI of the area of concern of the upper tibia/fibula. Electronically signed by: Aaliyah Parker MD 02/11/2025 03:42 PM EST RP Dictated By: Aaliyah Parker MD Signed By: <Electronically signed by Aaliyah Parker MD in OV> 02/11/25 1542 DD/ 1438 TD/TT: 02/11/25 1500 Plant Health Care Technician: us Guera Flores MD IMG XR PROCEDURES Fin al Result * XR Knee 4+ Views Right (02/11/2025 2:32 PM EST) Anatomical Region Laterality Modality Lower Extremities, Knee Right Radiogra phic Imaging 02/11/2025 2:32 PM EST Narrative 02/11/2025 3:45 [place] [address] XRay Report Signed Patient: Kerline Helms MR#: [id number] : 1960 Acct:[id number] Age/Sex: 64 / F ADM Date: 02/11/25 Loc: HO.HHCX Attending Dr: Guera Flores MD Ordering Physician: Guera Menjivar MD Date of Service: 02/11/25 Procedure(s): XR knee RT 4V Accession Number(s): [id number] cc: Guera Menjivar MD Reason for Exam: mass? EXAMINATIONS: 1. XR TIBIA FIBULA 2 VIEWS RIGHT 2. XR KNEE 4 OR MORE VIEWS RIGHT CLINICAL INFORMATION: mass upper area lipoma of right lower leg, mass? Arrow near area of interest by patient COMPARISON: Ultrasound of the right lower extremity on February 02, 2025 TECHNIQUE: AP and lateral views of the right tibia and fibula were obtained. Four views of the right knee were obtained. FINDINGS: No acute fracture or destructive bone lesion. Mild narrowing of the lateral patellofemoral compartment associated with posterior patellar spurring. Femorotibial joint spaces are preserved. No suprapatellar joint effusion. Normal alignment. No abnormal calcification, ossification or lucency in the soft tissues adjacent to the proximal fibula (vicinity of the arrow marker placed by the technologist). XR/XR knee RT 4V IMPRESSION: No destructive bone lesion in the region of the knee or tibia/fibula. No abnormality in the soft tissue adjacent to the proximal fibula. For further evaluation, as the next step, recommend limited soft tissue MRI of the area of concern of the upper tibia/fibula. Electronically signed by: Aaliyah Parker MD 02/11/2025 03:42 PM EST Dictated By: Aaliyah Parker MD Signed By: <Electronically signed by Aaliyah Parker MD in OV> 02/11/25 1542 DD/ 1432 TD/TT: 02/11/25 1500 Plant Health Care Technician: Procedure Note Donotuseinterpreter, Image - 02/11/2025 [place] [address] XRay Report Signed Patient: Nura Helms#: [id number] : 9Acct:[id number] Age/Sex: 64 / FADM Date: 02/11/25 Loc: HO.HHCX Attending Dr: Guera Flores MD Ordering Physician: Guera Menjivar MD Date of Service: 02/11/25 Procedure(s): XR knee RT 4V Accession Number(s): [id number] cc: Guera Menjivar MD Reason for Exam: mass? EXAMINATIONS: 1. XR TIBIA FIBULA 2 VIEWS RIGHT 2. XR KNEE 4 OR MORE VIEWS RIGHT CLINICAL INFORMATION: mass upper area lipoma of right lower leg, mass? Arrow near area of interest by patient COMPARISON: Ultrasound of the right lower extremity on February 02, 2025 TECHNIQUE: AP and lateral views of the right tibia and fibula were obtained. Four views of the right knee were obtained. FINDINGS: No acute fracture or destructive bone lesion. Mild narrowing of the lateral patellofemoral compartment associated with posterior patellar spurring. Femorotibial joint spaces are preserved. No suprapatellar joint effusion. Normal alignment. No abnormal calcification, ossification or lucency in the soft tissues adjacent to the proximal fibula (vicinity of the arrow marker placed by the technologist). XR/XR knee RT 4V IMPRESSION: No destructive bone lesion in the region of the knee or tibia/fibula. No abnormality in the soft tissue adjacent to the proximal fibula. For further evaluation, as the next step, recommend limited soft tissue MRI of the area of concern of the upper tibia/fibula. Electronically signed by: Aaliyah Parker MD 02/11/2025 03:42 PM EST RP Dictated By: Aaliyah Parker MD Signed By: <Electronically signed by Aaliyah Parker MD in OV> 02/11/25 1542 DD/ 1432 TD/TT: 02/11/25 1500 Plant Health Care Technician: us Guera Flores MD IMG XR PROCEDURES Fin al Result * US EXTREMITY NON-VASCULAR RIGHT LIMITED (02/02/2025 2:20 PM EST) Anatomical Region Laterality Modality Ultrasound 02/02/2025 2:20 PM EST Narrative 02/02/2025 4:45 PM EST [place] [address] Ultrasound Report Signed Patient: Kerline Helms MR#: [id number] : 1960 Acct:[id number] Age/Sex: 64 / F ADM Date: 02/02/25 Loc: .US Attending Dr: Guera Flores MD Ordering Physician: Guera Menjivar MD Date of Service: 02/02/25 Procedure(s): US Extremity Nonvas Limited RT Accession Number(s): [id number] cc: Guera Menjivar MD Reason for Exam: ? lipoma right knee area EXAMINATION: Ultrasound right knee area CLINICAL INFORMATION: Question lipoma in the right knee area COMPARISON: None TECHNIQUE: Area of clinical concern in the lateral aspect of the right knee is evaluated. Grayscale and color imaging. FINDINGS: The area of clinical concern, in the region of the proximal aspect of the fibula is evaluated. In the area of clinical concern, there is an prominent echogenic focus with marked posterior acoustic shadowing. No discrete mass is seen in the overlying soft tissues.. US/US Extremity Nonvas Limited RT IMPRESSION: There is marked posterior acoustic shadowing in the area of clinical concern, laterally at the level of proximal fibula.. Etiology has not been determined by ultrasound. For further evaluation, as the next step, recommend x-ray for further evaluation. Electronically signed by: Earl Lopez MD 02/02/2025 04:43 PM EST Dictated By: Earl Lopez MD Signed By: <Electronically signed by Earl Lopez MD in OV> 02/02/25 1643 DD/ 1420 TD/TT: 02/02/25 1442 Plant Health Care Technician: [place] Procedure Note Donotuseinterpreter, Image - 02/02/2025 [place] [address] Ultrasound Report Signed Patient: Kerline HelmsMR#: [id number] : 9Acct:[id number] Age/Sex: 64 / FADM Date: 02/02/25 Loc: HO.US Attending Dr: Guera Flores MD Ordering Physician: Guera Menjivar MD Date of Service: 02/02/25 Procedure(s): US Extremity Nonvas Limited RT Accession Number(s): [id number] cc: Guera Menjivar MD Reason for Exam: ? lipoma right knee area EXAMINATION: Ultrasound right knee area CLINICAL INFORMATION: Question lipoma in the right knee area COMPARISON: None TECHNIQUE: Area of clinical concern in the lateral aspect of the right knee is evaluated. Grayscale and color imaging. FINDINGS: The area of clinical concern, in the region of the proximal aspect of the fibula is evaluated. In the area of clinical concern, there is an prominent echogenic focus with marked posterior acoustic shadowing. No discrete mass is seen in the overlying soft tissues.. US/US Extremity Nonvas Limited RT IMPRESSION: There is marked posterior acoustic shadowing in the area of clinical concern, laterally at the level of proximal fibula.. Etiology has not been determined by ultrasound. For further evaluation, as the next step, recommend x-ray for further evaluation. Electronically signed by: Earl Lopez MD 02/02/2025 04:43 PM EST RP Dictated By: Earl Lopez MD Signed By: <Electronically signed by Earl Lopez MD in OV> 02/02/25 1643 DD/ 1420 TD/TT: 02/02/25 1442 Plant Health Care Technician: [place] us Guera Flores MD IMG US PROCEDURES Fin al Result * Basic Metabolic Panel (01/13/2025 11:55 AM EDT) Only the most recent of2 resultswithin the time period is included. Sodium 145 135 - 145 mmol/L [facility] Potassium 4.0 3.3 - 5.1 mmol/L [facility] Chloride 108 96 - 108 mmol/L [facility] Carbon Dioxide 28 22 - 29 mmol/L [facility] Anion Gap 13 12 - 20 [facility] Urea Nitrogen (BUN) 12 9 - 16 mg/dL [facility] Creatinine, Serum 0.81 0.5 - 1.4 mg/dL [facility] Estimated Glomerular Filt Rate >60 [facility] Comment:Chronic Kidney Disea se: Estimated GFR < 60 mL/min/1.28s3Hmrsct Kidney Disease: Estimated GFR < 15 mL/min/1.73m2 Glucose 89 60 - 115 mg/dL [facility] Calcium 9.5 8.4 - 10.2 mg/dL [facility] Blood Venous blood specimen / Unknown 01/13/2025 11:55 AM EDT 01/13/2025 1:14 PM EDT us Guera Flores MD LAB BLOOD ORDERABLES Final Result [facility] [address] [place] [address] [phone] * BD DEXA Axial (01/05/2025 12:50 PM EDT) Anatomical Region Laterality Modality Body Radiographic Yodit ging 01/05/2025 12:5 0 PM EDT Narrative 01/05/2025 1:49 PM EDT [facility] [address] [place] [address] Mammography Report Signed Patient: Kerline Helms MR#: [id number] : 1960 Acct:[id number] Age/Sex: 64 / F ADM Date: 01/05/25 Loc: [facility] Attending Dr: Guera Flores MD Ordering Physician: Guera Menjivar MD Results: Date of Service: 01/05/25 Follow Up: Procedure(s): XR DEXA axial skeleton Accession Number(s): [id number] cc: Guera Menjivar MD Reason For Exam: screening osteoporosis EXAMINATION: DXA BONE DENSITY AXIAL HISTORY: screening osteoporosis TECHNIQUE: TapSurge Dual energy absorptiometry (DEXA) of the lumbar [...] is a trademark of the [employer]'s [place] for Metabolic Bone Disease, a World Health Organization (WHO) Collaborating Center. Electronically signed by: Scott Mathews MD 01/05/2025 01:46 PM EDT RP Dictated By: Scott Mathews MD Signed By: <Electronically signed by Scott Mathews MD in OV> 01/05/25 1346 DD/ 1250 TD/TT: 01/05/25 1310 Plant Health Care Technician: Procedure Note Donotuseinterpreter, Image - 01/05/2025 [facility] [address] [place] [address] Mammography Report Signed Patient: Nura Helms#: [id number] : 9Acct:[id number] Age/Sex: 64 / FADM Date: 01/05/25 Loc: [facility] Attending Dr: Guera Flores MD Ordering Physician: Guera Menjivar MDResults: Date of Service: 01/05/25Follow Up: Procedure(s): XR DEXA axial skeleton Accession Number(s): [id number] cc: Guera Menjivar MD Reason For Exam: screening osteoporosis EXAMINATION: DXA BONE DENSITY AXIAL HISTORY: screening osteoporosis TECHNIQUE: TapSurge Dual energy absorptiometry (DEXA) of the lumbar [...] is a trademark of the [employer] [place] for Metabolic Bone Disease, a World Health Organization (WHO) Collaborating Center. Electronically signed by: Scott Mathews MD 01/05/2025 01:46 PM EDT Dictated By: Scott Mathews MD Signed By: <Electronically signed by Scott Mathews MD in OV> 01/05/25 1346 DD/ 1250 TD/TT: 01/05/25 1310 Plant Health Care Technician: us Guera Flores MD IMG DXA PROCEDURES Ed ited Result - Final * BI Mammogram Screening Tomosynthesis Bilateral (12/10/2024 1:50 PM EDT) Anatomical Region Laterality Modality Breast Bilateral Mammography 12/10/2024 1:50 PM EDT Narrative 12/12/2024 6:56 PM EDT [facility] [address] [place], [place] [address] Mammography Report Signed Patient: Kerline Helms MR#: [id number] : 1960 Acct:[id number] Age/Sex: 64 / F ADM Date: 12/10/24 Loc: HO.MAMMO Attending Dr: Guera Flores MD Ordering Physician: Guera Menjivar MD Results: 1Negative Date of Service: 12/10/24 Follow Up: 1 Year From Orig inal Mammogram Procedure(s): MM tomosynthesis screening BI Accession Number(s): [id number] cc: Guera Menjivar MD Reason For Exam: [...] by Aaliyah Parker MD in OV> 12/12/24 2196 DD/ 1350 TD/TT: 12/10/24 1415 Plant Health Care Technician: Procedure Note Donotuseinterpreter, Image - 12/12/2024 [facility] [address] [place] [address] Dr[place], [place] [address] Mammography Report Signed Patient: Kerline HelmsMR#: [id number] : 9Acct:[id number] Age/Sex: 64 / FADM Date: 12/10/24 Loc: HO.MAMMO Attending Dr: Guera Flores MD Ordering Physician: Guera Menjivar MDResults: 1Negative Date of Service: 12/10/24Follow Up: 1 Year From Orig inal Mammogram Procedure(s): MM tomosynthesis screening BI Accession Number(s): [id number] cc: Guera Menjivar MD Reason For Exam: [...] by Aaliyah Parker MD in OV> 12/12/24 6529 DD/ 1350 TD/TT: 12/10/24 1415 Plant Health Care Technician: us Guera Flores MD IMG BI PROCEDURES Fin al Result * Slide Review (12/04/2024 2:24 PM EDT) Slide Review VERIFIED [facility] 12/04/2024 2:24 PM EDT 12/04/2024 4:09 PM EDT Guera Flores MD LAB BLOOD ORDERABLES Final Result [facility] [address] [place] [address] [phone] * (ABNORMAL) Vitamin D, 25-Hydroxy, Total, Immunoassay (12/04/2024 2:24 PM EDT) Vitamin D 25-OH Total 21.1(L) >30 ng/mL [facility] Comment: Health Based Reference Values*< 20 ng/mL Auuncskwo18-67 ng/mL Insufficient> 30 ng/mL Sufficient*Tanja MOREL. N [...] BLOOD ORDERABLES Final Result Performing Organization Address [facility]/ZIP Co de Phone Number [facility] [address] [place] [phone] * Vitamin B12/Folate, Serum Panel (12/04/2024 2:24 PM EDT) Vitamin B12 299 200 - 900 pg/mL [facility] Comment:NORMAL 200-900 PG/ML INDETERMINATE 160-199 PG/ML DEFICIENT < 160 PG/ML Folate 7.9 > or = 4.0 ng/mL [facility] Comment:Reference Values:> o r = [...] Final Result Performing Organization Address [facility] Co de Phone Number [facility] [address] [place] [phone] * TSH with Reflex to Free T4 (12/04/2024 2:24 PM EDT) TSH reflex Free T4 0.93 0.32 - 4.0 uIU/mL [facility] Blood Venous blood specimen / Unknown 12/04/2024 2:24 PM EDT 12/04/2024 4:46 PM EDT us Guera Flores MD LAB BLOOD ORDERABLES Final Result Performing Organization Address City/[facility]/ZIP Co de Phone Number [facility] [address] [place] [phone] * (ABNORMAL) CBC auto differential (12/04/2024 2:24 PM EDT) White Blood Count 26.4(H) 4.8 - 10.8 X10*3/uL [facility] Red Blood Count 4.27 4.20 - 5.50 X10*6/uL [facility] Hemoglobin 12.6 12.0 - 16.0 g/dl [facility] Hematocrit 38.3 37.0 - 47.0 % [facility] Mean Corpuscular Volume 89.7 80.0 - 98.0 fL [facility] Mean Corpuscular Hemoglobin 29.5 27.0 - 33.0 pg [facility] Mean Corpuscular HGB Conc 32.9 31.0 - 35.0 g/dl [facility] Red Cell Distribution Width 18.6(H) 11.0 - 16.0 % [facility] Platelet Count 464(H) 160 - 400 X10*3/uL [facility] Mean Platelet Volume 10.3 9.4 - 12.3 fL [facility] Neutrophils Percent Auto 77.3(H) 45 - 73 % [facility] Imm Gran Pct Auto 4.4(H) 0.0 - 0.4 % [facility] Lymphocytes Percent Auto 13.3(L) 20 - 40 % [facility] Monocytes Percent Auto 4.5 2 - 11 % [facility] [facility] Eosinophils Percent Auto 0.0 0 - 4 % [facility] Basophils Percent Auto 0.5 0 - 2 % [facility] NRBC Pct Auto 0.0 0.0 - 0.2 /100WBC [facility] Neutrophils Absolute Auto 20.4(H) 2.0 - 8.3 x10*3/uL [facility] Imm Gran Abs Auto 1.16(H) 0.00 - 0.03 X10*3/uL [facility] Lymphocytes Absolute Auto 3.5 1.2 - 4.9 X10*3/uL [facility] Monocytes Absolute Auto 1.2 0.1 - 1.2 X10*3/uL [facility] Eosinophils Absolute Auto 0.0 0.0 - 0.4 X10*3/uL [facility] Basophils Absolute Auto 0.1 0.0 - 0.2 X10*3/uL [facility] NRBC Abs Auto 0.000 0.0 - 0.012 X10*3/uL [facility] Blood Venous blood specimen / Unknown 12/04/2024 2:24 PM EDT 12/04/2024 4:09 PM EDT us Guera Flores MD LAB BLOOD ORDERABLES Edited Result - Final Performing Organization Address [facility]/ZIP Co de Phone Number [facility] [address] [place] [phone] * Hepatitis C Antibody with Reflex to HCV, RNA, Quantitative, Real-Time PCR (12/04/2024 2:24 PM EDT) Hepatitis C Antibody Nonreactive Nonreactive [facility] Comment:Antibodies to HCV no t detected; does not exclude early acuteHCV infection. Blood Venous blood specimen / Unknown 12/04/2024 2:24 PM EDT 12/04/2024 4:46 PM EDT us Guera Flores MD LAB BLOOD ORDERABLES Final Result Performing Organization Address [facility]/ZIP Co de Phone Number [facility] [address] [place] [phone] * HIV-1/2 Antigen and Antibodies, Fourth Generation, with Reflexes (12/04/2024 2:24 PM EDT) HIV AB/AG Nonreactive Nonreactive [facility] Comment:HIV-1 p24 Ag and/or HIV-1/HIV-2 Ab not detected.A test result that is nonreactive does not exclude thepossibility of exposure to or infection with HIV-1 and/orHIV-2. Nonreactive results in this assay for individualswith prior exposure to HIV-1 and/or HIV-2 may be due toantigen and antibody levels that are below the limit ofdetection of this assay.The Infoflow HIV Ag/Ab Combo assay result andsupplemental assay results should be interpreted inconjunction with the patient's clinical presentation,history and other laboratory results. If the results areinconsistent with clinical evidence, additional testing issuggested to confirm the result. Blood Venous blood specimen / Unknown 12/04/2024 2:24 PM EDT 12/04/2024 4:46 PM EDT us Guera Flores MD LAB BLOOD ORDERABLES Final Result Performing Organization Address [facility] Co de Phone Number [facility] [address] [place] [phone] * (ABNORMAL) Hemoglobin A1c (12/04/2024 2:24 PM EDT) Hemoglobin A1c 6.2(H) <6.0 % [facility] Comment:Hemoglobin A1C Refer ence Range Adults: 4.8 - 6.0 % Non diabetic: < 6.0 % Goal: < 7.0 %Additional Action Suggested: > 8.0 %Note: Hemoglobin A1c results are invalid for patients with abnormal amounts of HbF. Blood transfusions may impact the HbA1c concentration in the patient sample. Estimated Average Glucose 131 mg/dL [facility] Comment:eAG = Estimated ave rage glucose which is %A1C expressed asaverage glucose, using the formula of the G0J-PhlaeczLwbvgob Glucose study (ADAG), Diabetes Care, Vol.31,#8,Oct. 2007 Blood Venous blood specimen / Unknown 12/04/2024 2:24 PM EDT 12/04/2024 4:09 PM EDT us Guera Flores MD LAB BLOOD ORDERABLES Final Result Performing Organization Address [facility] Co de Phone Number [facility] [address] [place] [phone] * (ABNORMAL) Lipid Panel, Standard (12/04/2024 2:24 PM EDT) Triglycerides 255(H) <150 mg/dL [facility] Comment:Desirable Triglyceri de: less than 150 mg/dLBorderline High Triglyceride 150-199 mg/dLHigh Triglyceride: 200-499 mg/dLVery High Triglyceride: greater than or equal to 5OO mg/dL Cholesterol 278(H) <200 mg/dL [facility] Comment:Desirable Cholestero l: less than 200 mg/dLBorderline High Cholesterol: 200-239 mg/dLHigh Cholesterol: greater than 239 mg/dL LDL Cholesterol Calculated 126(H) <100 mg/dL [facility] Comment:Desirable LDL: less than 100 mg/dLNear Optimal/Above Optimal LDL: 110- 129 mg/dLBorderline High LDL: 130-159 mg/dLHigh LDL: 160-189 mg/dLVery High LDL: greater than or equal to 190 mg/dL HDL Cholesterol 101 >40 mg/dL [facility] Comment:Desirable HDL: great er than 40 mg/dL Note: This HDL assay may give artificially low results in patients with liver disease. Blood Venous blood specimen / Unknown 12/04/2024 2:24 PM EDT 12/04/2024 4:46 PM EDT us Guera Flores MD LAB BLOOD ORDERABLES Final Result [facility] [address] [place] [phone] * (ABNORMAL) Comprehensive Metabolic Panel (12/04/2024 2:24 PM EDT) Sodium 141 135 - 145 mmol/L [facility] Potassium 5.4(H) 3.3 - 5.1 mmol/L [facility] Chloride 104 96 - 108 mmol/L [facility] Carbon Dioxide 29 22 - 29 mmol/L [facility] Anion Gap 13 12 - 20 [facility] Urea Nitrogen (BUN) 21(H) 9 - 16 mg/dL [facility] Creatinine, Serum 0.82 0.5 - 1.4 mg/dL [facility] Estimated Glomerular Filt Rate >60 [facility] Comment:Chronic Kidney Disea se: Estimated GFR < 60 mL/min/1.64m6Egidsz Kidney Disease: Estimated GFR < 15 mL/min/1.73m2 Glucose 106 60 - 115 mg/dL [facility] Calcium 9.6 8.4 - 10.2 mg/dL [facility] Bilirubin, Total 0.4 0.0 - 1.0 mg/dL [facility] Aspartate Amino Transferase 23 5 - 31 U/L [facility] Alanine Aminotransferase 28 0 - 31 U/L [facility] Total Protein 7.0 6.5 - 8.0 g/dL [facility] Albumin Level 4.1 3.5 - 5.0 g/dL [facility] Alkaline Phosphatase 65 39 - 117 U/L [facility] Blood Venous blood specimen / Unknown 12/04/2024 2:24 PM EDT 12/04/2024 4:46 PM EDT us Guera Flores MD LAB BLOOD ORDERABLES Final Result [facility] [address] [place] [phone] * HPV mRNA E6/E7 w/Reflex to HPV Genotypes 16, 18/45 (10/10/2022 10:52 AM EDT) HPV nRNA E6/E7 Not Detected Not Detected [facility] Comment:Methodology: Transcr iption-Mediated AmplificationThis assay detects E6/E7 viral messenger RNA (mRNA) from 14high-risk HPV types (16,18,31,33,35,39,45,51,52,56,58,59,66,68).Cervical sources are required for HPV testing.If a vaginal source from a patient who has had atotal hysterectomy with removal of cervix wassubmitted, please contact the testing laboratoryfor alternative testing options.For additional information, please refer [email or web address].SciQuest/faq/[email or web address](This link if provided for information/educational purposes only.)THIS TEST WAS PERFORMED AT:[facility] [place] [phone] GONZALES MD HPV mRNA E6/E7 TNP [facility] HPV 16 RNA TNP [facility] HPV 18/45 RNA TNP [facility] 10/10/2022 10:5 2 AM EDT 10/12/2022 8:30 AM EDT us Guera Flores MD LAB CYTOLOGY ORDERABL ES Final Result [facility] [address] [place] [phone] * Pap Smear (10/10/2022 10:52 AM EDT) 10/10/2022 10:5 2 AM EDT 10/12/2022 8:30 AM EDT Narrative [facility] - 10/24/2022 1:39 PM EDT ----- ------- Name: Kerline Helms Age/Sex: 62/F : 1960 Unit#: [id number] Attend Dr: Guera Menjivar MD Re10/10/22 Status: DEP REF Location: HO.HHCLNP Disch: ----- ------- SPEC : [id number] RECD: 10/12/22 STATUS: JOHN LEMA NUM: [id number] RD: 10/10/22-[address] [facility] [address]: Guera Menjivar MD ENTERED: 10/12/22-125 SP TYPE: Pap Smr OTHR DR: ORDERED: Pap Smear Interpretation Satisfactory for evaluation. Atrophic. Negative for intraepithelial lesion or malignancy. HPV mRNA E6/E7: NOT DETECTED This assay detects E6/E7 viral messenger RNA (mRNA) from 14 high-risk HPV types (16, 18, 31, 33, 35, 39, 45, 51, 52, 56, 58, 59, 66, 68) HPV testing performed by [facility], [place], [place]. See reference laboratory pion of the EMR for entire report. Clinical Information LMP: Unknown date Previous PAP test: Unknown date/findings Material Received ThinPrep-Vaginal/Cervical ----- ------- Signed (signature on file) JIMMY Tsai (ASCP) 10/24/22 1339 ----- ------- END OF REPORT Guera Flores MD LAB CYTOLOGY ORDERABL ES Final Result [facility] [address] [place] [phone] * Hm Colonoscopy (04/10/2018) us Historical Provider HEALTH MAINTENANCE Final Result from Last 3 Months or Most Recently Relevant to Health Maintenance Insurance [facility] Care Teams [employer] Utility Worker Relationship Specialty Start Date End Date Guera Menjivar MD [address] [place] [phone] PCP - General Family Medicine 12/15/19
--- OUTSIDE RECORDS SUMMARY | 2025-02-11 17:03 | XMS_ITS | Encounter Summary ---
Author Organization [employer] Address [address] [facility] [address] [place] [address] Care Team Providers Care Senior Construction Manager Name Role Phone Guera Menjivar MD Primary Care Provide r Reason for Visit * Reason Onset Date Comments Nurse Triage 11/11/2024 Encounter Details Date Type Department Care Team ([facility] st Contact Info) Description 11/11/2024 Telephone [facility] MEDICINE [address] [place] [address] Guera Menjivar MD [address] [place] [address] Nurse Triage Social History Tobacco Use Types [...] RN - 11/11/2024 2:29 PM EDT No enrolled nurse needed as this speech writer speaks Swazi. Call returned to Kerline De La Paz to triagebel at [phone]. Confirms inforamtion from ER Notes, regarding dx of COPD exacerbation. 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 500 mg tablet 500 [...] 11/14/2024 2:00 PM Katiuska Evans NP MEDICINE [facility] 12/04/2024 1:15 PM Guera Flores MD MEDICINE [facility] Protocol Used: Post-Hospitalization Follow-up Call (Adult) [...] ED visit on : Date: 11/10/2024 [place]: [facility] [place] Seen for: Bronchitis Symptomatic Yes *if yes message should go to Triage Patient advised will forward to team nurse for follow up Contact pt at [phone] documented in this encounter Plan of Treatment Not on file documented as of this encounter Visit Diagnoses Not on filedocumented in this encounter Additional Health Concerns Assessment Noted Time PHQ-9 Depression Total Score: 0 08/23/19 23 2:00 PM EDT documented as of this encounter Care Teams Senior Construction Manager Relationship Specialty Start Date End Date Guera Menjivar MD [address] [place] [address] PCP - General Family Medicine 12/15/19 documented as of this encounter
== END 2025-02-11 14:03 | disposition home or self-care (01) ==
LOC: HO.HHCX 14:02
PROVIDERS: PCP Internal Medicine; Visit Provider Internal Medicine
DX: D17.23 Benign lipomatous neoplasm of skin and subcutaneous tissue of right leg (principal)
CPT/HCPCS: 73564; 73590

== ENCOUNTER → 2025-02-11 14:07 | Outpatient (BNV) | payer OTHER, SELFPAY | PROVIDERS: PCP Internal Medicine; Visit Provider Radiology Body Imaging | DX: Z03.89 Encounter for observation for other suspected diseases and conditions ruled out (principal) | CPT/HCPCS: 73564; 73590 ==

== ENCOUNTER 2025-02-18 14:07 | Outpatient (AMB) | payer OTHER, SELFPAY ==
--- NOTE | 2025-02-18 14:21 | A.OFFVIS_ITS ---
Intake Visit Reasons: 2 months with TA Allergies No Known Allergies Allergy (Verified 11/09/24 11:41) HPI Comments Details: 64 years old woman with clinical diagnosis of temporal arteritis made in 2024. Temporal artery biopsy was not performed because of technical difficulties. Apparently, there was problem with IV access. 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 With prednisone, ESR came down to 17. Now she was taking 15 mg prednisone and was feeling fine. Her I was better. No headaches or discomfort reported. No side-effects reported. [facility] Medical History Temporal headache Numbness and tingling Left upper quadrant abdominal pain Hepatic steatosis Surgical History H/O colonoscopy Family History (Updated 01/09/25 @ 14:27 by Winter Brown) Mother HTN (hypertension) Social History Household Members: Spouse and Family Housing: House Do you presently have visiting nurse or other home services: No Alcohol intake: never Comment: Independent in the room , Low Fall risk- No bed alarm Patient Tobacco Use Status: Current everyday Tobacco user Tobacco use type: Cigarette Cigarette Packs Per Day: 0 Years Smoked: 40 Second Hand Smoke Exposure: No service: No Current occupational status: employed Review of Systems Narrative Constitutional:?No fever, chills, fatigue, weight loss, or night sweats. HEENT:?No headache, vision changes, hearing loss, nasal congestion, sore throat. Neurological:?No dizziness, syncope, seizures, numbness, tingling, weakness, tremors, memory loss. Psychiatric:?No anxiety, depression, mood swings, sleep disturbance, or hallucinations. Endocrine:?No heat/cold intolerance, polydipsia, polyuria, or hair/skin changes. Hematologic/Lymphatic:?No easy bruising, bleeding, or lymphadenopathy. Integumentary (Skin):?No rash, lesions, itching, or color changes. ? Physical Exam Neuro Other: Mental Status: Alert and oriented to person, place, and time. Normal attention. Normal spontaneous speech, fluency, and comprehension. Cranial Nerves: CN II: Visual malone full to confrontation, visual acuity intact. CN III, IV, : Pupils equal, round, reactive to light and accommodation. Extraocular movements are normal. CN V: Facial sensation is normal. CN VII: Facial movements symmetrical. CN VIII: Hearing intact to bedside conversation is normal. CN IX, X: Palate elevates symmetrically. CN XI: Shoulder shrug and head turn symmetrical. CN XII: Tongue midline without atrophy or fasciculations. Motor: Bulk and tone normal in all extremities. No significant muscle weakness in arms and legs. No drift. Reflexes: Deep tendon reflexes 2+ and symmetric. Plantar response down-going bilaterally. Coordination: Yyviyj-zm-yqjr and thva-bo-tzlm testing normal. No dysmetria. Gait and Station: No obvious gait abnormality. No ataxia or instability. Extrapyramidal: Full facial expressions and blinking. No rigidity. Movements are appropriate with no tremor or abnormality. Speech: Normal; no dysarthria or tremor. Assessment & Plan Assessment & Plan (1) Cerebral microvascular disease: Code(s): I67.89 - Other cerebrovascular disease Category: Medical (2) Temporal arteritis: Comment[place] [facility] [facility] [place]: Mod MVD Code(s): M31.6 - Other giant cell arteritis Category: Medical Plan Impression: a: Temporal arteritis b: Cerebral microvascular disease Rec: Decrease prednisone to 5mg bid until Mar 18. Starting Mar 19, start taking one a day I discussed prednisone dose with the patient, advising a reduction to 10 mg daily until the end of the year, followed by a further reduction to 5 mg daily starting March 19. I informed the patient that a new prescription for 5 mg tablets would be sent to the pharmacy to facilitate this change. I have r ecommended a follow-up appointment in three months to reassess. I also advised that limited alcohol consumption, such as one drink on , would be acceptable. Medications: New prednisone 5 mg PO BID 180 tabs 0RF Discontinued prednisone Discontinued Reason: Doctor's Order 10 mg PO BID 180 tabs 0RF Coding Level of Care Code Est Pt Level 3 (35514) Diagnoses Cerebral microvascular disease I67.89 Temporal arteritis M31.6
--- OUTSIDE RECORDS SUMMARY | 2025-02-18 17:00 | XMS_ITS | Encounter Summary ---
Author Organization [employer] Address [address] [facility] [address] [place] [address] Care Team Providers Care Commercial Coordinator Name Role Phone Guera Menjivar MD Primary Care Provide r Encounter Details Date Type Department Care Team ([facility] st Contact Info) Description 08/31/2024 Telephone [facility] MEDICINE [address] [place] [address] Nydia Valle NP [address] [place] [address] Social History Tobacco Use Types Packs/Day Years [...] mri and ordering CT. Called radiology at [facility] where mri had been completed, soI [...] documented as of this encounter Care Teams Commercial Coordinator Relationship Specialty Start Date End Date Guera Menjivar MD [address] [place] [phone] PCP - General Family Medicine 12/15/19 documented as of this encounter
--- OUTSIDE RECORDS SUMMARY | 2025-02-18 17:00 | XMS_ITS | Encounter Summary ---
Author Organization [employer] Address [address] [place] [address] [address] [place] [address] Care Team Providers Care Human Relations Teacher Name Role Phone Guera Menjivar MD Primary Care Provide r Encounter Details Date Type Department Care Team (Late st Contact Info) Description 02/16/2022 Abstract [facility] MEDICINE [address] [place] [address] Provider, MD Elo Social History Tobacco Use [...] on filedocumented in this encounter Care Teams Human Relations Teacher Relationship Specialty Start Date End Date Guera Menjivar MD [address] [place] [address] PCP - General Family Medicine 12/15/19 documented as of this encounter
--- OUTSIDE RECORDS SUMMARY | 2025-02-18 17:00 | XMS_ITS | Encounter Summary ---
Author Organization [employer] Address [address] [facility] [address] [place] [address] Care Team Providers Care Supervisor Tunnel Heading Name Role Phone Guera Menjivar MD Primary Care Provide r Reason for Visit * Reason Onset Date Comments Nurse Triage 11/11/2024 Encounter Details Date Type Department Care Team ([facility] st Contact Info) Description 11/11/2024 Telephone [facility] MEDICINE [address] [place] [address] Guera Menjivar MD [address] [place] [address] Nurse Triage Social History Tobacco Use Types [...] RN - 11/11/2024 2:29 PM EDT No automotive service writer needed as this junior copywriter speaks Yoruba. Call returned to Kerline De La Paz to triagebel at [phone]. Confirms inforamtion from ER Notes, regarding dx of COPD exacerbation. 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 500 mg tablet 500 [...] 11/14/2024 2:00 PM Katiuska Evans NP MEDICINE [facility] 12/04/2024 1:15 PM Guera Flores MD MEDICINE [facility] Protocol Used: Post-Hospitalization Follow-up Call [...] ED visit on : Date: 11/10/2024 [place] [facility] [place] Seen for: Bronchitis Symptomatic Yes *if yes message should go to Triage Patient advised will forward to team nurse for follow up Contact pt at [phone] documented in this encounter Plan of Treatment Not on file documented as of this encounter Visit Diagnoses Not on filedocumented in this encounter Additional Health Concerns Assessment Noted Time PHQ-9 Depression Total Score: 0 08/23/19 23 2:00 PM EDT documented as of this encounter Care Teams Supervisor Tunnel Heading Relationship Specialty Start Date End Date Guera Menjivar MD [address] [place] [address] PCP - General Family Medicine 12/15/19 documented as of this encounter
--- OUTSIDE RECORDS SUMMARY | 2025-02-18 17:00 | XMS_ITS | Encounter Summary ---
Author Organization [employer] Address [address] [facility] [address]t [place] [address] Care Team Providers Care Boating Safety Officer Name Role Phone Guera Menjivar MD Primary Care Provide r Encounter Details Date Type Department Care Team (Late st Contact Info) Description 02/13/2023 Abstract [facility] MEDICINE [address] [place] [address] Radha Clarke Social History Tobacco Use Types [...] documented as of this encounter Care Teams Boating Safety Officer Relationship Specialty Start Date End Date Guera Menjivar MD [address] [place] [phone] PCP - General Family Medicine 12/15/19 documented as of this encounter
--- OUTSIDE RECORDS SUMMARY | 2025-02-18 17:00 | XMS_ITS | Encounter Summary ---
Author Organization [employer] Address [address] [facility] [address] [place] [address] Care Team Providers Care Computer Builder Name Role Phone Guera Menjivar MD Primary Care Provide r Encounter Details Date Type Department Care Team ([facility] st Contact Info) Description 02/22/2024 Telephone [facility] MEDICINE [address] [place] [address] Guera Menjivar MD [address] [place] [address] Social History Tobacco Use Types Packs/Day Years [...] documented as of this encounter Care Teams Computer Builder Relationship Specialty Start Date End Date Guera Menjivar MD [address] [place] [phone] PCP - General Family Medicine 12/15/19 documented as of this encounter
--- OUTSIDE RECORDS SUMMARY | 2025-02-18 17:00 | XMS_ITS | Encounter Summary ---
Author Organization [employer] Address [address] [facility] [address] [place] [address] Care Team Providers Care Casino Change Attendant Name Role Phone Guera Menjivar MD Primary Care Provide r Encounter Details Date Type Department Care Team (Late st Contact Info) Description 11/29/2022 Orders Only [facility] [address] [place] [address] Provider, Historical, Social History Tobacco Use Types [...] documented as of this encounter Care Teams Casino Change Attendant Relationship Specialty Start Date End Date Guera Menjivar MD [address] [place] [address] PCP - General Family Medicine 12/15/19 documented as of this encounter
--- OUTSIDE RECORDS SUMMARY | 2025-02-18 17:00 | XMS_ITS | Encounter Summary ---
Author Organization [employer] Address [address] [place] [address] [address] [place] [address] Care Team Providers Care Criminal Records Technician Name Role Phone Guera Menjivar MD Primary Care Provide r Reason for Referral * Imaging (Routine) - Pending Review Specialty Diagnoses / Procedures Referred By Afsaneh gaytan Referred To Contact Radiology Diagnoses Lipoma of right lower extremity Procedures MR Knee w/o Contrast Right Guera Menjivar MD [address] [place] [address] Phone: tel: fax: [facility] [address] [place] [phone] Phone: tel: fax: Referral ID Status Reason Start Date Expiration Date V isits Requested Visits Authorized [id number] Pending Review 02/18/2025 02/18/2026 1 1 Reason for Visit * Reason Onset Date Comments Results 02/18/2025 Encounter Details Date Type Department Care Team (Late st Contact Info) Description 02/18/2025 Results Follow-Up [facility] MED[facility]INE [address] [place] [address] Guera Menjivar MD [address] [place] [address] XR Knee 4+ Views Right Social History Tobacco Use Types Packs/Day Years [...] Encounter - Luz Elena Ureña RN - 02/18/2025 11:53 AM EST TC placed to patient [phone] via [employer] interpreters (#[id number]) in regards to below message. Patient verbalized understanding and is aware she will receive a call for scheduling of the MRI. Patient to f/u PRN. ----- Message from Guera Flores MD sent at 02/18/2025 10:51 AM EST ----- Please let patient know I reviewed her XRAY it is recommended next step MRI to be done I place order thank you ----- Message ----- From: Interface, Ris Results In Sent: 02/11/2025 3:45 PM EST To: Guera Flores MD documented in this encounter Plan of Treatment Scheduled Orders Name Type Priority Associated Diagnoses Orde r Schedule MR Knee w/o Contrast Right Imaging Routine Lipoma of right lower extremity Expected: 02/18/2025, Expires: 02/18/2026 documented as of this encounter Visit Diagnoses Diagnosis Lipoma of right lower extremity- Primary documented in this encounter Additional Health Concerns Assessment Noted Time PHQ-9 Depression Total Score: 6 01/14/20 25 10:49 AM EDT documented as of this encounter Care Teams Criminal Records Technician Relationship Specialty Start Date End Date Guera Menjivar MD [address] [place] [address] PCP - General Family Medicine 12/15/19 documented as of this encounter
--- OUTSIDE RECORDS SUMMARY | 2025-02-18 17:00 | XMS_ITS | Encounter Summary ---
Author Organization [employer] Address [address] [facility] [address] [place] [address] Care Team Providers Care Audograph Operator Name Role Phone Guera Menjivar MD Primary Care Provide r Reason for Visit * Reason Onset Date Comments patient calling back with insurance info emergen cy dental 09/25/2024 Encounter Details Date Type Department Care Team ([facility] st Contact Info) Description 09/25/2024 Telephone [facility] [address] [place] [address] Kathrine Saeed DDS patient calling back with [...] rescheduled if she contacts and has info [employer] and appt slot is still available as well documented in this encounter Plan of Treatment Not on file documented as of this encounter Visit Diagnoses Not on filedocumented in this encounter Additional Health Concerns Assessment Noted Time PHQ-9 Depression Total Score: 0 08/23/19 23 2:00 PM EDT documented as of this encounter Care Teams Audograph Operator Relationship Specialty Start Date End Date Guera Menjivar MD [address] [place] [address] PCP - General Family Medicine 12/15/19 documented as of this encounter
--- OUTSIDE RECORDS SUMMARY | 2025-02-18 17:00 | XMS_ITS | Encounter Summary ---
Author Organization [employer] Address [address] [facility] [address] [place] [address] Care Team Providers Care Property Loss Insurance Claim Adjuster Name Role Phone Guera Menjivar MD Primary Care Provide r Reason for Visit * Reason Onset Date Comments triage 04/11/2022 Encounter Details Date Type Department Care Team ([facility] st Contact Info) Description 04/11/2022 Telephone [facility] MEDICINE [address] [place] [address] Guera Menjivar MD [address] [place] [address] triage Social History Tobacco Use Types Packs/Day [...] . Available appt. Pt will go to [facility]. Pt agres to protocol. Used: Arm [...] on filedocumented in this encounter Care Teams Property Loss Insurance Claim Adjuster Relationship Specialty Start Date End Date Guera Menjivar MD [address] [place] [address] PCP - General Family Medicine 12/15/19 documented as of this encounter
--- OUTSIDE RECORDS SUMMARY | 2025-02-18 17:00 | XMS_ITS | Clinical Summary ---
Author Organization [employer] Address [address] [facility] 7[address] [place] [address] Care Team Providers Care Professional Model Name Role Phone Guera Menjivar MD Primary [...] Encounters Date Type Department Care Team Description 02/18/2025 Results Follow-Up [address] [address] Guera Menjivar MD XR Knee 4+ Views Right 02/04/2025 Results Follow-Up [address] [address] Guera Menjivar MD US EXTREMITY NON-VASCULAR RIGHT LIMITED 02/04/2025 Orders Only [address] [address] Guera Menjivar MD Lipoma of right lower extremity (Primary Dx) 02/02/2025 Orders Only [address] [address] Guera Menjivar MD 01/13/2025 11:15 AM EDT Office Visit [address] [address] Guera Menjivar MD Age-related osteoporosis without current pathological fracture; Lipoma of right lower extremity; Hyperkalemia; Temporal arteritis (CMS/HCC) ([facility]LY [facility]) 01/13/2025 Travel 01/12/[address] [address] Guera Menjivar MD Chart Prep 01/08/[address] [address] Guera Menjivar MD Appointment Request 12/16/2024 2:00 PM EDT Office Visit [address] [address] Guera Menjivar MD Hyperkalemia (Primary Dx); Temporal arteritis (CMS/HCC); Facial swelling; Encounter for immunization 12/16/2024 Travel 12/16/2024 Telephone [facility] [address] [place] [phone] Guera Menjivar MD Telephone Call 12/05/2024 Results Follow-Up [address] [address] Guera Menjivar MD CBC auto differential, Comprehensive Metabolic Panel, Hemoglobin A1c, Additional followed-up results: 6 12/04/2024 1:15 PM EDT Office Visit [address] [address] Guera Menjivar MD Colon cancer screening (Primary Dx); Asymptomatic menopausal state; Current chronic use of systemic steroids; Temporal arteritis (CMS/HCC); Chronic bronchitis, unspecified chronic bronchitis type (CMS/HCC); Encounter for preventive care; Night sweats; Skin pimple; Onychomycosis 12/04/2024 Orders Only [address] [address] Guera Menjivar MD 12/04/2024 Travel 11/26/2024 Patient Outreach [address] [address] Guera Menjivar MD Pre-visit Planning ([facility] screening completed on 09/25/2024) from Last 3 Months Immunizations Immunization Administration [...] PM EST Narrative 02/11/2025 3:45 PM EST [address] [address] XRay Report Signed Patient: Kerline Helms MR#: [id number] : 1960 Acct:[id number] Age/Sex: 64 / F ADM Date: 02/11/25 Loc: HO.HHCX Attending Dr: Guera Flores MD Ordering Physician: Guera Menjivar MD Date of Service: 02/11/25 Procedure(s): XR tibia fibula RT 2V Accession Number(s): [id number] cc: Guera Menjivar MD Reason for Exam: [...] 02/11/25 1542 DD/ 1438 TD/TT: 02/11/25 1500 Operations Manager: Procedure Note Donotuseinterpreter, Image - 02/11/[address] [place] [address] XRay Report Signed Patient: Kerline HelmsMR#: [id number] : 9Acct:[id number] Age/Sex: 64 / FADM Date: 02/11/25 Loc: HO.HHCX Attending Dr: Guera Flores MD Ordering Physician: Guera Menjivar MD Date of Service: 02/11/25 Procedure(s): XR tibia fibula RT 2V Accession Number(s): [id number] cc: Guera Menjivar MD Reason for Exam: [...] 02/11/25 1542 DD/ 1438 TD/TT: 02/11/25 1500 Operations Manager: us Guera Floers MD IMG XR PROCEDURES Fin al Result * XR Knee 4+ Views Right (02/11/2025 2:32 PM EST) Anatomical Region Laterality Modality Lower Extremities, Knee Right Radiogra phic Imaging 02/11/2025 2:32 PM EST Narrative 02/11/2025 3:45 PM EST [facility] [address] [place] [address] XRay Report Signed Patient: Kerline Helms MR#: [id number] : 1960 Acct:[id number] Age/Sex: 64 / F ADM Date: 02/11/25 Loc: HO.HHCX Attending Dr: Guera Flores MD Ordering Physician: Guera Menjivar MD Date of Service: 02/11/25 Procedure(s): XR knee RT 4V Accession Number(s): [id number] cc: Guera Menjivar MD Reason for Exam: [...] 02/11/25 1542 DD/ 1432 TD/TT: 02/11/25 1500 Operations Manager: Procedure Note Luis Fernando, Image - 02/11/[address] [address] XRay Report Signed Patient: Kerline HelmsMR#: [id number] : 9Acct:[id number] Age/Sex: 64 / FADM Date: 02/11/25 Loc: .HHCX Attending Dr: Guera Flores MD Ordering Physician: Guera Menjivar MD Date of Service: 02/11/25 Procedure(s): XR knee RT 4V Accession Number(s): [id number] cc: Guera Menjivar MD Reason for Exam: [...] by: Aaliyah Parker MD 02/11/2025 03:42 PM [facility] Dictated By: Aaliyah Parker MD Signed By: <Electronically signed by Aaliyah Parker MD in OV> 02/11/25 1542 DD/ 1432 TD/TT: 02/11/25 1500 Operations Manager: us Guera Flores MD IMG XR PROCEDURES Fin al Result * US EXTREMITY NON-VASCULAR RIGHT LIMITED (02/02/2025 2:20 PM EST) Anatomical Region Laterality Modality Ultrasound 02/02/2025 2:20 PM EST Narrative 02/02/2025 4:45 PM EST [place] [address] Ultrasound Report Signed Patient: Kerline Helms MR#: [id number] : 1960 Acct:[id number] Age/Sex: 64 / F ADM Date: 02/02/25 Loc: HO.US Attending Dr: Guera Flores MD Ordering Physician: Guera Menjivar MD Date of Service: 02/02/25 Procedure(s): US Extremity Nonvas Limited RT Accession Number(s): [id number] cc: Guera Menjivar MD Reason for Exam: [...] by Earl Lopez MD in OV> 02/02/25 164 DD/ 1420 TD/TT: 02/02/25 1442 Operations Manager: [place] Procedure Note Donotuseinterpreter, Image - 02/02/2025 [place] [address] Ultrasound Report Signed Patient: Nura Helms#: [id number] : 9Acct:[id number] Age/Sex: 64 / FADM Date: 02/02/25 Loc: HO.US Attending Dr: Guera Flores MD Ordering Physician: Guera Menjivar MD Date of Service: 02/02/25 Procedure(s): US Extremity Nonvas Limited RT Accession Number(s): [id number] cc: Guera Menjivar MD Reason for Exam: [...] by Earl Lopez MD in OV> 02/02/25 164 DD/ 1420 TD/TT: 02/02/25 1442 Operations Manager: [place] us Guera Flores MD IMG US PROCEDURES Fin al Result * Basic Metabolic Panel (01/13/2025 11:55 AM EDT) Only the most recent of2 resultswithin the time period is included. Sodium 145 135 - 145 mmol/L [facility] Potassium 4.0 3.3 - 5.1 mmol/L [facility] Chloride 108 96 - 108 mmol/L [facility] Carbon Dioxide 28 22 - 29 mmol/L [facility] Anion Gap 13 12 - 20 [facility] Urea Nitrogen (BUN) 12 9 - 16 mg/dL [facility] Creatinine, Serum 0.81 0.5 - 1.4 mg/dL [facility] Estimated Glomerular Filt Rate >60 [facility] Comment:Chronic Kidney Disea se: Estimated GFR < 60 mL/min/1.98n8Xxoocl Kidney Disease: Estimated GFR < 15 mL/min/1.73m2 Glucose 89 60 - 115 mg/dL [facility] Calcium 9.5 8.4 - 10.2 mg/dL [facility] Blood Venous blood specimen / Unknown 01/13/2025 11:55 AM EDT 01/13/2025 1:14 PM EDT us Guera Flores MD LAB BLOOD ORDERABLES Final Result [facility] [address] [place] [phone] * BD DEXA Axial (01/05/2025 12:50 PM EDT) Anatomical Region Laterality Modality Body Radiographic Yodit ging 01/05/2025 12:5 0 PM EDT Narrative 01/05/2025 1:49 PM EDT [facility] [address] [place] [address] Mammography Report Signed Patient: Kerline Helms MR#: [id number] : 1960 Acct:[id number] Age/Sex: 64 / F ADM Date: 01/05/25 Loc: SUNG Attending Dr: Guera Flores MD Ordering Physician: Guera Menjivar MD Results: Date of Service: 01/05/25 Follow Up: Procedure(s): XR DEXA axial skeleton Accession Number(s): [id number] cc: Guera Menjivar MD Reason For Exam: screening osteoporosis EXAMINATION: DXA BONE DENSITY AXIAL HISTORY: screening osteoporosis TECHNIQUE: Silenseed Dual energy absorptiometry (DEXA) of the lumbar [...] is a trademark of the [employer] [place] for Metabolic Bone Disease, a World Health Organization (WHO) Collaborating Center. Electronically signed by: Scott Mathews MD 01/05/2025 01:46 PM EDT RP Dictated By: Scott Mathews MD Signed By: <Electronically signed by Scott Mathews MD in OV> 01/05/25 1346 DD/ 1250 TD/TT: 01/05/25 1310 Operations Manager: Procedure Note Donotuseinterpreter, Image - 01/05/2025 [facility] [address] [place] [address] Mammography Report Signed Patient: Kerline Helms#: [id number] : 9Acct:[id number] Age/Sex: 64 / FADM Date: 01/05/25 Loc: HO.MAMMO Attending Dr: Guera Flores MD Ordering Physician: Guera Menjivaresults: Date of Service: 01/05/25Follow Up: Procedure(s): XR DEXA axial skeleton Accession Number(s): [id number] cc: Guera Menjivar MD Reason For Exam: screening osteoporosis EXAMINATION: DXA BONE DENSITY AXIAL HISTORY: screening osteoporosis TECHNIQUE: Silenseed Dual energy absorptiometry (DEXA) of the lumbar [...] is a trademark of the [employer] [place] for Metabolic Bone Disease, a World Health Organization (WHO) Collaborating Center. Electronically signed by: Scott Mathews MD 01/05/2025 01:46 PM EDT Dictated By: Scott Mathews MD Signed By: <Electronically signed by Scott Mathews MD in OV> 01/05/25 1346 DD/ 1250 TD/TT: 01/05/25 1310 Operations Manager: Guera Flores MD IMG DXA PROCEDURES Ed ited Result - Final * BI Mammogram Screening Tomosynthesis Bilateral (12/10/2024 1:50 PM EDT) Anatomical Region Laterality Modality Breast Bilateral Mammography 12/10/2024 1:50 PM EDT Narrative 12/12/2024 6:56 PM EDT [facility] [address] [place] [address] Mammography Report Signed Patient: Kerline Helms MR#: [id number] : 1960 Acct:[id number] Age/Sex: 64 / F ADM Date: 12/10/24 Loc: MAMMO Attending Dr: Guera Flores MD Ordering Physician: Guera Menjivar MD Results: 1Negative Date of Service: 12/10/24 Follow Up: 1 Year From Orig inal Mammogram Procedure(s): MM tomosynthesis screening BI Accession Number(s): [id number] cc: Guera Menjivar MD Reason For Exam: [...] 12/12/24 1853 DD/ 1350 TD/TT: 12/10/24 1415 Operations Manager: Procedure Note Donotuseinterpreter, Image - 12/12/2024 [facility] [address] [place] [address] Mammography Report Signed Patient: Kerline HelmsMR#: [id number] : 9Acct:[id number] Age/Sex: 64 / FADM Date: 12/10/24 Loc: HO.MAMMO Attending Dr: Guera Flores MD Ordering Physician: Guera Menjivar MDResults: 1Negative Date of Service: 12/10/24Follow Up: 1 Year From Orig inal Mammogram Procedure(s): MM tomosynthesis screening BI Accession Number(s): [id number] cc: Guera Menjivar MD Reason For Exam: [...] Aaliyah Parker MD 12/12/2024 06:53 PM EDT Workstation: [employer] Dictated By: Aaliyah Parker MD Signed By: <Electronically signed by Aaliyah Parker MD in OV> 12/12/24 1853 DD/ 1350 TD/TT: 12/10/24 1415 Operations Manager: us Guera Flores MD IMG BI PROCEDURES Fin al Result * Slide Review (12/04/2024 2:24 PM EDT) Slide Review VERIFIED [facility] 12/04/2024 2:24 PM EDT 12/04/2024 4:09 PM EDT us Guera Flores MD LAB BLOOD ORDERABLES Final Result [facility] [address] [place] [phone] * (ABNORMAL) Vitamin D, 25-Hydroxy, Total, Immunoassay (12/04/2024 2:24 PM EDT) Vitamin D 25-OH Total 21.1(L) >30 ng/mL [facility] Comment: Health Based Reference Values*< 20 ng/mL Cipqiwuqc33-12 ng/mL Insufficient> 30 ng/mL Sufficient*Tanja MOREL. N [...] Flores MD LAB BLOOD ORDERABLES Final Result [facility] [address] [place] [address] [phone] * Vitamin B12/Folate, Serum Panel (12/04/2024 2:24 PM EDT) Vitamin B12 299 200 - 900 pg/mL [facility] Comment:NORMAL 200-900 PG/ML INDETERMINATE 160-199 PG/ML DEFICIENT < 160 PG/ML Folate 7.9 > or = 4.0 ng/mL [facility] Comment:Reference Values:> o r = [...] BLOOD ORDERABLES Final Result Performing Organization Address [facility]/ZIP Co de Phone Number [facility] [address] [place] [phone] * TSH with Reflex to Free T4 (12/04/2024 2:24 PM EDT) TSH reflex Free T4 0.93 0.32 - 4.0 uIU/mL [facility] Blood Venous blood specimen / Unknown 12/04/2024 2:24 PM EDT 12/04/2024 4:46 PM EDT us Guera Flores MD LAB BLOOD ORDERABLES Final Result Performing Organization Address [facility] Co de Phone Number [facility] [address] [place] [phone] * (ABNORMAL) CBC auto differential (12/04/2024 2:24 PM EDT) White Blood Count 26.4(H) 4.8 - 10.8 X10*3/uL [facility] Red Blood Count 4.27 4.20 - 5.50 X10*6/uL [facility] Hemoglobin 12.6 12.0 - 16.0 g/dl [facility] Hematocrit 38.3 37.0 - 47.0 % [facility] Mean Corpuscular Volume 89.7 80.0 - 98.0 fL [facility] Mean Corpuscular Hemoglobin 29.5 27.0 - 33.0 pg [facility] Mean Corpuscular HGB Conc 32.9 31.0 - 35.0 g/dl [facility] Red Cell Distribution Width 18.6(H) 11.0 - 16.0 % [facility] Platelet Count 464(H) 160 - 400 X10*3/uL [facility] Mean Platelet Volume 10.3 9.4 - 12.3 fL [facility] Neutrophils Percent Auto 77.3(H) 45 - 73 % [facility] Imm Gran Pct Auto 4.4(H) 0.0 - 0.4 % [facility] Lymphocytes Percent Auto 13.3(L) 20 - 40 % [facility] Monocytes Percent Auto 4.5 2 - 11 % [facility] Eosinophils Percent Auto 0.0 0 - 4 % [facility] Basophils Percent Auto 0.5 0 - 2 % [facility] NRBC Pct Auto 0.0 0.0 - 0.2 /100WBC [facility] Neutrophils Absolute Auto 20.4(H) 2.0 - 8.3 x10*3/uL [facility] Imm Gran Abs Auto 1.16(H) 0.00 - 0.03 X10*3/uL [facility] Lymphocytes Absolute Auto 3.5 1.2 - 4.9 X10*3/uL [facility] Monocytes Absolute Auto 1.2 0.1 - 1.2 X10*3/uL [facility] Eosinophils Absolute Auto 0.0 0.0 - 0.4 X10*3/uL [facility] Basophils Absolute Auto 0.1 0.0 - 0.2 X10*3/uL [facility] NRBC Abs Auto 0.000 0.0 - 0.012 X10*3/uL [facility] Blood Venous blood specimen / Unknown 12/04/2024 2:24 PM EDT 12/04/2024 4:09 PM EDT Guera Flores MD LAB BLOOD ORDERABLES Edited Result - Final Performing Organization Address City/State/[facility] Co de Phone Number [facility] [address] [place] [phone] * Hepatitis C Antibody with Reflex to HCV, RNA, Quantitative, Real-Time PCR (12/04/2024 2:24 PM EDT) Hepatitis C Antibody Nonreactive Nonreactive [facility] Comment:Antibodies to HCV no t detected; does not exclude early acuteHCV infection. Blood Venous blood specimen / Unknown 12/04/2024 2:24 PM EDT 12/04/2024 4:46 PM EDT us Guera Flores MD LAB BLOOD ORDERABLES Final Result Performing Organization Address [facility] Co de Phone Number [facility] [address] [place] [phone] * HIV-1/2 Antigen and Antibodies, Fourth Generation, with Reflexes (12/04/2024 2:24 PM EDT) Pathologist [facility] HIV AB/AG Nonreactive Nonreactive [facility] Comment:HIV-1 p24 Ag and/or HIV-1/HIV-2 Ab not detected.A test result that is nonreactive does not exclude thepossibility of exposure to or infection with HIV-1 and/orHIV-2. Nonreactive results in this assay for individualswith prior exposure to HIV-1 and/or HIV-2 may be due toantigen and antibody levels that are below the limit ofdetection of this assay.The [employer] HIV Ag/Ab Combo assay result andsupplemental assay results should be interpreted inconjunction with the patient's clinical presentation,history and other laboratory results. If the results areinconsistent with clinical evidence, additional testing issuggested to confirm the result. Blood Venous blood specimen / Unknown 12/04/2024 2:24 PM EDT 12/04/2024 4:46 PM EDT us Guera Flores MD LAB BLOOD ORDERABLES Final Result Performing Organization Address [facility] Co de Phone Number [facility] [address] [place] [phone] * (ABNORMAL) Hemoglobin A1c (12/04/2024 2:24 PM EDT) Hemoglobin A1c 6.2(H) <6.0 % [facility] Comment:Hemoglobin A1C Refer ence Range Adults: 4.8 - 6.0 % Non diabetic: < 6.0 % Goal: < 7.0 %Additional Action Suggested: > 8.0 %Note: Hemoglobin A1c results are invalid for patients with abnormal amounts of HbF. Blood transfusions may impact the HbA1c concentration in the patient sample. Estimated Average Glucose 131 mg/dL [facility] Comment:eAG = Estimated ave rage glucose which is %A1C expressed asaverage glucose, using the formula of the R0H-OaispnzOqbtrra Glucose study (ADAG), Diabetes Care, Vol.31,#8,Oct. 2007 Blood Venous blood specimen / Unknown 12/04/2024 2:24 PM EDT 12/04/2024 4:09 PM EDT us Guera Flores MD LAB BLOOD ORDERABLES Final Result Performing Organization Address [facility] Co de Phone Number [facility] [address] [place] [phone] * (ABNORMAL) Lipid Panel, Standard (12/04/2024 2:24 PM EDT) Triglycerides 255(H) <150 mg/dL [facility] Comment:Desirable Triglyceri de: less than 150 mg/dLBorderline High Triglyceride 150-199 mg/dLHigh Triglyceride: 200-499 mg/dLVery High Triglyceride: greater than or equal to 5OO mg/dL Cholesterol 278(H) <200 mg/dL [facility] Comment:Desirable Cholestero l: less than 200 mg/dLBorderline High Cholesterol: 200-239 mg/dLHigh Cholesterol: greater than 239 mg/dL LDL Cholesterol Calculated 126(H) <100 mg/dL [facility] Comment:Desirable LDL: less than 100 mg/dLNear Optimal/Above Optimal LDL: 110- 129 mg/dLBorderline High LDL: 130-159 mg/dLHigh LDL: 160-189 mg/dLVery High LDL: greater than or equal to 190 mg/dL HDL Cholesterol 101 >40 mg/dL [facility] Comment:Desirable HDL: great er than 40 mg/dL Note: This HDL assay may give artificially low results in patients with liver disease. Blood Venous blood specimen / Unknown 12/04/2024 2:24 PM EDT 12/04/2024 4:46 PM EDT us Guera Flores MD LAB BLOOD ORDERABLES Final Result [facility] [address] [place] [phone] * (ABNORMAL) Comprehensive Metabolic Panel (12/04/2024 2:24 PM EDT) Sodium 141 135 - 145 mmol/L [facility] Potassium 5.4(H) 3.3 - 5.1 mmol/L [facility] Chloride 104 96 - 108 mmol/L [facility] Carbon Dioxide 29 22 - 29 mmol/L [facility] Anion Gap 13 12 - 20 [facility] Urea Nitrogen (BUN) 21(H) 9 - 16 mg/dL [facility] Creatinine, Serum 0.82 0.5 - 1.4 mg/dL [facility] Estimated Glomerular Filt Rate >60 [facility] Comment:Chronic Kidney Disea se: Estimated GFR < 60 mL/min/1.55q2Qpotpp Kidney Disease: Estimated GFR < 15 mL/min/1.73m2 Glucose 106 60 - 115 mg/dL [facility] Calcium 9.6 8.4 - 10.2 mg/dL [facility] Bilirubin, Total 0.4 0.0 - 1.0 mg/dL [facility] Aspartate Amino Transferase 23 5 - 31 U/L [facility] Alanine Aminotransferase 28 0 - 31 U/L [facility] Total Protein 7.0 6.5 - 8.0 g/dL [facility] Albumin Level 4.1 3.5 - 5.0 g/dL [facility] Alkaline Phosphatase 65 39 - 117 U/L [facility] Blood Venous blood specimen / Unknown 12/04/2024 2:24 PM EDT 12/04/2024 4:46 PM EDT Guera Flores MD LAB BLOOD ORDERABLES Final Result [facility] [address] [place] [phone] * HPV mRNA E6/E7 w/Reflex to HPV Genotypes 16, 18/45 (10/10/2022 10:52 AM EDT) HPV nRNA E6/E7 Not Detected Not Detected [facility] Comment:Methodology: Transcr iption-Mediated AmplificationThis assay detects E6/E7 viral messenger RNA (mRNA) from 14high-risk HPV types (16,18,31,33,35,39,45,51,52,56,58,59,66,68).Cervical sources are required for HPV testing.If a vaginal source from a patient who has had atotal hysterectomy with removal of cervix wassubmitted, please contact the testing laboratoryfor alternative testing options.For additional information, please refer [email or web address]/faq/[email or web address](This link if provided for information/educational purposes only.)THIS TEST WAS PERFORMED AT:[facility] [place] [phone] GONZALES MD HPV mRNA E6/E7 TNP [facility] HPV 16 RNA [facility] HPV 18/45 RNA [facility] 10/10/2022 10:5 2 AM EDT 10/12/2022 8:30 AM EDT Guera Flores MD LAB CYTOLOGY ORDERABL ES Final Result [facility] [address] [place] [phone] * Pap Smear (10/10/2022 10:52 AM EDT) 10/10/2022 10:5 2 AM EDT 10/12/2022 8:30 AM EDT Hugh [facility] - 10/24/2022 1:39 PM EDT ----- ------- Name: Kerline Helms Age/Sex: 62/F : 1960 Unit#: [id number] Attend Dr: Guera Menjivar MD Re10/10/22 Status: [facility]: [facility] ------- SPEC : [id number] RECD: 10/12/22 STATUS: JOHN REJocelyne NUM: [id number] RD: 10/10/22-[address] [facility] [address]: Guera Menjivar MD ENTERED: 10/12/22-4 SP TYPE: Pap Smr OT DR: ORDERED: Pap Smear Interpretation Satisfactory for evaluation. Atrophic. Negative for intraepithelial lesion or malignancy. HPV mRNA E6/E7: NOT DETECTED This assay detects E6/E7 viral messenger RNA (mRNA) from 14 high-risk HPV types (16, 18, 31, 33, 35, 39, 45, 51, 52, 56, 58, 59, 66, 68) HPV testing performed by [employer], [place], [place]. See reference laboratory pion of the EMR for entire report. Clinical Information LMP: Unknown date Previous PAP test: Unknown date/findings Material Received ThinPrep-Vaginal/Cervical ----- ------- Signed (signature on file) JIMMY Tsai (ASCP) 10/24/22 1339 ----- ------- END OF REPORT Guera Flores MD LAB CYTOLOGY ORDERABL ES Final Result [facility] [address] [place] [phone] * Hm Colonoscopy (04/10/2018) Historical Provider HEALTH MAINTENANCE Final Result from Last 3 Months or Most Recently Relevant to Health Maintenance Insurance [facility] Care Teams Professional Model Relationship Specialty Start Date End Date Guera Menjivar MD [address] [place] [phone] PCP - General Family Medicine 12/15/19
== END 2025-02-18 14:34 | disposition home or self-care (01) ==
LOC: HO.HSM 14:07
PROVIDERS: PCP Internal Medicine; Visit Provider Psychiatry & Neurology Neurology
DX: I67.89 Other cerebrovascular disease (principal); M31.6 Other giant cell arteritis
CPT/HCPCS: 99213

== ENCOUNTER → 2025-02-18 14:07 | Outpatient (BNVA) | payer OTHER, SELFPAY | PROVIDERS: PCP Internal Medicine; Visit Provider Psychiatry & Neurology Neurology | DX: I67.89 Other cerebrovascular disease (principal); M31.6 Other giant cell arteritis; Z79.52 Long term (current) use of systemic steroids; F17.210 Nicotine dependence, cigarettes, uncomplicated | CPT/HCPCS: 99212 ==